=== PATIENT | female | born 1945 | race Caucasian/White ===

== ENCOUNTER 2019-03-17 01:38 | Emergency (ER) | payer BC ==
--- NOTE | 2019-03-17 01:43 | PDOC ---
History of Present Illness - General Stated Complaint: FACIAL DROOP Time Seen by Provider: 03/17/19 01:42 - History of Present Illness Initial Comments: 03/17/19 02:15 The patient is a 73 year old female with a history of HTN, HLD, DM who presents for evaluation of facial droop. The patient reports that she noted mild facial droop earlier yesterday morning with breakfast and noted a swollen sensation to her lips. She states that her co-worker noted her facial droop prompting her presentation to the ED for further evaluation. She denies similar symptoms in the past and otherwise denies fevers, chills, headache, SOB, chest pain, nausea , vomiting, abdominal pain, numbness, tingling, weakness, or changes in urination or bowel movements. tPA Exclusion Checklist 0-3hr - Time Elapsed Date last known well: 03/16/19 Time last known well: 08:00 Elaspsed time: Day(s) and 19 Hour(s) and 29 Minutes - Thrombolytic Therapy Candidate Is the patient eligible for Thrombolytic Therapy?: No - Relative Exclusion Criteria 0-3h Stroke severity too mild: Yes - Ineligibility reason(s) Reasons No tPA given: Outside of window - delayed arrival NIH Stroke Scale - Last Known Well Date/Time & Onset Date Last Known Well: 03/16/19 Time Last Known Well: 08:00 - Initial Evaluation Level of consciousness: Alert Ask patient the month and their age: Answers both correctly Ask patient to open & close eyes; make fist and let go: Obeys both correctly Best gaze (horizontal eye movement): Normal Visual field testing: No visual field loss Facial paresis (Show teeth/raise eyebrows/close eyes tight): Complete paralysis of one or both sides (Upper and lower face) Motor Function: Left Arm: Normal Motor Function: Right Arm: Normal (extends arm 90 (or 45) degrees for 10 seconds without drift Motor Function: Left Leg: Normal (extends leg 30 degrees for 5 seconds without drift) Motor Function: Right Leg: Normal (extends leg 30 degrees for 5 seconds without drift) Limb Ataxia: No ataxia Sensory(Use pinprick test arms,legs,trunk,face/side to side): Normal Best language (Describe picture, name items, read sentences): No Aphasia Dysarthria (read several words): Normal articulation Extinction and Inattention: No abnormality - Total Score NIH Stroke Scale Score: 3 Past History - Past Medical History Home Medications: Ambulatory Orders Peg 400/Hypromellose/Glycerin [Artificial Tears Drops] 1 drop OS [id number] #15 ml 03/17/19 Valacyclovir HCl [Valtrex] 1,000 mg PO TID #21 tablet 03/17/19 predniSONE [Deltasone -] 60 mg PO DAILY #15 tablet 03/17/19 Review of Systems - Review of Systems Comments:: 03/17/19 02:17 Constitutional: No fevers, chills, fatigue, malaise HEENT: Facial Droop. No Rhinorrhea, nasal congestion, visual changes Cardiovascular: No chest pain, syncope, palpitations, lightheadedness Respiratory: No Cough, SOB, Hemoptysis, Gastrointestinal: No Abdominal pain, Nausea, Vomiting, Constipation, Diarrhea, Melena Genitourinary: No Dysuria, Frequency, Urgency, Hesitancy, Hematuria, Flank pain Musculoskeletal: No Myalgia, arthralgia Skin: No rashes, itching, bruising, pallor Neurologic: No Headache, Dizziness, Numbness, Weakness, or Tingling Psychiatric: No Hallucinations. No SI or HI *Physical Exam - Physical Exam Comments: 03/17/19 02:17 General Appearance: Nourished. No Apparent Distress HEENT: EOMI, DORI. No Pharyngeal Erythema, Tonsillar Exudate, Tonsillar Erythema Neck: No Cervical Lymphadenopathy Respiratory/Chest: Lungs Clear, Normal Breath Sounds. No Crackles, Rales, Rhonchi, Wheezing Cardiovascular: Regular Rhythm, Regular Rate. No Murmur, Gallops, Rubs Gastrointestinal/Abdominal: Normal Bowel Sounds, Soft. No Guarding, Rebound, Tenderness Musculoskeletal: No CVA Tenderness Extremity: Normal Capillary Refill Integumentary: Normal Color, Dry, Warm Neurologic: Right sided Cranial Nerve VII Palsy, Fully Oriented, Alert, Normal Mood/Affect, Normal Response, Motor Strength 5/5. Normal Finger to Nose and Heel to Hu[place]h Heart Score/ECG Review #1 ECG reviewed & interpreted by me at: 02:51 General ECG Interpretation: Sinus Rhythm, Normal Rate, Normal Intervals, No acute ischemic changes ED Treatment Course - LABORATORY CBC & Chemistry Diagram: 03/17/19 02:35 03/17/19 02:35 - RADIOLOGY Radiology Studies Ordered: Category Date Time Status HEAD CT (STROKE) [CT] Stat CT Scan 03/17/19 01:42 Ordered Medical Decision Making - Medical Decision Making 03/17/19 02:21 The patient is a 73 year old female with a history of HTN, HLD, DM who presents for evaluation of facial droop. Given the patient's history and physical exam, it is likely the patient's symptoms are due to a morton's palsy as she has complete paralysis of both her upper and lower right sided facial muscles. Head CT was unremarkable as preliminarily read by our paper conservator radiologist. We will obtain a cbc, cmp, troponin, coags, ekg to evaluate further. We will treat with valcyclovir and prednisone and continue to monitor and reassess while here in the ED. 03/17/19 03:34 CBC, cmp, troponin, coags are unremarkable. The patient was reassessed and appear clinically well on exam. We are comfortable discharging the patient home in stable condition. Patient and family made aware of impression and plan, return precautions discussed including but not limited to worsening pain or symptoms, fevers, or signs of infection, chest pain, respiratory distress, inability to tolerate oral intake, dehydration, syncope, or neurologic changes. The patient is to follow up with PMD andas recommended within 1 week, follow up information provided and the patient will call for an appointment. The patient is to take medications including Prednisone and Valcyclovir as instructed for duration of time and continue with supportive care, avoid triggers and precipitants. Patient is safe for outpatient follow-up. *DC/Admit/Observation/Transfer Diagnosis at time of Disposition: Morton's palsy - Discharge Dispostion Disposition: HOME Condition at time of disposition: Stable Decision to Admit order: No - Prescriptions Prescriptions: Peg 400/Hypromellose/Glycerin [Artificial Tears Drops] 1 drop OS [id number] #15 ml predniSONE [Deltasone -] 60 mg PO DAILY #15 tablet Valacyclovir HCl [Valtrex] 1,000 mg PO TID #21 tablet - Referrals - Patient Instructions Printed Discharge Instructions: DI for Morton's Palsy Additional Instructions: 1) Please follow-up with your primary care doctor in the next 2-3 days. Please call tomorrow to schedule a follow up appointment. If you cannot follow up with your doctor within 1 week please return to the Emergency Department for any urgent issues. 2) Your laboratory / imaging results were normal here in the ER. 3) If you have any worsening of symptoms or any other concerns please return to the ER immediately. Return if worsening symptoms including fevers, headache, vomiting, visual or hearing disturbances, abdominal pain, chest pain, shortness of breath, syncope, dehydration, inability to take things by mouth/vomiting, altered mental status, or worsening concerning symptoms. 4) Please continue taking your home medications as directed. Your medications on discharge include Prednisone and Valcyclovir. Side effects may include upset stomach, abdominal pain, vomiting, or diarrhea. Do not drink alcohol with your medications. - Post Discharge Activity
[2019-03-17 01:57] VITALS: BMI 40.6
--- NOTE | 2019-03-17 02:01 | PDOC ---
Attending Attestation - Resident Resident Name: Carlos Mckeon - ED Attending Attestation I have performed the following: I have examined & evaluated the patient, The case was reviewed & discussed with the resident, I agree w/resident's findings & plan - HPI HPI: 03/17/19 01:56 Pt ambulates with left facial droop that began today - Physicial Exam PE: 03/17/19 01:57 Lef sided morton's palsy - Medical Decision Making 03/17/19 01:57 CT head done. 03/17/19 02:03 Patient Name: LARRY MELTON THIS IS A PRELIMINARY REPORT FROM [facility] DATE OF SERVICE: 2019-03-17 01:40:30 IMAGES: 172 EXAM: CT HEAD WITHOUT CONTRAST No prior exams available for comparison. No acute brain parenchymal abnormality. No hemorrhage, mass or acute territorial infarct. Age-related involutional changes and chronic small vessel ischemic changes. Clear visualized paranasal sinuses. Visualized mastoid air cells clear 03/17/19 02:19 Pt with morton palsy. Normal labs and she will be discharged home. 03/17/19 04:09 Pt will take a cab home; she brought herself to the ER.Neurologically intact.
[2019-03-17] MEDS ORDERED: valACYclovir HCL 1000 MG TABLET PO ONE (02:20)
[2019-03-17] MEDS ORDERED: predniSONE 20 MG TABLET (UD) PO ONE (02:20)
[2019-03-17] MEDS ORDERED: predniSONE 20 MG TABLET (UD) ONE (02:41)
[2019-03-17] MEDS ORDERED: valACYclovir HCL 500 MG TABLET (FP) ONE (02:41)
[2019-03-17 02:49] LABS: BASO % 0.5 % (0-2.0); EOS % 2.5 % (0-4.5); HEMATOCRIT 36.8 % (32.4-45.2); HEMOGLOBIN 12.3 GM/dL (10.7-15.3); LYMPH % 16.2 % (8-40); MCH 31.2 pg (25.7-33.7); MCHC 33.5 g/dl (32.0-36.0); MEAN PLT VOLUME 7.3 fl (7.5-11.1); MONO % 5.1 % (3.8-10.2); NEUT % 75.7 % (42.8-82.8); PLATELET COUNT 240 K/MM3 (134-434); RBC 3.95 M/mm3 (3.60-5.2); RDW 13.6 % (11.6-15.6); WHITE BLOOD COUNT 8.5 K/mm3 (4.0-10.0)
[2019-03-17 03:04] LABS: INR 1.02 (0.83-1.09)
[2019-03-17 03:17] LABS: ALBUMIN 3.6 g/dl (3.4-5.0); ALK PHOS 107 U/L (45-117); ANION GAP 5 MMOL/L (8-16); BILIRUBIN,TOTAL 0.3 mg/dL (0.2-1); BLOOD UREA NITROGEN 10 mg/dL (7-18); CALCIUM 8.9 mg/dL (8.5-10.1); CHLORIDE 104 mmol/L (98-107); CHOLESTEROL 197 mg/dL (50-200); CO2 30 mmol/L (21-32); CREATININE 0.6 mg/dL (0.55-1.3); GLUCOSE,RANDOM 128 mg/dL (74-106); HDL CHOLESTEROL 62 mg/dL (40-60); POTASSIUM 3.4 mmol/L (3.5-5.1); SGOT/AST 14 U/L (15-37); SGPT/ALT 20 U/L (13-61); SODIUM 140 mmol/L (136-145); TOT PROT 7.2 g/dl (6.4-8.2); TRIGLYCERIDES 120 mg/dL (0-150)
[2019-03-17 04:18] VITALS: BP 178/78; PULSE 74; TEMP 98.4
--- NOTE | 2019-03-17 12:57 | EKG ---
Test Reason : Blood Pressure : / mmHG Vent. Rate : 070 BPM Atrial Rate : 070 BPM P-R Int : 172 ms QRS Dur : 080 ms QT Int : 408 ms P-R-T Axes : 048 013 055 degrees QTc Int : 440 ms NORMAL SINUS RHYTHM NORMAL ECG Confirmed by MD KIMBER, BRYANNA ([id number]) on 03/17/2019 12:56:59 PM Referred By: Confirmed By:BRYANNA QUIROGA MD
== END 2019-03-17 04:18 | disposition home or self-care (01) ==
LOC: JER 01:38
DX: G51.0 Bell's palsy (principal); I10 Essential (primary) hypertension; E78.5 Hyperlipidemia, unspecified; E11.9 Type 2 diabetes mellitus without complications; Z79.84 Long term (current) use of oral hypoglycemic drugs
CPT/HCPCS: 36415; 70450-TC; 80053; 82465; 82550; 83718; 83721; 84478; 84484; 85025; 85610; 93005; 93010; 99283-25

== ENCOUNTER 2019-08-07 20:34 | Inpatient (IN) | payer BC, OTHER ==
--- NOTE | 2019-08-07 20:51 | PDOC ---
Rapid Medical Evaluation Time Seen by Provider: 08/07/19 20:46 Medical Evaluation: Allergies Allergy/AdvReac Type Severity Reaction Status Date / Time No Known Allergies Allergy Verified 03/17/19 03:39 08/07/19 20:46 The patient presents to the ER with shortness of breath and lightheadedness since Monday. Pt endorses dyspnea on exertion. Exam: lungs CTAB, (-) w/r/r. no pedal edema Orders: labs, EKG, CXR, O2 Pt to proceed to the ER for further evaluation Discharge Disposition - Diagnosis SOB (shortness of breath) - Referrals - Patient Instructions - Post Discharge Activity
[2019-08-07 21:32] LABS: BASO % 0.7 % (0-2.0); EOS % 1.9 % (0-4.5); HEMATOCRIT 39.4 % (32.4-45.2); HEMOGLOBIN 12.7 GM/dL (10.7-15.3); MCH 31.1 pg (25.7-33.7); MCHC 32.2 g/dl (32.0-36.0); MEAN CELL VOLUME 96.5 fl (80-96); MEAN PLT VOLUME 7.3 fl (7.5-11.1); MONO % 5.8 % (3.8-10.2); NEUT % 73.6 % (42.8-82.8); PLATELET COUNT 269 K/MM3 (134-434); RBC 4.08 M/mm3 (3.60-5.2); RDW 14.9 % (11.6-15.6); WHITE BLOOD COUNT 8.3 K/mm3 (4.0-10.0)
[2019-08-07 21:45] LABS: INR 1.11 (0.83-1.09); PROTHROMBIN TIME (PATIENT) 13.1 SEC (9.7-13.0)
[2019-08-07 21:57] LABS: ALBUMIN 3.7 g/dl (3.4-5.0); BILIRUBIN,TOTAL 0.4 mg/dL (0.2-1); BLOOD UREA NITROGEN 9.2 mg/dL (7-18); CALCIUM 8.9 mg/dL (8.5-10.1); CREATININE 0.7 mg/dL (0.55-1.3); TOT PROT 6.8 g/dl (6.4-8.2)
[2019-08-07 21:58] LABS: MAGNESIUM 1.8 mg/dL (1.8-2.4)
--- NOTE | 2019-08-07 22:52 | PDOC ---
Attending Attestation - Resident Resident Name: Amee Deleon - ED Attending Attestation I have performed the following: I have examined & evaluated the patient, The case was reviewed & discussed with the resident, I agree w/resident's findings & plan - HPI HPI: 08/08/19 03:38 see resident hpi - Physicial Exam PE: 08/08/19 03:38 agree with resident exam - Medical Decision Making 08/08/19 03:38 73 yo female with increasing KRUSE lower ext US neg for DVT CXR shows inc interstial markings will admit for further evaluation
--- NOTE | 2019-08-07 23:10 | PDOC ---
History of Present Illness - General Chief Complaint: Shortness of Breath Stated Complaint: SOB (SENT BY PCP) Time Seen by Provider: 08/07/19 20:46 - History of Present Illness Initial Comments: 08/07/19 23:09 73 year old female with a history of HTN, HLD, DM who presents with shortness of breath while walking occurring for 4 days. She denies that the SOB gets worse with lying back, denies chest pain, denies swelling in the legs, denies recent illness, fever, nausea, vomiting, abdominal pain. She has no other complaints at bedside. She does not require oxygen at baseline, but does walk with a cane. SHe states she saw her PCP about her symptoms and was treated with lasix with some improvement. She reports that today her SOB was worse and she called her PCP who told her to come to the ED for workup. ROS GENERAL/CONSTITUTIONAL: No fever or chills. No weakness. HEAD, EYES, EARS, NOSE AND THROAT: No change in vision. No ear pain or discharge. No sore throat. CARDIOVASCULAR: No chest pain, + shortness of breath RESPIRATORY: No cough, wheezing, or hemoptysis. GASTROINTESTINAL: No nausea, vomiting, diarrhea or constipation. GENITOURINARY: No dysuria, frequency, or change in urination. MUSCULOSKELETAL: No joint or muscle swelling or pain. No neck or back pain. SKIN: No rash NEUROLOGIC: No headache, vertigo, loss of consciousness, or change in strength/ sensation. PE GENERAL: Awake, alert, and fully oriented, in no acute distress HEAD: No signs of trauma, normocephalic, atraumatic EYES: EOMI, sclera anicteric, conjunctiva clear ENT: oropharynx clear without exudates. Moist mucosa NECK: Normal ROM, supple LUNGS: No distress, speaks full sentences, clear to auscultation bilaterally HEART: Regular rate and rhythm, normal S1 and S2, no murmurs, rubs or gallops, peripheral pulses normal and equal bilaterally. ABDOMEN: Soft, nontender, normoactive bowel sounds. No guarding, no rebound. No masses EXTREMITIES : Normal inspection, trace edema bilateral calves R > L, No clubbing or cyanosis. NEUROLOGICAL: Cranial nerves II through XII grossly intact. Normal speech, no focal sensorimotor deficits SKIN: Warm, Dry, normal turgor, no rashes or lesions noted MDM DDX including but not limited to: chf exacerb vs pe r/o acs W/U: - cbc, cmp, trop, ekg, cxr, duplex ED Course: labs within normal ekg: normal sinus at 72bpm ddimer 882 duplex negative plan for admit and chest cta Amee Deleon, PGY2 Emergency Medicine 08/08/19 05:41 Past History - Past Medical History Allergies/Adverse Reactions: Allergies Allergy/AdvReac Type Severity Reaction Status Date / Time No Known Allergies Allergy Verified 08/07/19 20:47 Home Medications: Ambulatory Orders Darifenacin Hydrobromide [Darifenacin ER] 15 mg PO 03/17/19 Lisinopril 20 mg PO DAILY 03/17/19 Peg 400/Hypromellose/Glycerin [Artificial Tears Drops] 1 drop OS [id number] PRN #1 bottle 03/17/19 Rosuvastatin [Crestor -] 10 mg PO DAILY 03/17/19 Valacyclovir HCl [Valtrex] 1,000 mg PO TID #21 tablet 03/17/19 metFORMIN HCL [Metformin HCl] 500 mg PO 03/17/19 predniSONE [Deltasone -] 60 mg PO DAILY #21 tablet 03/17/19 COPD: No Diabetes: Yes HTN: Yes Hypercholesterolemia: Yes - Suicide/Smoking/Psychosocial Hx Smoking History: Never smoked *Physical Exam - Vital Signs Last Vital Signs Temp Pulse Resp BP Pulse Ox 97.8 F 76 28 H 137/81 96 08/07/19 20:47 08/07/19 20:47 08/07/19 20:47 08/07/19 20:47 08/07/19 21:40 ED Treatment Course - LABORATORY CBC & Chemistry Diagram: 08/07/19 21:12 08/07/19 21:12 - ADDITIONAL ORDERS Additional order review: Laboratory Results 08/07/19 08/07/19 08/07/19 21:12 21:12 21:12 PT with INR 13.10 H INR 1.11 H Sodium 142 Potassium 4.0 Chloride 102 Carbon Dioxide 36 H Anion Gap 4 L BUN 9.2 Creatinine 0.7 Est GFR (CKD-EPI)AfAm 99.62 Est GFR (CKD-EPI)NonAf 85.95 Random Glucose 97 Calcium 8.9 Magnesium 1.8 Total Bilirubin 0.4 AST 13 L ALT 21 Alkaline Phosphatase 107 Creatine Kinase 76 Troponin I < 0.02 B-Natriuretic Peptide 188.0 H Total Protein 6.8 Albumin 3.7 08/07/19 21:12 RBC 4.08 MCV 96.5 H MCHC 32.2 RDW 14.9 MPV 7.3 L Neutrophils % 73.6 Lymphocytes % 18.0 Monocytes % 5.8 Eosinophils % 1.9 Basophils % 0.7 *DC/Admit/Observation/Transfer Diagnosis at time of Disposition: SOB (shortness of breath) - Discharge Dispostion Decision to Admit order: Yes - Referrals Referrals: Anika Mcgraw MD [Primary Care Provider] - - Patient Instructions - Post Discharge Activity
--- NOTE | 2019-08-08 08:54 | HP ---
Admitting History and Physical - Primary Care Physician PCP: Tierra Jett S - Admission Chief Complaint: SOB History of Present Illness: 73 year old female with a history of HTN, HLD, DM who presents with shortness of breath while walking occurring for 4 days. She denies that the SOB gets worse with lying back, denies chest pain, denies swelling in the legs, denies recent illness, fever, nausea, vomiting, abdominal pain. She has no other complaints at bedside. She does not require oxygen at baseline, but she has home Bipap for sleep apneea; she does walk with a cane. SHe states she saw her PCP about her symptoms and was treated with lasix with some improvement. She reports that today her SOB was worse and she called her PCP dr Pricilla Hung who told her to come to the ED for workup. History Source: Patient, Medical Record Limitations to Obtaining History: Poor Historian - Past Medical History Cardiovascular: Yes: HTN Pulmonary: Yes: COPD - Smoking History Smoking history: Never smoked Have you smoked in the past 12 months: No - Alcohol/Substance Use Hx Alcohol Use: No History of Substance Use: reports: None - Social History Usual Living Arrangement: Yes: Alone History of Recent Travel: No Home Medications - Allergies Allergies/Adverse Reactions: Allergies Allergy/AdvReac Type Severity Reaction Status Date / Time egg Allergy Verified 08/10/19 13:05 milk Allergy Verified 08/10/19 13:06 - Home Medications Home Medications: Ambulatory Orders Darifenacin Hydrobromide [Darifenacin ER] 15 mg PO 03/17/19 Lisinopril 20 mg PO DAILY 03/17/19 Peg 400/Hypromellose/Glycerin [Artificial Tears Drops] 1 drop OS [id number] PRN #1 bottle 03/17/19 Rosuvastatin [Crestor -] 10 mg PO DAILY 03/17/19 Valacyclovir HCl [Valtrex] 1,000 mg PO TID #21 tablet 03/17/19 metFORMIN HCL [Metformin HCl] 500 mg PO 03/17/19 predniSONE [Deltasone -] 60 mg PO DAILY #21 tablet 03/17/19 Family Disease History - Family Disease History Family History: Unremarkable Review of Systems - Review of Systems Constitutional: reports: Lethargy, Weakness (general). denies: Chills, Fever Eyes: denies: Blind Spots, Blurred Vision, Double Vision HENT: denies: Difficult Swallowing, Ear Pain, Epistaxis Neck: denies: Decreased ROM, Tenderness Cardiovascular: reports: Shortness of Breath. denies: Chest Pain, Edema, Palpitations Respiratory: reports: Cough, Exercise Intolerance, Snoring, SOB, SOB on Exertion. denies: Hemoptysis, Orthopnea, PND, Wheezing Gastrointestinal: denies: Abdominal Pain, Constipation, Diarrhea, Melena, Rectal Bleeding, Vomiting Genitourinary: denies: Dysuria, Flank Pain, Frequency Musculoskeletal: denies: Back Pain, Joint Pain Neurological: denies: Change in LOC, Change in Speech, Confusion, Dizziness Endocrine: denies: Excessive Sweating, Flushing, Intolerance to Cold, Unexplained Weight Gain, Unexplained Weight Loss Hematology/Lymphatic: denies: Easily Bruised, Excessive Bleeding, Swollen Glands Psychiatric: denies: Altered Sleep Pattern, Anxiety, Depression, Suicidal Physical Examination Vital Signs: Vital Signs Temperature 97.8 F 08/07/19 20:47 Pulse Rate 81 08/08/19 07:53 Respiratory Rate 26 H 08/08/19 07:53 Blood Pressure 131/63 08/08/19 07:53 O2 Sat by Pulse Oximetry (%) 92 L 08/08/19 07:53 Findings/Remarks: pt seen in ER on O2 NC; sleepy but arousable Constitutional: Yes: Mild Distress (some cough some SOB) Eyes: Yes: Conjunctiva Clear HENT: Yes: Atraumatic Neck: Yes: Supple Cardiovascular: Yes: Regular Rate and Rhythm Respiratory: Yes: Diminished Gastrointestinal: Yes: Soft. No: Tenderness Renal/: No: Hematuria Musculoskeletal: No: Joint Stiffness, Joint Swelling Extremities: No: Cold, Cool, Cyanosis Edema: Yes (trace pretibial bilat.) Integumentary: No: Rash, Venous Stasis Changes Neurological: Yes: WNL, Alert, Oriented ...Motor Strength: WNL Psychiatric: Yes: WNL, Alert, Oriented. No: Agitated, Suicidal Ideation Labs: CBC, BMP 08/07/19 21:12 08/07/19 21:12 Imaging - Results Chest X-ray: Report Reviewed X-ray: Report Reviewed Cat Scan: Report Reviewed Other: Report Reviewed Assessment/Plan 73 year old female with a history of HTN, HLD, DM who presents with shortness of breath while walking occurring for 4 days. Initially slightly better with po lasix but today worse, also some dry cough; on O2 NC sleepy but arousable check ABG; might need bipap admit to monitored unit pulm and cardiology eval chest CTA done d/w IR no PE but small effusion and possible early PNA: iv lasix , iv ATB Nebs iv steroids f/u labs CE prognosis guarded d/w pulm and PCP dr Pricilla hung d/w ER staff d/w pt t time 75 min
[2019-08-08] MEDS: RANITIDINE HCL 150 MG TABLET (FP) PO SCH (09:59)
[2019-08-08] MEDS: SOLIFENACIN SUCCINATE 5 MG TAB PO SCH (09:59)
[2019-08-08] MEDS: methylPREDNISolone NA SUCC 40 MG/1 ML VIAL IVPUSH SCH ×2 (09:59→18:13)
[2019-08-08] MEDS: LISINOPRIL 20 MG TABLET (FP) PO SCH (09:59)
[2019-08-08] MEDS: HEPARIN NA (PORCINE) 5,000 UNITS/ML 1ML VIAL SQ SCH ×2 (09:59→21:54)
[2019-08-08] MEDS ORDERED: AZITHROMYCIN IVPB 500 MG/250 ML BAG IVPB ONE (10:14)
[2019-08-08] MEDS ORDERED: CEFTRIAXONE 2 GM/100 ML BAG IVPB ONE (10:14)
[2019-08-08] MEDS: CEFTRIAXONE 1 GM in DEXTROSE 5%-WATER - 50 ML IVPB SCH (10:33)
[2019-08-08] MEDS ORDERED: PT OWN MED DRAWER 7, Y5N ONE (10:55)
[2019-08-08] MEDS: AZITHROMYCIN IVPB 500 MG/250 ML BAG IVPB SCH (11:16)
[2019-08-08] MEDS: INSULIN SLIDING SCALE (NOVOLOG) 1 VIAL SQ SCH ×3 (11:41→21:55)
[2019-08-08] MEDS: FUROSEMIDE 40 MG/4 ML INJECTABLE VIAL IVPUSH SCH (11:41)
[2019-08-08 11:55] LABS: ARTERIAL BLD GAS O2 SATURATION 92.9 % (95-98); ARTERIAL BLOOD GAS BASE EXCESS 4.6 meq/l (-2-2); ARTERIAL BLOOD GAS PO2 79.8 mmHg (80-100)
[2019-08-08 11:56] LABS: ALLENS TEST POSITIVE
[2019-08-08 11:58] LABS: ARTERIAL BLOOD GAS PCO2 98.9 mmHg (35-45); ARTERIAL BLOOD GAS pH 7.19 (7.35-7.45)
--- NOTE | 2019-08-08 12:41 | CON.CARD ---
Cardiology Consult (text) - Consultation Consultation Note: cc: sob hpi: 73 f hx htn, hld, dm, here with sob for past few days. No cp palps dizzy loc pnd orthopnea le edema. No known hx hrt dz or lung dz. No smoking hx. Currently getting treated with iv lasix and iv steroids in er. pmh: per hpi psh: nc social: no tob fam: no premature cad ros: per hpi; all others nl meds: Home Medications Medication Instructions Recorded Darifenacin Hydrobromide 15 mg PO 03/17/19 [Darifenacin ER] Lisinopril 20 mg PO DAILY 03/17/19 Peg 400/Hypromellose/Glycerin 1 drop OS [id number] PRN #1 bottle 03/17/19 [Artificial Tears Drops] Rosuvastatin [Crestor -] 10 mg PO DAILY 03/17/19 Valacyclovir HCl [Valtrex] 1,000 mg PO TID #21 tablet 03/17/19 metFORMIN HCL [Metformin HCl] 500 mg PO 03/17/19 predniSONE [Deltasone -] 60 mg PO DAILY #21 tablet 03/17/19 pe: Vital Signs Period Temp Pulse Resp BP Sys/Crouch Pulse Ox Last 24 Hr 97.8 F 76-81 26-28 131-137/63-81 89-96 nad no jvd rrr s1s2 no mrg dec bs bl, bibasilar crackles, nl eff aao3 no le e/c/c abd nt nd pos bs no jaundice diaphroesis pos dp pt no carotid bruits Laboratory Last Values WBC 8.3 K/mm3 (4.0-10.0) 08/07/19 21:12 RBC 4.08 M/mm3 (3.60-5.2) 08/07/19 21:12 Hgb 12.7 GM/dL (10.7-15.3) 08/07/19 21:12 Hct 39.4 % (32.4-45.2) 08/07/19 21:12 MCV 96.5 fl (80-96) H 08/07/19 21:12 MCH 31.1 pg (25.7-33.7) 08/07/19 21:12 MCHC 32.2 g/dl (32.0-36.0) 08/07/19 21:12 RDW 14.9 % (11.6-15.6) 08/07/19 21:12 Plt Count 269 K/MM3 (134-434) 08/07/19 21:12 MPV 7.3 fl (7.5-11.1) L 08/07/19 21:12 Absolute Neuts (auto) 6.1 K/mm3 (1.5-8.0) 08/07/19 21:12 Neutrophils % 73.6 % (42.8-82.8) 08/07/19 21:12 Lymphocytes % 18.0 % (8-40) 08/07/19 21:12 Monocytes % 5.8 % (3.8-10.2) 08/07/19 21:12 Eosinophils % 1.9 % (0-4.5) 08/07/19 21:12 Basophils % 0.7 % (0-2.0) 08/07/19 21:12 Nucleated RBC % 0 % (0-0) 08/07/19 21:12 PT with INR 13.10 SEC (9.7-13.0) H 08/07/19 21:12 INR 1.11 (0.83-1.09) H 08/07/19 21:12 D-Dimer 882 ng/ml (0-500) H 08/08/19 03:30 Anticoagulation Therapy No Result Required. 08/08/19 11:45 Puncture Site Right radial 08/08/19 11:45 ABG pH 7.19 (7.35-7.45) L* 08/08/19 11:45 ABG pCO2 at Pt Temp 98.9 mmHg (35-45) H* 08/08/19 11:45 ABG pO2 at Pt Temp 79.8 mmHg (80-100) L 08/08/19 11:45 ABG HCO3 36.1 mmol/L (22-27) H 08/08/19 11:45 ABG O2 Sat (Measured) 92.9 % (95-98) L 08/08/19 11:45 ABG O2 Content 16.3 % vol 08/08/19 11:45 ABG Base Excess 4.6 meq/l (-2-2) H 08/08/19 11:45 Sven Test Positive 08/08/19 11:45 O2 Delivery Device No Result Required. 08/08/19 11:45 Oxygen Flow Rate 3l 08/08/19 11:45 Vent Mode No Result Required. 08/08/19 11:45 Vent Rate No Result Required. 08/08/19 11:45 Mechanical Rate No Result Required. 08/08/19 11:45 Pressure Support Vent No Result Required. 08/08/19 11:45 Sodium 142 mmol/L (136-145) 08/07/19 21:12 Potassium 4.0 mmol/L (3.5-5.1) 08/07/19 21:12 Chloride 102 mmol/L (98-107) 08/07/19 21:12 Carbon Dioxide 36 mmol/L (21-32) H 08/07/19 21:12 Anion Gap 4 MMOL/L (8-16) L 08/07/19 21:12 BUN 9.2 mg/dL (7-18) 08/07/19 21:12 Creatinine 0.7 mg/dL (0.55-1.3) 08/07/19 21:12 Est GFR (CKD-EPI)AfAm 99.62 08/07/19 21:12 Est GFR (CKD-EPI)NonAf 85.95 08/07/19 21:12 POC Glucometer 118 UNITS (80-120) 08/08/19 11:34 Random Glucose 97 mg/dL (74-106) 08/07/19 21:12 Calcium 8.9 mg/dL (8.5-10.1) 08/07/19 21:12 Magnesium 1.8 mg/dL (1.8-2.4) 08/07/19 21:12 Total Bilirubin 0.4 mg/dL (0.2-1) 08/07/19 21:12 AST 13 U/L (15-37) L 08/07/19 21:12 ALT 21 U/L (13-61) 08/07/19 21:12 Alkaline Phosphatase 107 U/L (45-117) 08/07/19 21:12 Creatine Kinase 76 U/L (26-192) 08/07/19 21:12 Troponin I < 0.02 ng/ml (0.00-0.05) 08/07/19 21:12 B-Natriuretic Peptide 188.0 pg/ml (5-125) H 08/07/19 21:12 Total Protein 6.8 g/dl (6.4-8.2) 08/07/19 21:12 Albumin 3.7 g/dl (3.4-5.0) 08/07/19 21:12 cta chest: no pe, mild chf ecg: sr nl intervals no ischemic changes a/p: 73 f hx htn, hld, dm, here with sob for past few days. sob, acute chf: -no signs acs, cont shahla on tele -check echo -continue with iv lasix, daily wts, daily chem7 -pulm eval pending as well htn: -cont home meds hld: -cont statin
--- NOTE | 2019-08-08 12:42 | EKG ---
Test Reason : Blood Pressure : / mmHG Vent. Rate : 072 BPM Atrial Rate : 072 BPM P-R Int : 180 ms QRS Dur : 084 ms QT Int : 386 ms P-R-T Axes : 044 027 065 degrees QTc Int : 422 ms NORMAL SINUS RHYTHM WITH SINUS ARRHYTHMIA NORMAL ECG WHEN COMPARED WITH ECG OF 17-MAR-2019 02:15, NO SIGNIFICANT CHANGE WAS FOUND Confirmed by MALDONADO LUNDBERG MD ([id number]) on 08/08/2019 12:41:55 PM Referred By: Confirmed By:MALDONADO LUNDBERG MD
--- NOTE | 2019-08-08 13:52 | CONSULT ---
Consultation: REQUESTING PROVIDER: Dr. Lin CONSULT REQUEST: We have been asked to medically evaluate this patient for acute on chronic hypercapnic respiratory failure. HISTORY OF PRESENT ILLNESS: 73 y/o F with PMH HTN, NIDDM, HLD, PONCHO on CPAP, who presents to the ED c/o KRUSE since Monday. Per pt, at baseline, she is able to ambulate many blocks without difficulty. States that during this time, she has had trouble ambulating a few steps. No inciting fx; denies recent illnesses, allergies, cough, ADAMES, fever, chills, or changes in urinary or bowel function. Only endorses "odd sensation" in her R frontal region, which is a/w her SOB. Does not feel SOB at rest. Per pt , she has been told previously that she has PONCHO and she states that she uses a CPAP at night. While in the ED, pt ABG revealed pH 7.19/ Pc02 98.9/ p02 79.8/ HCO3 36.1. She was subsequently placed on BiPAP, sat 98%. She is on 14/05, Fi02 35%, RR 16. D/t her SOB and incidental elevated d-dimer, she underwent CTA which was (-) for PE. Only revealing trace R pl eff, bibasilar and RUL atelectasis and cardiomegaly. ICU consulted for acute on chronic hypercapnic respiratory failure d/t initial ABG. Pt ambulates w/ a cane at baseline. On examination, she is mentating well. REVIEW OF SYSTEMS: +SOB +KRUSE PHYSICAL EXAMINATION Vital Signs - 24 hr 08/07/19 08/07/19 08/08/19 20:47 21:40 07:53 Temperature 97.8 F Pulse Rate 76 Pulse Rate [ 81 Radial] Respiratory 28 H 26 H Rate Blood Pressure 137/81 Blood Pressure 131/63 [Right Arm] O2 Sat by Pulse 89 L 96 92 L Oximetry (%) 08/08/19 12:40 Temperature Pulse Rate Pulse Rate [ Radial] Respiratory Rate Blood Pressure Blood Pressure [Right Arm] O2 Sat by Pulse 98 Oximetry (%) GENERAL: Pleasant. on BiPAP. in NAD HEAD: Normal with no signs of trauma. EYES: Pupils equal, round and reactive to light, extraocular movements intact, sclera anicteric, conjunctiva clear. EARS, NOSE, THROAT: Ears normal, nares patent, oropharynx clear without exudates. Moist mucous membranes. NECK: Normal range of motion, supple without lymphadenopathy LUNGS: +decreased breath sounds, mild bibasilar crackles. no accessory m usage HEART: Regular rate and rhythm, normal S1 and S2 without murmur, rub or gallop. ABDOMEN: Obese, soft, nontender, not distended, normoactive bowel sounds, no guarding, no rebound LOWER EXTREMITIES: 2+ pt pulses, warm, well-perfused. Without LE edema. + erythema on RLE; without TTP. NEUROLOGICAL: Cranial nerves II-XII intact. Normal speech. PSYCHIATRIC: Cooperative. Laboratory Tests 08/07/19 08/07/19 08/07/19 21:12 21:12 21:12 WBC 8.3 Hgb 12.7 Hct 39.4 Plt Count 269 Sodium 142 Potassium 4.0 Chloride 102 Carbon Dioxide 36 H Anion Gap 4 L BUN 9.2 Creatinine 0.7 Troponin I < 0.02 B-Natriuretic Peptide 188.0 H Initial ABG 08/08/19 11:45 ABG pH 7.19 L* ABG pCO2 at Pt Temp 98.9 H* ABG pO2 at Pt Temp 79.8 L ABG HCO3 36.1 H ABG O2 Sat (Measured) 92.9 L Repeat ABG 08/08/19 14:05 ABG pH 7.24 L ABG pCO2 at Pt Temp 82.2 H* ABG pO2 at Pt Temp 77.1 L ABG HCO3 34.3 H ABG O2 Sat (Measured) 93.3 L EKG: NSR, 72 bpm, qtc ~420. without acute st-t wave changes CXR: +cardiomegaly, congestion. atelectasis R base CTA: (-) PE. trace R pl effusion. bibasilar and RUL atelectasis. cardiomegaly. congestion duplex: (-) DVT. b/l hsieh's cysts ASSESSMENT/PLAN: 73 y/o F with PMH HTN, NIDDM, HLD, PONCHO on CPAP, who presents to the ED c/o KRUSE since Monday. Pt admitted to ICU for acute on chronic hypercapnic respiratory failure. NEURO -AAO x 3. mentating well PULM #Acute on chronic hypercapnic respiratory failure 2/2 CHF exacerbation, PONCHO, OHS -with possible acute CHF exacerbation; also w baseline PONHCO, and likely OHS. hypercapnic however w good oxygenation -c/w biPAP to aid work of breathing. settings changed to: 14/6/ RR 20/ 35% 02 -initial ABG revealing acute resp acidosis pH 7.19/ pc02 98.9/ p02 79.8 . mentating well -repeat AB.24/82.2/HCO3 34.3 -recheck ABG, CXR in AM -duonebs RQID, nebs PRN -medrol 40mg q8h -end tidal CO2 monitoring -low suspicion for PNA currently -f/u blood, ucx, UA, legionella CARDIO #HTN- controlled -c/w lisinopril #Acute CHF exacerbation -f/u ECHO -c/w lasix 40mg IVP qd, daily wts, strict i/o, na control 2g -BiPAP for work of breathing -Cardio consulted: Dr. Guevara #HLD -c/w statin #F/E/N avoid IVF d/t CHF continue to follow lytes NPO while on BiPAP #PPX DVT: Hep sq #code status Full code; d/w patient. ok with intubation if needed makes decisions on own #Dispo admitted to ICU Dispo: We will continue to follow the patient. Thank you for this consultative opportunity. Visit type - Emergency Visit Emergency Visit: No - New Patient This patient is new to me today: Yes Date on this admission: 08/08/19 - Critical Care Critical Care patient: Yes Total Critical Care Time (in minutes): 45 Critical Care Statement: The care of this patient involved high complexity decision making to prevent further life threatening deterioration of the patient 's condition and/or to evaluate & treat vital organ system(s) failure or risk of failure.
[2019-08-08] MEDS ORDERED: ALBUTEROL SO4 0.083% IH SOL 2.5 MG/3 ML VIAL.NEB. NEB PRN (14:04)
[2019-08-08 14:16] LABS: ARTERIAL BLD GAS O2 SATURATION 93.3 % (95-98); ARTERIAL BLOOD GAS BASE EXCESS 4.3 meq/l (-2-2); ARTERIAL BLOOD GAS PO2 77.1 mmHg (80-100); ARTERIAL BLOOD GAS pH 7.24 (7.35-7.45)
[2019-08-08 14:18] LABS: ALLENS TEST POSITIVE
[2019-08-08 14:19] LABS: ARTERIAL BLOOD GAS PCO2 82.2 mmHg (35-45)
--- NOTE | 2019-08-08 14:28 | PN ---
Teaching Attending Note Name of Resident: Candace Warner ATTENDING PHYSICIAN STATEMENT I saw and evaluated the patient. I reviewed the resident's note and discussed the case with the resident. I agree with the resident's findings and plan as documented. SUBJECTIVE: Patient seen and examined in the ER. In brief, HTN, NIDDM, HLD, and PONCHO on CPAP. KRUSE since Monday. Some dry cough. No fever or chills. No hemoptysis or night sweats. In the ER noted to have severe hypercapnea, although she was awake and responsive. NIPPV settings were adjusted with some mild improvement in ABG. Will be monitored in the ICU. Intake & Output 08/05/19 08/06/19 08/07/19 08/08/19 23:59 23:59 23:59 23:59 Weight 215 lb Last Vital Signs Temp Pulse Resp BP Pulse Ox 98.1 F 61 16 135/55 L 98 08/08/19 14:03 08/08/19 14:03 08/08/19 14:03 08/08/19 14:03 08/08/19 12:40 Active Medications Albuterol Sulfate (Ventolin 0.083% Nebulizer Soln -) 1 amp NEB Q4H PRN PRN Reason: SHORT OF BREATH/WHEEZING Albuterol/Ipratropium (Duoneb -) 1 amp NEB RQID [facility] Chlorhexidine Gluconate (Hibiclens For Decolonization -) 1 applic TP HS [facility] Furosemide (Lasix Injection -) 40 mg IVPUSH DAILY [facility] Last Admin: 08/08/19 11:41 Dose: 40 mg Heparin Sodium (Porcine) (Heparin -) 5,000 unit SQ BID [facility] Last Admin: 08/08/19 09:59 Dose: 5,000 unit Azithromycin (Zithromax 500mg Ivpb (Pre-Docked)) 500 mg in 250 mls @ 250 mls/ hr IVPB DAILY [facility] Last Admin: 08/08/19 11:16 Dose: 250 mls/hr Ceftriaxone Sodium 1 gm/ (Dextrose) 50 mls @ 100 mls/hr IVPB DAILY [facility] Last Admin: 08/08/19 10:33 Dose: 100 mls/hr Insulin Aspart (Novolog Vial Sliding Scale -) 1 vial SQ ACHS [facility]; Protocol Last Admin: 08/08/19 11:41 Dose: Not Given Lisinopril (Prinivil) 20 mg PO DAILY [facility] Last Admin: 08/08/19 09:59 Dose: 20 mg Methylprednisolone Sodium Succinate (Solu-Medrol -) 40 mg IVPUSH Q8H-IV [facility] Last Admin: 08/08/19:59 Dose: 40 mg Mupirocin (Bactroban Ointment (For Decolonization) -) 1 applic NS BID [facility] Stop: 08/13/19 21:59 Ranitidine HCl (Zantac -) 150 mg PO DAILY [facility] Last Admin: 08/08/19 09:59 Dose: 150 mg Rosuvastatin Calcium (Crestor -) 10 mg PO HS [facility] Solifenacin (Vesicare -) 10 mg PO DAILY [facility] Last Admin: 08/08/19 09:59 Dose: 10 mg GENERAL: Awake on NIPPV support HEAD: Normal with no signs of trauma. EYES: Pupils equal, round and reactive to light, extraocular movements intact, sclera anicteric, conjunctiva clear. EARS, NOSE, THROAT: Ears normal, nares patent, oropharynx clear without exudates. Moist mucous membranes. NECK: Normal range of motion, supple without lymphadenopathy LUNGS: NIPPV, bilateral rales and rhonchi, mild wheeze HEART: Regular rate and rhythm, normal S1 and S2 without murmur, rub or gallop. ABDOMEN: Obese, soft, nontender, not distended, normoactive bowel sounds, no guarding, no rebound LOWER EXTREMITIES: 2+ pt pulses, warm, well-perfused. Without LE edema. + erythema on RLE; without TTP. NEUROLOGICAL: Non-focal PSYCHIATRIC: Cooperative. Laboratory Tests 08/07/19 08/07/19 08/07/19 21:12 21:12 21:12 WBC 8.3 Hgb 12.7 Hct 39.4 Plt Count 269 Sodium 142 Potassium 4.0 Chloride 102 Carbon Dioxide 36 H Anion Gap 4 L BUN 9.2 Creatinine 0.7 Troponin I < 0.02 B-Natriuretic Peptide 188.0 H Initial ABG 08/08/19 11:45 ABG pH 7.19 L* ABG pCO2 at Pt Temp 98.9 H* ABG pO2 at Pt Temp 79.8 L ABG HCO3 36.1 H ABG O2 Sat (Measured) 92.9 L EKG: NSR, 72 bpm, qtc ~420. without acute st-t wave changes CXR: +cardiomegaly, congestion. atelectasis R base CTA: (-) PE. trace R pl effusion. bibasilar and RUL atelectasis. cardiomegaly. congestion duplex: (-) DVT. b/l hsieh's cysts ASSESSMENT/PLAN: Acute on suspected chronic respiratory failure DM HLD PONCHO on CPAP R/O PNA: low clinical suspicion R/O CHF NIPPV setting were adjusted End tidal CO2 monitoring Strict I & O Empiric ABX coverage for now Check cultures BD TX VTE prophylaxis Lasix IVP Requires ICU monitoring for tenuous respiratory status Dr Ross Critical care time spent in reviewing chart, evaluating patient and formulating plan - 36 minutes.
[2019-08-08] MEDS ORDERED: FUROSEMIDE 40 MG/4 ML INJECTABLE VIAL ONE (15:16)
[2019-08-08 17:05] LABS: ARTERIAL BLD GAS O2 SATURATION 92.3 % (95-98); ARTERIAL BLOOD GAS BASE EXCESS 5.8 meq/l (-2-2); ARTERIAL BLOOD GAS PO2 68.9 mmHg (80-100); ARTERIAL BLOOD GAS pH 7.29 (7.35-7.45)
[2019-08-08 17:08] LABS: ALLENS TEST POSITIVE
[2019-08-08] MEDS: ALBUTEROL SO4 2.5/IPRATROPIUM 0.5 INH SOL 3 ML VIAL.NEB. NEB SCH ×2 (17:13→20:30)
[2019-08-08 17:18] LABS: ARTERIAL BLOOD GAS PCO2 73.4 mmHg (35-45)
--- NOTE | 2019-08-08 17:42 | ECHO ---
Name: LARRY MELTON Exam:Adult Echocardiogram Study Date: 08/08/2019 03:18 PM Age: 73 yrs Reason For Study: SOB Height: 62 in Weight: 215 lb BSA: 2.0 m2 MMode/2D Measurements & Calculations IVSd: 1.1 cm Ao root diam: 2.5 cm LVIDd: 4.2 cm LVIDs: 3.0 cm LVPWd: 1.1 cm EDV(Teich): 79.2 ml LVOT diam: 2.0 cm ESV(Teich): 35.8 ml Doppler Measurements & Calculations MV E max dilshad: 99.7 cm/sec Ao V2 max: 242.3 cm/sec MV A max dilshad: 104.6 cm/sec Ao max P.5 mmHg MV E/A: 0.95 Ao V2 mean: 158.0 cm/sec MV dec time: 0.25 sec Ao mean P.6 mmHg Ao V2 VTI: 54.5 cm VASILE(I,D): 1.9 cm2 VASILE(V,D): 1.9 cm2 LV V1 max P.8 mmHg SV(LVOT): 106.3 ml LV V1 mean P.2 mmHg LV V1 max: 139.7 cm/sec LV V1 mean: 94.3 cm/sec LV V1 VTI: 32.9 cm TR max dilshad: 257.9 cm/sec Med Peak E' Dilshad: 3.8 cm/sec TR max P.8 mmHg Med E/e': 26.2 Lat Peak E' Dilshad: 5.3 cm/sec Lat E/e': 18.9 Procedure A complete two-dimensional transthoracic echocardiogram was performed (2D, M-mode, Doppler and color flow Doppler). The study was technically difficult with many images being suboptimal in quality. Left Ventricle The left ventricular size, thickness and function are normal. The left ventricular ejection fraction is normal. Ejection Fraction = 55-60%. No regional wall motion abnormalities noted. Right Ventricle The right ventricle is normal in size and function. Atria Normal left and right atrial size and function. Mitral Valve There is no mitral regurgitation noted. Tricuspid Valve There is mild tricuspid regurgitation. Right ventricular systolic pressure is normal. Aortic Valve Mild valvular aortic stenosis. No aortic regurgitation is present. Pulmonic Valve There is no pulmonic valvular regurgitation. Great Vessels The aortic root is normal size. Pericardium/Pleura There is no pericardial effusion. Interpretation Summary The study was technically difficult with many images being suboptimal in quality. The left ventricular size, thickness and function are normal The right ventricle is normal in size and function. There is mild tricuspid regurgitation. Mild valvular aortic stenosis. MD Raul Guevara 08/08/2019 05:42 PM
[2019-08-08] MEDS: MUPIROCIN 2% TOPICAL OINTMENT FOR DECOLONIZATION NS SCH (21:54)
[2019-08-08] MEDS: ROSUVASTATIN CA 10 MG TABLET (FP) PO SCH (21:54)
[2019-08-08] MEDS: CHLORHEXIDINE GLUCONATE 4% CLEANSER FOR DECOLONIZATION TP SCH (21:55)
[2019-08-09] MEDS: methylPREDNISolone NA SUCC 40 MG/1 ML VIAL IVPUSH SCH ×3 (01:59→17:08)
[2019-08-09] MEDS: INSULIN SLIDING SCALE (NOVOLOG) 1 VIAL SQ SCH ×4 (06:29→23:21)
[2019-08-09 06:35] LABS: ARTERIAL BLOOD GAS BASE EXCESS 7.1 meq/l (-2-2); ARTERIAL BLOOD GAS PCO2 67.3 mmHg (35-45); ARTERIAL BLOOD GAS PO2 77.1 mmHg (80-100); ARTERIAL BLOOD GAS pH 7.33 (7.35-7.45)
[2019-08-09 06:39] LABS: ALLENS TEST POSITIVE
[2019-08-09 07:05] LABS: BASO % 0.1 % (0-2.0); HEMATOCRIT 37.5 % (32.4-45.2); HEMOGLOBIN 12.3 GM/dL (10.7-15.3); LYMPH % 4.2 % (8-40); MCH 31.4 pg (25.7-33.7); MCHC 32.7 g/dl (32.0-36.0); MEAN CELL VOLUME 96.1 fl (80-96); MEAN PLT VOLUME 7.2 fl (7.5-11.1); MONO % 1.7 % (3.8-10.2); PLATELET COUNT 261 K/MM3 (134-434); WHITE BLOOD COUNT 6.7 K/mm3 (4.0-10.0)
[2019-08-09 07:07] LABS: ALBUMIN 3.3 g/dl (3.4-5.0); ALK PHOS 95 U/L (45-117); ANION GAP 5 MMOL/L (8-16); BILIRUBIN,TOTAL 0.3 mg/dL (0.2-1); BLOOD UREA NITROGEN 14.3 mg/dL (7-18); CALCIUM 8.5 mg/dL (8.5-10.1); CHLORIDE 100 mmol/L (98-107); CO2 34 mmol/L (21-32); CREATININE 0.5 mg/dL (0.55-1.3); GLUCOSE,RANDOM 113 mg/dL (74-106); MAGNESIUM 1.9 mg/dL (1.8-2.4); N-TERMINAL BNP 150.6 pg/ml (5-125); PHOSPHOROUS 3.6 mg/dL (2.5-4.9); SGOT/AST 8 U/L (15-37); SGPT/ALT 16 U/L (13-61); SODIUM 139 mmol/L (136-145); TOT PROT 6.5 g/dl (6.4-8.2)
--- NOTE | 2019-08-09 08:48 | PN ---
Progress Note, Physician Chief Complaint: 73 f hx htn, hld, dm, here with sob for past few days. No cp palps dizzy loc pnd orthopnea le edema. No known hx hrt dz or lung dz. No smoking hx. Currently getting treated with iv lasix and iv steroids in er. History of Present Illness: echo normal LV fx, mild - Current Medication List Current Medications: Active Medications Albuterol Sulfate (Ventolin 0.083% Nebulizer Soln -) 1 amp NEB Q4H PRN PRN Reason: SHORT OF BREATH/WHEEZING Albuterol/Ipratropium (Duoneb -) 1 amp NEB RQID [facility] Last Admin: 08/08/19 20:30 Dose: 1 amp Chlorhexidine Gluconate (Hibiclens For Decolonization -) 1 applic TP HS [facility] Last Admin: 08/08/19 21:55 Dose: 1 applic Furosemide (Lasix Injection -) 40 mg IVPUSH DAILY [facility] Last Admin: 08/08/19 11:41 Dose: 40 mg Heparin Sodium (Porcine) (Heparin -) 5,000 unit SQ BID [facility] Last Admin: 08/08/19 21:54 Dose: 5,000 unit Azithromycin (Zithromax 500mg Ivpb (Pre-Docked)) 500 mg in 250 mls @ 250 mls/ hr IVPB DAILY [facility] Last Admin: 08/08/19 11:16 Dose: 250 mls/hr Ceftriaxone Sodium 1 gm/ (Dextrose) 50 mls @ 100 mls/hr IVPB DAILY [facility] Last Admin: 08/08/19 10:33 Dose: 100 mls/hr Insulin Aspart (Novolog Vial Sliding Scale -) 1 vial SQ ACHS [facility]; Protocol Last Admin: 08/09/19 06:29 Dose: Not Given Lisinopril (Prinivil) 20 mg PO DAILY [facility] Last Admin: 08/08/19 09:59 Dose: 20 mg Methylprednisolone Sodium Succinate (Solu-Medrol -) 40 mg IVPUSH Q8H-IV [facility] Last Admin: 08/09/19 01:59 Dose: 40 mg Mupirocin (Bactroban Ointment (For Decolonization) -) 1 applic NS BID [facility] Stop: 08/13/19 21:59 Last Admin: 08/08/19 21:54 Dose: 1 applic Ranitidine HCl (Zantac -) 150 mg PO DAILY [facility] Last Admin: 08/08/19 09:59 Dose: 150 mg Rosuvastatin Calcium (Crestor -) 10 mg PO HS [facility] Last Admin: 08/08/19 21:54 Dose: 10 mg Solifenacin (Vesicare -) 10 mg PO DAILY [facility] Last Admin: 08/08/19 09:59 Dose: 10 mg - Objective Vital Signs: Vital Signs Temperature 98.3 F 08/08/19 20:00 Pulse Rate 75 08/09/19 04:00 Respiratory Rate 17 08/09/19 04:00 Blood Pressure 157/69 08/09/19 04:00 O2 Sat by Pulse Oximetry (%) 93 L 08/09/19 05:30 Constitutional: Yes: Calm Cardiovascular: Yes: Regular Rate and Rhythm Respiratory: Yes: Other (decreased at bases, no active wheezing) Gastrointestinal: Yes: Soft, Abdomen, Obese Edema: Yes Edema: LLE: 1+, RLE: 1+ Neurological: Yes: Alert, Oriented Labs: CBC, BMP 08/09/19 05:50 08/09/19 05:50 INR, PTT INR 1.11 (0.83-1.09) H 08/07/19 21:12 Microbiology Laboratory Tests 08/07/19 08/07/19 08/09/19 21:12 21:12 05:50 WBC 6.7 Hgb 12.3 Plt Count 261 ABG pH ABG pCO2 at Pt Temp ABG pO2 at Pt Temp Oxygen Flow Rate Sodium Potassium Creatinine Troponin I < 0.02 B-Natriuretic Peptide 188.0 H 08/09/19 08/09/19 05:50 06:15 WBC Hgb Plt Count ABG pH 7.33 L ABG pCO2 at Pt Temp 67.3 H ABG pO2 at Pt Temp 77.1 L Oxygen Flow Rate 35 Sodium 139 Potassium 4.0 Creatinine 0.5 L Troponin I < 0.02 B-Natriuretic Peptide - ....Imaging EKG: Image Reviewed Assessment/Plan cta chest: no pe, mild chf ecg: sr nl intervals no ischemic changes IMP/PLAN: 73 f hx htn, hld, dm, here with sob for past few days, in ICU w/ acute respiratory failure requiring NIPPV; CTA negative for PE. Possible PNA vs acute on chronic diastolic CHF SOB, acute diastolic CHF: -no signs acs -continue with iv lasix, daily wts, daily chem7 -pulm eval pending as well, abx as per critical care team for possible PNA -NIPPV as per critical care team HTN: -cont home meds HLD: -cont statin DVT prophylaxis
[2019-08-09] MEDS: ALBUTEROL SO4 2.5/IPRATROPIUM 0.5 INH SOL 3 ML VIAL.NEB. NEB SCH ×4 (09:07→20:29)
[2019-08-09] MEDS ORDERED: DEXTROSE 5%-WATER - 50 ML IVPB ONE (09:13)
[2019-08-09] MEDS ORDERED: cefTRIAXone SODIUM 1 GM VIAL ONE (09:13)
[2019-08-09] MEDS: AZITHROMYCIN IVPB 500 MG/250 ML BAG IVPB SCH (09:30)
[2019-08-09] MEDS: RANITIDINE HCL 150 MG TABLET (FP) PO SCH (09:31)
[2019-08-09] MEDS: LISINOPRIL 20 MG TABLET (FP) PO SCH (09:31)
[2019-08-09] MEDS: FUROSEMIDE 40 MG/4 ML INJECTABLE VIAL IVPUSH SCH (09:32)
[2019-08-09] MEDS: CEFTRIAXONE 1 GM in DEXTROSE 5%-WATER - 50 ML IVPB SCH (09:32)
[2019-08-09] MEDS: HEPARIN NA (PORCINE) 5,000 UNITS/ML 1ML VIAL SQ SCH ×2 (09:32→21:30)
[2019-08-09] MEDS: MUPIROCIN 2% TOPICAL OINTMENT FOR DECOLONIZATION NS SCH ×2 (10:20→21:30)
[2019-08-09] MEDS: SOLIFENACIN SUCCINATE 5 MG TAB PO SCH (10:30)
--- NOTE | 2019-08-09 11:16 | PN ---
Teaching Attending Note Name of Resident: Danika Mendoza ATTENDING PHYSICIAN STATEMENT I saw and evaluated the patient. I reviewed the resident's note and discussed the case with the resident. I agree with the resident's findings and plan as documented. SUBJECTIVE: Patient seen and examined in the ICU. Sleepy but easily arousbale on NIPPV. Able to follow all commands and move all extremities. Reports breathing is better today. Intake & Output 08/06/19 08/07/19 08/08/19 08/09/19 23:59 23:59 23:59 23:59 Intake Total 300 Balance 300 Weight 215 lb 244 lb 8 oz Last Vital Signs Temp Pulse Resp BP Pulse Ox 98.3 F 67 21 H 141/66 94 L 08/08/19 20:00 08/09/19 08:00 08/09/19 09:00 08/09/19 08:00 08/09/19 09:07 Active Medications Albuterol Sulfate (Ventolin 0.083% Nebulizer Soln -) 1 amp NEB Q4H PRN PRN Reason: SHORT OF BREATH/WHEEZING Albuterol/Ipratropium (Duoneb -) 1 amp NEB RQID [facility] Last Admin: 08/09/19 09:07 Dose: 1 amp Chlorhexidine Gluconate (Hibiclens For Decolonization -) 1 applic TP HS [facility] Last Admin: 08/08/19 21:55 Dose: 1 applic Furosemide (Lasix Injection -) 40 mg IVPUSH DAILY [facility] Last Admin: 08/09/19 09:32 Dose: 40 mg Heparin Sodium (Porcine) (Heparin -) 5,000 unit SQ BID [facility] Last Admin: 08/09/19 09:32 Dose: 5,000 unit Azithromycin (Zithromax 500mg Ivpb (Pre-Docked)) 500 mg in 250 mls @ 250 mls/ hr IVPB DAILY [facility] Last Admin: 08/09/19 09:30 Dose: 250 mls/hr Ceftriaxone Sodium 1 gm/ (Dextrose) 50 mls @ 100 mls/hr IVPB DAILY [facility] Last Admin: 08/09/19 09:32 Dose: 100 mls/hr Insulin Aspart (Novolog Vial Sliding Scale -) 1 vial SQ ACHS [facility]; Protocol Last Admin: 08/09/19 06:29 Dose: Not Given Lisinopril (Prinivil) 20 mg PO DAILY [facility] Last Admin: 08/09/19 09:31 Dose: 20 mg Methylprednisolone Sodium Succinate (Solu-Medrol -) 40 mg IVPUSH Q8H-IV [facility] Last Admin: 08/09/19 09:32 Dose: 40 mg Mupirocin (Bactroban Ointment (For Decolonization) -) 1 applic NS BID [facility] Stop: 08/13/19 21:59 Last Admin: 08/09/19 10:20 Dose: 1 applic Ranitidine HCl (Zantac -) 150 mg PO DAILY [facility] Last Admin: 08/09/19 09:31 Dose: 150 mg Rosuvastatin Calcium (Crestor -) 10 mg PO HS [facility] Last Admin: 08/08/19 21:54 Dose: 10 mg Solifenacin (Vesicare -) 10 mg PO DAILY [facility] Last Admin: 08/09/19 10:30 Dose: 10 mg GENERAL: Awake on NIPPV support HEAD: Normal with no signs of trauma. EYES: Pupils equal, round and reactive to light, extraocular movements intact, sclera anicteric, conjunctiva clear. EARS, NOSE, THROAT: Ears normal, nares patent, oropharynx clear without exudates. Moist mucous membranes. NECK: Normal range of motion, supple without lymphadenopathy LUNGS: NIPPV, bilateral rales and rhonchi, mild wheeze HEART: Regular rate and rhythm, normal S1 and S2 without murmur, rub or gallop. ABDOMEN: Obese, soft, nontender, not distended, normoactive bowel sounds, no guarding, no rebound LOWER EXTREMITIES: 2+ pt pulses, warm, well-perfused. Without LE edema. + erythema on RLE; without TTP. NEUROLOGICAL: Non-focal PSYCHIATRIC: Cooperative. Laboratory Results - last 24 hr 08/08/19 08/08/19 08/08/19 11:34 11:45 14:05 WBC RBC Hgb Hct MCV MCH MCHC RDW Plt Count MPV Absolute Neuts (auto) Neutrophils % Lymphocytes % Monocytes % Eosinophils % Basophils % Nucleated RBC % Anticoagulation Therapy No Result Required. Puncture Site Right radial Right radial ABG pH 7.19 L* 7.24 L ABG pCO2 at Pt Temp 98.9 H* 82.2 H* ABG pO2 at Pt Temp 79.8 L 77.1 L ABG HCO3 36.1 H 34.3 H ABG O2 Sat (Measured) 92.9 L 93.3 L ABG O2 Content 16.3 17.6 ABG Base Excess 4.6 H 4.3 H Sven Test Positive Positive O2 Delivery Device No Result Required. Bi pap Oxygen Flow Rate 3l 35 Vent Mode No Result Required. S/t Vent Rate No Result Required. 14 Mechanical Rate No Result Required. PEEP 6.0 Pressure Support Vent No Result Required. 18 Sodium Potassium Chloride Carbon Dioxide Anion Gap BUN Creatinine Est GFR (CKD-EPI)AfAm Est GFR (CKD-EPI)NonAf POC Glucometer 118 Random Glucose Calcium Phosphorus Magnesium Total Bilirubin AST ALT Alkaline Phosphatase Creatine Kinase Troponin I B-Natriuretic Peptide Total Protein Albumin MERGED WITH [facility] 08/08/19 08/08/19 08/08/19 16:50 18:07 21:39 WBC RBC Hgb Hct MCV MCH MCHC RDW Plt Count MPV Absolute Neuts (auto) Neutrophils % Lymphocytes % Monocytes % Eosinophils % Basophils % Nucleated RBC % Anticoagulation Therapy No Result Required. Puncture Site Right radial ABG pH 7.29 L ABG pCO2 at Pt Temp 73.4 H* ABG pO2 at Pt Temp 68.9 L ABG HCO3 34.3 H ABG O2 Sat (Measured) 92.3 L ABG O2 Content 16.4 ABG Base Excess 5.8 H Sven Test Positive O2 Delivery Device No Result Required. Oxygen Flow Rate [address] Vent Rate 20 Mechanical Rate Bipap PEEP Pressure Support Vent 18/6 Sodium Potassium Chloride Carbon Dioxide Anion Gap BUN Creatinine Est GFR (CKD-EPI)AfAm Est GFR (CKD-EPI)NonAf POC Glucometer 110 110 Random Glucose Calcium Phosphorus Magnesium Total Bilirubin AST ALT Alkaline Phosphatase Creatine Kinase Troponin I B-Natriuretic Peptide Total Protein Albumin MERGED WITH [facility] 08/09/19 08/09/19 08/09/19 05:50 05:50 06:05 WBC 6.7 RBC 3.90 Hgb 12.3 Hct 37.5 MCV 96.1 H MCH 31.4 MCHC 32.7 RDW 15.0 Plt Count 261 MPV 7.2 L Absolute Neuts (auto) 6.3 Neutrophils % 94.0 H D Lymphocytes % 4.2 L D Monocytes % 1.7 L Eosinophils % 0.0 D Basophils % 0.1 Nucleated RBC % 0 Anticoagulation Therapy Puncture Site ABG pH ABG pCO2 at Pt Temp ABG pO2 at Pt Temp ABG HCO3 ABG O2 Sat (Measured) ABG O2 Content ABG Base Excess Sven Test O2 Delivery Device Oxygen Flow Rate Vent Mode Vent Rate Mechanical Rate PEEP Pressure Support Vent Sodium 139 Potassium 4.0 Chloride 100 Carbon Dioxide 34 H Anion Gap 5 L BUN 14.3 Creatinine 0.5 L Est GFR (CKD-EPI)AfAm 111.28 Est GFR (CKD-EPI)NonAf 96.02 POC Glucometer 113 Random Glucose 113 H Calcium 8.5 Phosphorus 3.6 Magnesium 1.9 Total Bilirubin 0.3 AST 8 L ALT 16 Alkaline Phosphatase 95 Creatine Kinase 18 L Troponin I < 0.02 B-Natriuretic Peptide 150.6 H Total Protein 6.5 Albumin 3.3 L TSH 0.57 08/09/19 06:15 WBC RBC Hgb Hct MCV MCH MCHC RDW Plt Count MPV Absolute Neuts (auto) Neutrophils % Lymphocytes % Monocytes % Eosinophils % Basophils % Nucleated RBC % Anticoagulation Therapy No Result Required. Puncture Site Right radial ABG pH 7.33 L ABG pCO2 at Pt Temp 67.3 H ABG pO2 at Pt Temp 77.1 L ABG HCO3 34.6 H ABG O2 Sat (Measured) 95.0 ABG O2 Content 15.3 ABG Base Excess 7.1 H Sven Test Positive O2 Delivery Device Bipap Oxygen Flow Rate 35 Vent Mode No Result Required. Vent Rate 20 Mechanical Rate No Result Required. PEEP Pressure Support Vent 18/6 Sodium Potassium Chloride Carbon Dioxide Anion Gap BUN Creatinine Est GFR (CKD-EPI)AfAm Est GFR (CKD-EPI)NonAf POC Glucometer Random Glucose Calcium Phosphorus Magnesium Total Bilirubin AST ALT Alkaline Phosphatase Creatine Kinase Troponin I B-Natriuretic Peptide Total Protein Albumin TSH ASSESSMENT/PLAN: Acute on chronic respiratory failure DM HLD PONCHO on CPAP R/O PNA: low clinical suspicion R/O CHF NIPPV setting were adjusted End tidal CO2 monitoring Strict I & O Empiric ABX coverage for now: Low threshold to DC once cultures are (-) Check cultures BD TX VTE prophylaxis Lasix IVP Requires ICU monitoring for tenuous respiratory status Dr Ross Critical care time spent in reviewing chart, evaluating patient and formulating plan - 36 minutes.
--- NOTE | 2019-08-09 11:32 | PN ---
Physical Exam: SUBJECTIVE: Patient seen and examined at bedside. pt has no acute complaints. pt is not complaining of SOB, CP, headache or dizziness. OBJECTIVE: Vital Signs Period Temp Pulse Resp BP Sys/Crouch Pulse Ox Last 24 Hr 98.1 F-98.6 F 60-75 14-24 123-157/55-77 93-98 GENERAL: The patient is awake, alert, and fully oriented, in no acute distress. LUNGS: Breath sounds equal, no accessory muscle use. HEART: Regular rate and rhythm, S1, S2 without murmur, rub or gallop. ABDOMEN: Soft, nontender, nondistended, normoactive bowel sounds, no guarding EXTREMITIES: 2+ pulses, warm, well-perfused, no edema. SKIN: Warm, dry, normal turgor, no rashes or lesions noted Laboratory Last Values WBC 6.7 K/mm3 (4.0-10.0) 08/09/19 05:50 RBC 3.90 M/mm3 (3.60-5.2) 08/09/19 05:50 Hgb 12.3 GM/dL (10.7-15.3) 08/09/19 05:50 Hct 37.5 % (32.4-45.2) 08/09/19 05:50 MCV 96.1 fl (80-96) H 08/09/19 05:50 MCH 31.4 pg (25.7-33.7) 08/09/19 05:50 MCHC 32.7 g/dl (32.0-36.0) 08/09/19 05:50 RDW 15.0 % (11.6-15.6) 08/09/19 05:50 Plt Count 261 K/MM3 (134-434) 08/09/19 05:50 MPV 7.2 fl (7.5-11.1) L 08/09/19 05:50 Absolute Neuts (auto) 6.3 K/mm3 (1.5-8.0) 08/09/19 05:50 Neutrophils % 94.0 % (42.8-82.8) H D 08/09/19 05:50 Lymphocytes % 4.2 % (8-40) L D 08/09/19 05:50 Monocytes % 1.7 % (3.8-10.2) L 08/09/19 05:50 Eosinophils % 0.0 % (0-4.5) D 08/09/19 05:50 Basophils % 0.1 % (0-2.0) 08/09/19 05:50 Nucleated RBC % 0 % (0-0) 08/09/19 05:50 PT with INR 13.10 SEC (9.7-13.0) H 08/07/19 21:12 INR 1.11 (0.83-1.09) H 08/07/19 21:12 D-Dimer 882 ng/ml (0-500) H 08/08/19 03:30 Anticoagulation Therapy No Result Required. 08/09/19 06:15 Puncture Site Right radial 08/09/19 06:15 ABG pH 7.33 (7.35-7.45) L 08/09/19 06:15 ABG pCO2 at Pt Temp 67.3 mmHg (35-45) H 08/09/19 06:15 ABG pO2 at Pt Temp 77.1 mmHg (80-100) L 08/09/19 06:15 ABG HCO3 34.6 mmol/L (22-27) H 08/09/19 06:15 ABG O2 Sat (Measured) 95.0 % (95-98) 08/09/19 06:15 ABG O2 Content 15.3 % vol 08/09/19 06:15 ABG Base Excess 7.1 meq/l (-2-2) H 08/09/19 06:15 Sven Test Positive 08/09/19 06:15 O2 Delivery Device Bipap 08/09/19 06:15 Oxygen Flow Rate 35 08/09/19 06:15 Vent Mode No Result Required. 08/09/19 06:15 Vent Rate 20 08/09/19 06:15 Mechanical Rate No Result Required. 08/09/19 06:15 PEEP 6.0 cmH2O 08/08/19 14:05 Pressure Support Vent 18/6 08/09/19 06:15 Sodium 139 mmol/L (136-145) 08/09/19 05:50 Potassium 4.0 mmol/L (3.5-5.1) 08/09/19 05:50 Chloride 100 mmol/L (98-107) 08/09/19 05:50 Carbon Dioxide 34 mmol/L (21-32) H 08/09/19 05:50 Anion Gap 5 MMOL/L (8-16) L 08/09/19 05:50 BUN 14.3 mg/dL (7-18) 08/09/19 05:50 Creatinine 0.5 mg/dL (0.55-1.3) L 08/09/19 05:50 Est GFR (CKD-EPI)AfAm 111.28 08/09/19 05:50 Est GFR (CKD-EPI)NonAf 96.02 08/09/19 05:50 POC Glucometer 113 UNITS (80-120) 08/09/19 06:05 Random Glucose 113 mg/dL (74-106) H 08/09/19 05:50 Calcium 8.5 mg/dL (8.5-10.1) 08/09/19 05:50 Phosphorus 3.6 mg/dL (2.5-4.9) 08/09/19 05:50 Magnesium 1.9 mg/dL (1.8-2.4) 08/09/19 05:50 Total Bilirubin 0.3 mg/dL (0.2-1) 08/09/19 05:50 AST 8 U/L (15-37) L 08/09/19 05:50 ALT 16 U/L (13-61) 08/09/19 05:50 Alkaline Phosphatase 95 U/L (45-117) 08/09/19 05:50 Creatine Kinase 18 U/L (26-192) L 08/09/19 05:50 Troponin I < 0.02 ng/ml (0.00-0.05) 08/09/19 05:50 B-Natriuretic Peptide 150.6 pg/ml (5-125) H 08/09/19 05:50 Total Protein 6.5 g/dl (6.4-8.2) 08/09/19 05:50 Albumin 3.3 g/dl (3.4-5.0) L 08/09/19 05:50 TSH 0.57 uIU/ml (0.358-3.74) 08/09/19 05:50 Current Medications Albuterol Sulfate (Ventolin 0.083% Nebulizer Soln -) 1 amp NEB Q4H PRN PRN Reason: SHORT OF BREATH/WHEEZING Albuterol/Ipratropium (Duoneb -) 1 amp NEB RQID [facility] Last Admin: 08/09/19 09:07 Dose: 1 amp Chlorhexidine Gluconate (Hibiclens For Decolonization -) 1 applic TP HS [facility] Last Admin: 08/08/19 21:55 Dose: 1 applic Furosemide (Lasix Injection -) 40 mg IVPUSH DAILY [facility] Last Admin: 08/09/19 09:32 Dose: 40 mg Heparin Sodium (Porcine) (Heparin -) 5,000 unit SQ BID [facility] Last Admin: 08/09/19 09:32 Dose: 5,000 unit Azithromycin (Zithromax 500mg Ivpb (Pre-Docked)) 500 mg in 250 mls @ 250 mls/ hr IVPB DAILY [facility] Last Admin: 08/09/19 09:30 Dose: 250 mls/hr Ceftriaxone Sodium 1 gm/ (Dextrose) 50 mls @ 100 mls/hr IVPB DAILY [facility] Last Admin: 08/09/19 09:32 Dose: 100 mls/hr Insulin Aspart (Novolog Vial Sliding Scale -) 1 vial SQ ACHS [facility]; Protocol Last Admin: 08/09/19 06:29 Dose: Not Given Lisinopril (Prinivil) 20 mg PO DAILY [facility] Last Admin: 08/09/19 09:31 Dose: 20 mg Methylprednisolone Sodium Succinate (Solu-Medrol -) 40 mg IVPUSH Q8H-IV [facility] Last Admin: 08/09/19 09:32 Dose: 40 mg Mupirocin (Bactroban Ointment (For Decolonization) -) 1 applic NS BID [facility] Stop: 08/13/19 21:59 Last Admin: 08/09/19 10:20 Dose: 1 applic Nystatin (Nystop Powder -) 1 applic TP BID [facility] Ranitidine HCl (Zantac -) 150 mg PO DAILY [facility] Last Admin: 08/09/19 09:31 Dose: 150 mg Rosuvastatin Calcium (Crestor -) 10 mg PO HS [facility] Last Admin: 08/08/19 21:54 Dose: 10 mg Solifenacin (Vesicare -) 10 mg PO DAILY [facility] Last Admin: 08/09/19 10:30 Dose: 10 mg ASSESSMENT/PLAN: 73 yo F with PMH HTN, NIDDM, HLD, PONCHO on CPAP, who presents to the ED c/o KRUSE since Monday. Pt admitted to ICU for acute on chronic hypercapnic respiratory failure. NEURO -AAO x 3. PULM: Acute on chronic hypercapnic respiratory failure 2/2 CHF exacerbation, PONCHO , OHS -with possible acute CHF exacerbation; also w baseline PONCHO, and likely OHS. hypercapnic however w good oxygenation -trial on 4L NC , saturating well. if desats will go back to BiPAP - ABG improving : 7.33/pCO2 67.3/pO2 77.1 -c/w duonebs RQID, nebs PRN -c/w medrol 40mg q8h -end tidal CO2 monitoring -low suspicion for PNA currently -f/u blood, ucx, UA, legionella - if mental status declines further, may need intubation CARDIO: HTN- controlled, Acute CHF exacerbation, HLD -c/w lisinopril -f/u ECHO -c/w lasix 40mg IVP qd, daily wts, strict i/o, Na control 2g -BiPAP for work of breathing -Cardio recs appreciated (Dr. Guevara) -c/w statin F/E/N -avoid IVF 2/2 CHF -continue to follow lytes -sodium/ low cholesterol diet DVT PPX - Hep sq code status Full code; d/w patient. ok with intubation if needed Dispo admitted to ICU Visit type - Emergency Visit Emergency Visit: No - New Patient This patient is new to me today: Yes Date on this admission: 08/09/19 - Critical Care Critical Care patient: Yes Total Critical Care Time (in minutes): 36 Critical Care Statement: The care of this patient involved high complexity decision making to prevent further life threatening deterioration of the patient 's condition and/or to evaluate & treat vital organ system(s) failure or risk of failure. ATTENDING PHYSICIAN STATEMENT I saw and evaluated the patient. I reviewed the resident's note and discussed the case with the resident. I agree with the resident's findings and plan as documented. SUBJECTIVE: OBJECTIVE: ASSESSMENT AND PLAN:
[2019-08-09 12:29] LABS: ANISOCYTOSIS 1+; MACROCYTOSIS 0; PLATELET ESTIMATE NORMAL; TEAR DROP CELLS 1+
--- NOTE | 2019-08-09 12:48 | PN ---
Progress Note, Physician Chief Complaint: events noted pt admitted to ICU with AResp Failure CO2 retention improved with bipap consults reviewed and d/w pt and PCP dr Hung pt in [facility] awake alert feels better less SOB - Current Medication List Current Medications: Active Medications Albuterol Sulfate (Ventolin 0.083% Nebulizer Soln -) 1 amp NEB Q4H PRN PRN Reason: SHORT OF BREATH/WHEEZING Albuterol/Ipratropium (Duoneb -) 1 amp NEB RQID [facility] Last Admin: 08/09/19 12:22 Dose: 1 amp Chlorhexidine Gluconate (Hibiclens For Decolonization -) 1 applic TP HS [facility] Last Admin: 08/08/19 21:55 Dose: 1 applic Furosemide (Lasix Injection -) 40 mg IVPUSH DAILY [facility] Last Admin: 08/09/19 09:32 Dose: 40 mg Heparin Sodium (Porcine) (Heparin -) 5,000 unit SQ BID [facility] Last Admin: 08/09/19 09:32 Dose: 5,000 unit Azithromycin (Zithromax 500mg Ivpb (Pre-Docked)) 500 mg in 250 mls @ 250 mls/ hr IVPB DAILY [facility] Last Admin: 08/09/19 09:30 Dose: 250 mls/hr Ceftriaxone Sodium 1 gm/ (Dextrose) 50 mls @ 100 mls/hr IVPB DAILY [facility] Last Admin: 08/09/19 09:32 Dose: 100 mls/hr Insulin Aspart (Novolog Vial Sliding Scale -) 1 vial SQ ACHS [facility]; Protocol Last Admin: 08/09/19 11:38 Dose: Not Given Lisinopril (Prinivil) 20 mg PO DAILY [facility] Last Admin: 08/09/19 09:31 Dose: 20 mg Methylprednisolone Sodium Succinate (Solu-Medrol -) 40 mg IVPUSH Q8H-IV [facility] Last Admin: 08/09/19 09:32 Dose: 40 mg Mupirocin (Bactroban Ointment (For Decolonization) -) 1 applic NS BID [facility] Stop: 08/13/19 21:59 Last Admin: 08/09/19 10:20 Dose: 1 applic Nystatin (Nystop Powder -) 1 applic TP BID [facility] Ranitidine HCl (Zantac -) 150 mg PO DAILY [facility] Last Admin: 08/09/19 09:31 Dose: 150 mg Rosuvastatin Calcium (Crestor -) 10 mg PO HS [facility] Last Admin: 08/08/19 21:54 Dose: 10 mg Solifenacin (Vesicare -) 10 mg PO DAILY [facility] Last Admin: 08/09/19 10:30 Dose: 10 mg - Objective Vital Signs: Vital Signs Temperature 98.3 F 08/08/19 20:00 Pulse Rate 67 08/09/19 08:00 Respiratory Rate 21 H 08/09/19 09:00 Blood Pressure 141/66 08/09/19 08:00 O2 Sat by Pulse Oximetry (%) 96 08/09/19 12:21 Constitutional: Yes: No Distress, Calm Eyes: Yes: Conjunctiva Clear HENT: Yes: Atraumatic Neck: Yes: Supple Cardiovascular: Yes: Regular Rate and Rhythm Respiratory: Yes: CTA Bilaterally Gastrointestinal: Yes: Soft. No: Tenderness Genitourinary: No: Hematuria Musculoskeletal: No: Joint Stiffness, Joint Swelling Extremities: No: Cold, Cool, Cyanosis Edema: No Integumentary: No: Rash, Venous Stasis Changes Neurological: Yes: WNL, Alert, Oriented ...Motor Strength: WNL Psychiatric: Yes: WNL, Alert, Oriented. No: Agitated, Suicidal Ideation Labs: CBC, BMP 08/09/19 05:50 08/09/19 05:50 INR, PTT INR 1.11 (0.83-1.09) H 08/07/19 21:12 - ....Imaging Other: Report Reviewed Assessment/Plan 73 year old female with a history of HTN, HLD, DM who presents with shortness of breath COPD exa early PNA respiratory failure support with bipap prn admitted to ICU pulm and cardiology eval iv lasix, iv ATB Nebs iv steroids f/u labs CE prognosis guarded d/w pulm and PCP dr Pricilla hung d/w pt t time 40 min
[2019-08-09 16:25] LABS: PH,URINE 5.5 (5.0-8.0); URINE APPEARANCE CLEAR; URINE BILIRUBIN NEGATIVE (NEGATIVE); URINE COLOR YELLOW; URINE GLUCOSE (UA) NEGATIVE (NEGATIVE); URINE KETONE NEGATIVE (NEGATIVE); URINE LEUK ESTERASE NEGATIVE (NEGATIVE); URINE NITRITE NEGATIVE (NEGATIVE); URINE PROTEIN NEGATIVE (NEGATIVE); URINE UROBILINOGEN 0.2 mg/dL (0.2-1.0)
[2019-08-09] MEDS: NYSTATIN POWDER 100,000 UNITS/GM - 15 GM TOPICAL POWDER TP SCH ×2 (17:09→21:30)
[2019-08-09] MEDS: ROSUVASTATIN CA 10 MG TABLET (FP) PO SCH (21:30)
[2019-08-09] MEDS: CHLORHEXIDINE GLUCONATE 4% CLEANSER FOR DECOLONIZATION TP SCH (21:30)
[2019-08-09] MEDS ORDERED: NYSTATIN POWDER 100,000 UNITS/GM - 15 GM TOPICAL POWDER TP SCH (22:00)
[2019-08-10] MEDS: methylPREDNISolone NA SUCC 40 MG/1 ML VIAL IVPUSH SCH ×3 (02:57→17:13)
--- NOTE | 2019-08-10 07:13 | PN ---
Progress Note, Physician Chief Complaint: sleeping. Woke her up, states she is "better" Denies CP. TELE: NSR, sinus john while asleep, VPCs History of Present Illness: Down 3 lbs - Current Medication List Current Medications: Active Medications Albuterol Sulfate (Ventolin 0.083% Nebulizer Soln -) 1 amp NEB Q4H PRN PRN Reason: SHORT OF BREATH/WHEEZING Albuterol/Ipratropium (Duoneb -) 1 amp NEB RQID [facility] Last Admin: 08/09/19 20:29 Dose: 1 amp Chlorhexidine Gluconate (Hibiclens For Decolonization -) 1 applic TP HS [facility] Last Admin: 08/09/19 21:30 Dose: 1 applic Furosemide (Lasix Injection -) 40 mg IVPUSH DAILY [facility] Last Admin: 08/09/19 09:32 Dose: 40 mg Heparin Sodium (Porcine) (Heparin -) 5,000 unit SQ BID [facility] Last Admin: 08/09/19 21:30 Dose: 5,000 unit Azithromycin (Zithromax 500mg Ivpb (Pre-Docked)) 500 mg in 250 mls @ 250 mls/ hr IVPB DAILY [facility] Last Admin: 08/09/19 09:30 Dose: 250 mls/hr Ceftriaxone Sodium 1 gm/ (Dextrose) 50 mls @ 100 mls/hr IVPB DAILY [facility] Last Admin: 08/09/19 09:32 Dose: 100 mls/hr Insulin Aspart (Novolog Vial Sliding Scale -) 1 vial SQ ACHS [facility]; Protocol Last Admin: 08/09/19 23:21 Dose: 2 unit Lisinopril (Prinivil) 20 mg PO DAILY [facility] Last Admin: 08/09/19 09:31 Dose: 20 mg Methylprednisolone Sodium Succinate (Solu-Medrol -) 40 mg IVPUSH Q8H-IV [facility] Last Admin: 08/10/19 02:57 Dose: 40 mg Mupirocin (Bactroban Ointment (For Decolonization) -) 1 applic NS BID [facility] Stop: 08/13/19 21:59 Last Admin: 08/09/19 21:30 Dose: 1 applic Nystatin (Nystop Powder -) 1 applic TP BID [facility] Last Admin: 08/09/19 21:30 Dose: 1 applic Ranitidine HCl (Zantac -) 150 mg PO DAILY [facility] Last Admin: 08/09/19 09:31 Dose: 150 mg Rosuvastatin Calcium (Crestor -) 10 mg PO HS [facility] Last Admin: 08/09/19 21:30 Dose: 10 mg Solifenacin (Vesicare -) 10 mg PO DAILY [facility] Last Admin: 08/09/19 10:30 Dose: 10 mg - Objective Vital Signs: Vital Signs Temperature 98.1 F 08/09/19 18:00 Pulse Rate 53 L 08/10/19 04:00 Respiratory Rate 15 08/10/19 04:00 Blood Pressure 162/79 08/10/19 04:00 O2 Sat by Pulse Oximetry (%) 94 L 08/09/19 22:00 Constitutional: Yes: Calm Cardiovascular: Yes: Regular Rate and Rhythm Respiratory: Yes: Other (decreased breath sounds b/l) Gastrointestinal: Yes: Soft, Abdomen, Obese Edema: No (venodynes) Neurological: Yes: Alert, Oriented Labs: CBC, BMP 08/09/19 05:50 08/09/19 05:50 INR, PTT INR 1.11 (0.83-1.09) H 08/07/19 21:12 - ....Imaging EKG: Image Reviewed Assessment/Plan Assessment/Plan cta chest: no pe, mild chf ecg: sr nl intervals no ischemic changes IMP/PLAN: 73 f hx htn, hld, dm, here with sob for past few days, in ICU w/ acute respiratory failure requiring NIPPV; CTA negative for PE. Possible PNA vs acute on chronic diastolic CHF SOB, acute diastolic CHF: -no signs acs -continue with iv lasix, daily wts, daily chem7- clinically improving. -pulm/Critical care following as well- abx as per critical care team for possible PNA -NIPPV as per critical care team for PONCHO HTN: -cont home meds HLD: -cont statin DVT prophylaxis
[2019-08-10 07:47] LABS: BASO % 0.2 % (0-2.0); HEMOGLOBIN 12.6 GM/dL (10.7-15.3); LYMPH % 5.7 % (8-40); MCH 31.2 pg (25.7-33.7); MCHC 32.2 g/dl (32.0-36.0); MEAN CELL VOLUME 96.8 fl (80-96); MEAN PLT VOLUME 7.3 fl (7.5-11.1); MONO % 2.8 % (3.8-10.2); NEUT % 91.3 % (42.8-82.8); PLATELET COUNT 264 K/MM3 (134-434); RBC 4.03 M/mm3 (3.60-5.2); RDW 14.8 % (11.6-15.6); WHITE BLOOD COUNT 7.3 K/mm3 (4.0-10.0)
[2019-08-10] MEDS: ALBUTEROL SO4 2.5/IPRATROPIUM 0.5 INH SOL 3 ML VIAL.NEB. NEB SCH ×4 (08:10→20:28)
[2019-08-10 08:30] LABS: ALBUMIN 3.3 g/dl (3.4-5.0); BILIRUBIN,TOTAL 0.4 mg/dL (0.2-1); BLOOD UREA NITROGEN 18.9 mg/dL (7-18); CREATININE 0.5 mg/dL (0.55-1.3); MAGNESIUM 2.2 mg/dL (1.8-2.4); POTASSIUM 4.1 mmol/L (3.5-5.1); TOT PROT 6.6 g/dl (6.4-8.2)
[2019-08-10 09:21] LABS: ANISOCYTOSIS 1+; MACROCYTOSIS 0; PLATELET ESTIMATE NORMAL
[2019-08-10] MEDS ORDERED: PT OWN MED DRAWER 7, Y5N ONE (10:20)
[2019-08-10] MEDS ORDERED: cefTRIAXone SODIUM 1 GM VIAL ONE (10:21)
[2019-08-10] MEDS ORDERED: DEXTROSE 5%-WATER - 50 ML IVPB ONE (10:21)
--- NOTE | 2019-08-10 10:25 | PN ---
Teaching Attending Note Name of Resident: Danika Mendoza ATTENDING PHYSICIAN STATEMENT I saw and evaluated the patient. I reviewed the resident's note and discussed the case with the resident. I agree with the resident's findings and plan as documented. SUBJECTIVE: Patient seen and examined in the ICU. Sleepy but easily arousbale on NIPPV. Able to follow all commands and move all extremities. Reports breathing is a little better today. Intake & Output 08/07/19 08/08/19 08/09/19 08/10/19 23:59 23:59 23:59 23:59 Intake Total 300 1430 Output Total 1000 Balance 300 430 Weight 215 lb 244 lb 8 oz 241 lb 1.6 oz Last Vital Signs Temp Pulse Resp BP Pulse Ox 98.1 F 53 L 15 162/79 94 L 08/09/19 18:00 08/10/19 04:00 08/10/19 04:00 08/10/19 04:00 08/09/19 22:00 Active Medications Albuterol Sulfate (Ventolin 0.083% Nebulizer Soln -) 1 amp NEB Q4H PRN PRN Reason: SHORT OF BREATH/WHEEZING Albuterol/Ipratropium (Duoneb -) 1 amp NEB RQID [facility] Last Admin: 08/09/19 20:29 Dose: 1 amp Chlorhexidine Gluconate (Hibiclens For Decolonization -) 1 applic TP HS [facility] Last Admin: 08/09/19 21:30 Dose: 1 applic Furosemide (Lasix Injection -) 40 mg IVPUSH DAILY [facility] Last Admin: 08/09/19 09:32 Dose: 40 mg Heparin Sodium (Porcine) (Heparin -) 5,000 unit SQ BID [facility] Last Admin: 08/09/19 21:30 Dose: 5,000 unit Ceftriaxone Sodium 1 gm/ (Dextrose) 50 mls @ 100 mls/hr IVPB DAILY [facility] Last Admin: 08/09/19 09:32 Dose: 100 mls/hr Insulin Aspart (Novolog Vial Sliding Scale -) 1 vial SQ ACHS [facility]; Protocol Last Admin: 08/09/19 23:21 Dose: 2 unit Lisinopril (Prinivil) 20 mg PO DAILY [facility] Last Admin: 08/09/19 09:31 Dose: 20 mg Methylprednisolone Sodium Succinate (Solu-Medrol -) 40 mg IVPUSH DAILY [facility] Mupirocin (Bactroban Ointment (For Decolonization) -) 1 applic NS BID [facility] Stop: 08/13/19 21:59 Last Admin: 08/09/19 21:30 Dose: 1 applic Nystatin (Nystop Powder -) 1 applic TP BID [facility] Last Admin: 08/09/19 21:30 Dose: 1 applic Ranitidine HCl (Zantac -) 150 mg PO DAILY [facility] Last Admin: 08/09/19 09:31 Dose: 150 mg Rosuvastatin Calcium (Crestor -) 10 mg PO HS [facility] Last Admin: 08/09/19 21:30 Dose: 10 mg Solifenacin (Vesicare -) 10 mg PO DAILY [facility] Last Admin: 08/09/19 10:30 Dose: 10 mg GENERAL: Awake on NIPPV support HEAD: Normal with no signs of trauma. EYES: Pupils equal, round and reactive to light, extraocular movements intact, sclera anicteric, conjunctiva clear. EARS, NOSE, THROAT: Ears normal, nares patent, oropharynx clear without exudates. Moist mucous membranes. NECK: Normal range of motion, supple without lymphadenopathy LUNGS: NIPPV, bilateral rales and rhonchi, mild wheeze HEART: Regular rate and rhythm, normal S1 and S2 without murmur, rub or gallop. ABDOMEN: Obese, soft, nontender, not distended, normoactive bowel sounds, no guarding, no rebound LOWER EXTREMITIES: 2+ pt pulses, warm, well-perfused. Without LE edema. + erythema on RLE; without TTP. NEUROLOGICAL: Non-focal PSYCHIATRIC: Cooperative. Laboratory Results - last 24 hr 08/09/19 08/09/19 08/09/19 05:50 11:34 15:00 WBC RBC Hgb Hct MCV MCH MCHC RDW Plt Count MPV Absolute Neuts (auto) Neutrophils % Neutrophils % (Manual) 90.6 H Band Neutrophils % 0.0 Lymphocytes % Lymphocytes % (Manual) 5.2 L Monocytes % Monocytes % (Manual) 2 L Eosinophils % Eosinophils % (Manual) 0.0 Basophils % Basophils % (Manual) 0.0 Myelocytes % (Man) 1 Promyelocytes % (Man) 0 Blast Cells % (Manual) 0 Nucleated RBC % Metamyelocytes 1 Hypochromia 0 Platelet Estimate Normal Platelet Comment Present Polychromasia 1+ Poikilocytosis 1+ Basophilic Stippling 1+ Anisocytosis 1+ Microcytosis 0 Macrocytosis 0 Spherocytes 1+ Tear Drop Cells 1+ Stomatocytes Garfield Cells 1+ Sodium Potassium Chloride Carbon Dioxide Anion Gap BUN Creatinine Est GFR (CKD-EPI)AfAm Est GFR (CKD-EPI)NonAf POC Glucometer 124 Random Glucose Calcium Phosphorus Magnesium Total Bilirubin AST ALT Alkaline Phosphatase Total Protein Albumin Urine Color Yellow Urine Appearance Clear Urine pH 5.5 Ur Specific [place] 1.018 Urine Protein Negative Urine Glucose (UA) Negative Urine Ketones Negative Urine Blood Negative Urine Nitrite Negative Urine Bilirubin Negative Urine Urobilinogen 0.2 Ur Leukocyte Esterase Negative 08/09/19 08/09/19 08/10/19 16:35 21:31 07:05 WBC 7.3 RBC 4.03 Hgb 12.6 Hct 39.0 MCV 96.8 H MCH 31.2 MCHC 32.2 RDW 14.8 Plt Count 264 MPV 7.3 L Absolute Neuts (auto) 6.7 Neutrophils % 91.3 H Neutrophils % (Manual) 92.1 H Band Neutrophils % 0.0 Lymphocytes % 5.7 L D Lymphocytes % (Manual) 3.9 L D Monocytes % 2.8 L Monocytes % (Manual) 4 D Eosinophils % 0.0 Eosinophils % (Manual) 0.0 Basophils % 0.2 Basophils % (Manual) 0.0 Myelocytes % (Man) 0 D Promyelocytes % (Man) 0 Blast Cells % (Manual) 0 Nucleated RBC % 0 Metamyelocytes 0 D Hypochromia 0 Platelet Estimate Normal Platelet Comment Polychromasia 0 Poikilocytosis 1+ Basophilic Stippling 1+ Anisocytosis 1+ Microcytosis 1+ Macrocytosis 0 Spherocytes Tear Drop Cells Stomatocytes 1+ Garfield Cells Sodium Potassium Chloride Carbon Dioxide Anion Gap BUN Creatinine Est GFR (CKD-EPI)AfAm Est GFR (CKD-EPI)NonAf POC Glucometer 147 179 Random Glucose Calcium Phosphorus Magnesium Total Bilirubin AST ALT Alkaline Phosphatase Total Protein Albumin Urine Color Urine Appearance Urine pH Ur Specific [place] Urine Protein Urine Glucose (UA) Urine Ketones Urine Blood Urine Nitrite Urine Bilirubin Urine Urobilinogen Ur Leukocyte Esterase 08/10/19 08/10/19 07:05 07:17 WBC RBC Hgb Hct MCV MCH MCHC RDW Plt Count MPV Absolute Neuts (auto) Neutrophils % Neutrophils % (Manual) Band Neutrophils % Lymphocytes % Lymphocytes % (Manual) Monocytes % Monocytes % (Manual) Eosinophils % Eosinophils % (Manual) Basophils % Basophils % (Manual) Myelocytes % (Man) Promyelocytes % (Man) Blast Cells % (Manual) Nucleated RBC % Metamyelocytes Hypochromia Platelet Estimate Platelet Comment Polychromasia Poikilocytosis Basophilic Stippling Anisocytosis Microcytosis Macrocytosis Spherocytes Tear Drop Cells Stomatocytes Suri Cells Sodium 139 Potassium 4.1 Chloride 97 L Carbon Dioxide 38 H Anion Gap 4 L BUN 18.9 H Creatinine 0.5 L Est GFR (CKD-EPI)AfAm 111.28 Est GFR (CKD-EPI)NonAf 96.02 POC Glucometer 124 Random Glucose 136 H Calcium 9.0 Phosphorus 3.0 Magnesium 2.2 Total Bilirubin 0.4 AST 6 L ALT 16 Alkaline Phosphatase 92 Total Protein 6.6 Albumin 3.3 L Urine Color Urine Appearance Urine pH Ur Specific [place] Urine Protein Urine Glucose (UA) Urine Ketones Urine Blood Urine Nitrite Urine Bilirubin Urine Urobilinogen Ur Leukocyte Esterase ASSESSMENT/PLAN: Acute on chronic respiratory failure due to CHF & COPD and possible PNA DM HLD PONCHO on CPAP R/O PNA: low clinical suspicion R/O CHF NC O2 as tolerated NIPPV support QHS & PRN End tidal CO2 monitoring Strict I & O DC Zithromax and can DC Rocephin if urine culture is (-) BD TX VTE prophylaxis Lasix IVP Requires ICU monitoring for tenuous respiratory status and end tidal CO2 monitoring Dr Ross Critical care time spent in reviewing chart, evaluating patient and formulating plan - 36 minutes.
[2019-08-10] MEDS: NYSTATIN POWDER 100,000 UNITS/GM - 15 GM TOPICAL POWDER TP SCH ×2 (10:37→21:25)
[2019-08-10] MEDS: MUPIROCIN 2% TOPICAL OINTMENT FOR DECOLONIZATION NS SCH ×2 (10:37→21:25)
[2019-08-10] MEDS: FUROSEMIDE 40 MG/4 ML INJECTABLE VIAL IVPUSH SCH (10:37)
[2019-08-10] MEDS: RANITIDINE HCL 150 MG TABLET (FP) PO SCH (10:37)
[2019-08-10] MEDS: SOLIFENACIN SUCCINATE 5 MG TAB PO SCH (10:37)
[2019-08-10] MEDS: HEPARIN NA (PORCINE) 5,000 UNITS/ML 1ML VIAL SQ SCH ×2 (10:37→21:24)
[2019-08-10] MEDS: CEFTRIAXONE 1 GM in DEXTROSE 5%-WATER - 50 ML IVPB SCH (10:37)
[2019-08-10] MEDS: LISINOPRIL 20 MG TABLET (FP) PO SCH (10:37)
--- NOTE | 2019-08-10 11:25 | PN ---
Physical Exam: SUBJECTIVE: Patient seen and examined at bedside. pt has no acute complaints. pt states that the bipap helps her SOB. pt denies sob, chest pain, headaches, dizziness OBJECTIVE: Vital Signs Period Temp Pulse Resp BP Sys/Crouch Pulse Ox Last 24 Hr 98.1 F-98.2 F 53-79 15-23 125-162/58-81 94-96 GENERAL: The patient is awake, alert, and oriented, in no acute distress. obese woman LUNGS: Breath sounds decreased at bases, no wheezes, no crackles, no accessory muscle use. HEART: Regular rate and rhythm, S1, S2 without murmur, rub or gallop. ABDOMEN: Soft, nontender, nondistended, normoactive bowel sounds, no guarding EXTREMITIES: 2+ pulses, warm, well-perfused, no edema. SKIN: Warm, dry, normal turgor, no rashes or lesions noted Laboratory Last Values WBC 7.3 K/mm3 (4.0-10.0) 08/10/19 07:05 RBC 4.03 M/mm3 (3.60-5.2) 08/10/19 07:05 Hgb 12.6 GM/dL (10.7-15.3) 08/10/19 07:05 Hct 39.0 % (32.4-45.2) 08/10/19 07:05 MCV 96.8 fl (80-96) H 08/10/19 07:05 MCH 31.2 pg (25.7-33.7) 08/10/19 07:05 MCHC 32.2 g/dl (32.0-36.0) 08/10/19 07:05 RDW 14.8 % (11.6-15.6) 08/10/19 07:05 Plt Count 264 K/MM3 (134-434) 08/10/19 07:05 MPV 7.3 fl (7.5-11.1) L 08/10/19 07:05 Absolute Neuts (auto) 6.7 K/mm3 (1.5-8.0) 08/10/19 07:05 Neutrophils % 91.3 % (42.8-82.8) H 08/10/19 07:05 Neutrophils % (Manual) 92.1 % (42.8-82.8) H 08/10/19 07:05 Band Neutrophils % 0.0 % 08/10/19 07:05 Lymphocytes % 5.7 % (8-40) L D 08/10/19 07:05 Lymphocytes % (Manual) 3.9 % (8-40) L D 08/10/19 07:05 Monocytes % 2.8 % (3.8-10.2) L 08/10/19 07:05 Monocytes % (Manual) 4 % (3.8-10.2) D 08/10/19 07:05 Eosinophils % 0.0 % (0-4.5) 08/10/19 07:05 Eosinophils % (Manual) 0.0 % (0-4.5) 08/10/19 07:05 Basophils % 0.2 % (0-2.0) 08/10/19 07:05 Basophils % (Manual) 0.0 % (0-2.0) 08/10/19 07:05 Myelocytes % (Man) 0 % (0-2) D 08/10/19 07:05 Promyelocytes % (Man) 0 % (0-2) 08/10/19 07:05 Blast Cells % (Manual) 0 % (0-0) 08/10/19 07:05 Nucleated RBC % 0 % (0-0) 08/10/19 07:05 Metamyelocytes 0 % (0-2) D 08/10/19 07:05 Hypochromia 0 08/10/19 07:05 Platelet Estimate Normal 08/10/19 07:05 Platelet Comment Present 08/09/19 05:50 Polychromasia 0 08/10/19 07:05 Poikilocytosis 1+ 08/10/19 07:05 Basophilic Stippling 1+ 08/10/19 07:05 Anisocytosis 1+ 08/10/19 07:05 Microcytosis 1+ 08/10/19 07:05 Macrocytosis 0 08/10/19 07:05 Spherocytes 1+ 08/09/19 05:50 Tear Drop Cells 1+ 08/09/19 05:50 Stomatocytes 1+ 08/10/19 07:05 [place] Cells 1+ 08/09/19 05:50 PT with INR 13.10 SEC (9.7-13.0) H 08/07/19 21:12 INR 1.11 (0.83-1.09) H 08/07/19 21:12 D-Dimer 882 ng/ml (0-500) H 08/08/19 03:30 Anticoagulation Therapy No Result Required. 08/09/19 06:15 Puncture Site Right radial 08/09/19 06:15 ABG pH 7.33 (7.35-7.45) L 08/09/19 06:15 ABG pCO2 at Pt Temp 67.3 mmHg (35-45) H 08/09/19 06:15 ABG pO2 at Pt Temp 77.1 mmHg (80-100) L 08/09/19 06:15 ABG HCO3 34.6 mmol/L (22-27) H 08/09/19 06:15 ABG O2 Sat (Measured) 95.0 % (95-98) 08/09/19 06:15 ABG O2 Content 15.3 % vol 08/09/19 06:15 ABG Base Excess 7.1 meq/l (-2-2) H 08/09/19 06:15 Sven Test Positive 08/09/19 06:15 O2 Delivery Device Bipap 08/09/19 06:15 Oxygen Flow Rate 35 08/09/19 06:15 Vent Mode No Result Required. 08/09/19 06:15 Vent Rate 20 08/09/19 06:15 Mechanical Rate No Result Required. 08/09/19 06:15 PEEP 6.0 cmH2O 08/08/19 14:05 Pressure Support Vent 18/6 08/09/19 06:15 Sodium 139 mmol/L (136-145) 08/10/19 07:05 Potassium 4.1 mmol/L (3.5-5.1) 08/10/19 07:05 Chloride 97 mmol/L (98-107) L 08/10/19 07:05 Carbon Dioxide 38 mmol/L (21-32) H 08/10/19 07:05 Anion Gap 4 MMOL/L (8-16) L 08/10/19 07:05 BUN 18.9 mg/dL (7-18) H 08/10/19 07:05 Creatinine 0.5 mg/dL (0.55-1.3) L 08/10/19 07:05 Est GFR (CKD-EPI)AfAm 111.28 08/10/19 07:05 Est GFR (CKD-EPI)NonAf 96.02 08/10/19 07:05 POC Glucometer 124 UNITS (80-120) 08/10/19 07:17 Random Glucose 136 mg/dL (74-106) H 08/10/19 07:05 Calcium 9.0 mg/dL (8.5-10.1) 08/10/19 07:05 Phosphorus 3.0 mg/dL (2.5-4.9) 08/10/19 07:05 Magnesium 2.2 mg/dL (1.8-2.4) 08/10/19 07:05 Total Bilirubin 0.4 mg/dL (0.2-1) 08/10/19 07:05 AST 6 U/L (15-37) L 08/10/19 07:05 ALT 16 U/L (13-61) 08/10/19 07:05 Alkaline Phosphatase 92 U/L (45-117) 08/10/19 07:05 Creatine Kinase 18 U/L (26-192) L 08/09/19 05:50 Troponin I < 0.02 ng/ml (0.00-0.05) 08/09/19 05:50 B-Natriuretic Peptide 150.6 pg/ml (5-125) H 08/09/19 05:50 Total Protein 6.6 g/dl (6.4-8.2) 08/10/19 07:05 Albumin 3.3 g/dl (3.4-5.0) L 08/10/19 07:05 TSH 0.57 uIU/ml (0.358-3.74) 08/09/19 05:50 Urine Color Yellow 08/09/19 15:00 Urine Appearance Clear 08/09/19 15:00 Urine pH 5.5 (5.0-8.0) 08/09/19 15:00 Ur Specific [place] 1.018 (1.010-1.035) 08/09/19 15:00 Urine Protein Negative (NEGATIVE) 08/09/19 15:00 Urine Glucose (UA) Negative (NEGATIVE) 08/09/19 15:00 Urine Ketones Negative (NEGATIVE) 08/09/19 15:00 Urine Blood Negative (NEGATIVE) 08/09/19 15:00 Urine Nitrite Negative (NEGATIVE) 08/09/19 15:00 Urine Bilirubin Negative (NEGATIVE) 08/09/19 15:00 Urine Urobilinogen 0.2 mg/dL (0.2-1.0) 08/09/19 15:00 Ur Leukocyte Esterase Negative (NEGATIVE) 08/09/19 15:00 Current Medications Albuterol Sulfate (Ventolin 0.083% Nebulizer Soln -) 1 amp NEB Q4H PRN PRN Reason: SHORT OF BREATH/WHEEZING Albuterol/Ipratropium (Duoneb -) 1 amp NEB RQID [facility] Last Admin: 08/10/19 08:10 Dose: 1 amp Chlorhexidine Gluconate (Hibiclens For Decolonization -) 1 applic TP HS [facility] Last Admin: 08/09/19 21:30 Dose: 1 applic Furosemide (Lasix Injection -) 40 mg IVPUSH DAILY [facility] Last Admin: 08/10/19 10:37 Dose: 40 mg Heparin Sodium (Porcine) (Heparin -) 5,000 unit SQ BID [facility] Last Admin: 08/10/19 10:37 Dose: 5,000 unit Ceftriaxone Sodium 1 gm/ (Dextrose) 50 mls @ 100 mls/hr IVPB DAILY [facility] Last Admin: 08/10/19 10:37 Dose: 100 mls/hr Insulin Aspart (Novolog Vial Sliding Scale -) 1 vial SQ ACHS [facility]; Protocol Last Admin: 08/09/19 23:21 Dose: 2 unit Lisinopril (Prinivil) 20 mg PO DAILY [facility] Last Admin: 08/10/19 10:37 Dose: 20 mg Methylprednisolone Sodium Succinate (Solu-Medrol -) 40 mg IVPUSH DAILY [facility] Last Admin: 08/10/19 10:37 Dose: 40 mg Mupirocin (Bactroban Ointment (For Decolonization) -) 1 applic NS BID [facility] Stop: 08/13/19 21:59 Last Admin: 08/10/19 10:37 Dose: 1 applic Nystatin (Nystop Powder -) 1 applic TP BID [facility] Last Admin: 08/10/19 10:37 Dose: 1 applic Ranitidine HCl (Zantac -) 150 mg PO DAILY [facility] Last Admin: 08/10/19 10:37 Dose: 150 mg Rosuvastatin Calcium (Crestor -) 10 mg PO HS [facility] Last Admin: 08/09/19 21:30 Dose: 10 mg Solifenacin (Vesicare -) 10 mg PO DAILY [facility] Last Admin: 08/10/19 10:37 Dose: 10 mg ASSESSMENT/PLAN: 73 yo F with PMH HTN, NIDDM, HLD, PONCHO on CPAP, who presents to the ED c/o KRUSE since Monday. Pt admitted to ICU for acute on chronic hypercapnic respiratory failure. NEURO -AAO x 3. PULM: Acute on chronic hypercapnic respiratory failure 2/2 CHF exacerbation, PONCHO , OHS -with possible acute CHF exacerbation; also w baseline PONCHO, and likely OHS. hypercapnic however w good oxygenation -trial on 4L NC , saturating well. if desats will go back to BiPAP -c/w duonebs RQID, nebs PRN -c/w medrol 40mg daily -end tidal CO2 monitoring - if mental status declines further, may need intubation CARDIO: HTN- controlled, Acute CHF exacerbation, HLD -c/w lisinopril - ECHO : normal LV fxn, mild , mild TR -c/w lasix 40mg IVP qd, daily wts, strict i/o, Na control 2g -BiPAP for work of breathing -Cardio recs appreciated (Dr. Guevara) -c/w statin ID -s/p Zithromycin -c/w ceftriaxone until Ucx negative F/E/N -avoid IVF 2/2 CHF -continue to follow lytes -sodium/ low cholesterol diet DVT PPX - Hep sq code status Full code; d/w patient. ok with intubation if needed Dispo -c/w ICU monitoring Visit type - Emergency Visit Emergency Visit: No - New Patient This patient is new to me today: No - Critical Care Critical Care patient: Yes Total Critical Care Time (in minutes): 36 Critical Care Statement: The care of this patient involved high complexity decision making to prevent further life threatening deterioration of the patient 's condition and/or to evaluate & treat vital organ system(s) failure or risk of failure. ATTENDING PHYSICIAN STATEMENT I saw and evaluated the patient. I reviewed the resident's note and discussed the case with the resident. I agree with the resident's findings and plan as documented. SUBJECTIVE: OBJECTIVE: ASSESSMENT AND PLAN:
[2019-08-10] MEDS: INSULIN SLIDING SCALE (NOVOLOG) 1 VIAL SQ SCH ×3 (12:45→21:28)
--- NOTE | 2019-08-10 15:13 | PN ---
Progress Note, Physician Chief Complaint: feeling better less SOB still in ICU seen by ICU attending - Current Medication List Current Medications: Active Medications Albuterol Sulfate (Ventolin 0.083% Nebulizer Soln -) 1 amp NEB Q4H PRN PRN Reason: SHORT OF BREATH/WHEEZING Albuterol/Ipratropium (Duoneb -) 1 amp NEB RQID [facility] Last Admin: 08/10/19 08:10 Dose: 1 amp Chlorhexidine Gluconate (Hibiclens For Decolonization -) 1 applic TP HS [facility] Last Admin: 08/09/19 21:30 Dose: 1 applic Furosemide (Lasix Injection -) 40 mg IVPUSH DAILY [facility] Last Admin: 08/10/19 10:37 Dose: 40 mg Heparin Sodium (Porcine) (Heparin -) 5,000 unit SQ BID [facility] Last Admin: 08/10/19 10:37 Dose: 5,000 unit Ceftriaxone Sodium 1 gm/ (Dextrose) 50 mls @ 100 mls/hr IVPB DAILY [facility] Last Admin: 08/10/19 10:37 Dose: 100 mls/hr Insulin Aspart (Novolog Vial Sliding Scale -) 1 vial SQ ACHS [facility]; Protocol Last Admin: 08/10/19 12:45 Dose: Not Given Lisinopril (Prinivil) 20 mg PO DAILY [facility] Last Admin: 08/10/19 10:37 Dose: 20 mg Methylprednisolone Sodium Succinate (Solu-Medrol -) 40 mg IVPUSH DAILY [facility] Last Admin: 08/10/19 10:37 Dose: 40 mg Mupirocin (Bactroban Ointment (For Decolonization) -) 1 applic NS BID [facility] Stop: 08/13/19 21:59 Last Admin: 08/10/19 10:37 Dose: 1 applic Nystatin (Nystop Powder -) 1 applic TP BID [facility] Last Admin: 08/10/19 10:37 Dose: 1 applic Ranitidine HCl (Zantac -) 150 mg PO DAILY [facility] Last Admin: 08/10/19 10:37 Dose: 150 mg Rosuvastatin Calcium (Crestor -) 10 mg PO HS [facility] Last Admin: 08/09/19 21:30 Dose: 10 mg Solifenacin (Vesicare -) 10 mg PO DAILY [facility] Last Admin: 08/10/19 10:37 Dose: 10 mg - Objective Vital Signs: Vital Signs Temperature 98.1 F 08/09/19 18:00 Pulse Rate 53 L 08/10/19 04:00 Respiratory Rate 15 08/10/19 04:00 Blood Pressure 162/79 08/10/19 04:00 O2 Sat by Pulse Oximetry (%) 95 08/10/19 08:10 Constitutional: Yes: No Distress, Calm Eyes: Yes: Conjunctiva Clear HENT: Yes: Atraumatic Neck: Yes: Supple Cardiovascular: Yes: Regular Rate and Rhythm Respiratory: Yes: CTA Bilaterally Gastrointestinal: Yes: Soft. No: Tenderness Musculoskeletal: No: Joint Stiffness, Joint Swelling Extremities: No: Cold, Cool, Cyanosis Edema: No Integumentary: No: Rash, Venous Stasis Changes Neurological: Yes: WNL, Alert, Oriented ...Motor Strength: WNL Psychiatric: Yes: WNL, Alert, Oriented. No: Agitated, Suicidal Ideation Labs: CBC, BMP 08/10/19 07:05 08/10/19 07:05 INR, PTT INR 1.11 (0.83-1.09) H 08/07/19 21:12 - ....Imaging Other: Report Reviewed Assessment/Plan 73 year old female with a history of HTN, HLD, DM who presents with shortness of breath COPD exac, early PNA and respiratory failure support with bipap prn admitted to ICU pulm and cardiology eval iv lasix, iv ATB Nebs iv steroids f/u labs CE prognosis guarded d/w pulm and PCP dr Pricilla hung d/w pt will need PT / OOB when better t time 40 min
[2019-08-10] MEDS: ROSUVASTATIN CA 10 MG TABLET (FP) PO SCH (21:24)
[2019-08-10] MEDS: CHLORHEXIDINE GLUCONATE 4% CLEANSER FOR DECOLONIZATION TP SCH (21:25)
[2019-08-11] MEDS: INSULIN SLIDING SCALE (NOVOLOG) 1 VIAL SQ SCH ×5 (06:59→21:22)
[2019-08-11 07:39] LABS: HEMATOCRIT 39.9 % (32.4-45.2); HEMOGLOBIN 13.2 GM/dL (10.7-15.3); MCH 31.4 pg (25.7-33.7); MEAN CELL VOLUME 95.3 fl (80-96); MEAN PLT VOLUME 7.5 fl (7.5-11.1); PLATELET COUNT 249 K/MM3 (134-434); RBC 4.19 M/mm3 (3.60-5.2); RDW 14.9 % (11.6-15.6); WHITE BLOOD COUNT 8.3 K/mm3 (4.0-10.0)
[2019-08-11] MEDS: ALBUTEROL SO4 2.5/IPRATROPIUM 0.5 INH SOL 3 ML VIAL.NEB. NEB SCH ×4 (08:05→20:06)
[2019-08-11 08:11] LABS: BLOOD UREA NITROGEN 17.8 mg/dL (7-18); CALCIUM 8.8 mg/dL (8.5-10.1); CREATININE 0.6 mg/dL (0.55-1.3); MAGNESIUM 2.1 mg/dL (1.8-2.4); PHOSPHOROUS 2.9 mg/dL (2.5-4.9); POTASSIUM 3.6 mmol/L (3.5-5.1)
--- NOTE | 2019-08-11 08:36 | PN ---
Progress Note, Physician Chief Complaint: BP is moderately elevated. Weight down from 08/09 Alert. Denies CP or SOB. - Current Medication List Current Medications: Active Medications Albuterol Sulfate (Ventolin 0.083% Nebulizer Soln -) 1 amp NEB Q4H PRN PRN Reason: SHORT OF BREATH/WHEEZING Albuterol/Ipratropium (Duoneb -) 1 amp NEB RQID [facility] Last Admin: 08/10/19 20:28 Dose: 1 amp Chlorhexidine Gluconate (Hibiclens For Decolonization -) 1 applic TP HS [facility] Last Admin: 08/10/19 21:25 Dose: 1 applic Furosemide (Lasix Injection -) 40 mg IVPUSH DAILY [facility] Last Admin: 08/10/19 10:37 Dose: 40 mg Heparin Sodium (Porcine) (Heparin -) 5,000 unit SQ BID [facility] Last Admin: 08/10/19 21:24 Dose: 5,000 unit Ceftriaxone Sodium 1 gm/ (Dextrose) 50 mls @ 100 mls/hr IVPB DAILY [facility] Last Admin: 08/10/19 10:37 Dose: 100 mls/hr Insulin Aspart (Novolog Vial Sliding Scale -) 1 vial SQ ACHS [facility]; Protocol Last Admin: 08/11/19 06:59 Dose: Not Given Lisinopril (Prinivil) 20 mg PO DAILY [facility] Last Admin: 08/10/19 10:37 Dose: 20 mg Methylprednisolone Sodium Succinate (Solu-Medrol -) 40 mg IVPUSH DAILY [facility] Last Admin: 08/10/19 10:37 Dose: 40 mg Mupirocin (Bactroban Ointment (For Decolonization) -) 1 applic NS BID [facility] Stop: 08/13/19 21:59 Last Admin: 08/10/19 21:25 Dose: 1 applic Nystatin (Nystop Powder -) 1 applic TP BID [facility] Last Admin: 08/10/19 21:25 Dose: 1 applic Ranitidine HCl (Zantac -) 150 mg PO DAILY [facility] Last Admin: 08/10/19 10:37 Dose: 150 mg Rosuvastatin Calcium (Crestor -) 10 mg PO HS [facility] Last Admin: 08/10/19 21:24 Dose: 10 mg Solifenacin (Vesicare -) 10 mg PO DAILY [facility] Last Admin: 08/10/19 10:37 Dose: 10 mg - Objective Vital Signs: Vital Signs Temperature 98.1 F 08/09/19 18:00 Pulse Rate 67 08/10/19 22:00 Respiratory Rate 21 H 08/10/19 22:00 Blood Pressure 190/76 H 08/10/19 22:00 O2 Sat by Pulse Oximetry (%) 95 08/11/19 06:25 Constitutional: Yes: No Distress Cardiovascular: Yes: Regular Rate and Rhythm, Other (cannot assess JVD due to body habitus) Respiratory: Yes: Other (no rales, or wheezing. scattered rhonchi.) Gastrointestinal: Yes: Soft, Abdomen, Obese Edema: No Neurological: Yes: Alert Labs: CBC, BMP 08/11/19 06:14 08/11/19 06:14 INR, PTT INR 1.11 (0.83-1.09) H 08/07/19 21:12 - ....Imaging EKG: Image Reviewed (TELE: NSR) Assessment/Plan Assessment/Plan cta chest: no pe, mild chf ecg: sr nl intervals no ischemic changes IMP/PLAN: 73 f hx htn, hld, dm, here with sob for past few days, in ICU w/ acute respiratory failure requiring NIPPV; CTA negative for PE. Possible PNA vs acute on chronic diastolic CHF SOB, acute diastolic CHF: -no signs acs -continue with iv lasix, daily wts, daily chem7- clinically improving. CXR read as "worsened" congestive changes but underpenetrated film, poor inspiration. -pulm/Critical care following as well- abx as per critical care team for possible PNA -NIPPV as per critical care team for PONCHO HTN:moderately elevated. -add Amlodipine. HLD: -cont statin DVT prophylaxis
--- NOTE | 2019-08-11 09:46 | PN ---
Physical Exam: SUBJECTIVE: Patient seen and examined at bedside. on BipaP overnight. Will transition to NC today. OBJECTIVE: Vital Signs Period Temp Pulse Resp BP Sys/Crouch Pulse Ox Last 24 Hr 66-70 16-22 173-190/73-88 95-98 GENERAL: NAD HEAD: AT/NC EYES: EOMI, Sclera clear ENT: MMM NECK: Trachea midline, full range of motion, supple. LUNGS:Scattered Rhonchi HEART: RRR +S1S2 ABDOMEN: Soft, NDNT EXTREMITIES: No CCE PSYCH: Normal mood, normal affect. SKIN: Warm, dry, normal turgor, no rashes or lesions noted Laboratory Results - last 24 hr 08/10/19 08/10/19 08/10/19 12:33 17:17 21:25 WBC RBC Hgb Hct MCV MCH MCHC RDW Plt Count MPV Sodium Potassium Chloride Carbon Dioxide Anion Gap BUN Creatinine Est GFR (CKD-EPI)AfAm Est GFR (CKD-EPI)NonAf POC Glucometer 130 110 113 Random Glucose Calcium Phosphorus Magnesium 08/11/19 08/11/19 08/11/19 06:14 06:14 06:55 WBC 8.3 RBC 4.19 Hgb 13.2 Hct 39.9 MCV 95.3 MCH 31.4 MCHC 33.0 RDW 14.9 Plt Count 249 MPV 7.5 Sodium 140 Potassium 3.6 Chloride 96 L Carbon Dioxide 38 H Anion Gap 6 L BUN 17.8 Creatinine 0.6 Est GFR (CKD-EPI)AfAm 104.80 Est GFR (CKD-EPI)NonAf 90.42 POC Glucometer 80 Random Glucose 80 Calcium 8.8 Phosphorus 2.9 Magnesium 2.1 Active Medications Generic Name Dose Route Start Last Admin Trade Name Freq PRN Reason Stop Dose Admin Albuterol Sulfate 1 amp 08/08/19 14:04 Ventolin 0.083% Nebulizer Soln - NEB Q4H PRN SHORT OF BREATH/WHEEZING Albuterol/Ipratropium 1 amp 08/08/19 16:00 08/10/19 20:28 Duoneb - NEB 1 amp RQID [facility] Administration Amlodipine Besylate 5 mg 08/11/19 10:00 Norvasc - PO DAILY [facility] Chlorhexidine Gluconate 1 applic 08/08/19 22:00 08/10/19 21:25 Hibiclens For Decolonization - TP 1 applic HS [facility] Administration Furosemide 40 mg 08/08/19 10:15 08/10/19 10:37 Lasix Injection - IVPUSH 40 mg DAILY [facility] Administration Heparin Sodium (Porcine) 5,000 unit 08/08/19 10:00 08/10/19 21:24 Heparin - SQ 5,000 unit BID [facility] Administration Ceftriaxone Sodium 1 gm/ 50 mls @ 100 mls/hr 08/08/19 10:15 08/10/19 10:37 Dextrose IVPB 100 mls/hr DAILY [facility] Administration Insulin Aspart 1 vial 08/08/19 11:00 08/11/19 09:32 Novolog Vial Sliding Scale - SQ Not Given ACHS [facility] Protocol Lisinopril 20 mg 08/08/19 10:00 08/10/19 10:37 Prinivil PO 20 mg DAILY [facility] Administration Methylprednisolone Sodium Succinate 40 mg 08/10/19 10:00 08/10/19 10:37 Solu-Medrol - IVPUSH 40 mg DAILY [facility] Administration Mupirocin 1 applic 08/08/19 22:00 08/10/19 21:25 Bactroban Ointment (For Decolonization) - NS 08/13/19 21:59 1 applic BID [facility] Administration Nystatin 1 applic 08/09/19 15:47 08/10/19 21:25 Nystop Powder - TP 1 applic BID [facility] Administration Ranitidine HCl 150 mg 08/08/19 10:00 08/10/19 10:37 Zantac - PO 150 mg DAILY [facility] Administration Rosuvastatin Calcium 10 mg 08/08/19 22:00 08/10/19 21:24 Crestor - PO 10 mg HS [facility] Administration Solifenacin 10 mg 08/08/19 10:00 08/10/19 10:37 Vesicare - PO 10 mg DAILY [facility] Administration ASSESSMENT/PLAN: 73 yo F with PMH HTN, NIDDM, HLD, PONCHO on CPAP, who presents to the ED c/o KRUSE since Monday. Pt admitted to ICU for acute on chronic hypercapnic respiratory failure. #PULM: Acute on chronic hypercapnic respiratory failure 2/2 CHF exacerbation, PONCHO, OHS -with possible acute CHF exacerbation; also w baseline PONCHO, and likely OHS. hypercapnic however w good oxygenation - BiPAP currently. Will transition to NC 4l today. -c/w duonebs RQID, nebs PRN -c/w medrol 40mg daily -end tidal CO2 monitoring #CARDIO: HTN- controlled, Acute CHF exacerbation, HLD -c/w lisinopril, amlodipine - ECHO : normal LV fxn, mild , mild TR -c/w lasix 40mg IVP qd -BiPAP for work of breathing -Cardio on board -c/w statin #ID -s/p Zithromycin - Ceftriaxone discontinued as UC NEG #F/E/N -avoid IVF 2/2 CHF -continue to follow lytes -sodium/ low cholesterol diet #DVT PPX - Hep sq #code status Full code #Dispo -c/w ICU monitoring Visit type - Emergency Visit Emergency Visit: Yes ED Registration Date: 08/08/19 Care time: The patient presented to the Emergency Department on the above date and was hospitalized for further evaluation of their emergent condition. - New Patient This patient is new to me today: No - Critical Care Critical Care patient: Yes Total Critical Care Time (in minutes): 35 Critical Care Statement: The care of this patient involved high complexity decision making to prevent further life threatening deterioration of the patient 's condition and/or to evaluate & treat vital organ system(s) failure or risk of failure. - Discharge Referral Referred to [facility] Med [facility] No ATTENDING PHYSICIAN STATEMENT I saw and evaluated the patient. I reviewed the resident's note and discussed the case with the resident. I agree with the resident's findings and plan as documented. SUBJECTIVE: OBJECTIVE: ASSESSMENT AND PLAN:
--- NOTE | 2019-08-11 10:07 | PN ---
Teaching Attending Note Name of Resident: Eliel Huang ATTENDING PHYSICIAN STATEMENT I saw and evaluated the patient. I reviewed the resident's note and discussed the case with the resident. I agree with the resident's findings and plan as documented. SUBJECTIVE: Patient seen and examined in the ICU. Awake and alert on NIPPV support. Able to follow all commands and move all extremities. Reports breathing is a little better today. Tolerated NC O2 @ 4 Liters yesterday. Intake & Output 08/08/19 08/09/19 08/10/19 08/11/19 23:59 23:59 23:59 23:59 Intake Total 300 1430 480 Output Total 1000 Balance 300 430 480 Weight 244 lb 8 oz 242 lb 8.136 oz Last Vital Signs Temp Pulse Resp BP Pulse Ox 98.1 F 67 21 H 190/76 H 95 08/09/19 18:00 08/10/19 22:00 08/10/19 22:00 08/10/19 22:00 08/11/19 09:00 Active Medications Albuterol Sulfate (Ventolin 0.083% Nebulizer Soln -) 1 amp NEB Q4H PRN PRN Reason: SHORT OF BREATH/WHEEZING Albuterol/Ipratropium (Duoneb -) 1 amp NEB RQID [facility] Last Admin: 08/10/19 20:28 Dose: 1 amp Amlodipine Besylate (Norvasc -) 5 mg PO DAILY [facility] Chlorhexidine Gluconate (Hibiclens For Decolonization -) 1 applic TP HS [facility] Last Admin: 08/10/19 21:25 Dose: 1 applic Furosemide (Lasix Injection -) 40 mg IVPUSH DAILY [facility] Last Admin: 08/10/19 10:37 Dose: 40 mg Heparin Sodium (Porcine) (Heparin -) 5,000 unit SQ BID [facility] Last Admin: 08/10/19 21:24 Dose: 5,000 unit Ceftriaxone Sodium 1 gm/ (Dextrose) 50 mls @ 100 mls/hr IVPB DAILY [facility] Last Admin: 08/10/19 10:37 Dose: 100 mls/hr Insulin Aspart (Novolog Vial Sliding Scale -) 1 vial SQ ACHS [facility]; Protocol Last Admin: 08/11/19 09:32 Dose: Not Given Lisinopril (Prinivil) 20 mg PO DAILY [facility] Last Admin: 08/10/19 10:37 Dose: 20 mg Methylprednisolone Sodium Succinate (Solu-Medrol -) 40 mg IVPUSH DAILY [facility] Last Admin: 08/10/19 10:37 Dose: 40 mg Mupirocin (Bactroban Ointment (For Decolonization) -) 1 applic NS BID [facility] Stop: 08/13/19 21:59 Last Admin: 08/10/19 21:25 Dose: 1 applic Nystatin (Nystop Powder -) 1 applic TP BID [facility] Last Admin: 08/10/19 21:25 Dose: 1 applic Ranitidine HCl (Zantac -) 150 mg PO DAILY [facility] Last Admin: 08/10/19 10:37 Dose: 150 mg Rosuvastatin Calcium (Crestor -) 10 mg PO HS [facility] Last Admin: 08/10/19 21:24 Dose: 10 mg Solifenacin (Vesicare -) 10 mg PO DAILY [facility] Last Admin: 08/10/19 10:37 Dose: 10 mg GENERAL: Awake on NIPPV support HEAD: Normal with no signs of trauma. EYES: Pupils equal, round and reactive to light, extraocular movements intact, sclera anicteric, conjunctiva clear. EARS, NOSE, THROAT: Ears normal, nares patent, oropharynx clear without exudates. Moist mucous membranes. NECK: Normal range of motion, supple without lymphadenopathy LUNGS: NIPPV, bilateral rales and rhonchi, mild wheeze HEART: Regular rate and rhythm, normal S1 and S2 without murmur, rub or gallop. ABDOMEN: Obese, soft, nontender, not distended, normoactive bowel sounds, no guarding, no rebound LOWER EXTREMITIES: 2+ pt pulses, warm, well-perfused. Without LE edema. + erythema on RLE; without TTP. NEUROLOGICAL: Non-focal PSYCHIATRIC: Cooperative. Laboratory Results - last 24 hr 08/10/19 08/10/19 08/10/19 12:33 17:17 21:25 WBC RBC Hgb Hct MCV MCH MCHC RDW Plt Count MPV Sodium Potassium Chloride Carbon Dioxide Anion Gap BUN Creatinine Est GFR (CKD-EPI)AfAm Est GFR (CKD-EPI)NonAf POC Glucometer 130 110 113 Random Glucose Calcium Phosphorus Magnesium 08/11/19 08/11/19 08/11/19 06:14 06:14 06:55 WBC 8.3 RBC 4.19 Hgb 13.2 Hct 39.9 MCV 95.3 MCH 31.4 MCHC 33.0 RDW 14.9 Plt Count 249 MPV 7.5 Sodium 140 Potassium 3.6 Chloride 96 L Carbon Dioxide 38 H Anion Gap 6 L BUN 17.8 Creatinine 0.6 Est GFR (CKD-EPI)AfAm 104.80 Est GFR (CKD-EPI)NonAf 90.42 POC Glucometer 80 Random Glucose 80 Calcium 8.8 Phosphorus 2.9 Magnesium 2.1 ASSESSMENT/PLAN: Acute on chronic respiratory failure due to CHF & COPD and possible PNA DM HLD PONCHO on CPAP R/O PNA: low clinical suspicion R/O CHF NC O2 as tolerated NIPPV support QHS & PRN End tidal CO2 monitoring Strict I & O DC Zithromax and can DC Rocephin if urine culture is (-) BD TX VTE prophylaxis Lasix IVP Cardiac Telemetry monitoring Dr Ross
[2019-08-11] MEDS ORDERED: PT OWN MED DRAWER 7, Y5N ONE (10:25)
[2019-08-11] MEDS ORDERED: cefTRIAXone SODIUM 1 GM VIAL ONE (10:25)
[2019-08-11] MEDS ORDERED: DEXTROSE 5%-WATER - 50 ML IVPB ONE (10:26)
[2019-08-11] MEDS: SOLIFENACIN SUCCINATE 5 MG TAB PO SCH (10:30)
[2019-08-11] MEDS: amLODIPine BESYLATE 5 MG TABLET (FP) PO SCH (10:32)
[2019-08-11] MEDS: NYSTATIN POWDER 100,000 UNITS/GM - 15 GM TOPICAL POWDER TP SCH ×2 (10:33→21:23)
[2019-08-11] MEDS: MUPIROCIN 2% TOPICAL OINTMENT FOR DECOLONIZATION NS SCH ×2 (10:33→21:24)
[2019-08-11] MEDS: LISINOPRIL 20 MG TABLET (FP) PO SCH (10:33)
[2019-08-11] MEDS: RANITIDINE HCL 150 MG TABLET (FP) PO SCH (10:33)
[2019-08-11] MEDS: FUROSEMIDE 40 MG/4 ML INJECTABLE VIAL IVPUSH SCH (10:33)
[2019-08-11] MEDS: HEPARIN NA (PORCINE) 5,000 UNITS/ML 1ML VIAL SQ SCH ×2 (10:33→21:19)
[2019-08-11] MEDS: CEFTRIAXONE 1 GM in DEXTROSE 5%-WATER - 50 ML IVPB SCH (10:34)
[2019-08-11] MEDS: methylPREDNISolone NA SUCC 40 MG/1 ML VIAL IVPUSH SCH (10:34)
--- NOTE | 2019-08-11 10:52 | PN ---
Progress Note, Physician Chief Complaint: feels better less SOB still in ICU bipap prn; O2 better but occ 89% - Current Medication List Current Medications: Active Medications Albuterol Sulfate (Ventolin 0.083% Nebulizer Soln -) 1 amp NEB Q4H PRN PRN Reason: SHORT OF BREATH/WHEEZING Albuterol/Ipratropium (Duoneb -) 1 amp NEB RQID [facility] Last Admin: 08/10/19 20:28 Dose: 1 amp Amlodipine Besylate (Norvasc -) 5 mg PO DAILY [facility] Last Admin: 08/11/19 10:32 Dose: 5 mg Chlorhexidine Gluconate (Hibiclens For Decolonization -) 1 applic TP HS [facility] Last Admin: 08/10/19 21:25 Dose: 1 applic Furosemide (Lasix Injection -) 40 mg IVPUSH DAILY [facility] Last Admin: 08/11/19 10:33 Dose: 40 mg Heparin Sodium (Porcine) (Heparin -) 5,000 unit SQ BID [facility] Last Admin: 08/11/19 10:33 Dose: 5,000 unit Ceftriaxone Sodium 1 gm/ (Dextrose) 50 mls @ 100 mls/hr IVPB DAILY [facility] Last Admin: 08/11/19 10:34 Dose: 100 mls/hr Insulin Aspart (Novolog Vial Sliding Scale -) 1 vial SQ ACHS [facility]; Protocol Last Admin: 08/11/19 09:32 Dose: Not Given Lisinopril (Prinivil) 20 mg PO DAILY [facility] Last Admin: 08/11/19 10:33 Dose: 20 mg Methylprednisolone Sodium Succinate (Solu-Medrol -) 40 mg IVPUSH DAILY [facility] Last Admin: 08/11/19 10:34 Dose: 40 mg Mupirocin (Bactroban Ointment (For Decolonization) -) 1 applic NS BID [facility] Stop: 08/13/19 21:59 Last Admin: 08/11/19 10:33 Dose: 1 applic Nystatin (Nystop Powder -) 1 applic TP BID [facility] Last Admin: 08/11/19 10:33 Dose: 1 applic Ranitidine HCl (Zantac -) 150 mg PO DAILY [facility] Last Admin: 08/11/19 10:33 Dose: 150 mg Rosuvastatin Calcium (Crestor -) 10 mg PO HS [facility] Last Admin: 08/10/19 21:24 Dose: 10 mg Solifenacin (Vesicare -) 10 mg PO DAILY [facility] Last Admin: 08/10/19 10:37 Dose: 10 mg - Objective Vital Signs: Vital Signs Temperature 98.1 F 08/09/19 18:00 Pulse Rate 67 08/10/19 22:00 Respiratory Rate 21 H 08/10/19 22:00 Blood Pressure 190/76 H 08/10/19 22:00 O2 Sat by Pulse Oximetry (%) 95 08/11/19 09:00 Constitutional: Yes: No Distress, Calm Eyes: Yes: Conjunctiva Clear HENT: Yes: Atraumatic Neck: Yes: Supple Cardiovascular: Yes: Regular Rate and Rhythm Respiratory: Yes: CTA Bilaterally Gastrointestinal: Yes: Soft. No: Tenderness Genitourinary: No: Hematuria Musculoskeletal: No: Joint Stiffness, Joint Swelling Extremities: No: Cold, Cool, Cyanosis Edema: No Integumentary: No: Rash, Venous Stasis Changes Neurological: Yes: WNL, Alert, Oriented ...Motor Strength: WNL Psychiatric: Yes: WNL, Alert, Oriented. No: Agitated, Suicidal Ideation Labs: CBC, BMP 08/11/19 06:14 08/11/19 06:14 INR, PTT INR 1.11 (0.83-1.09) H 08/07/19 21:12 - ....Imaging Other: Report Reviewed Assessment/Plan 73 year old female with a history of HTN, HLD, DM who presents with shortness of breath COPD exac, early PNA and respiratory failure support with bipap prn admitted to ICU pulm and cardiology eval iv lasix, iv ATB Nebs iv steroids f/u labs CE prognosis guarded d/w pulm and PCP dr Pricilla hung d/w pt will need PT / OOB when better t time 35 min
[2019-08-11] MEDS ORDERED: hydrALAZINE HCL 20 MG/ML VIAL IVPUSH PRN (15:09)
[2019-08-11] MEDS: ROSUVASTATIN CA 10 MG TABLET (FP) PO SCH (21:20)
[2019-08-11] MEDS: CHLORHEXIDINE GLUCONATE 4% CLEANSER FOR DECOLONIZATION TP SCH (21:20)
[2019-08-12 05:45] LABS: BASO % 0.4 % (0-2.0); EOS % 0.5 % (0-4.5); HEMATOCRIT 41.3 % (32.4-45.2); HEMOGLOBIN 13.7 GM/dL (10.7-15.3); LYMPH % 20.5 % (8-40); MCH 31.4 pg (25.7-33.7); MEAN PLT VOLUME 6.9 fl (7.5-11.1); MONO % 7.1 % (3.8-10.2); NEUT % 71.5 % (42.8-82.8); PLATELET COUNT 262 K/MM3 (134-434); RBC 4.35 M/mm3 (3.60-5.2); RDW 14.7 % (11.6-15.6); WHITE BLOOD COUNT 9.1 K/mm3 (4.0-10.0)
[2019-08-12 06:24] LABS: BLOOD UREA NITROGEN 20.5 mg/dL (7-18); CALCIUM 8.9 mg/dL (8.5-10.1); CREATININE 0.6 mg/dL (0.55-1.3); MAGNESIUM 2.1 mg/dL (1.8-2.4); PHOSPHOROUS 2.9 mg/dL (2.5-4.9); POTASSIUM 3.6 mmol/L (3.5-5.1)
[2019-08-12] MEDS: INSULIN SLIDING SCALE (NOVOLOG) 1 VIAL SQ SCH ×4 (06:42→22:53)
[2019-08-12] MEDS: ALBUTEROL SO4 2.5/IPRATROPIUM 0.5 INH SOL 3 ML VIAL.NEB. NEB SCH ×5 (07:25→19:40)
[2019-08-12] MEDS ORDERED: PT OWN MED DRAWER 7, Y5N ONE ×2 (10:27→22:13)
[2019-08-12] MEDS: FUROSEMIDE 40 MG/4 ML INJECTABLE VIAL IVPUSH SCH (10:30)
[2019-08-12] MEDS: amLODIPine BESYLATE 5 MG TABLET (FP) PO SCH (10:30)
[2019-08-12] MEDS: NYSTATIN POWDER 100,000 UNITS/GM - 15 GM TOPICAL POWDER TP SCH ×2 (10:30→22:45)
[2019-08-12] MEDS: MUPIROCIN 2% TOPICAL OINTMENT FOR DECOLONIZATION NS SCH (10:30)
[2019-08-12] MEDS: HEPARIN NA (PORCINE) 5,000 UNITS/ML 1ML VIAL SQ SCH ×2 (10:30→22:43)
[2019-08-12] MEDS: RANITIDINE HCL 150 MG TABLET (FP) PO SCH (10:30)
[2019-08-12] MEDS: methylPREDNISolone NA SUCC 40 MG/1 ML VIAL IVPUSH SCH (10:30)
[2019-08-12] MEDS: LISINOPRIL 20 MG TABLET (FP) PO SCH (10:30)
--- NOTE | 2019-08-12 10:52 | PN ---
Progress Note, Physician Chief Complaint: in ICU; feels better did not get OOB yet but less SOB at rest - Current Medication List Current Medications: Active Medications Albuterol Sulfate (Ventolin 0.083% Nebulizer Soln -) 1 amp NEB Q4H PRN PRN Reason: SHORT OF BREATH/WHEEZING Albuterol/Ipratropium (Duoneb -) 1 amp NEB RQID [facility] Last Admin: 08/12/19 07:25 Dose: 1 amp Amlodipine Besylate (Norvasc -) 5 mg PO DAILY [facility] Last Admin: 08/11/19 10:32 Dose: 5 mg Chlorhexidine Gluconate (Hibiclens For Decolonization -) 1 applic TP HS [facility] Last Admin: 08/11/19 21:20 Dose: 1 applic Furosemide (Lasix Injection -) 40 mg IVPUSH DAILY [facility] Last Admin: 08/11/19 10:33 Dose: 40 mg Heparin Sodium (Porcine) (Heparin -) 5,000 unit SQ BID [facility] Last Admin: 08/11/19 21:19 Dose: 5,000 unit Hydralazine HCl (Apresoline Injection -) 10 mg IVPUSH Q8H PRN PRN Reason: HYPERTENSION Insulin Aspart (Novolog Vial Sliding Scale -) 1 vial SQ [facility]; Protocol Last Admin: 08/12/19 06:42 Dose: Not Given Lisinopril (Prinivil) 20 mg PO DAILY [facility] Last Admin: 08/11/19 10:33 Dose: 20 mg Methylprednisolone Sodium Succinate (Solu-Medrol -) 40 mg IVPUSH DAILY [facility] Last Admin: 08/11/19 10:34 Dose: 40 mg Mupirocin (Bactroban Ointment (For Decolonization) -) 1 applic NS BID [facility] Stop: 08/13/19 21:59 Last Admin: 08/11/19 21:24 Dose: 1 applic Nystatin (Nystop Powder -) 1 applic TP BID [facility] Last Admin: 08/11/19 21:23 Dose: 1 applic Ranitidine HCl (Zantac -) 150 mg PO DAILY [facility] Last Admin: 08/11/19 10:33 Dose: 150 mg Rosuvastatin Calcium (Crestor -) 10 mg PO HS [facility] Last Admin: 08/11/19 21:20 Dose: 10 mg Solifenacin (Vesicare -) 10 mg PO DAILY [facility] Last Admin: 08/11/19 10:30 Dose: 10 mg - Objective Vital Signs: Vital Signs Temperature 97.8 F 08/12/19 10:00 Pulse Rate 77 08/12/19 10:00 Respiratory Rate 22 H 08/12/19 10:00 Blood Pressure 140/60 08/12/19 10:00 O2 Sat by Pulse Oximetry (%) 98 08/12/19 07:52 Constitutional: Yes: No Distress, Calm Eyes: Yes: Conjunctiva Clear HENT: Yes: Atraumatic Neck: Yes: Supple Cardiovascular: Yes: Regular Rate and Rhythm Respiratory: Yes: CTA Bilaterally Gastrointestinal: Yes: Soft. No: Tenderness Genitourinary: No: Hematuria Musculoskeletal: No: Joint Stiffness, Joint Swelling Extremities: No: Cold, Cool Edema: No Integumentary: No: Rash, Venous Stasis Changes Neurological: Yes: WNL, Alert, Oriented ...Motor Strength: WNL Psychiatric: Yes: WNL, Alert, Oriented. No: Agitated, Suicidal Ideation Labs: CBC, BMP 08/12/19 05:00 08/12/19 05:00 INR, PTT INR 1.11 (0.83-1.09) H 08/07/19 21:12 - ....Imaging Other: Report Reviewed Assessment/Plan 73 year old female with a history of HTN, HLD, DM who presents with shortness of breath COPD exac, early PNA and respiratory failure support with bipap prn admitted to ICU, possibly trabsfer to reg floor if better - per ICU team pulm and cardiology eval lasix, iv ATB Nebs iv steroids f/u labs CE prognosis guarded d/w pt will need PT / OOB when better
--- NOTE | 2019-08-12 12:14 | PN ---
Teaching Attending Note Name of Resident: Danika Mendoza ATTENDING PHYSICIAN STATEMENT I saw and evaluated the patient. I reviewed the resident's note and discussed the case with the resident. I agree with the resident's findings and plan as documented. SUBJECTIVE: Pt seen and examined in the ICU. States breathing is improving. Used BiPAP overnight. OBJECTIVE: Vital Signs Period Temp Pulse Resp BP Sys/Crouch Pulse Ox Last 24 Hr 97.8 F-98.6 F 64-77 18-72 140-158/59-79 95-98 Intake & Output 08/09/19 08/10/19 08/11/19 08/12/19 23:59 23:59 23:59 23:59 Intake Total 1430 480 320 60 Output Total 1000 Balance 430 480 320 60 Weight 110.903 kg 110 kg 104.7 kg Gen: NAD at rest Heart: RRR Lung: decreased breath sounds at the bases Abd: soft, nontender Ext: no edema CBC, BMP 08/12/19 05:00 08/12/19 05:00 Active Medications Albuterol Sulfate (Ventolin 0.083% Nebulizer Soln -) 1 amp NEB Q4H PRN PRN Reason: SHORT OF BREATH/WHEEZING Albuterol/Ipratropium (Duoneb -) 1 amp NEB RQID [facility] Last Admin: 08/12/19 11:20 Dose: 1 amp Amlodipine Besylate (Norvasc -) 5 mg PO DAILY [facility] Last Admin: 08/11/19 10:32 Dose: 5 mg Chlorhexidine Gluconate (Hibiclens For Decolonization -) 1 applic TP HS [facility] Last Admin: 08/11/19 21:20 Dose: 1 applic Furosemide (Lasix Injection -) 40 mg IVPUSH DAILY [facility] Last Admin: 08/11/19 10:33 Dose: 40 mg Heparin Sodium (Porcine) (Heparin -) 5,000 unit SQ BID [facility] Last Admin: 08/11/19 21:19 Dose: 5,000 unit Hydralazine HCl (Apresoline Injection -) 10 mg IVPUSH Q8H PRN PRN Reason: HYPERTENSION Insulin Aspart (Novolog Vial Sliding Scale -) 1 vial SQ ACHS [facility]; Protocol Last Admin: 08/12/19 06:42 Dose: Not Given Lisinopril (Prinivil) 20 mg PO DAILY [facility] Last Admin: 08/11/19 10:33 Dose: 20 mg Methylprednisolone Sodium Succinate (Solu-Medrol -) 40 mg IVPUSH DAILY [facility] Last Admin: 08/11/19 10:34 Dose: 40 mg Mupirocin (Bactroban Ointment (For Decolonization) -) 1 applic NS BID [facility] Stop: 08/13/19 21:59 Last Admin: 08/11/19 21:24 Dose: 1 applic Nystatin (Nystop Powder -) 1 applic TP BID [facility] Last Admin: 08/11/19 21:23 Dose: 1 applic Ranitidine HCl (Zantac -) 150 mg PO DAILY [facility] Last Admin: 08/11/19 10:33 Dose: 150 mg Rosuvastatin Calcium (Crestor -) 10 mg PO HS [facility] Last Admin: 08/11/19 21:20 Dose: 10 mg Solifenacin (Vesicare -) 10 mg PO DAILY [facility] Last Admin: 08/11/19 10:30 Dose: 10 mg ASSESSMENT AND PLAN: Acute on Chronic Hypercapneic Respiratory Failure Acute COPD Exacerbation LV Diastolic Dysfunction HTN Hyperlipidemia DM Obstructive Sleep Apnea - continue lasix - monitor urine output, creatinine - medrol taper - inhaled bronchodilators - O2 to keep SpO2 >90% - BiPAP at night and PRN during day - PO as tolerated - DVT prophylaxis - can monitor on floor
[2019-08-12] MEDS: SOLIFENACIN SUCCINATE 5 MG TAB PO SCH (12:36)
[2019-08-12] MEDS: NIFEdipine E.R. 30 MG TABLET (FP) PO SCH (14:12)
--- NOTE | 2019-08-12 16:21 | PN ---
Physical Exam: SUBJECTIVE: Patient seen and examined at bedside. pt has no acute complaints. pt states her sob is improving. OBJECTIVE: Vital Signs Period Temp Pulse Resp BP Sys/Crouch Pulse Ox Last 24 Hr 97.8 F-98.2 F 64-77 18-72 138-158/59-79 95-98 GENERAL: The patient is awake, alert, and fully oriented, in no acute distress. LUNGS: Breath sounds decreased at b/l bases no wheezes, no crackles, no accessory muscle use. HEART: Regular rate and rhythm, S1, S2 without murmur, rub or gallop. ABDOMEN: Soft, nontender, nondistended, normoactive bowel sounds, no guarding SKIN: Warm, dry, normal turgor, no rashes or lesions noted Laboratory Results - last 24 hr 08/11/19 08/11/19 08/12/19 17:44 21:13 05:00 WBC 9.1 RBC 4.35 Hgb 13.7 Hct 41.3 MCV 95.0 MCH 31.4 MCHC 33.0 RDW 14.7 Plt Count 262 MPV 6.9 L Absolute Neuts (auto) 6.5 Neutrophils % 71.5 D Lymphocytes % 20.5 D Monocytes % 7.1 D Eosinophils % 0.5 D Basophils % 0.4 Nucleated RBC % 0 Sodium Potassium Chloride Carbon Dioxide Anion Gap BUN Creatinine Est GFR (CKD-EPI)AfAm Est GFR (CKD-EPI)NonAf POC Glucometer 178 139 Random Glucose Calcium Phosphorus Magnesium 08/12/19 08/12/19 08/12/19 05:00 06:09 12:20 WBC RBC Hgb Hct MCV MCH MCHC RDW Plt Count MPV Absolute Neuts (auto) Neutrophils % Lymphocytes % Monocytes % Eosinophils % Basophils % Nucleated RBC % Sodium 140 Potassium 3.6 Chloride 97 L Carbon Dioxide 40 H Anion Gap 3 L BUN 20.5 H Creatinine 0.6 Est GFR (CKD-EPI)AfAm 104.80 Est GFR (CKD-EPI)NonAf 90.42 POC Glucometer 97 144 Random Glucose 96 Calcium 8.9 Phosphorus 2.9 Magnesium 2.1 Current Medications Albuterol Sulfate (Ventolin 0.083% Nebulizer Soln -) 1 amp NEB Q4H PRN PRN Reason: SHORT OF BREATH/WHEEZING Albuterol/Ipratropium (Duoneb -) 1 amp NEB RQID [facility] Last Admin: 09/16/19 11:20 Dose: 1 amp Chlorhexidine Gluconate (Hibiclens For Decolonization -) 1 applic TP HS [facility] Last Admin: 08/11/19 21:20 Dose: 1 applic Furosemide (Lasix Injection -) 40 mg IVPUSH DAILY [facility] Last Admin: 08/12/19 10:30 Dose: 40 mg Heparin Sodium (Porcine) (Heparin -) 5,000 unit SQ BID [facility] Last Admin: 08/12/19 10:30 Dose: 5,000 unit Hydralazine HCl (Apresoline Injection -) 10 mg IVPUSH Q8H PRN PRN Reason: HYPERTENSION Insulin Aspart (Novolog Vial Sliding Scale -) 1 vial SQ ACHS [facility]; Protocol Last Admin: 08/12/19 12:37 Dose: Not Given Lisinopril (Prinivil) 20 mg PO DAILY [facility] Last Admin: 08/12/19 10:30 Dose: 20 mg Methylprednisolone Sodium Succinate (Solu-Medrol -) 40 mg IVPUSH DAILY [facility] Last Admin: 08/12/19 10:30 Dose: 40 mg Mupirocin (Bactroban Ointment (For Decolonization) -) 1 applic NS BID [facility] Stop: 08/13/19 21:59 Last Admin: 08/12/19 10:30 Dose: 1 applic Nifedipine (Procardia Xl -) 30 mg PO DAILY [facility] Last Admin: 08/12/19 14:12 Dose: 30 mg Nystatin (Nystop Powder -) 1 applic TP BID [facility] Last Admin: 08/12/19 10:30 Dose: 1 applic Ranitidine HCl (Zantac -) 150 mg PO DAILY [facility] Last Admin: 08/12/19 10:30 Dose: 150 mg Rosuvastatin Calcium (Crestor -) 10 mg PO HS [facility] Last Admin: 08/11/19 21:20 Dose: 10 mg Solifenacin (Vesicare -) 10 mg PO DAILY [facility] Last Admin: 08/12/19 12:36 Dose: 10 mg ASSESSMENT/PLAN: 73 yo F with PMH HTN, NIDDM, HLD, PONCHO on CPAP, who presents to the ED c/o KRUSE since Monday. Pt admitted to ICU for acute on chronic hypercapnic respiratory failure. NEURO -AAO x 3. PULM: Acute on chronic hypercapnic respiratory failure 2/2 CHF exacerbation, PONCHO , OHS -with possible acute CHF exacerbation; also w baseline PONCHO, and likely OHS. hypercapnic however w good oxygenation -saturating well on 4L NC , saturating well. bipap at night and prn -c/w duonebs RQID, nebs PRN -c/w medrol 40mg daily -end tidal CO2 monitoring - if mental status declines further, may need intubation -titrate down O2 as tolerated , PT CARDIO: HTN- controlled, Acute CHF exacerbation, HLD -c/w lisinopril - ECHO : normal LV fxn, mild , mild TR -c/w lasix 40mg IVP qd, daily wts, strict i/o, Na control 2g -BiPAP for work of breathing -Cardio recs appreciated (Dr. Guevara) -c/w statin -will dc amlodipine and switch to procardia to better manage bp ID -s/p Zithromycin, ceftriaxone -cultures negative F/E/N -avoid IVF 2/2 CHF -continue to follow lytes -sodium/ low cholesterol diet DVT PPX - Hep sq code status Full code; d/w patient. ok with intubation if needed Dispo -c/w ICU monitoring Visit type - Emergency Visit Emergency Visit: No - New Patient This patient is new to me today: No - Critical Care Critical Care patient: Yes Total Critical Care Time (in minutes): 36 Critical Care Statement: The care of this patient involved high complexity decision making to prevent further life threatening deterioration of the patient 's condition and/or to evaluate & treat vital organ system(s) failure or risk of failure. - Discharge Referral Referred to [facility] No ATTENDING PHYSICIAN STATEMENT I saw and evaluated the patient. I reviewed the resident's note and discussed the case with the resident. I agree with the resident's findings and plan as documented. SUBJECTIVE: OBJECTIVE: ASSESSMENT AND PLAN:
--- NOTE | 2019-08-12 16:40 | PN ---
Progress Note (short form) - Note Progress Note: s: no chest pain, palps, dizziness, lightheadedness Current Medications Albuterol Sulfate (Ventolin 0.083% Nebulizer Soln -) 1 amp NEB Q4H PRN PRN Reason: SHORT OF BREATH/WHEEZING Albuterol/Ipratropium (Duoneb -) 1 amp NEB RQID [facility] Last Admin: 08/12/19 11:20 Dose: 1 amp Chlorhexidine Gluconate (Hibiclens For Decolonization -) 1 applic TP HS [facility] Last Admin: 08/11/19 21:20 Dose: 1 applic Furosemide (Lasix Injection -) 40 mg IVPUSH DAILY [facility] Last Admin: 08/12/19 10:30 Dose: 40 mg Heparin Sodium (Porcine) (Heparin -) 5,000 unit SQ BID [facility] Last Admin: 08/12/19 10:30 Dose: 5,000 unit Hydralazine HCl (Apresoline Injection -) 10 mg IVPUSH Q8H PRN PRN Reason: HYPERTENSION Insulin Aspart (Novolog Vial Sliding Scale -) 1 vial SQ [facility]; Protocol Last Admin: 08/12/19 12:37 Dose: Not Given Lisinopril (Prinivil) 20 mg PO DAILY [facility] Last Admin: 08/12/19 10:30 Dose: 20 mg Methylprednisolone Sodium Succinate (Solu-Medrol -) 40 mg IVPUSH DAILY [facility] Last Admin: 08/12/19 10:30 Dose: 40 mg Mupirocin (Bactroban Ointment (For Decolonization) -) 1 applic NS BID [facility] Stop: 08/13/19 21:59 Last Admin: 08/12/19 10:30 Dose: 1 applic Nifedipine (Procardia Xl -) 30 mg PO DAILY [facility] Last Admin: 08/12/19 14:12 Dose: 30 mg Nystatin (Nystop Powder -) 1 applic TP BID [facility] Last Admin: 08/12/19 10:30 Dose: 1 applic Ranitidine HCl (Zantac -) 150 mg PO DAILY [facility] Last Admin: 08/12/19 10:30 Dose: 150 mg Rosuvastatin Calcium (Crestor -) 10 mg PO HS [facility] Last Admin: 08/11/19 21:20 Dose: 10 mg Solifenacin (Vesicare -) 10 mg PO DAILY [facility] Last Admin: 08/12/19 12:36 Dose: 10 mg Vital Signs Period Temp Pulse Resp BP Sys/Crouch Pulse Ox Last 24 Hr 97.8 F-98.2 F 64-77 18-72 138-158/59-79 95-98 Constitutional: Yes: No Distress Cardiovascular: Yes: Regular Rate and Rhythm, Other (cannot assess JVD due to body habitus) Respiratory: Yes: Other (no rales, or wheezing. scattered rhonchi.) Gastrointestinal: Yes: Soft, Abdomen, Obese Edema: No Neurological: Yes: Alert not agitated no jaundice, diaphoresis Assessment/Plan cta chest: no pe, mild chf ecg: sr nl intervals no ischemic changes IMP/PLAN: 73 f hx htn, hld, dm, here with sob for past few days, in ICU w/ acute respiratory failure requiring NIPPV; CTA negative for PE. Possible PNA vs acute on chronic diastolic CHF SOB, acute diastolic CHF: -no signs acs -continue with iv lasix, daily wts, daily chem7- clinically improving. CXR read as "worsened" congestive changes but underpenetrated film, poor inspiration. -pulm/Critical care following as well- abx as per critical care team for possible PNA -NIPPV as per critical care team for PONCHO HTN: - improved with amlodipine, monitor BP HLD: -cont statin
[2019-08-12] MEDS ORDERED: INSULIN (NOVOLOG) ASPART 100 UNITS/ML 10ML VIAL ONE ×2 (17:30→22:12)
[2019-08-12] MEDS ORDERED: hydrALAZINE HCL 20 MG/ML VIAL IVPUSH PRN (19:16)
[2019-08-12] MEDS ORDERED: ALBUTEROL SO4 0.083% IH SOL 2.5 MG/3 ML VIAL.NEB. NEB PRN (19:16)
[2019-08-12] MEDS ORDERED: CHLORHEXIDINE GLUCONATE 4% CLEANSER FOR DECOLONIZATION TP SCH ×2 (22:00)
[2019-08-12] MEDS ORDERED: MUPIROCIN 2% TOPICAL OINTMENT FOR DECOLONIZATION NS SCH (22:00)
[2019-08-12] MEDS: ROSUVASTATIN CA 10 MG TABLET (FP) PO SCH (22:42)
[2019-08-13] MEDS: INSULIN SLIDING SCALE (NOVOLOG) 1 VIAL SQ SCH ×4 (06:04→22:34)
[2019-08-13 07:32] LABS: HEMATOCRIT 43.5 % (32.4-45.2); HEMOGLOBIN 14.2 GM/dL (10.7-15.3); MCH 31.1 pg (25.7-33.7); MCHC 32.7 g/dl (32.0-36.0); MEAN PLT VOLUME 7.3 fl (7.5-11.1); PLATELET COUNT 270 K/MM3 (134-434); RBC 4.58 M/mm3 (3.60-5.2); RDW 14.9 % (11.6-15.6); WHITE BLOOD COUNT 10.3 K/mm3 (4.0-10.0)
[2019-08-13] MEDS: ALBUTEROL SO4 2.5/IPRATROPIUM 0.5 INH SOL 3 ML VIAL.NEB. NEB SCH ×4 (08:00→20:25)
[2019-08-13 08:28] LABS: CALCIUM 9.3 mg/dL (8.5-10.1); CREATININE 0.6 mg/dL (0.55-1.3); MAGNESIUM 2.2 mg/dL (1.8-2.4); PHOSPHOROUS 3.6 mg/dL (2.5-4.9)
--- NOTE | 2019-08-13 08:53 | PN ---
Progress Note, Physician Chief Complaint: on reg floor feels better will start get OOB with PT - Current Medication List Current Medications: Active Medications Albuterol Sulfate (Ventolin 0.083% Nebulizer Soln -) 1 amp NEB Q4H PRN PRN Reason: SHORT OF BREATH/WHEEZING Albuterol/Ipratropium (Duoneb -) 1 amp NEB RQID [facility] Last Admin: 08/13/19 08:00 Dose: 1 amp Chlorhexidine Gluconate (Hibiclens For Decolonization -) 1 applic TP HS [facility] Furosemide (Lasix Injection -) 40 mg IVPUSH DAILY [facility] Heparin Sodium (Porcine) (Heparin -) 5,000 unit SQ BID [facility] Last Admin: 08/12/19 22:43 Dose: 5,000 unit Hydralazine HCl (Apresoline Injection -) 10 mg IVPUSH Q8H PRN PRN Reason: HYPERTENSION Insulin Aspart (Novolog Vial Sliding Scale -) 1 vial SQ ACHS [facility]; Protocol Last Admin: 08/13/19 06:04 Dose: Not Given Lisinopril (Prinivil) 20 mg PO DAILY [facility] Methylprednisolone Sodium Succinate (Solu-Medrol -) 40 mg IVPUSH DAILY [facility] Mupirocin (Bactroban Ointment (For Decolonization) -) 1 applic NS BID [facility] Stop: 08/13/19 21:59 Nifedipine (Procardia Xl -) 30 mg PO DAILY [facility] Last Admin: 08/12/19 14:12 Dose: 30 mg Nystatin (Nystop Powder -) 1 applic TP BID [facility] Last Admin: 08/12/19 22:45 Dose: 1 applic Ranitidine HCl (Zantac -) 150 mg PO DAILY [facility] Rosuvastatin Calcium (Crestor -) 10 mg PO [facility] Last Admin: 08/12/19 22:42 Dose: 10 mg Solifenacin (Vesicare -) 10 mg PO DAILY [facility] - Objective Vital Signs: Vital Signs Temperature 98.3 F 08/13/19 06:00 Pulse Rate 64 08/13/19 06:00 Respiratory Rate 20 08/13/19 06:00 Blood Pressure 131/71 08/13/19 06:00 O2 Sat by Pulse Oximetry (%) 98 08/13/19 08:00 Constitutional: Yes: No Distress, Calm Eyes: Yes: Conjunctiva Clear HENT: Yes: Atraumatic Neck: Yes: Supple Cardiovascular: Yes: Regular Rate and Rhythm Respiratory: Yes: CTA Bilaterally Gastrointestinal: Yes: Soft. No: Tenderness Genitourinary: No: Hematuria Musculoskeletal: No: Joint Swelling, Muscle Pain Extremities: No: Cold, Cool Edema: No Integumentary: No: Rash, Venous Stasis Changes Neurological: Yes: WNL, Alert, Oriented ...Motor Strength: WNL Psychiatric: Yes: WNL, Alert, Oriented. No: Agitated, Suicidal Ideation Labs: CBC, BMP 08/13/19 07:00 08/13/19 07:00 INR, PTT INR 1.11 (0.83-1.09) H 08/07/19 21:12 - ....Imaging Other: Report Reviewed Assessment/Plan 73 year old female with a history of HTN, HLD, DM who presents with shortness of breath COPD exac, early PNA and respiratory failure support with bipap prn reg floor pulm and cardiology f/u lasix, iv ATB Nebs prn; taper steroids f/u labs CE prognosis guarded d/w pt will need PT / OOB when better
[2019-08-13] MEDS ORDERED: PT OWN MED DRAWER 7, Y5N ONE (09:53)
[2019-08-13] MEDS ORDERED: FUROSEMIDE 40 MG/4 ML INJECTABLE VIAL IVPUSH SCH (10:00)
[2019-08-13] MEDS: HEPARIN NA (PORCINE) 5,000 UNITS/ML 1ML VIAL SQ SCH ×2 (10:05→22:29)
[2019-08-13] MEDS: SOLIFENACIN SUCCINATE 5 MG TAB PO SCH (10:06)
[2019-08-13] MEDS: NIFEdipine E.R. 30 MG TABLET (FP) PO SCH (10:06)
[2019-08-13] MEDS: POTASSIUM CHLORIDE TABS 10 MEQ TABLET.ER (FP) PO SCH (10:07)
[2019-08-13] MEDS: RANITIDINE HCL 150 MG TABLET (FP) PO SCH (10:08)
[2019-08-13] MEDS: methylPREDNISolone NA SUCC 40 MG/1 ML VIAL IVPUSH SCH (10:12)
[2019-08-13] MEDS: LISINOPRIL 20 MG TABLET (FP) PO SCH (11:42)
[2019-08-13] MEDS: FUROSEMIDE 40 MG TABLET (FP) PO SCH (11:43)
[2019-08-13] MEDS: NYSTATIN POWDER 100,000 UNITS/GM - 15 GM TOPICAL POWDER TP SCH ×2 (11:45→22:30)
--- NOTE | 2019-08-13 12:22 | PN ---
Progress Note, Physician History of Present Illness: pulmonary alert,feeling better,sob improving,on nasal cannula - Current Medication List Current Medications: Active Medications Albuterol Sulfate (Ventolin 0.083% Nebulizer Soln -) 1 amp NEB Q4H PRN PRN Reason: SHORT OF BREATH/WHEEZING Albuterol/Ipratropium (Duoneb -) 1 amp NEB RQID [facility] Last Admin: 08/13/19 08:00 Dose: 1 amp Chlorhexidine Gluconate (Hibiclens For Decolonization -) 1 applic TP HS [facility] Furosemide (Lasix -) 40 mg PO DAILY [facility] Last Admin: 08/13/19 11:43 Dose: 40 mg Heparin Sodium (Porcine) (Heparin -) 5,000 unit SQ BID [facility] Last Admin: 08/13/19 10:05 Dose: 5,000 unit Hydralazine HCl (Apresoline Injection -) 10 mg IVPUSH Q8H PRN PRN Reason: HYPERTENSION Insulin Aspart (Novolog Vial Sliding Scale -) 1 vial SQ ACHS [facility]; Protocol Last Admin: 08/13/19 06:04 Dose: Not Given Lisinopril (Prinivil) 20 mg PO DAILY [facility] Last Admin: 08/13/19 11:42 Dose: 20 mg Methylprednisolone Sodium Succinate (Solu-Medrol -) 40 mg IVPUSH DAILY [facility] Last Admin: 08/13/19 10:12 Dose: 40 mg Mupirocin (Bactroban Ointment (For Decolonization) -) 1 applic NS BID [facility] Stop: 08/13/19 21:59 Nifedipine (Procardia Xl -) 30 mg PO DAILY [facility] Last Admin: 08/13/19 10:06 Dose: 30 mg Nystatin (Nystop Powder -) 1 applic TP BID [facility] Last Admin: 08/13/19 11:45 Dose: 1 applic Potassium Chloride (K-Dur -) 20 meq PO DAILY [facility] Last Admin: 08/13/19 10:07 Dose: 20 meq Ranitidine HCl (Zantac -) 150 mg PO DAILY [facility] Last Admin: 08/13/19 10:08 Dose: 150 mg Rosuvastatin Calcium (Crestor -) 10 mg PO HS [facility] Last Admin: 08/12/19 22:42 Dose: 10 mg Solifenacin (Vesicare -) 10 mg PO DAILY [facility] Last Admin: 08/13/19 10:06 Dose: 10 mg - Objective Vital Signs: Vital Signs Temperature 98.3 F 08/13/19 06:00 Pulse Rate 64 08/13/19 06:00 Respiratory Rate 20 08/13/19 06:00 Blood Pressure 131/71 08/13/19 06:00 O2 Sat by Pulse Oximetry (%) 98 08/13/19 08:00 Constitutional: Yes: Calm, Obese Eyes: Yes: WNL HENT: Yes: WNL Neck: Yes: WNL Cardiovascular: Yes: Regular Rate and Rhythm, S1, S2 Respiratory: Yes: Rhonchi (scattereed charis wheezes and rhonchi) Gastrointestinal: Yes: Normal Bowel Sounds, Soft Extremities: Yes: WNL Edema: No Labs: CBC, BMP 08/13/19 07:00 08/13/19 07:00 INR, PTT INR 1.11 (0.83-1.09) H 08/07/19 21:12 Problem List - Problems (1) Acute on chronic respiratory failure with hypoxia and hypercapnia Code(s): J96.21 - ACUTE AND CHRONIC RESPIRATORY FAILURE WITH HYPOXIA; J96.22 - ACUTE AND CHRONIC RESPIRATORY FAILURE WITH HYPERCAPNIA (2) SOB (shortness of breath) Code(s): R06.02 - SHORTNESS OF BREATH (3) COPD with exacerbation Code(s): J44.1 - CHRONIC OBSTRUCTIVE PULMONARY DISEASE W (ACUTE) EXACERBATION (4) CHF (congestive heart failure) Code(s): I50.9 - HEART FAILURE, UNSPECIFIED (5) Morbid obesity Code(s): E66.01 - MORBID (SEVERE) OBESITY DUE TO EXCESS CALORIES (6) Sleep apnea Code(s): G47.30 - SLEEP APNEA, UNSPECIFIED Assessment/Plan ASSESSMENT AND PLAN: Acute on Chronic Hypercapneic Respiratory Failure improving Acute COPD Exacerbation improving LV Diastolic Dysfunction HTN Hyperlipidemia DM Obstructive Sleep Apnea - monitor urine output, creatinine - medrol - inhaled bronchodilators - O2 to keep SpO2 >90% - BiPAP at night and PRN during day - DVT prophylaxis DR MENDOZA
[2019-08-13 15:27] VITALS: BMI 41.3
[2019-08-13] MEDS: ROSUVASTATIN CA 10 MG TABLET (FP) PO SCH (22:29)
[2019-08-14] MEDS: INSULIN SLIDING SCALE (NOVOLOG) 1 VIAL SQ SCH ×4 (07:06→23:00)
[2019-08-14 07:31] LABS: BLOOD UREA NITROGEN 29.5 mg/dL (7-18); CREATININE 0.7 mg/dL (0.55-1.3); POTASSIUM 3.1 mmol/L (3.5-5.1)
--- NOTE | 2019-08-14 07:40 | PN ---
Progress Note, Physician Chief Complaint: in bed awake alert NAD no SOB to start PT and ambulation; no BM for few days will order miralax - Current Medication List Current Medications: Active Medications Albuterol Sulfate (Ventolin 0.083% Nebulizer Soln -) 1 amp NEB Q4H PRN PRN Reason: SHORT OF BREATH/WHEEZING Albuterol/Ipratropium (Duoneb -) 1 amp NEB RQID [facility] Last Admin: 08/13/19 20:25 Dose: 1 amp Chlorhexidine Gluconate (Hibiclens For Decolonization -) 1 applic TP HS [facility] Furosemide (Lasix -) 40 mg PO DAILY [facility] Last Admin: 08/13/19 11:43 Dose: 40 mg Heparin Sodium (Porcine) (Heparin -) 5,000 unit SQ BID [facility] Last Admin: 08/13/19 22:29 Dose: 5,000 unit Hydralazine HCl (Apresoline Injection -) 10 mg IVPUSH Q8H PRN PRN Reason: HYPERTENSION Insulin Aspart (Novolog Vial Sliding Scale -) [address] [facility]; Protocol Last Admin: 08/14/19 07:06 Dose: Not Given Lisinopril (Prinivil) 20 mg PO DAILY [facility] Last Admin: 08/13/19 11:42 Dose: 20 mg Methylprednisolone Sodium Succinate (Solu-Medrol -) 40 mg IVPUSH DAILY [facility] Last Admin: 08/13/19 10:12 Dose: 40 mg Mupirocin (Bactroban Ointment (For Decolonization) -) 1 applic NS BID [facility] Stop: 08/13/19 21:59 Nifedipine (Procardia Xl -) 30 mg PO DAILY [facility] Last Admin: 08/13/19 10:06 Dose: 30 mg Nystatin (Nystop Powder -) 1 applic TP BID [facility] Last Admin: 08/13/19 22:30 Dose: 1 applic Potassium Chloride (K-Dur -) 20 meq PO DAILY [facility] Last Admin: 08/13/19 10:07 Dose: 20 meq Ranitidine HCl (Zantac -) 150 mg PO DAILY [facility] Last Admin: 08/13/19 10:08 Dose: 150 mg Rosuvastatin Calcium (Crestor -) 10 mg PO HS [facility] Last Admin: 08/13/19 22:29 Dose: 10 mg Solifenacin (Vesicare -) 10 mg PO DAILY [facility] Last Admin: 08/13/19 10:06 Dose: 10 mg - Objective Vital Signs: Vital Signs Temperature 97.0 F L 08/14/19 06:00 Pulse Rate 68 08/14/19 06:00 Respiratory Rate 18 08/14/19 06:00 Blood Pressure 134/76 08/14/19 06:00 O2 Sat by Pulse Oximetry (%) 98 08/14/19 00:30 Constitutional: Yes: No Distress, Calm Eyes: Yes: Conjunctiva Clear HENT: Yes: Atraumatic Neck: Yes: Supple Cardiovascular: Yes: Regular Rate and Rhythm Respiratory: Yes: CTA Bilaterally Gastrointestinal: Yes: Soft. No: Tenderness Genitourinary: No: Hematuria Musculoskeletal: No: Joint Stiffness, Joint Swelling Extremities: No: Cold, Cool Edema: No Integumentary: No: Rash, Venous Stasis Changes Neurological: Yes: WNL, Alert, Oriented ...Motor Strength: WNL Psychiatric: Yes: WNL, Alert, Oriented. No: Agitated Labs: CBC, BMP 08/13/19 07:00 08/14/19 06:25 INR, PTT INR 1.11 (0.83-1.09) H 08/07/19 21:12 - ....Imaging Other: Report Reviewed Assessment/Plan 73 year old female with a history of HTN, HLD, DM who presents with shortness of breath COPD exac, PNA and respiratory failure CO2 retention support with bipap prn pulm and cardiology f/u lasix, iv ATB Nebs prn; taper steroids PT rehab for ambulation O2 sat / RA miralax prn for constipation falls PFX d/w pt d/w pt and staff
[2019-08-14] MEDS: ALBUTEROL SO4 2.5/IPRATROPIUM 0.5 INH SOL 3 ML VIAL.NEB. NEB SCH ×4 (08:10→20:15)
[2019-08-14] MEDS: RANITIDINE HCL 150 MG TABLET (FP) PO SCH (11:36)
[2019-08-14] MEDS: POTASSIUM CHLORIDE TABS 10 MEQ TABLET.ER (FP) PO SCH (11:36)
[2019-08-14] MEDS: SOLIFENACIN SUCCINATE 5 MG TAB PO SCH (11:36)
[2019-08-14] MEDS: HEPARIN NA (PORCINE) 5,000 UNITS/ML 1ML VIAL SQ SCH ×2 (11:37→23:00)
[2019-08-14] MEDS: methylPREDNISolone NA SUCC 40 MG/1 ML VIAL IVPUSH SCH (11:37)
[2019-08-14] MEDS: LISINOPRIL 20 MG TABLET (FP) PO SCH (11:37)
[2019-08-14] MEDS: FUROSEMIDE 40 MG TABLET (FP) PO SCH (11:37)
[2019-08-14] MEDS: NIFEdipine E.R. 30 MG TABLET (FP) PO SCH (11:37)
--- NOTE | 2019-08-14 12:19 | PN ---
Progress Note, Physician History of Present Illness: pulmonary alert,feeling better,less dyspneic on nasal o2, - Current Medication List Current Medications: Active Medications Albuterol Sulfate (Ventolin 0.083% Nebulizer Soln -) 1 amp NEB Q4H PRN PRN Reason: SHORT OF BREATH/WHEEZING Albuterol/Ipratropium (Duoneb -) 1 amp NEB RQID [facility] Last Admin: 08/14/19 11:40 Dose: 1 amp Chlorhexidine Gluconate (Hibiclens For Decolonization -) 1 applic TP HS [facility] Furosemide (Lasix -) 40 mg PO DAILY [facility] Last Admin: 08/14/19 11:37 Dose: 40 mg Heparin Sodium (Porcine) (Heparin -) 5,000 unit SQ BID [facility] Last Admin: 08/14/19 11:37 Dose: 5,000 unit Hydralazine HCl (Apresoline Injection -) 10 mg IVPUSH Q8H PRN PRN Reason: HYPERTENSION Insulin Aspart (Novolog Vial Sliding Scale -) 1 vial SQ ACHS [facility]; Protocol Last Admin: 08/14/19 12:07 Dose: Not Given Lisinopril (Prinivil) 20 mg PO DAILY [facility] Last Admin: 08/14/19 11:37 Dose: 20 mg Methylprednisolone Sodium Succinate (Solu-Medrol -) 40 mg IVPUSH DAILY [facility] Last Admin: 08/14/19 11:37 Dose: 40 mg Mupirocin (Bactroban Ointment (For Decolonization) -) 1 applic NS BID [facility] Stop: 08/13/19 21:59 Nifedipine (Procardia Xl -) 30 mg PO DAILY [facility] Last Admin: 08/14/19 11:37 Dose: 30 mg Nystatin (Nystop Powder -) 1 applic TP BID [facility] Last Admin: 08/13/19 22:30 Dose: 1 applic Polyethylene Glycol (Miralax (For Daily Use) -) 17 gm PO DAILY [facility] Potassium Chloride (K-Dur -) 20 meq PO DAILY [facility] Last Admin: 08/14/19 11:36 Dose: 20 meq Ranitidine HCl (Zantac -) 150 mg PO DAILY [facility] Last Admin: 08/14/19 11:36 Dose: 150 mg Rosuvastatin Calcium (Crestor -) 10 mg PO [facility] Last Admin: 08/13/19 22:29 Dose: 10 mg Solifenacin (Vesicare -) 10 mg PO DAILY [facility] Last Admin: 08/14/19 11:36 Dose: 10 mg - Objective Vital Signs: Vital Signs Temperature 97.0 F L 08/14/19 06:00 Pulse Rate 91 H 08/14/19 10:35 Respiratory Rate 18 08/14/19 06:00 Blood Pressure 134/76 08/14/19 06:00 O2 Sat by Pulse Oximetry (%) 87 L 08/14/19 10:35 Constitutional: Yes: Calm, Obese Eyes: Yes: WNL HENT: Yes: WNL Neck: Yes: WNL Cardiovascular: Yes: Regular Rate and Rhythm, S1, S2 Respiratory: Yes: Diminished Gastrointestinal: Yes: Normal Bowel Sounds, Soft, Abdomen, Obese Extremities: Yes: WNL Edema: No Labs: CBC, BMP 08/13/19 07:00 08/14/19 06:25 INR, PTT INR 1.11 (0.83-1.09) H 08/07/19 21:12 Problem List - Problems (1) Acute on chronic respiratory failure with hypoxia and hypercapnia Code(s): J96.21 - ACUTE AND CHRONIC RESPIRATORY FAILURE WITH HYPOXIA; J96.22 - ACUTE AND CHRONIC RESPIRATORY FAILURE WITH HYPERCAPNIA (2) SOB (shortness of breath) Code(s): R06.02 - SHORTNESS OF BREATH (3) COPD with exacerbation Code(s): J44.1 - CHRONIC OBSTRUCTIVE PULMONARY DISEASE W (ACUTE) EXACERBATION (4) CHF (congestive heart failure) Code(s): I50.9 - HEART FAILURE, UNSPECIFIED (5) Morbid obesity Code(s): E66.01 - MORBID (SEVERE) OBESITY DUE TO EXCESS CALORIES (6) Sleep apnea Code(s): G47.30 - SLEEP APNEA, UNSPECIFIED Assessment/Plan ASSESSMENT AND PLAN: Acute on Chronic Hypercapneic Respiratory Failure improving Acute COPD Exacerbation improving LV Diastolic Dysfunction HTN Hyperlipidemia DM Obstructive Sleep Apnea - monitor urine output, creatinine - medrol - inhaled bronchodilators - O2 to keep SpO2 >90% - BiPAP at night and PRN during day - DVT prophylaxis - ambularory o2 sat prior to discharge - outpatient pfts DR MENDOZA
[2019-08-14 13:34] LABS: ARTERIAL BLD GAS O2 SATURATION 93.7 % (95-98); ARTERIAL BLOOD GAS BASE EXCESS 10.7 meq/l (-2-2); ARTERIAL BLOOD GAS PCO2 56.7 mmHg (35-45); ARTERIAL BLOOD GAS PO2 69.4 mmHg (80-100); ARTERIAL BLOOD GAS pH 7.43 (7.35-7.45)
[2019-08-14 13:40] LABS: ALLENS TEST POSITIVE
--- NOTE | 2019-08-14 15:58 | PN ---
Progress Note (short form) - Note Progress Note: s: no chest pain, palps, dizziness, lightheadedness, sob Current Medications Generic Name Dose Route Start Last Admin Trade Name Freq PRN Reason Stop Dose Admin Albuterol Sulfate 1 amp 08/12/19 19:16 Ventolin 0.083% Nebulizer Soln - [facility] Q4H PRN SHORT OF BREATH/WHEEZING Albuterol/Ipratropium 1 amp 08/12/19 20:00 08/14/19 11:40 Duoneb - NEB 1 amp RQID [facility] Administration Chlorhexidine Gluconate 1 applic 08/12/19 22:00 Hibiclens For Decolonization - TP HS [facility] Furosemide 40 mg 08/13/19 10:00 08/14/19 11:37 Lasix - PO 40 mg DAILY [facility] Administration Heparin Sodium (Porcine) 5,000 unit 08/12/19 22:00 08/14/19 11:37 Heparin - SQ 5,000 unit BID [facility] Administration Hydralazine HCl 10 mg 08/12/19 19:16 Apresoline Injection - IVPUSH Q8H PRN HYPERTENSION Insulin Aspart 1 vial 08/12/19 22:00 08/14/19 12:07 Novolog Vial Sliding Scale - SQ Not Given ACHS [facility] Protocol Lisinopril 20 mg 08/13/19 10:00 08/14/19 11:37 Prinivil PO 20 mg DAILY [facility] Administration Methylprednisolone Sodium Succinate 40 mg 08/13/19 10:00 08/14/19 11:37 Solu-Medrol - IVPUSH 40 mg DAILY [facility] Administration Mupirocin 1 applic 08/12/19 22:00 Bactroban Ointment (For Decolonization) - NS 08/13/19 21:59 BID [facility] Nifedipine 30 mg 08/12/19 13:45 08/14/19 11:37 Procardia Xl - PO 30 mg DAILY [facility] Administration Nystatin 1 applic 08/12/19 22:00 08/13/19 22:30 Nystop Powder - TP 1 applic BID [facility] Administration Polyethylene Glycol 17 gm 08/14/19 10:00 Miralax (For Daily Use) - PO DAILY [facility] Potassium Chloride 20 meq 08/13/19 10:00 08/14/19 11:36 K-Dur - PO 20 meq DAILY [facility] Administration Ranitidine HCl 150 mg 08/13/19 10:00 08/14/19 11:36 Zantac - PO 150 mg DAILY [facility] Administration Rosuvastatin Calcium 10 mg 08/12/19 22:00 08/13/19 22:29 Crestor - PO 10 mg HS [facility] Administration Solifenacin 10 mg 08/13/19 10:00 08/14/19 11:36 Vesicare - PO 10 mg DAILY [facility] Administration Vital Signs Period Temp Pulse Resp BP Sys/Crouch Pulse Ox Last 24 Hr 97.0 F-98.5 F 68-91 18-21 102-144/48-76 87-98 Constitutional: Yes: No Distress Cardiovascular: Yes: Regular Rate and Rhythm, Other (cannot assess JVD due to body habitus) Respiratory: Yes: Other (no rales, or wheezing. scattered rhonchi.) Gastrointestinal: Yes: Soft, Abdomen, Obese Edema: No Neurological: Yes: Alert not agitated no jaundice, diaphoresis CBC, BMP 08/13/19 07:00 08/14/19 06:25 Assessment/Plan cta chest: no pe, mild chf ecg: sr nl intervals no ischemic changes IMP/PLAN: 73 f hx htn, hld, dm, here with sob for past few days, in ICU w/ acute respiratory failure requiring NIPPV; CTA negative for PE. Possible PNA vs acute on chronic diastolic CHF SOB, acute diastolic CHF: -no signs acs -after iv lasix vol status improved, cont with po lasix, outpt f/u HTN: - improved with amlodipine, monitor BP HLD: -cont statin
[2019-08-14] MEDS: POLYETHYLENE GLYCOL 3350 119 GM BTL PO SCH (16:47)
[2019-08-14] MEDS: NYSTATIN POWDER 100,000 UNITS/GM - 15 GM TOPICAL POWDER TP SCH ×2 (16:48→23:02)
[2019-08-14] MEDS: ROSUVASTATIN CA 10 MG TABLET (FP) PO SCH (23:00)
[2019-08-15] MEDS: INSULIN SLIDING SCALE (NOVOLOG) 1 VIAL SQ SCH ×4 (06:30→21:22)
[2019-08-15] MEDS: ALBUTEROL SO4 2.5/IPRATROPIUM 0.5 INH SOL 3 ML VIAL.NEB. NEB SCH ×4 (07:50→20:09)
--- NOTE | 2019-08-15 08:20 | PN ---
Progress Note, Physician Chief Complaint: in bed awake alert NAD afebrile feels better at rest but SOB with minimal exercise; O2 sat/RA 80s drops more with minimal exercise will need pulm PT and O2 3-6 L/.min NC for now - Current Medication List Current Medications: Active Medications Albuterol Sulfate (Ventolin 0.083% Nebulizer Soln -) 1 amp NEB Q4H PRN PRN Reason: SHORT OF BREATH/WHEEZING Albuterol/Ipratropium (Duoneb -) 1 amp NEB RQID [facility] Last Admin: 08/14/19 20:15 Dose: 1 amp Furosemide (Lasix -) 40 mg PO DAILY [facility] Last Admin: 08/14/19 11:37 Dose: 40 mg Heparin Sodium (Porcine) (Heparin -) 5,000 unit SQ BID [facility] Last Admin: 08/14/19 23:00 Dose: 5,000 unit Insulin Aspart (Novolog Vial Sliding Scale -) 1 vial SQ ACHS [facility]; Protocol Last Admin: 08/15/19 06:30 Dose: Not Given Lisinopril (Prinivil) 20 mg PO DAILY [facility] Last Admin: 08/14/19 11:37 Dose: 20 mg Nifedipine (Procardia Xl -) 30 mg PO DAILY [facility] Last Admin: 08/14/19 11:37 Dose: 30 mg Nystatin (Nystop Powder -) 1 applic TP BID [facility] Last Admin: 08/14/19 23:02 Dose: 1 applic Polyethylene Glycol (Miralax (For Daily Use) -) 17 gm PO DAILY [facility] Last Admin: 08/14/19 16:47 Dose: 17 gm Potassium Chloride (K-Dur -) 20 meq PO DAILY [facility] Last Admin: 08/14/19 11:36 Dose: 20 meq Prednisone (Deltasone -) 40 mg PO DAILY [facility] Ranitidine HCl (Zantac -) 150 mg PO DAILY [facility] Last Admin: 08/14/19 11:36 Dose: 150 mg Rosuvastatin Calcium (Crestor -) 10 mg PO HS [facility] Last Admin: 08/14/19 23:00 Dose: 10 mg Solifenacin (Vesicare -) 10 mg PO DAILY [facility] Last Admin: 08/14/19 11:36 Dose: 10 mg - Objective Vital Signs: Vital Signs Temperature 97.7 F 08/15/19 06:00 Pulse Rate 66 08/15/19 06:00 Respiratory Rate 20 08/15/19 06:00 Blood Pressure 129/72 08/15/19 06:00 O2 Sat by Pulse Oximetry (%) 96 08/14/19 23:46 Constitutional: Yes: No Distress, Calm Eyes: Yes: Conjunctiva Clear HENT: Yes: Atraumatic Neck: Yes: Supple Cardiovascular: Yes: Regular Rate and Rhythm Respiratory: Yes: CTA Bilaterally Gastrointestinal: Yes: Soft. No: Tenderness Genitourinary: No: Hematuria Musculoskeletal: No: Joint Stiffness, Joint Swelling Extremities: No: Cold, Cool, Cyanosis Edema: No Integumentary: No: Rash Neurological: Yes: WNL, Alert, Oriented ...Motor Strength: WNL Psychiatric: Yes: WNL, Alert, Oriented. No: Agitated, Suicidal Ideation Labs: CBC, BMP 08/13/19 07:00 08/14/19 06:25 INR, PTT INR 1.11 (0.83-1.09) H 08/07/19 21:12 - ....Imaging Other: Report Reviewed Assessment/Plan 73 year old female with a history of HTN, HLD, DM who presents with shortness of breath COPD exac, PNA and respiratory failure CO2 retention support with bipap prn pulm and cardiology f/u lasix, iv ATB Nebs prn; taper steroids PT rehab for ambulation O2 sat / RA miralax prn for constipation falls PFX d/w pt d/w pt and staff
--- NOTE | 2019-08-15 10:47 | PN ---
Progress Note (short form) - Note Progress Note: Feels overall better. Less SOB. No CP. Qualified for home O2, 86% saturation RA at rest. Intake & Output 08/12/19 08/13/19 08/14/19 08/15/19 23:59 23:59 23:59 23:59 Intake Total 260 400 930 Balance 260 400 930 Weight 234 lb 3.2 oz 226 lb 9.6 oz 219 lb 1.6 oz 208 lb 4.8 oz Last Vital Signs Temp Pulse Resp BP Pulse Ox 97.7 F 66 20 129/72 96 08/15/19 06:00 08/15/19 06:00 08/15/19 06:00 08/15/19 06:00 08/14/19 23:46 Active Medications Albuterol Sulfate (Ventolin 0.083% Nebulizer Soln -) 1 amp NEB Q4H PRN PRN Reason: SHORT OF BREATH/WHEEZING Albuterol/Ipratropium (Duoneb -) 1 amp NEB RQID [facility] Last Admin: 08/14/19 20:15 Dose: 1 amp Furosemide (Lasix -) 40 mg PO DAILY [facility] Last Admin: 08/14/19 11:37 Dose: 40 mg Heparin Sodium (Porcine) (Heparin -) 5,000 unit SQ BID [facility] Last Admin: 08/14/19 23:00 Dose: 5,000 unit Insulin Aspart (Novolog Vial Sliding Scale -) 1 vial SQ ACHS [facility]; Protocol Last Admin: 08/15/19 06:30 Dose: Not Given Lisinopril (Prinivil) 20 mg PO DAILY [facility] Last Admin: 08/14/19 11:37 Dose: 20 mg Nifedipine (Procardia Xl -) 30 mg PO DAILY [facility] Last Admin: 08/14/19 11:37 Dose: 30 mg Nystatin (Nystop Powder -) 1 applic TP BID [facility] Last Admin: 08/14/19 23:02 Dose: 1 applic Polyethylene Glycol (Miralax (For Daily Use) -) 17 gm PO DAILY [facility] Last Admin: 08/14/19 16:47 Dose: 17 gm Potassium Chloride (K-Dur -) 20 meq PO DAILY [facility] Last Admin: 08/14/19 11:36 Dose: 20 meq Prednisone (Deltasone -) 40 mg PO DAILY [facility] Ranitidine HCl (Zantac -) 150 mg PO DAILY [facility] Last Admin: 08/14/19 11:36 Dose: 150 mg Rosuvastatin Calcium (Crestor -) 10 mg PO HS [facility] Last Admin: 08/14/19 23:00 Dose: 10 mg Solifenacin (Vesicare -) 10 mg PO DAILY [facility] Last Admin: 08/14/19 11:36 Dose: 10 mg Constitutional: Yes: NAD on NC O2, Obese Eyes: Yes: WNL HENT: Yes: WNL Neck: Yes: WNL Cardiovascular: Yes: Regular Rate and Rhythm, S1, S2 Respiratory: Yes: Diminished Gastrointestinal: Yes: Normal Bowel Sounds, Soft, Abdomen, Obese Extremities: Yes: WNL Edema: No Labs: Laboratory Results - last 24 hr 08/14/19 08/14/19 08/14/19 12:01 13:30 16:58 Puncture Site Right radial ABG pH 7.43 ABG pCO2 at Pt Temp 56.7 H ABG pO2 at Pt Temp 69.4 L ABG HCO3 37.1 H ABG O2 Sat (Measured) 93.7 L ABG O2 Content 18.5 ABG Base Excess 10.7 H Sven Test Positive Oxygen Flow Rate Nasal 3l POC Glucometer 103 189 08/14/19 08/15/19 21:20 05:59 Puncture Site ABG pH ABG pCO2 at Pt Temp ABG pO2 at Pt Temp ABG HCO3 ABG O2 Sat (Measured) ABG O2 Content ABG Base Excess Sven Test Oxygen Flow Rate POC Glucometer 158 92 Problem List - Problems (1) Acute on chronic respiratory failure with hypoxia and hypercapnia Code(s): J96.21 - ACUTE AND CHRONIC RESPIRATORY FAILURE WITH HYPOXIA; J96.22 - ACUTE AND CHRONIC RESPIRATORY FAILURE WITH HYPERCAPNIA (2) SOB (shortness of breath) Code(s): R06.02 - SHORTNESS OF BREATH (3) COPD with exacerbation Code(s): J44.1 - CHRONIC OBSTRUCTIVE PULMONARY DISEASE W (ACUTE) EXACERBATION (4) CHF (congestive heart failure) Code(s): I50.9 - HEART FAILURE, UNSPECIFIED (5) Morbid obesity Code(s): E66.01 - MORBID (SEVERE) OBESITY DUE TO EXCESS CALORIES (6) Sleep apnea Code(s): G47.30 - SLEEP APNEA, UNSPECIFIED Assessment/Plan ASSESSMENT AND PLAN: Acute on Chronic Hypercapneic Respiratory Failure improving Acute COPD Exacerbation improving LV Diastolic Dysfunction HTN Hyperlipidemia DM Obstructive Sleep Apnea - Will need supplemental home O2 at 3 L at rest and titrated to maintain saturation greater than 88% with activity. - Prednisone - On DC should be on LAMA/LABA - DVT prophylaxis - Would benefit from Pulmonary Rehab - Outpatient PFTs Dr Ross
[2019-08-15] MEDS: POTASSIUM CHLORIDE TABS 10 MEQ TABLET.ER (FP) PO SCH (11:55)
[2019-08-15] MEDS: FUROSEMIDE 40 MG TABLET (FP) PO SCH (11:55)
[2019-08-15] MEDS: NIFEdipine E.R. 30 MG TABLET (FP) PO SCH (11:55)
[2019-08-15] MEDS: predniSONE 20 MG TABLET (UD) PO SCH (11:56)
[2019-08-15] MEDS: LISINOPRIL 20 MG TABLET (FP) PO SCH (11:56)
[2019-08-15] MEDS: RANITIDINE HCL 150 MG TABLET (FP) PO SCH (11:56)
[2019-08-15] MEDS: SOLIFENACIN SUCCINATE 5 MG TAB PO SCH (11:56)
[2019-08-15] MEDS: HEPARIN NA (PORCINE) 5,000 UNITS/ML 1ML VIAL SQ SCH ×2 (12:00→21:26)
[2019-08-15] MEDS: NYSTATIN POWDER 100,000 UNITS/GM - 15 GM TOPICAL POWDER TP SCH ×2 (14:00→21:23)
--- NOTE | 2019-08-15 15:53 | PN ---
Progress Note (short form) - Note Progress Note: s: no chest pain, palps, dizziness, lightheadedness, sob Current Medications Albuterol Sulfate (Ventolin 0.083% Nebulizer Soln -) 1 amp NEB Q4H PRN PRN Reason: SHORT OF BREATH/WHEEZING Albuterol/Ipratropium (Duoneb -) 1 amp NEB RQID [facility] Last Admin: 08/15/19 15:30 Dose: 1 amp Furosemide (Lasix -) 40 mg PO DAILY [facility] Last Admin: 08/15/19 11:55 Dose: 40 mg Heparin Sodium (Porcine) (Heparin -) 5,000 unit SQ BID [facility] Last Admin: 08/15/19 12:00 Dose: 5,000 unit Insulin Aspart (Novolog Vial Sliding Scale -) 1 vial SQ ACHS [facility]; Protocol Last Admin: 08/15/19 12:28 Dose: Not Given Lisinopril (Prinivil) 20 mg PO DAILY [facility] Last Admin: 08/15/19 11:56 Dose: 20 mg Nifedipine (Procardia Xl -) 30 mg PO DAILY [facility] Last Admin: 08/15/19 11:55 Dose: 30 mg Nystatin (Nystop Powder -) 1 applic TP BID [facility] Last Admin: 08/14/19 23:02 Dose: 1 applic Polyethylene Glycol (Miralax (For Daily Use) -) 17 gm PO DAILY [facility] Last Admin: 08/14/19 16:47 Dose: 17 gm Potassium Chloride (K-Dur -) 20 meq PO DAILY [facility] Last Admin: 08/15/19 11:55 Dose: 20 meq Prednisone (Deltasone -) 40 mg PO DAILY [facility] Last Admin: 08/15/19 11:56 Dose: 40 mg Ranitidine HCl (Zantac -) 150 mg PO DAILY [facility] Last Admin: 08/15/19 11:56 Dose: 150 mg Rosuvastatin Calcium (Crestor -) 10 mg PO HS [facility] Last Admin: 08/14/19 23:00 Dose: 10 mg Solifenacin (Vesicare -) 10 mg PO DAILY [facility] Last Admin: 08/15/19 11:56 Dose: 10 mg Vital Signs Period Temp Pulse Resp BP Sys/Crouch Pulse Ox Last 24 Hr 97.0 F-98.5 F 68-91 18-21 102-144/48-76 87-98 Constitutional: Yes: No Distress Cardiovascular: Yes: Regular Rate and Rhythm, Other (cannot assess JVD due to body habitus) Respiratory: Yes: Other (no rales, or wheezing. scattered rhonchi.) Gastrointestinal: Yes: Soft, Abdomen, Obese Edema: No Neurological: Yes: Alert not agitated no jaundice, diaphoresis Assessment/Plan cta chest: no pe, mild chf ecg: sr nl intervals no ischemic changes IMP/PLAN: 73 f hx htn, hld, dm, here with sob for past few days, in ICU w/ acute respiratory failure requiring NIPPV; CTA negative for PE. Possible PNA vs acute on chronic diastolic CHF SOB, acute diastolic CHF: -no signs acs -after iv lasix vol status improved, wt down - cont with po lasix, outpt f/u HTN: - improved with amlodipine, monitor BP HLD: -cont statin
[2019-08-15] MEDS: POLYETHYLENE GLYCOL 3350 119 GM BTL PO SCH (17:14)
[2019-08-15] MEDS ORDERED: INSULIN (NOVOLOG) ASPART 100 UNITS/ML 10ML VIAL ONE (21:19)
[2019-08-15] MEDS: ROSUVASTATIN CA 10 MG TABLET (FP) PO SCH (21:26)
[2019-08-16] MEDS: ALBUTEROL SO4 2.5/IPRATROPIUM 0.5 INH SOL 3 ML VIAL.NEB. NEB SCH ×4 (07:51→19:40)
[2019-08-16 08:00] LABS: BASO % 0.3 % (0-2.0); EOS % 0.5 % (0-4.5); HEMATOCRIT 41.4 % (32.4-45.2); HEMOGLOBIN 13.8 GM/dL (10.7-15.3); LYMPH % 15.6 % (8-40); MCH 31.5 pg (25.7-33.7); MCHC 33.3 g/dl (32.0-36.0); MEAN CELL VOLUME 94.7 fl (80-96); MEAN PLT VOLUME 8.1 fl (7.5-11.1); MONO % 6.4 % (3.8-10.2); NEUT % 77.2 % (42.8-82.8); PLATELET COUNT 253 K/MM3 (134-434); RBC 4.38 M/mm3 (3.60-5.2); RDW 14.6 % (11.6-15.6); WHITE BLOOD COUNT 9.5 K/mm3 (4.0-10.0)
[2019-08-16 08:07] LABS: ALBUMIN 3.5 g/dl (3.4-5.0); BILIRUBIN,TOTAL 0.5 mg/dL (0.2-1); BLOOD UREA NITROGEN 30.4 mg/dL (7-18); CALCIUM 9.3 mg/dL (8.5-10.1); CREATININE 0.8 mg/dL (0.55-1.3); POTASSIUM 3.6 mmol/L (3.5-5.1); TOT PROT 6.6 g/dl (6.4-8.2)
--- NOTE | 2019-08-16 10:40 | PN ---
Progress Note, Physician Chief Complaint: in bed no new c/o on po steroids feels OK but needs O2 / NC continuous - d/w CM to llok into SNF and pulm rehab pt agreed - Current Medication List Current Medications: Active Medications Albuterol Sulfate (Ventolin 0.083% Nebulizer Soln -) 1 amp NEB Q4H PRN PRN Reason: SHORT OF BREATH/WHEEZING Albuterol/Ipratropium (Duoneb -) 1 amp NEB RQID [facility] Last Admin: 08/16/19 07:51 Dose: 1 amp Furosemide (Lasix -) 40 mg PO DAILY [facility] Last Admin: 08/15/19 11:55 Dose: 40 mg Heparin Sodium (Porcine) (Heparin -) 5,000 unit SQ BID [facility] Last Admin: 08/15/19 21:26 Dose: 5,000 unit Insulin Aspart (Novolog Vial Sliding Scale -) 1 vial SQ BID [facility]; Protocol Last Admin: 08/15/19 21:22 Dose: Not Given Lisinopril (Prinivil) 20 mg PO DAILY [facility] Last Admin: 08/15/19 11:56 Dose: 20 mg Nifedipine (Procardia Xl -) 30 mg PO DAILY [facility] Last Admin: 08/15/19 11:55 Dose: 30 mg Nystatin (Nystop Powder -) 1 applic TP BID [facility] Last Admin: 08/15/19 21:23 Dose: 1 applic Polyethylene Glycol (Miralax (For Daily Use) -) 17 gm PO DAILY [facility] Last Admin: 08/15/19 17:14 Dose: 17 gm Potassium Chloride (K-Dur -) 20 meq PO DAILY [facility] Last Admin: 08/15/19 11:55 Dose: 20 meq Prednisone (Deltasone -) 40 mg PO DAILY [facility] Last Admin: 08/15/19 11:56 Dose: 40 mg Ranitidine HCl (Zantac -) 150 mg PO DAILY [facility] Last Admin: 08/15/19 11:56 Dose: 150 mg Rosuvastatin Calcium (Crestor -) 10 mg PO HS [facility] Last Admin: 08/15/19 21:26 Dose: 10 mg Solifenacin (Vesicare -) 10 mg PO DAILY [facility] Last Admin: 08/15/19 11:56 Dose: 10 mg - Objective Vital Signs: Vital Signs Temperature 98.8 F 08/16/19 06:00 Pulse Rate 60 08/16/19 06:00 Respiratory Rate 20 20/19 06:00 Blood Pressure 136/54 L 08/16/19 06:00 O2 Sat by Pulse Oximetry (%) 95 08/16/19 07:50 Constitutional: Yes: No Distress, Calm Eyes: Yes: Conjunctiva Clear HENT: Yes: Atraumatic Neck: Yes: Supple Cardiovascular: Yes: Regular Rate and Rhythm Respiratory: Yes: CTA Bilaterally Gastrointestinal: Yes: Soft. No: Tenderness Genitourinary: No: Hematuria Musculoskeletal: No: Joint Stiffness, Joint Swelling Extremities: No: Cold, Cool Edema: No Integumentary: No: Rash, Venous Stasis Changes Neurological: Yes: WNL, Alert, Oriented ...Motor Strength: WNL Psychiatric: Yes: WNL, Alert, Oriented. No: Agitated, Suicidal Ideation Labs: CBC, BMP 08/16/19 06:50 08/16/19 06:50 INR, PTT INR 1.11 (0.83-1.09) H 08/07/19 21:12 - ....Imaging Other: Report Reviewed Assessment/Plan 73 year old female with a history of HTN, HLD, DM who presents with shortness of breath acute on chronic COPD exac, PNA and respiratory failure CO2 retention support with bipap prn pulm and cardiology f/u lasix, s/p ATB Nebs prn; taper steroids PT rehab for ambulation, Pulm PT O2 sat / RA miralax prn for constipation falls PFX d/w pt d/w pt and staff
[2019-08-16] MEDS ORDERED: PT OWN MED DRAWER 7, Y5N ONE (11:48)
[2019-08-16] MEDS: RANITIDINE HCL 150 MG TABLET (FP) PO SCH (11:55)
[2019-08-16] MEDS: FUROSEMIDE 40 MG TABLET (FP) PO SCH (11:55)
[2019-08-16] MEDS: NIFEdipine E.R. 30 MG TABLET (FP) PO SCH (11:55)
[2019-08-16] MEDS: SOLIFENACIN SUCCINATE 5 MG TAB PO SCH (11:56)
[2019-08-16] MEDS: POLYETHYLENE GLYCOL 3350 119 GM BTL PO SCH (11:56)
[2019-08-16] MEDS: POTASSIUM CHLORIDE TABS 10 MEQ TABLET.ER (FP) PO SCH (11:56)
[2019-08-16] MEDS: LISINOPRIL 20 MG TABLET (FP) PO SCH (11:56)
[2019-08-16] MEDS: INSULIN SLIDING SCALE (NOVOLOG) 1 VIAL SQ SCH ×2 (11:57→21:31)
[2019-08-16] MEDS: HEPARIN NA (PORCINE) 5,000 UNITS/ML 1ML VIAL SQ SCH ×2 (11:58→21:20)
[2019-08-16] MEDS: predniSONE 20 MG TABLET (UD) PO SCH (11:58)
[2019-08-16] MEDS: NYSTATIN POWDER 100,000 UNITS/GM - 15 GM TOPICAL POWDER TP SCH ×2 (12:01→21:21)
--- NOTE | 2019-08-16 14:21 | PN ---
Progress Note (short form) - Note Progress Note: s: no chest pain, palps, dizziness, lightheadedness, sob Current Medications Generic Name Dose Route Start Last Admin Trade Name Fredayne PRN Reason Stop Dose Admin Albuterol Sulfate 1 amp 08/12/19 19:16 Ventolin 0.083% Nebulizer Soln - NEB Q4H PRN SHORT OF BREATH/WHEEZING Albuterol/Ipratropium 1 amp 08/12/19 20:00 08/16/19 11:54 Duoneb - NEB 1 amp RQID [facility] Administration Furosemide 40 mg 08/13/19 10:00 08/16/19 11:55 Lasix - PO 40 mg DAILY [facility] Administration Heparin Sodium (Porcine) 5,000 unit 08/12/19 22:00 08/16/19 11:58 Heparin - SQ 5,000 unit BID [facility] Administration Insulin Aspart 1 vial 08/15/19 22:00 08/16/19 11:57 Novolog Vial Sliding Scale - SQ Not Given BID [facility] Protocol Lisinopril 20 mg 08/13/19 10:00 08/16/19 11:56 Prinivil PO 20 mg DAILY [facility] Administration Nifedipine 30 mg 08/12/19 13:45 08/16/19 11:55 Procardia Xl - PO 30 mg DAILY [facility] Administration Nystatin 1 applic 08/12/19 22:00 08/16/19 12:01 Nystop Powder - TP 1 applic BID [facility] Administration Polyethylene Glycol 17 gm 08/14/19 10:00 08/16/19 11:56 Miralax (For Daily Use) - PO 17 gm DAILY [facility] Administration Potassium Chloride 20 meq 08/13/19 10:00 08/16/19 11:56 K-Dur - PO 20 meq DAILY [facility] Administration Prednisone 40 mg 08/15/19 10:00 08/16/19 11:58 Deltasone - PO 40 mg DAILY [facility] Administration Ranitidine HCl 150 mg 08/13/19 10:00 08/16/19 11:55 Zantac - PO 150 mg DAILY [facility] Administration Rosuvastatin Calcium 10 mg 08/12/19 22:00 08/15/19 21:26 Crestor - PO 10 mg HS [facility] Administration Solifenacin 10 mg 08/13/19 10:00 08/16/19 11:56 Vesicare - PO 10 mg DAILY [facility] Administration Vital Signs Period Temp Pulse Resp BP Sys/Crouch Pulse Ox Last 24 Hr 98.3 F-98.8 F 60-100 18-20 108-145/52-76 94-96 Constitutional: Yes: No Distress Cardiovascular: Yes: Regular Rate and Rhythm Respiratory: cta bl nl eff Gastrointestinal: Yes: Soft, Abdomen, Obese Edema: No Neurological: Yes: Alert not agitated no jaundice, diaphoresis CBC, BMP 08/16/19 06:50 08/16/19 06:50 Assessment/Plan cta chest: no pe, mild chf ecg: sr nl intervals no ischemic changes IMP/PLAN: 73 f hx htn, hld, dm, here with sob for past few days, in ICU w/ acute respiratory failure requiring NIPPV; CTA negative for PE. Possible PNA vs acute on chronic diastolic CHF SOB, acute diastolic CHF: -no signs acs -after iv lasix vol status improved, cont with po lasix, outpt f/u HTN: - improved with amlodipine, monitor BP HLD: -cont statin cardiac vidales stable for rehab
--- NOTE | 2019-08-16 14:40 | PN ---
Progress Note, Physician History of Present Illness: pulmonary alert,comfortable,dyspnea improving - Current Medication List Current Medications: Active Medications Albuterol Sulfate (Ventolin 0.083% Nebulizer Soln -) 1 amp NEB Q4H PRN PRN Reason: SHORT OF BREATH/WHEEZING Albuterol/Ipratropium (Duoneb -) 1 amp NEB RQID [facility] Last Admin: 08/16/19 11:54 Dose: 1 amp Furosemide (Lasix -) 40 mg PO DAILY [facility] Last Admin: 08/16/19 11:55 Dose: 40 mg Heparin Sodium (Porcine) (Heparin -) 5,000 unit SQ BID [facility] Last Admin: 08/16/19 11:58 Dose: 5,000 unit Insulin Aspart (Novolog Vial Sliding Scale -) 1 vial SQ BID [facility]; Protocol Last Admin: 08/16/19 11:57 Dose: Not Given Lisinopril (Prinivil) 20 mg PO DAILY [facility] Last Admin: 08/16/19 11:56 Dose: 20 mg Nifedipine (Procardia Xl -) 30 mg PO DAILY [facility] Last Admin: 08/16/19 11:55 Dose: 30 mg Nystatin (Nystop Powder -) 1 applic TP BID [facility] Last Admin: 08/16/19 12:01 Dose: 1 applic Polyethylene Glycol (Miralax (For Daily Use) -) 17 gm PO DAILY [facility] Last Admin: 08/16/19 11:56 Dose: 17 gm Potassium Chloride (K-Dur -) 20 meq PO DAILY [facility] Last Admin: 08/16/19 11:56 Dose: 20 meq Prednisone (Deltasone -) 40 mg PO DAILY [facility] Last Admin: 08/16/19 11:58 Dose: 40 mg Ranitidine HCl (Zantac -) 150 mg PO DAILY [facility] Last Admin: 08/16/19 11:55 Dose: 150 mg Rosuvastatin Calcium (Crestor -) 10 mg PO HS [facility] Last Admin: 08/15/19 21:26 Dose: 10 mg Solifenacin (Vesicare -) 10 mg PO DAILY [facility] Last Admin: 08/16/19 11:56 Dose: 10 mg - Objective Vital Signs: Vital Signs Temperature 98.7 F 08/16/19 14:00 Pulse Rate 69 08/16/19 14:00 Respiratory Rate 18 08/16/19 14:00 Blood Pressure 127/64 08/16/19 14:00 O2 Sat by Pulse Oximetry (%) 94 L 08/16/19 10:35 Constitutional: Yes: Calm, Obese Eyes: Yes: WNL HENT: Yes: WNL Neck: Yes: WNL Cardiovascular: Yes: Regular Rate and Rhythm, S1, S2 Respiratory: Yes: Diminished Gastrointestinal: Yes: Normal Bowel Sounds, Soft Extremities: Yes: WNL Edema: Yes Labs: CBC, BMP 08/16/19 06:50 08/16/19 06:50 INR, PTT INR 1.11 (0.83-1.09) H 08/07/19 21:12 Problem List - Problems (1) Acute on chronic respiratory failure with hypoxia and hypercapnia Code(s): J96.21 - ACUTE AND CHRONIC RESPIRATORY FAILURE WITH HYPOXIA; J96.22 - ACUTE AND CHRONIC RESPIRATORY FAILURE WITH HYPERCAPNIA (2) SOB (shortness of breath) Code(s): R06.02 - SHORTNESS OF BREATH (3) COPD with exacerbation Code(s): J44.1 - CHRONIC OBSTRUCTIVE PULMONARY DISEASE W (ACUTE) EXACERBATION (4) CHF (congestive heart failure) Code(s): I50.9 - HEART FAILURE, UNSPECIFIED (5) Morbid obesity Code(s): E66.01 - MORBID (SEVERE) OBESITY DUE TO EXCESS CALORIES (6) Sleep apnea Code(s): G47.30 - SLEEP APNEA, UNSPECIFIED Assessment/Plan ASSESSMENT AND PLAN: Acute on Chronic Hypercapneic Respiratory Failure improving Acute COPD Exacerbation improving LV Diastolic Dysfunction HTN Hyperlipidemia DM Obstructive Sleep Apnea - monitor urine output, creatinine - prednisone - inhaled bronchodilators - O2 to keep SpO2 >90% - BiPAP at night and PRN during day - DVT prophylaxis - ambularory o2 sat prior to discharge - outpatient pfts DR MENDOZA
[2019-08-16] MEDS: ROSUVASTATIN CA 10 MG TABLET (FP) PO SCH (21:20)
[2019-08-17] MEDS: ALBUTEROL SO4 2.5/IPRATROPIUM 0.5 INH SOL 3 ML VIAL.NEB. NEB SCH ×3 (08:00→15:42)
[2019-08-17] MEDS ORDERED: PT OWN MED DRAWER 7, Y5N ONE (09:33)
[2019-08-17] MEDS: NIFEdipine E.R. 30 MG TABLET (FP) PO SCH (10:54)
[2019-08-17] MEDS: predniSONE 20 MG TABLET (UD) PO SCH (10:54)
[2019-08-17] MEDS: SOLIFENACIN SUCCINATE 5 MG TAB PO SCH (10:54)
[2019-08-17] MEDS: POTASSIUM CHLORIDE TABS 10 MEQ TABLET.ER (FP) PO SCH (10:54)
[2019-08-17] MEDS: RANITIDINE HCL 150 MG TABLET (FP) PO SCH (10:55)
[2019-08-17] MEDS: HEPARIN NA (PORCINE) 5,000 UNITS/ML 1ML VIAL SQ SCH ×2 (10:55→21:23)
[2019-08-17] MEDS: FUROSEMIDE 40 MG TABLET (FP) PO SCH (10:55)
[2019-08-17] MEDS: LISINOPRIL 20 MG TABLET (FP) PO SCH (10:55)
[2019-08-17] MEDS: INSULIN SLIDING SCALE (NOVOLOG) 1 VIAL SQ SCH ×2 (11:22→21:24)
--- NOTE | 2019-08-17 11:42 | PN ---
Progress Note, Physician History of Present Illness: PULMONARY ALERT,COMFORTABLE,,BREATHING BETTER - Current Medication List Current Medications: Active Medications Albuterol Sulfate (Ventolin 0.083% Nebulizer Soln -) 1 amp NEB Q4H PRN PRN Reason: SHORT OF BREATH/WHEEZING Albuterol/Ipratropium (Duoneb -) 1 amp NEB RQID [facility] Last Admin: 08/17/19 08:00 Dose: 1 amp Furosemide (Lasix -) 40 mg PO DAILY [facility] Last Admin: 08/17/19 10:55 Dose: 40 mg Heparin Sodium (Porcine) (Heparin -) 5,000 unit SQ BID [facility] Last Admin: 08/17/19 10:55 Dose: 5,000 unit Insulin Aspart (Novolog Vial Sliding Scale -) 1 vial SQ BID [facility]; Protocol Last Admin: 08/17/19 11:22 Dose: Not Given Lisinopril (Prinivil) 20 mg PO DAILY [facility] Last Admin: 08/17/19 10:55 Dose: 20 mg Nifedipine (Procardia Xl -) 30 mg PO DAILY [facility] Last Admin: 08/17/19 10:54 Dose: 30 mg Nystatin (Nystop Powder -) 1 applic TP BID [facility] Last Admin: 08/16/19 21:21 Dose: 1 applic Polyethylene Glycol (Miralax (For Daily Use) -) 17 gm PO DAILY [facility] Last Admin: 08/16/19 11:56 Dose: 17 gm Potassium Chloride (K-Dur -) 20 meq PO DAILY [facility] Last Admin: 08/17/19 10:54 Dose: 20 meq Prednisone (Deltasone -) 40 mg PO DAILY [facility] Last Admin: 08/17/19 10:54 Dose: 40 mg Ranitidine HCl (Zantac -) 150 mg PO DAILY [facility] Last Admin: 08/17/19 10:55 Dose: 150 mg Rosuvastatin Calcium (Crestor -) 10 mg PO HS [facility] Last Admin: 08/16/19 21:20 Dose: 10 mg Solifenacin (Vesicare -) 10 mg PO DAILY [facility] Last Admin: 08/17/19 10:54 Dose: 10 mg - Objective Vital Signs: Vital Signs Temperature 97.8 F 08/17/19 06:00 Pulse Rate 58 L 08/17/19 06:00 Respiratory Rate 18 08/17/19 06:00 Blood Pressure 125/66 08/17/19 06:00 O2 Sat by Pulse Oximetry (%) 97 08/17/19 04:15 Constitutional: Yes: Calm, Obese Eyes: Yes: WNL HENT: Yes: WNL Neck: Yes: WNL Cardiovascular: Yes: Regular Rate and Rhythm, S1, S2 Respiratory: Yes: Diminished Gastrointestinal: Yes: Normal Bowel Sounds, Soft, Abdomen, Obese Extremities: Yes: WNL Edema: Yes Labs: CBC, BMP 08/16/19 06:50 08/16/19 06:50 INR, PTT INR 1.11 (0.83-1.09) H 08/07/19 21:12 Problem List - Problems (1) Acute on chronic respiratory failure with hypoxia and hypercapnia Code(s): J96.21 - ACUTE AND CHRONIC RESPIRATORY FAILURE WITH HYPOXIA; J96.22 - ACUTE AND CHRONIC RESPIRATORY FAILURE WITH HYPERCAPNIA (2) SOB (shortness of breath) Code(s): R06.02 - SHORTNESS OF BREATH (3) COPD with exacerbation Code(s): J44.1 - CHRONIC OBSTRUCTIVE PULMONARY DISEASE W (ACUTE) EXACERBATION (4) CHF (congestive heart failure) Code(s): I50.9 - HEART FAILURE, UNSPECIFIED (5) Morbid obesity Code(s): E66.01 - MORBID (SEVERE) OBESITY DUE TO EXCESS CALORIES (6) Sleep apnea Code(s): G47.30 - SLEEP APNEA, UNSPECIFIED Assessment/Plan ASSESSMENT AND PLAN: Acute on Chronic Hypercapneic Respiratory Failure improving Acute COPD Exacerbation improving LV Diastolic Dysfunction HTN Hyperlipidemia DM Obstructive Sleep Apnea - monitor urine output, creatinine - prednisone - inhaled bronchodilators - O2 to keep SpO2 >90% - BiPAP at night and PRN during day - DVT prophylaxis - ambularory o2 sat prior to discharge - outpatient pfts - fatemeh MENDOZA
[2019-08-17] MEDS: NYSTATIN POWDER 100,000 UNITS/GM - 15 GM TOPICAL POWDER TP SCH ×2 (11:51→21:24)
--- NOTE | 2019-08-17 13:00 | PN ---
Progress Note, Physician History of Present Illness: Pt w/o SOB, CP, palpitations, Abd pain - Current Medication List Current Medications: Active Medications Albuterol Sulfate (Ventolin 0.083% Nebulizer Soln -) 1 amp NEB Q4H PRN PRN Reason: SHORT OF BREATH/WHEEZING Albuterol/Ipratropium (Duoneb -) 1 amp NEB RQID [facility] Last Admin: 08/17/19 12:00 Dose: 1 amp Furosemide (Lasix -) 40 mg PO DAILY [facility] Last Admin: 08/17/19 10:55 Dose: 40 mg Heparin Sodium (Porcine) (Heparin -) 5,000 unit SQ BID [facility] Last Admin: 08/17/19 10:55 Dose: 5,000 unit Insulin Aspart (Novolog Vial Sliding Scale -) 1 vial SQ BID [facility]; Protocol Last Admin: 08/17/19 11:22 Dose: Not Given Lisinopril (Prinivil) 20 mg PO DAILY [facility] Last Admin: 08/17/19 10:55 Dose: 20 mg Nifedipine (Procardia Xl -) 30 mg PO DAILY [facility] Last Admin: 08/17/19 10:54 Dose: 30 mg Nystatin (Nystop Powder -) 1 applic TP BID [facility] Last Admin: 08/16/19 21:21 Dose: 1 applic Polyethylene Glycol (Miralax (For Daily Use) -) 17 gm PO DAILY [facility] Last Admin: 08/16/19 11:56 Dose: 17 gm Potassium Chloride (K-Dur -) 20 meq PO DAILY [facility] Last Admin: 08/17/19 10:54 Dose: 20 meq Prednisone (Deltasone -) 40 mg PO DAILY [facility] Last Admin: 08/17/19 10:54 Dose: 40 mg Ranitidine HCl (Zantac -) 150 mg PO DAILY [facility] Last Admin: 08/17/19 10:55 Dose: 150 mg Rosuvastatin Calcium (Crestor -) 10 mg PO HS [facility] Last Admin: 08/16/19 21:20 Dose: 10 mg Solifenacin (Vesicare -) 10 mg PO DAILY [facility] Last Admin: 08/17/19 10:54 Dose: 10 mg - Objective Vital Signs: Vital Signs Temperature 97.8 F 08/17/19 06:00 Pulse Rate 58 L 08/17/19 06:00 Respiratory Rate 18 08/17/19 06:00 Blood Pressure 125/66 08/17/19 06:00 O2 Sat by Pulse Oximetry (%) 97 08/17/19 04:15 Constitutional: Yes: No Distress, Calm Cardiovascular: Yes: Regular Rate and Rhythm, S1, S2 Respiratory: Yes: Regular, CTA Bilaterally. No: Rales (decreased BS) Gastrointestinal: Yes: Normal Bowel Sounds, Soft. No: Tenderness Neurological: Yes: Alert, Oriented Labs: CBC, BMP 08/16/19 06:50 08/16/19 06:50 INR, PTT INR 1.11 (0.83-1.09) H 08/07/19 21:12 Problem List - Problems (1) Acute on chronic respiratory failure with hypoxia and hypercapnia Code(s): J96.21 - ACUTE AND CHRONIC RESPIRATORY FAILURE WITH HYPOXIA; J96.22 - ACUTE AND CHRONIC RESPIRATORY FAILURE WITH HYPERCAPNIA (2) CHF (congestive heart failure) Code(s): I50.9 - HEART FAILURE, UNSPECIFIED (3) COPD with exacerbation Code(s): J44.1 - CHRONIC OBSTRUCTIVE PULMONARY DISEASE W (ACUTE) EXACERBATION (4) Morbid obesity Code(s): E66.01 - MORBID (SEVERE) OBESITY DUE TO EXCESS CALORIES (5) Sleep apnea Code(s): G47.30 - SLEEP APNEA, UNSPECIFIED (6) Diabetes mellitus Code(s): E11.9 - TYPE 2 DIABETES MELLITUS WITHOUT COMPLICATIONS (7) HTN (hypertension) Code(s): I10 - ESSENTIAL (PRIMARY) HYPERTENSION (8) Hyperlipidemia Code(s): E78.5 - HYPERLIPIDEMIA, UNSPECIFIED (9) Hyponatremia Code(s): E87.1 - HYPO-OSMOLALITY AND HYPONATREMIA Assessment/Plan Prednisone -per pulmonary BIAPA at night and PRN Lasix O2 supplementation Pulmonary, Cardio consults are appreciated AM Labs
[2019-08-17] MEDS: POLYETHYLENE GLYCOL 3350 119 GM BTL PO SCH (16:51)
[2019-08-17] MEDS: ROSUVASTATIN CA 10 MG TABLET (FP) PO SCH (21:23)
[2019-08-18 08:04] LABS: HEMATOCRIT 40.7 % (32.4-45.2); HEMOGLOBIN 13.4 GM/dL (10.7-15.3); MCH 31.3 pg (25.7-33.7); MEAN CELL VOLUME 94.9 fl (80-96); MEAN PLT VOLUME 8.1 fl (7.5-11.1); PLATELET COUNT 236 K/MM3 (134-434); RBC 4.29 M/mm3 (3.60-5.2); RDW 14.6 % (11.6-15.6); WHITE BLOOD COUNT 9.7 K/mm3 (4.0-10.0)
[2019-08-18 08:28] LABS: BLOOD UREA NITROGEN 29.6 mg/dL (7-18); CALCIUM 9.2 mg/dL (8.5-10.1); CREATININE 0.8 mg/dL (0.55-1.3); POTASSIUM 3.9 mmol/L (3.5-5.1)
[2019-08-18] MEDS ORDERED: PT OWN MED DRAWER 7, Y5N ONE (10:21)
[2019-08-18] MEDS: POTASSIUM CHLORIDE TABS 10 MEQ TABLET.ER (FP) PO SCH (10:23)
[2019-08-18] MEDS: LISINOPRIL 20 MG TABLET (FP) PO SCH (10:23)
[2019-08-18] MEDS: NIFEdipine E.R. 30 MG TABLET (FP) PO SCH (10:23)
[2019-08-18] MEDS: predniSONE 20 MG TABLET (UD) PO SCH (10:23)
[2019-08-18] MEDS: SOLIFENACIN SUCCINATE 5 MG TAB PO SCH (10:23)
[2019-08-18] MEDS: HEPARIN NA (PORCINE) 5,000 UNITS/ML 1ML VIAL SQ SCH ×2 (10:23→22:03)
[2019-08-18] MEDS: FUROSEMIDE 40 MG TABLET (FP) PO SCH (10:24)
[2019-08-18] MEDS: RANITIDINE HCL 150 MG TABLET (FP) PO SCH (10:24)
[2019-08-18] MEDS: POLYETHYLENE GLYCOL 3350 119 GM BTL PO SCH (10:32)
[2019-08-18] MEDS: INSULIN SLIDING SCALE (NOVOLOG) 1 VIAL SQ SCH ×2 (10:46→22:03)
--- NOTE | 2019-08-18 10:51 | PN ---
Progress Note, Physician History of Present Illness: PULMONARY ALERT,NO DISTRESS,COMFORTABLE AT REST - Current Medication List Current Medications: Active Medications Furosemide (Lasix -) 40 mg PO DAILY [facility] Last Admin: 08/18/19 10:24 Dose: 40 mg Heparin Sodium (Porcine) (Heparin -) 5,000 unit SQ BID [facility] Last Admin: 08/18/19 10:23 Dose: 5,000 unit Insulin Aspart (Novolog Vial Sliding Scale -) 1 vial SQ BID [facility]; Protocol Last Admin: 08/18/19 10:46 Dose: Not Given Lisinopril (Prinivil) 20 mg PO DAILY [facility] Last Admin: 08/18/19 10:23 Dose: 20 mg Nifedipine (Procardia Xl -) 30 mg PO DAILY [facility] Last Admin: 08/18/19 10:23 Dose: 30 mg Nystatin (Nystop Powder -) 1 applic TP BID [facility] Last Admin: 08/17/19 21:24 Dose: 1 applic Polyethylene Glycol (Miralax (For Daily Use) -) 17 gm PO DAILY [facility] Last Admin: 08/18/19 10:32 Dose: 17 gm Potassium Chloride (K-Dur -) 20 meq PO DAILY [facility] Last Admin: 08/18/19 10:23 Dose: 20 meq Prednisone (Deltasone -) 40 mg PO DAILY [facility] Last Admin: 08/18/19 10:23 Dose: 40 mg Ranitidine HCl (Zantac -) 150 mg PO DAILY [facility] Last Admin: 08/18/19 10:24 Dose: 150 mg Rosuvastatin Calcium (Crestor -) 10 mg PO HS [facility] Last Admin: 08/17/19 21:23 Dose: 10 mg Solifenacin (Vesicare -) 10 mg PO DAILY [facility] Last Admin: 08/18/19 10:23 Dose: 10 mg - Objective Vital Signs: Vital Signs Temperature 97.8 F 08/18/19 06:00 Pulse Rate 65 08/18/19 06:00 Respiratory Rate 18 08/18/19 06:00 Blood Pressure 121/75 08/18/19 06:00 O2 Sat by Pulse Oximetry (%) 97 08/18/19 00:59 Constitutional: Yes: Calm, Obese Eyes: Yes: WNL HENT: Yes: WNL Neck: Yes: WNL Cardiovascular: Yes: Regular Rate and Rhythm, S1, S2 Respiratory: Yes: Diminished, Rales (FEW BIBASILAR RALES) Gastrointestinal: Yes: Normal Bowel Sounds, Soft Extremities: Yes: WNL Edema: No Labs: CBC, BMP 08/18/19 07:45 08/18/19 07:45 INR, PTT INR 1.11 (0.83-1.09) H 08/07/19 21:12 Problem List - Problems (1) Acute on chronic respiratory failure with hypoxia and hypercapnia Code(s): J96.21 - ACUTE AND CHRONIC RESPIRATORY FAILURE WITH HYPOXIA; J96.22 - ACUTE AND CHRONIC RESPIRATORY FAILURE WITH HYPERCAPNIA (2) SOB (shortness of breath) Code(s): R06.02 - SHORTNESS OF BREATH (3) COPD with exacerbation Code(s): J44.1 - CHRONIC OBSTRUCTIVE PULMONARY DISEASE W (ACUTE) EXACERBATION (4) CHF (congestive heart failure) Code(s): I50.9 - HEART FAILURE, UNSPECIFIED (5) Morbid obesity Code(s): E66.01 - MORBID (SEVERE) OBESITY DUE TO EXCESS CALORIES (6) Sleep apnea Code(s): G47.30 - SLEEP APNEA, UNSPECIFIED Assessment/Plan ASSESSMENT AND PLAN: Acute on Chronic Hypercapneic Respiratory Failure improving Acute COPD Exacerbation improving LV Diastolic Dysfunction HTN Hyperlipidemia DM Obstructive Sleep Apnea - monitor urine output, creatinine - prednisone - inhaled bronchodilators - O2 to keep SpO2 >90% - BiPAP at night and PRN during day - DVT prophylaxis - ambularory o2 sat prior to discharge - outpatient pfts - fatemeh MENDOZA
[2019-08-18] MEDS: NYSTATIN POWDER 100,000 UNITS/GM - 15 GM TOPICAL POWDER TP SCH ×2 (11:35→22:03)
--- NOTE | 2019-08-18 14:43 | PN ---
Progress Note, Physician History of Present Illness: Pt w/o SOB, CP, palpitations, abd pain. Pt is not getting out of bed, is too weak.. - Current Medication List Current Medications: Active Medications Furosemide (Lasix -) 40 mg PO DAILY [facility] Last Admin: 08/18/19 10:24 Dose: 40 mg Heparin Sodium (Porcine) (Heparin -) 5,000 unit SQ BID [facility] Last Admin: 08/18/19 10:23 Dose: 5,000 unit Insulin Aspart (Novolog Vial Sliding Scale -) 1 vial SQ BID [facility]; Protocol Last Admin: 08/18/19 10:46 Dose: Not Given Lisinopril (Prinivil) 20 mg PO DAILY [facility] Last Admin: 08/18/19 10:23 Dose: 20 mg Nifedipine (Procardia Xl -) 30 mg PO DAILY [facility] Last Admin: 08/18/19 10:23 Dose: 30 mg Nystatin (Nystop Powder -) 1 applic TP BID [facility] Last Admin: 08/17/19 21:24 Dose: 1 applic Polyethylene Glycol (Miralax (For Daily Use) -) 17 gm PO DAILY [facility] Last Admin: 08/18/19 10:32 Dose: 17 gm Potassium Chloride (K-Dur -) 20 meq PO DAILY [facility] Last Admin: 08/18/19 10:23 Dose: 20 meq Prednisone (Deltasone -) 40 mg PO DAILY [facility] Last Admin: 08/18/19 10:23 Dose: 40 mg Ranitidine HCl (Zantac -) 150 mg PO DAILY [facility] Last Admin: 08/18/19 10:24 Dose: 150 mg Rosuvastatin Calcium (Crestor -) 10 mg PO HS [facility] Last Admin: 08/17/19 21:23 Dose: 10 mg Solifenacin (Vesicare -) 10 mg PO DAILY [facility] Last Admin: 08/18/19 10:23 Dose: 10 mg - Objective Vital Signs: Vital Signs Temperature 98.7 F 08/18/19 14:00 Pulse Rate 68 08/18/19 14:00 Respiratory Rate 18 08/18/19 14:00 Blood Pressure 128/76 08/18/19 14:00 O2 Sat by Pulse Oximetry (%) 95 08/18/19 10:00 Constitutional: Yes: No Distress, Calm Cardiovascular: Yes: Regular Rate and Rhythm, S1, S2 Respiratory: Yes: Regular, Other (coarse BS bilat) Gastrointestinal: Yes: Normal Bowel Sounds, Soft, Abdomen, Obese, Tenderness Edema: LLE: Trace, RLE: Trace Neurological: Yes: Alert, Oriented Labs: CBC, BMP 08/18/19 07:45 08/18/19 07:45 INR, PTT INR 1.11 (0.83-1.09) H 08/07/19 21:12 Problem List - Problems (1) Acute on chronic respiratory failure with hypoxia and hypercapnia Code(s): J96.21 - ACUTE AND CHRONIC RESPIRATORY FAILURE WITH HYPOXIA; J96.22 - ACUTE AND CHRONIC RESPIRATORY FAILURE WITH HYPERCAPNIA (2) CHF (congestive heart failure) Code(s): I50.9 - HEART FAILURE, UNSPECIFIED (3) COPD with exacerbation Code(s): J44.1 - CHRONIC OBSTRUCTIVE PULMONARY DISEASE W (ACUTE) EXACERBATION (4) Morbid obesity Code(s): E66.01 - MORBID (SEVERE) OBESITY DUE TO EXCESS CALORIES (5) Sleep apnea Code(s): G47.30 - SLEEP APNEA, UNSPECIFIED (6) Diabetes mellitus Code(s): E11.9 - TYPE 2 DIABETES MELLITUS WITHOUT COMPLICATIONS (7) HTN (hypertension) Code(s): I10 - ESSENTIAL (PRIMARY) HYPERTENSION (8) Hyperlipidemia Code(s): E78.5 - HYPERLIPIDEMIA, UNSPECIFIED (9) Hyponatremia Code(s): E87.1 - HYPO-OSMOLALITY AND HYPONATREMIA Assessment/Plan Prednisone -per pulmonary BIPAP at night and PRN durin the day Lasix O2 supplementation Pulmonary, Cardio consults are appreciated AM Labs; Na+ is stable, borderline low.
[2019-08-18] MEDS: ROSUVASTATIN CA 10 MG TABLET (FP) PO SCH (22:03)
[2019-08-19] MEDS: POLYETHYLENE GLYCOL 3350 119 GM BTL PO SCH (10:20)
[2019-08-19] MEDS: INSULIN SLIDING SCALE (NOVOLOG) 1 VIAL SQ SCH ×2 (10:23→21:49)
[2019-08-19] MEDS: POTASSIUM CHLORIDE TABS 10 MEQ TABLET.ER (FP) PO SCH (10:25)
[2019-08-19] MEDS: SOLIFENACIN SUCCINATE 5 MG TAB PO SCH (10:25)
[2019-08-19] MEDS: RANITIDINE HCL 150 MG TABLET (FP) PO SCH (10:25)
[2019-08-19] MEDS: NIFEdipine E.R. 30 MG TABLET (FP) PO SCH (10:25)
[2019-08-19] MEDS: FUROSEMIDE 40 MG TABLET (FP) PO SCH (10:25)
[2019-08-19] MEDS: predniSONE 20 MG TABLET (UD) PO SCH (10:26)
[2019-08-19] MEDS: LISINOPRIL 20 MG TABLET (FP) PO SCH (10:26)
[2019-08-19] MEDS: HEPARIN NA (PORCINE) 5,000 UNITS/ML 1ML VIAL SQ SCH ×2 (10:26→21:48)
[2019-08-19] MEDS: NYSTATIN POWDER 100,000 UNITS/GM - 15 GM TOPICAL POWDER TP SCH ×2 (10:28→21:48)
--- NOTE | 2019-08-19 10:48 | PN ---
Progress Note, Physician Chief Complaint: sob History of Present Illness: denies sob, leg swelling no cp, palp - Current Medication List Current Medications: Active Medications Furosemide (Lasix -) 40 mg PO DAILY [facility] Last Admin: 08/19/19 10:25 Dose: 40 mg Heparin Sodium (Porcine) (Heparin -) 5,000 unit SQ BID [facility] Last Admin: 08/19/19 10:26 Dose: 5,000 unit Insulin Aspart (Novolog Vial Sliding Scale -) 1 vial SQ BID [facility]; Protocol Last Admin: 08/19/19 10:23 Dose: Not Given Lisinopril (Prinivil) 20 mg PO DAILY [facility] Last Admin: 08/19/19 10:26 Dose: 20 mg Nifedipine (Procardia Xl -) 30 mg PO DAILY [facility] Last Admin: 08/19/19 10:25 Dose: 30 mg Nystatin (Nystop Powder -) 1 applic TP BID [facility] Last Admin: 08/19/19 10:28 Dose: 1 applic Polyethylene Glycol (Miralax (For Daily Use) -) 17 gm PO DAILY [facility] Last Admin: 08/19/19 10:20 Dose: 17 gm Potassium Chloride (K-Dur -) 20 meq PO DAILY [facility] Last Admin: 08/19/19 10:25 Dose: 20 meq Prednisone (Deltasone -) 40 mg PO DAILY [facility] Last Admin: 08/19/19 10:26 Dose: 40 mg Ranitidine HCl (Zantac -) 150 mg PO DAILY [facility] Last Admin: 08/19/19 10:25 Dose: 150 mg Rosuvastatin Calcium (Crestor -) 10 mg PO HS [facility] Last Admin: 08/18/19 22:03 Dose: 10 mg Solifenacin (Vesicare -) 10 mg PO DAILY [facility] Last Admin: 08/19/19 10:25 Dose: 10 mg - Objective Vital Signs: Vital Signs Temperature 98 F 08/19/19 05:52 Pulse Rate 63 08/19/19 05:52 Respiratory Rate 18 08/19/19 08:09 Blood Pressure 141/82 08/19/19 05:52 O2 Sat by Pulse Oximetry (%) 95 08/19/19 08:09 Constitutional: Yes: No Distress, Calm, Obese Cardiovascular: Yes: Regular Rate and Rhythm. No: JVD (tds exam), Gallop, Murmur Respiratory: Yes: Regular, CTA Bilaterally. No: Accessory Muscle Use, Rales, Wheezes Extremities: No: Cold Edema: No Neurological: Yes: Alert, Oriented Psychiatric: No: Agitated Labs: CBC, BMP 08/18/19 07:45 08/18/19 07:45 INR, PTT INR 1.11 (0.83-1.09) H 08/07/19 21:12 Assessment/Plan cta chest: no pe, mild chf ecg: sr nl intervals no ischemic changes echo 08/15: nl LV. nl RV. mild . no pulm HTN IMP/PLAN: 73 f hx htn, hld, dm, here with sob for past few days, in ICU w/ acute respiratory failure requiring NIPPV; CTA negative for PE. Possible PNA vs acute on chronic diastolic CHF SOB, acute diastolic CHF: -no signs acs -after iv lasix vol status improved, cont with po lasix--appears euvolemic -rec outpt sleep apnea eval -outpt cardio f/u--stable for d/c HTN: - improved with amlodipine, monitor BP HLD: -cont statin
--- NOTE | 2019-08-19 12:56 | PN ---
Progress Note (short form) - Note Progress Note: PULMONARY Breathing better today. Less cough. No wheezing. Vital Signs Period Temp Pulse Resp BP Sys/Crouch Pulse Ox Last 24 Hr 98 F-98.7 F 63-81 18-20 113-141/56-82 95-98 Gen: NAD at rest Heart: RRR Lung: decreased breath sounds at the bases Abd: soft, nontender Ext: no edema CBC, BMP 08/18/19 07:45 08/18/19 07:45 Active Medications Furosemide (Lasix -) 40 mg PO DAILY [facility] Last Admin: 08/19/19 10:25 Dose: 40 mg Heparin Sodium (Porcine) (Heparin -) 5,000 unit SQ BID [facility] Last Admin: 08/19/19 10:26 Dose: 5,000 unit Insulin Aspart (Novolog Vial Sliding Scale -) 1 vial SQ BID [facility]; Protocol Last Admin: 08/19/19 10:23 Dose: Not Given Lisinopril (Prinivil) 20 mg PO DAILY [facility] Last Admin: 08/19/19 10:26 Dose: 20 mg Nifedipine (Procardia Xl -) 30 mg PO DAILY [facility] Last Admin: 08/19/19 10:25 Dose: 30 mg Nystatin (Nystop Powder -) 1 applic TP BID [facility] Last Admin: 08/19/19 10:28 Dose: 1 applic Polyethylene Glycol (Miralax (For Daily Use) -) 17 gm PO DAILY [facility] Last Admin: 08/19/19 10:20 Dose: 17 gm Potassium Chloride (K-Dur -) 20 meq PO DAILY [facility] Last Admin: 08/19/19 10:25 Dose: 20 meq Prednisone (Deltasone -) 40 mg PO DAILY [facility] Last Admin: 08/19/19 10:26 Dose: 40 mg Ranitidine HCl (Zantac -) 150 mg PO DAILY [facility] Last Admin: 08/19/19 10:25 Dose: 150 mg Rosuvastatin Calcium (Crestor -) 10 mg PO HS [facility] Last Admin: 08/18/19 22:03 Dose: 10 mg Solifenacin (Vesicare -) 10 mg PO DAILY [facility] Last Admin: 08/19/19 10:25 Dose: 10 mg A/P Acute on Chronic Hypercapneic Respiratory Failure improving Acute COPD Exacerbation improving LV Diastolic Dysfunction HTN Hyperlipidemia DM Obstructive Sleep Apnea - continue lasix - monitor urine output, creatinine - prednisone taper - inhaled bronchodilators - O2 to keep SpO2 >90% - BiPAP at night and PRN during day - outpt PFTs - DVT prophylaxis - d/c planning in progress
--- NOTE | 2019-08-19 13:43 | PN ---
Progress Note, Physician Chief Complaint: in bed SOB with exercise but no SOB at rest d/w pt and CM about DC planning she is still hypoxemic with mi nimal exercise consider PT pulmonary rehab - Current Medication List Current Medications: Active Medications Furosemide (Lasix -) 40 mg PO DAILY [facility] Last Admin: 08/19/19 10:25 Dose: 40 mg Heparin Sodium (Porcine) (Heparin -) 5,000 unit SQ BID [facility] Last Admin: 08/19/19 10:26 Dose: 5,000 unit Insulin Aspart (Novolog Vial Sliding Scale -) 1 vial SQ BID [facility]; Protocol Last Admin: 08/19/19 10:23 Dose: Not Given Lisinopril (Prinivil) 20 mg PO DAILY [facility] Last Admin: 08/19/19 10:26 Dose: 20 mg Nifedipine (Procardia Xl -) 30 mg PO DAILY [facility] Last Admin: 08/19/19 10:25 Dose: 30 mg Nystatin (Nystop Powder -) 1 applic TP BID [facility] Last Admin: 08/19/19 10:28 Dose: 1 applic Polyethylene Glycol (Miralax (For Daily Use) -) 17 gm PO DAILY [facility] Last Admin: 08/19/19 10:20 Dose: 17 gm Potassium Chloride (K-Dur -) 20 meq PO DAILY [facility] Last Admin: 08/19/19 10:25 Dose: 20 meq Prednisone (Deltasone -) 40 mg PO DAILY [facility] Last Admin: 08/19/19 10:26 Dose: 40 mg Ranitidine HCl (Zantac -) 150 mg PO DAILY [facility] Last Admin: 08/19/19 10:25 Dose: 150 mg Rosuvastatin Calcium (Crestor -) 10 mg PO HS [facility] Last Admin: 08/18/19 22:03 Dose: 10 mg Solifenacin (Vesicare -) 10 mg PO DAILY [facility] Last Admin: 08/19/19 10:25 Dose: 10 mg - Objective Vital Signs: Vital Signs Temperature 98.7 F 08/19/19 09:00 Pulse Rate 70 08/19/19 09:00 Respiratory Rate 20 08/19/19 09:00 Blood Pressure 113/56 L 08/19/19 09:00 O2 Sat by Pulse Oximetry (%) 95 08/19/19 08:09 Constitutional: Yes: No Distress, Calm Eyes: Yes: Conjunctiva Clear HENT: Yes: Atraumatic Neck: Yes: Supple Cardiovascular: Yes: Regular Rate and Rhythm Respiratory: Yes: CTA Bilaterally Gastrointestinal: Yes: Soft. No: Tenderness Genitourinary: No: Hematuria Musculoskeletal: No: Joint Stiffness, Joint Swelling Extremities: No: Cold, Cool, Cyanosis Edema: No Integumentary: No: Rash, Venous Stasis Changes Neurological: Yes: WNL, Alert, Oriented ...Motor Strength: WNL Psychiatric: Yes: WNL, Alert, Oriented. No: Agitated, Suicidal Ideation Labs: CBC, BMP 08/18/19 07:45 08/18/19 07:45 INR, PTT INR 1.11 (0.83-1.09) H 08/07/19 21:12 - ....Imaging Other: Report Reviewed Assessment/Plan 73 year old female with a history of HTN, HLD, DM who presents with shortness of breath acute on chronic COPD exac, PNA and respiratory failure CO2 retention pulm and cardiology f/u lasix po Nebs prn; taper steroids PT rehab for ambulation, Pulm PT O2 sat / RA miralax prn for constipation falls PFX d/w pt d/w pt and staff, CM to try pulm rehab add symbicort INH d.w pulm
[2019-08-19] MEDS ORDERED: INSULIN (NOVOLOG) ASPART 100 UNITS/ML 10ML VIAL ONE (21:27)
[2019-08-19] MEDS ORDERED: PT OWN MED DRAWER 7, Y5N ONE (21:28)
[2019-08-19] MEDS: BUDESONIDE/FORMETEROL FUMARATE 80/4.5 mcg INHALER IH SCH (21:47)
[2019-08-19] MEDS: ROSUVASTATIN CA 10 MG TABLET (FP) PO SCH (21:48)
[2019-08-20] MEDS ORDERED: PT OWN MED DRAWER 7, Y5N ONE ×2 (09:25→20:59)
[2019-08-20] MEDS ORDERED: INSULIN (NOVOLOG) ASPART 100 UNITS/ML 10ML VIAL ONE (09:26)
[2019-08-20] MEDS: NIFEdipine E.R. 30 MG TABLET (FP) PO SCH (09:33)
[2019-08-20] MEDS: predniSONE 20 MG TABLET (UD) PO SCH (09:33)
[2019-08-20] MEDS: FUROSEMIDE 40 MG TABLET (FP) PO SCH (09:34)
[2019-08-20] MEDS: RANITIDINE HCL 150 MG TABLET (FP) PO SCH (09:34)
[2019-08-20] MEDS: POTASSIUM CHLORIDE TABS 10 MEQ TABLET.ER (FP) PO SCH (09:34)
[2019-08-20] MEDS: SOLIFENACIN SUCCINATE 5 MG TAB PO SCH (09:34)
[2019-08-20] MEDS: HEPARIN NA (PORCINE) 5,000 UNITS/ML 1ML VIAL SQ SCH ×2 (09:34→21:13)
[2019-08-20] MEDS: LISINOPRIL 20 MG TABLET (FP) PO SCH (09:34)
[2019-08-20] MEDS: INSULIN SLIDING SCALE (NOVOLOG) 1 VIAL SQ SCH ×2 (09:34→21:13)
[2019-08-20] MEDS: NYSTATIN POWDER 100,000 UNITS/GM - 15 GM TOPICAL POWDER TP SCH ×2 (09:36→21:14)
[2019-08-20] MEDS: POLYETHYLENE GLYCOL 3350 119 GM BTL PO SCH ×2 (09:37→16:58)
[2019-08-20] MEDS: BUDESONIDE/FORMETEROL FUMARATE 80/4.5 mcg INHALER IH SCH ×2 (09:38→21:13)
--- NOTE | 2019-08-20 11:09 | DS ---
Physical Examination Vital Signs: Vital Signs Temperature 98.0 F 08/20/19 09:00 Pulse Rate 65 08/20/19 09:00 Respiratory Rate 19 08/20/19 09:00 Blood Pressure 114/52 L 08/20/19 09:00 O2 Sat by Pulse Oximetry (%) 99 08/20/19 09:00 Findings/Remarks: stable no new c/o feels better no SOB at rest but KRUSE with low exercise awaiting insurance approval for SNF Pulm Rehab lives alone; has home BIpap machine; will arrainge for home O2 also and VNS if denied for SNF advised continuous home O2 NC and f/u PCP cardio and pulm as advised; to take meds as ordered Constitutional: Yes: No Distress, Calm Eyes: Yes: Conjunctiva Clear HENT: Yes: Atraumatic Neck: Yes: Supple Cardiovascular: Yes: Regular Rate and Rhythm Respiratory: Yes: CTA Bilaterally Gastrointestinal: Yes: Soft. No: Tenderness Renal/: No: Hematuria Musculoskeletal: No: Joint Stiffness, Joint Swelling Extremities: No: Cold, Cool, Cyanosis Edema: No Integumentary: No: Rash, Venous Stasis Changes Neurological: Yes: WNL, Alert, Oriented ...Motor Strength: WNL Psychiatric: Yes: WNL, Alert, Oriented. No: Agitated, Suicidal Ideation Labs: CBC, BMP 08/18/19 07:45 08/18/19 07:45 Discharge Summary Reason For Visit: SHORTNESS OF BREATH Current Active Problems Acute on chronic respiratory failure with hypoxia and hypercapnia (Acute) CHF (congestive heart failure) (Acute) COPD with exacerbation (Acute) Diabetes mellitus (Acute) HTN (hypertension) (Acute) Hyperlipidemia (Acute) Hyponatremia (Acute) Morbid obesity (Acute) SOB (shortness of breath) (Acute) Sleep apnea (Acute) Procedures: Principal: 73 YOF obesity CHF OA sleep apneea admitted with SOB KRUSE hypoxemia and CO2 retention Other Procedures: admitted to ICU; seen by cardiology and pulmonary; started on INH, nebs, iv steroids and IV lasix; IV ATB; chest CT c/w mild CHF and possible PNA no PE Hospital Course: improved with above; still hypoxemic with minimal exercise needs continuous O2 NC; on po steroids (to taper), po lasix; would benefit from Pulm Rehab f/u pulm, cardiology and PCP close f/u; falls PFX; RTER if worse or recurrent d./w pt Condition: Improved - Instructions Diet, Activity, Other Instructions: f/u PCP pulmonary and cardiology in 1-2 weeks f/u labs in 1-2 weeks taper steroids as advised; take meds as prescribed falls PFX O2 NC continuous as advised home PT rehab, VNS; RTER if worse or recurrent Referrals: Venancio Mitchell MD [Staff Physician] - Андрей Parks MD [Staff Physician] - Anika Mcgraw MD [Primary Care Provider] - Disposition: SNF FACILITY - Home Medications Comprehensive Discharge Medication List: Ambulatory Orders Darifenacin Hydrobromide [Darifenacin ER] 15 mg PO 03/17/19 Lisinopril 20 mg PO DAILY 03/17/19 Rosuvastatin [Crestor -] 10 mg PO DAILY 03/17/19 metFORMIN HCL [Metformin HCl] 500 mg PO 03/17/19 Budesonide/Formeterol Fumarate [SYMBICORT 80/4.5mcg -] 2 puff IH BID #1 inhaler 08/19/19 Furosemide [Lasix -] 40 mg PO DAILY #30 tablet 08/19/19 Heparin - 5,000 unit SQ BID vial 08/19/19 Nifedipine ER [Procardia XL -] 30 mg PO DAILY #30 tab.er.24 08/19/19 Polyethylene Glycol 3350 [Miralax 119 gm Btl -] 17 gm PO DAILY bottle 08/19/19 Potassium Chloride [K-Dur -] 20 meq PO DAILY #30 tablet.er 08/19/19 Ranitidine [Zantac -] 150 mg PO DAILY tablet 08/19/19 predniSONE [Deltasone -] 40 mg PO DAILY #10 tablet 08/19/19
--- NOTE | 2019-08-20 11:35 | PN ---
Progress Note (short form) - Note Progress Note: no sob, palps, chest pain, edema Current Medications Budesonide/Formoterol Fumarate (Symbicort 80/4.5mcg -) 2 puff IH BID [facility] Last Admin: 08/20/19 09:38 Dose: 2 puff Furosemide (Lasix -) 40 mg PO DAILY [facility] Last Admin: 08/20/19 09:34 Dose: 40 mg Heparin Sodium (Porcine) (Heparin -) 5,000 unit SQ BID [facility] Last Admin: 08/20/19 09:34 Dose: 5,000 unit Insulin Aspart (Novolog Vial Sliding Scale -) 1 vial SQ BID [facility]; Protocol Last Admin: 08/20/19 09:34 Dose: Not Given Lisinopril (Prinivil) 20 mg PO DAILY [facility] Last Admin: 08/20/19 09:34 Dose: 20 mg Nifedipine (Procardia Xl -) 30 mg PO DAILY [facility] Last Admin: 08/20/19 09:33 Dose: 30 mg Nystatin (Nystop Powder -) 1 applic TP BID [facility] Last Admin: 08/20/19 09:36 Dose: 1 applic Polyethylene Glycol (Miralax (For Daily Use) -) 17 gm PO DAILY [facility] Last Admin: 08/20/19 09:37 Dose: Not Given Potassium Chloride (K-Dur -) 20 meq PO DAILY [facility] Last Admin: 08/20/19 09:34 Dose: 20 meq Prednisone (Deltasone -) 40 mg PO DAILY [facility] Last Admin: 08/20/19 09:33 Dose: 40 mg Ranitidine HCl (Zantac -) 150 mg PO DAILY [facility] Last Admin: 08/20/19 09:34 Dose: 150 mg Rosuvastatin Calcium (Crestor -) 10 mg PO HS [facility] Last Admin: 08/19/19 21:48 Dose: 10 mg Solifenacin (Vesicare -) 10 mg PO DAILY [facility] Last Admin: 08/20/19 09:34 Dose: 10 mg Vital Signs Period Temp Pulse Resp BP Sys/Crouch Pulse Ox Last 24 Hr 97.4 F-99.2 F 58-98 19-20 114-134/52-77 94-99 Constitutional: Yes: No Distress, Calm, Obese Cardiovascular: Yes: Regular Rate and Rhythm. No: JVD (tds exam), Gallop, Murmur Respiratory: Yes: Regular, CTA Bilaterally. No: Accessory Muscle Use, Rales, Wheezes Extremities: No: Cold Edema: No Neurological: Yes: Alert, Oriented Psychiatric: No: Agitated Assessment/Plan cta chest: no pe, mild chf ecg: sr nl intervals no ischemic changes echo 08/15: nl LV. nl RV. mild . no pulm HTN IMP/PLAN: 73 f hx htn, hld, dm, here with sob for past few days, in ICU w/ acute respiratory failure requiring NIPPV; CTA negative for PE. Possible PNA vs acute on chronic diastolic CHF SOB, acute diastolic CHF: -no signs acs -after iv lasix vol status improved, cont with po lasix--appears euvolemic -rec outpt sleep apnea eval -outpt cardio f/u--stable for d/c HTN: - improved with amlodipine, monitor BP HLD: -cont statin
--- NOTE | 2019-08-20 11:53 | PN ---
Progress Note (short form) - Note Progress Note: PULMONARY Breathing continues to improve. Less cough. No wheezing. Vital Signs Period Temp Pulse Resp BP Sys/Crouch Pulse Ox Last 24 Hr 97.4 F-99.2 F 58-98 19-20 114-134/52-77 94-99 Gen: NAD at rest Heart: RRR Lung: decreased breath sounds at the bases Abd: soft, nontender Ext: no edema CBC, BMP 08/18/19 07:45 08/18/19 07:45 Active Medications Budesonide/Formoterol Fumarate (Symbicort 80/4.5mcg -) 2 puff IH BID [facility] Last Admin: 08/20/19 09:38 Dose: 2 puff Furosemide (Lasix -) 40 mg PO DAILY [facility] Last Admin: 08/20/19 09:34 Dose: 40 mg Heparin Sodium (Porcine) (Heparin -) 5,000 unit SQ BID [facility] Last Admin: 08/20/19 09:34 Dose: 5,000 unit Insulin Aspart (Novolog Vial Sliding Scale -) 1 vial SQ BID [facility]; Protocol Last Admin: 08/20/19 09:34 Dose: Not Given Lisinopril (Prinivil) 20 mg PO DAILY [facility] Last Admin: 08/20/19 09:34 Dose: 20 mg Nifedipine (Procardia Xl -) 30 mg PO DAILY [facility] Last Admin: 08/20/19 09:33 Dose: 30 mg Nystatin (Nystop Powder -) 1 applic TP BID [facility] Last Admin: 08/20/19 09:36 Dose: 1 applic Polyethylene Glycol (Miralax (For Daily Use) -) 17 gm PO DAILY [facility] Last Admin: 08/20/19 09:37 Dose: Not Given Potassium Chloride (K-Dur -) 20 meq PO DAILY [facility] Last Admin: 08/20/19 09:34 Dose: 20 meq Prednisone (Deltasone -) 40 mg PO DAILY [facility] Last Admin: 08/20/19 09:33 Dose: 40 mg Ranitidine HCl (Zantac -) 150 mg PO DAILY [facility] Last Admin: 08/20/19 09:34 Dose: 150 mg Rosuvastatin Calcium (Crestor -) 10 mg PO HS [facility] Last Admin: 08/19/19 21:48 Dose: 10 mg Solifenacin (Vesicare -) 10 mg PO DAILY [facility] Last Admin: 08/20/19 09:34 Dose: 10 mg A/P Acute on Chronic Hypercapneic Respiratory Failure improving Acute COPD Exacerbation improving LV Diastolic Dysfunction HTN Hyperlipidemia DM Obstructive Sleep Apnea - continue lasix - monitor urine output, creatinine - prednisone taper - inhaled bronchodilators - O2 to keep SpO2 >90% - BiPAP at night and PRN during day - outpt PFTs - DVT prophylaxis - d/c planning in progress
[2019-08-20] MEDS: ROSUVASTATIN CA 10 MG TABLET (FP) PO SCH (21:13)
[2019-08-21] MEDS: INSULIN SLIDING SCALE (NOVOLOG) 1 VIAL SQ SCH (09:05)
--- NOTE | 2019-08-21 09:11 | PN ---
Progress Note, Physician Chief Complaint: no new c/o awaiting decision about DC SNF vs Home with O2 d/w pt and CM - pt was accepted at [facility] but she is not sure if she wants to go there or home with outpt PT - Current Medication List Current Medications: Active Medications Budesonide/Formoterol Fumarate (Symbicort 80/4.5mcg -) 2 puff IH BID [facility] Last Admin: 08/20/19 21:13 Dose: 2 puff Furosemide (Lasix -) 40 mg PO DAILY [facility] Last Admin: 08/20/19 09:34 Dose: 40 mg Heparin Sodium (Porcine) (Heparin -) 5,000 unit SQ BID [facility] Last Admin: 08/20/19 21:13 Dose: 5,000 unit Insulin Aspart (Novolog Vial Sliding Scale -) 1 vial SQ BID [facility]; Protocol Last Admin: 08/21/19 09:05 Dose: Not Given Lisinopril (Prinivil) 20 mg PO DAILY [facility] Last Admin: 08/20/19 09:34 Dose: 20 mg Nifedipine (Procardia Xl -) 30 mg PO DAILY [facility] Last Admin: 08/20/19 09:33 Dose: 30 mg Nystatin (Nystop Powder -) 1 applic TP BID [facility] Last Admin: 08/20/19 21:14 Dose: 1 applic Polyethylene Glycol (Miralax (For Daily Use) -) 17 gm PO DAILY [facility] Last Admin: 08/20/19 16:58 Dose: Not Given Potassium Chloride (K-Dur -) 20 meq PO DAILY [facility] Last Admin: 08/20/19 09:34 Dose: 20 meq Prednisone (Deltasone -) 40 mg PO DAILY [facility] Last Admin: 08/20/19 09:33 Dose: 40 mg Ranitidine HCl (Zantac -) 150 mg PO DAILY [facility] Last Admin: 08/20/19 09:34 Dose: 150 mg Rosuvastatin Calcium (Crestor -) 10 mg PO HS [facility] Last Admin: 08/20/19 21:13 Dose: 10 mg Solifenacin (Vesicare -) 10 mg PO DAILY [facility] Last Admin: 08/20/19 09:34 Dose: 10 mg - Objective Vital Signs: Vital Signs Temperature 98.0 F 08/21/19 06:00 Pulse Rate 83 08/21/19 06:00 Respiratory Rate 20 08/21/19 06:00 Blood Pressure 150/86 08/21/19 06:00 O2 Sat by Pulse Oximetry (%) 98 08/20/19 21:00 Constitutional: Yes: No Distress, Calm Eyes: Yes: Conjunctiva Clear HENT: Yes: Atraumatic Neck: Yes: Supple Cardiovascular: Yes: Regular Rate and Rhythm Respiratory: Yes: CTA Bilaterally Gastrointestinal: Yes: Soft. No: Tenderness Genitourinary: No: Hematuria Musculoskeletal: No: Joint Stiffness, Joint Swelling Extremities: No: Cold, Cool, Cyanosis Edema: No Integumentary: No: Rash, Venous Stasis Changes Neurological: Yes: WNL, Alert, Oriented ...Motor Strength: WNL Psychiatric: Yes: WNL, Alert, Oriented. No: Agitated, Suicidal Ideation Labs: CBC, BMP 08/18/19 07:45 08/18/19 07:45 INR, PTT INR 1.11 (0.83-1.09) H 08/07/19 21:12 - ....Imaging Other: Report Reviewed Assessment/Plan 73 year old female with a history of HTN, HLD, DM admitted with acute on chronic COPD exac, PNA and respiratory failure CO2 retention pulm and cardiology f/u lasix po Nebs prn; taper steroids PT rehab for ambulation, Pulm PT O2 sat / RA miralax prn for constipation falls PFX d/w pt d/w pt and staff, CM for DC planning home with O2 and outpt pulm rehab vs SNF - f/u needed d/w pt
[2019-08-21] MEDS: POLYETHYLENE GLYCOL 3350 119 GM BTL PO SCH (09:19)
[2019-08-21] MEDS: predniSONE 20 MG TABLET (UD) PO SCH (09:19)
[2019-08-21] MEDS: LISINOPRIL 20 MG TABLET (FP) PO SCH (09:20)
[2019-08-21] MEDS: NIFEdipine E.R. 30 MG TABLET (FP) PO SCH (09:20)
[2019-08-21] MEDS: SOLIFENACIN SUCCINATE 5 MG TAB PO SCH (09:21)
[2019-08-21] MEDS: POTASSIUM CHLORIDE TABS 10 MEQ TABLET.ER (FP) PO SCH (09:21)
[2019-08-21] MEDS: FUROSEMIDE 40 MG TABLET (FP) PO SCH (09:22)
[2019-08-21] MEDS: RANITIDINE HCL 150 MG TABLET (FP) PO SCH (09:22)
[2019-08-21] MEDS: HEPARIN NA (PORCINE) 5,000 UNITS/ML 1ML VIAL SQ SCH (09:23)
[2019-08-21] MEDS: BUDESONIDE/FORMETEROL FUMARATE 80/4.5 mcg INHALER IH SCH (09:27)
[2019-08-21] MEDS: NYSTATIN POWDER 100,000 UNITS/GM - 15 GM TOPICAL POWDER TP SCH (09:27)
--- NOTE | 2019-08-21 11:49 | PN ---
Progress Note (short form) - Note Progress Note: no sob, palps, chest pain, edema Current Medications Budesonide/Formoterol Fumarate (Symbicort 80/4.5mcg -) 2 puff IH BID [facility] Last Admin: 08/21/19 09:27 Dose: 2 puff Furosemide (Lasix -) 40 mg PO DAILY [facility] Last Admin: 08/21/19 09:22 Dose: 40 mg Heparin Sodium (Porcine) (Heparin -) 5,000 unit SQ BID [facility] Last Admin: 08/21/19 09:23 Dose: 5,000 unit Insulin Aspart (Novolog Vial Sliding Scale -) 1 vial SQ BID [facility]; Protocol Last Admin: 08/21/19 09:05 Dose: Not Given Lisinopril (Prinivil) 20 mg PO DAILY [facility] Last Admin: 08/21/19 09:20 Dose: 20 mg Nifedipine (Procardia Xl -) 30 mg PO DAILY [facility] Last Admin: 08/21/19 09:20 Dose: 30 mg Nystatin (Nystop Powder -) 1 applic TP BID [facility] Last Admin: 08/21/19 09:27 Dose: 1 applic Polyethylene Glycol (Miralax (For Daily Use) -) 17 gm PO DAILY [facility] Last Admin: 08/21/19 09:19 Dose: Not Given Potassium Chloride (K-Dur -) 20 meq PO DAILY [facility] Last Admin: 08/21/19 09:21 Dose: 20 meq Prednisone (Deltasone -) 40 mg PO DAILY [facility] Last Admin: 08/21/19 09:19 Dose: 40 mg Ranitidine HCl (Zantac -) 150 mg PO DAILY [facility] Last Admin: 08/21/19 09:22 Dose: 150 mg Rosuvastatin Calcium (Crestor -) 10 mg PO HS [facility] Last Admin: 08/20/19 21:13 Dose: 10 mg Solifenacin (Vesicare -) 10 mg PO DAILY [facility] Last Admin: 08/21/19 09:21 Dose: 10 mg Vital Signs Period Temp Pulse Resp BP Sys/Crouch Pulse Ox Last 24 Hr 97.8 F-98.5 F 75-83 19-20 115-150/69-86 93-98 Constitutional: Yes: No Distress, Calm, Obese Cardiovascular: Yes: Regular Rate and Rhythm. No: JVD (tds exam), Gallop, Murmur Respiratory: Yes: Regular, CTA Bilaterally. No: Accessory Muscle Use, Rales, Wheezes Extremities: No: Cold Edema: No Neurological: Yes: Alert, Oriented Psychiatric: No: Agitated Assessment/Plan cta chest: no pe, mild chf ecg: sr nl intervals no ischemic changes echo 08/15: nl LV. nl RV. mild . no pulm HTN IMP/PLAN: 73 f hx htn, hld, dm, here with sob for past few days, in ICU w/ acute respiratory failure requiring NIPPV; CTA negative for PE. Possible PNA vs acute on chronic diastolic CHF SOB, acute diastolic CHF: -no signs acs -after iv lasix vol status improved, cont with po lasix--appears euvolemic -rec outpt sleep apnea eval -outpt cardio f/u--stable for d/c HTN: - improved with amlodipine, monitor BP HLD: -cont statin
[2019-08-21 12:48] VITALS: BP 149/88; PULSE 85; TEMP 98.3
--- NOTE | 2019-08-21 13:08 | PN ---
Progress Note, Physician History of Present Illness: PULMONARY ALERT,COMFORTABLE,-RESP DISTRESS - Current Medication List Current Medications: Active Medications Budesonide/Formoterol Fumarate (Symbicort 80/4.5mcg -) 2 puff IH BID [facility] Last Admin: 08/21/19 09:27 Dose: 2 puff Furosemide (Lasix -) 40 mg PO DAILY [facility] Last Admin: 08/21/19 09:22 Dose: 40 mg Heparin Sodium (Porcine) (Heparin -) 5,000 unit SQ BID [facility] Last Admin: 08/21/19 09:23 Dose: 5,000 unit Insulin Aspart (Novolog Vial Sliding Scale -) 1 vial SQ BID [facility]; Protocol Last Admin: 08/21/19 09:05 Dose: Not Given Lisinopril (Prinivil) 20 mg PO DAILY [facility] Last Admin: 08/21/19 09:20 Dose: 20 mg Nifedipine (Procardia Xl -) 30 mg PO DAILY [facility] Last Admin: 08/21/19 09:20 Dose: 30 mg Nystatin (Nystop Powder -) 1 applic TP BID [facility] Last Admin: 08/21/19 09:27 Dose: 1 applic Polyethylene Glycol (Miralax (For Daily Use) -) 17 gm PO DAILY [facility] Last Admin: 08/21/19 09:19 Dose: Not Given Potassium Chloride (K-Dur -) 20 meq PO DAILY [facility] Last Admin: 08/21/19 09:21 Dose: 20 meq Prednisone (Deltasone -) 40 mg PO DAILY [facility] Last Admin: 08/21/19 09:19 Dose: 40 mg Ranitidine HCl (Zantac -) 150 mg PO DAILY [facility] Last Admin: 08/21/19 09:22 Dose: 150 mg Rosuvastatin Calcium (Crestor -) 10 mg PO HS [facility] Last Admin: 08/20/19 21:13 Dose: 10 mg Solifenacin (Vesicare -) 10 mg PO DAILY [facility] Last Admin: 08/21/19 09:21 Dose: 10 mg - Objective Vital Signs: Vital Signs Temperature 98.3 F 08/21/19 10:00 Pulse Rate 85 08/21/19 10:00 Respiratory Rate 20 08/21/19 10:00 Blood Pressure 149/88 08/21/19 10:00 O2 Sat by Pulse Oximetry (%) 98 08/20/19 21:00 Constitutional: Yes: Calm, Obese Eyes: Yes: WNL HENT: Yes: WNL Neck: Yes: WNL Cardiovascular: Yes: Regular Rate and Rhythm, S1, S2 Respiratory: Yes: Diminished Gastrointestinal: Yes: Normal Bowel Sounds, Soft Extremities: Yes: WNL Edema: No Labs: CBC, BMP Problem List - Problems (1) Acute on chronic respiratory failure with hypoxia and hypercapnia Code(s): J96.21 - ACUTE AND CHRONIC RESPIRATORY FAILURE WITH HYPOXIA; J96.22 - ACUTE AND CHRONIC RESPIRATORY FAILURE WITH HYPERCAPNIA (2) SOB (shortness of breath) Code(s): R06.02 - SHORTNESS OF BREATH (3) COPD with exacerbation Code(s): J44.1 - CHRONIC OBSTRUCTIVE PULMONARY DISEASE W (ACUTE) EXACERBATION (4) CHF (congestive heart failure) Code(s): I50.9 - HEART FAILURE, UNSPECIFIED (5) Morbid obesity Code(s): E66.01 - MORBID (SEVERE) OBESITY DUE TO EXCESS CALORIES (6) Sleep apnea Code(s): G47.30 - SLEEP APNEA, UNSPECIFIED Assessment/Plan ASSESSMENT AND PLAN: Acute on Chronic Hypercapneic Respiratory Failure improved Acute COPD Exacerbation improved LV Diastolic Dysfunction HTN Hyperlipidemia DM Obstructive Sleep Apnea - prednisone - inhaled bronchodilators - O2 to keep SpO2 >90% - BiPAP at night and PRN during day - DVT prophylaxis - outpatient pfts - lasix - pulmonary rehab DR MENDOZA
== END 2019-08-21 14:39 | DRG 291 ==
LOC: JER 20:34 → JERBED 08-08 04:36 → JICU 08-08 16:29 → J5S 08-12 13:45
PROVIDERS: ADMIT Internal Medicine; ATTEND Internal Medicine
DX: I11.0 Hypertensive heart disease with heart failure (principal); J96.22 Acute and chronic respiratory failure with hypercapnia; I50.31 Acute diastolic (congestive) heart failure; J18.9 Pneumonia, unspecified organism; J96.21 Acute and chronic respiratory failure with hypoxia; Z68.41 Body mass index [BMI] 40.0-44.9, adult; J98.11 Atelectasis; J44.1 Chronic obstructive pulmonary disease with (acute) exacerbation; E87.1 Hypo-osmolality and hyponatremia; E78.5 Hyperlipidemia, unspecified; E11.9 Type 2 diabetes mellitus without complications; G47.33 Obstructive sleep apnea (adult) (pediatric); E66.01 Morbid (severe) obesity due to excess calories
CPT/HCPCS: 36415; 36600; 71045-TC-FY; 71046-TC-FY; 71275-TC; 80048; 80053; 81003; 82550; 82803; 82962; 83735; 83880; 84100; 84443; 84484; 85025; 85027; 85379; 85610; 87040; 87086; 93005; 93010; 93306-TC; 93970-TC; 94640; 94660; 94761; 97116-GP; 97162-GP; 99285-25; J1644

== ENCOUNTER 2019-12-23 08:22 | Inpatient (IN) | payer BC, OTHER ==
[2019-12-23 08:44] VITALS: BMI 37.8
--- NOTE | 2019-12-23 08:50 | PDOC ---
History of Present Illness - General Chief Complaint: Weakness Stated Complaint: WEAKNESS Time Seen by Provider: 12/23/19 08:49 History Source: Patient Exam Limitations: No Limitations - History of Present Illness Initial Comments: 12/23/19 09:05 74yF w PMHx HTN HLD COPD CHF DM obesity presenting w BLE weakness. Woke up this morning unable to bear weight on legs to get out of bed. Also has 1d of white productive cough. At baseline walks with cane, not on any supplemental O2. States she is compliant w meds, did not take any today. Denies leg trauma. Denies fever/chills, nausea/vomiting, nasal congestion, headache, chest pain/SOB, ABD pain, urinary/bowel mvmt changes. Past History - Past Medical History Allergies/Adverse Reactions: Allergies Allergy/AdvReac Type Severity Reaction Status Date / Time egg Allergy Verified 08/10/19 13:05 milk Allergy Verified 08/10/19 13:06 Home Medications: Ambulatory Orders Lisinopril 20 mg PO DAILY 03/17/19 Rosuvastatin [Crestor -] 10 mg PO DAILY 03/17/19 metFORMIN HCL [Metformin HCl] 500 mg PO BID 03/17/19 Budesonide/Formeterol Fumarate [SYMBICORT 80/4.5mcg -] 2 puff IH BID #1 inhaler 08/19/19 Nifedipine ER [Procardia XL -] 30 mg PO DAILY #30 tab.er.24 08/19/19 Potassium Chloride [K-Dur -] 20 meq PO DAILY #30 tablet.er 08/19/19 Amlodipine Besylate 5 mg PO DAILY 12/23/19 Furosemide [Lasix -] 40 mg PO DAILY 12/23/19 Anemia: No Asthma: No COPD: No Diabetes: Yes HTN: Yes Hypercholesterolemia: Yes - Immunization History Immunization Up to Date: No - Psycho Social/Smoking Cessation Hx Smoking History: Unknown if ever smoked Have you smoked in the past 12 months: No Hx Alcohol Use: No Drug/Substance Use Hx: No Substance Use Type: None Review of Systems - Review of Systems Constitutional: No: Chills, Fever HEENTM: Yes: Nose Congestion. No: Eye Pain, Mouth Pain Respiratory: No: Cough, Shortness of Breath Cardiac (ROS): No: Chest Pain, Palpitations, Syncope ABD/GI: No: Abdominal Distended, Constipated, Diarrhea, Nausea, Vomiting : No: Burning, Dysuria, Discharge, Hematuria Musculoskeletal: No: Back Pain, Joint Pain Integumentary: No: Bruising, Flushing, Lesions Neurological: No: Headache, Seizure, Tingling Psychiatric: No: Anxiety, Depression, Stressors, Change in Appetite Endocrine: No: Excessive Sweating, Flushing, Intolerance to Cold, Intolerance to Heat Hematologic/Lymphatic: No: Anemia, Blood Clots *Physical Exam - Vital Signs Last Vital Signs Temp Pulse Resp BP Pulse Ox 99.8 F H 107 H 28 H 148/55 L 91 L 12/23/19 08:25 12/23/19 08:25 12/23/19 08:25 12/23/19 08:25 12/23/19 08:25 - Physical Exam General Appearance: Yes: Nourished, Appropriately Dressed, Mild Distress HEENT: positive: EOMI, DORI, Normal Voice, Hearing Grossly Normal, Other ( facial plethora). negative: Scleral Icterus (R), Scleral Icterus (L), Nasal Congestion, Rhinorrhea Respiratory/Chest: positive: Rapid RR, Decreased Breath Sounds, Wheezing ( intermittent). negative: Chest Tender, Respiratory Distress, Accessory Muscle Use, Labored Respiration, Crackles, Rales, Rhonchi, Stridor Cardiovascular: positive: Regular Rhythm, S1, S2, Tachycardia. negative: Murmur Gastrointestinal/Abdominal: positive: Normal Bowel Sounds, Flat, Soft. negative : Tender, Organomegaly Extremity: positive: Swelling (+2 up to ankles chairs), Erythema (charis ankles), Other (BLE not tender, no open wounds, normal sensation) Integumentary: positive: Warm. negative: Bruising Neurologic: positive: activity specialist II-XII NML intact, Fully Oriented, Alert, Normal Mood/ Affect, Normal Response, Respond to painful stimul, Responsive. negative: Motor Strength 5/5 (2/5 charis hip flexion , 5/5 charis dorsi/plantarflexion), Numbness, Sensory Deficit, Confused, Disoriented ED Treatment Course - LABORATORY CBC & Chemistry Diagram: 12/23/19 09:20 12/23/19 09:20 - ADDITIONAL ORDERS Additional order review: Laboratory Results 12/23/19 08:38 POC Glucometer 160 12/23/19 08:38 POC Glucometer 160 Medical Decision Making - Medical Decision Making 12/23/19 09:12 CXR shows no PNA/CHF/acute process EKG shows sinus tachycardia w intermittent PACs, HR 100, QTc 474, no ST changes --- 74yF w PMHx HTN HLD COPD CHF DM obesity presenting w 1d BLE weakness. Sepsis 2/2 BLE cellulitis, also has COPD exacerbation and hypokalemia 3.3 Low concern for CVA (no focal deficits) vs PNA (clear CXR) vs ACS (no chest pain /SOB, no ST changes EKG, neg trop) vs UTI (clean) Given tylenol, vanc, zosyn, duonebx1, 40 PO KCl, solumedrol. On 3L NC Admitted to m/s Dr Jett for sepsis 2/2 BLE cellulitis, acute respiratory failure on supplemental O2 2/2 COPD exacerbation, hypokalemia PCP Lucien admits to [facility] Discharge - Discharge Information Problems reviewed: Yes Clinical Impression/Diagnosis: COPD exacerbation Sepsis Qualifiers: Sepsis type: sepsis due to unspecified organism Sepsis acute organ dysfunction status: without acute organ dysfunction Qualified Code(s): A41.9 - Sepsis, unspecified organism Cellulitis Qualifiers: Site of cellulitis: extremity Site of cellulitis of extremity: lower extremity Laterality: right Qualified Code(s): L03.115 - Cellulitis of right lower limb Acute respiratory failure Qualifiers: Respiratory failure complication: hypoxia and hypercapnia Qualified Code(s): J96.01 - Acute respiratory failure with hypoxia; J96.02 - Acute respiratory failure with hypercapnia Condition: Improved - Follow up/Referral Referrals: Anika Mcgraw MD [Primary Care Provider] - - Patient Discharge Instructions - Post Discharge Activity
[2019-12-23] MEDS ORDERED: ACETAMINOPHEN 1000 MG/100 ML VIAL (NON FORMULARY) IVPB ONE (09:02)
[2019-12-23] MEDS ORDERED: VANCOMYCIN 1 GM in D5W (PRE-DOCKED) 1,000 MG/250 ML IVPB ONE (09:03)
[2019-12-23] MEDS ORDERED: PIPERACILLIN/TAZOB 4.5 GM 4.5 GM in DEXTROSE 5%-WATER 100 ML IVPB ONE (09:03)
[2019-12-23] MEDS ORDERED: ALBUTEROL SO4 2.5/IPRATROPIUM 0.5 INH SOL 3 ML VIAL.NEB. NEB ONE ×4 (09:05→19:21)
[2019-12-23] MEDS ORDERED: ACETAMINOPHEN INJECTION 100 ML IVPB ONE (09:35)
[2019-12-23] MEDS ORDERED: PIPERACILLIN/TAZOB 4.5 GM 4.5 GM/100 ML BAG IVPB ONE (09:35)
[2019-12-23 09:52] LABS: VENOUS PC02 54.1 mmHg (38-52); VENOUS PH 7.37 (7.31-7.41)
[2019-12-23 09:53] LABS: VENOUS PO2 < 49 mmHg (28-48)
[2019-12-23 09:58] LABS: BASO % 0.3 % (0-2.0); EOS % 0.5 % (0-4.5); HEMATOCRIT 34.2 % (32.4-45.2); HEMOGLOBIN 11.5 GM/dL (10.7-15.3); LYMPH % 2.2 % (8-40); MCH 31.1 pg (25.7-33.7); MCHC 33.7 g/dl (32.0-36.0); MEAN CELL VOLUME 92.5 fl (80-96); MEAN PLT VOLUME 7.3 fl (7.5-11.1); MONO % 6.7 % (3.8-10.2); NEUT % 90.3 % (42.8-82.8); PLATELET COUNT 251 K/MM3 (134-434); RDW 14.1 % (11.6-15.6)
[2019-12-23 10:21] LABS: INR 1.18 (0.83-1.09); PROTHROMBIN TIME (PATIENT) 13.9 SEC (9.7-13.0)
[2019-12-23 10:29] LABS: ALBUMIN 3.9 g/dl (3.4-5.0); BILIRUBIN,TOTAL 0.6 mg/dL (0.2-1); BLOOD UREA NITROGEN 8.3 mg/dL (7-18); CALCIUM 8.9 mg/dL (8.5-10.1); CREATININE 0.8 mg/dL (0.55-1.3); POTASSIUM 3.3 mmol/L (3.5-5.1); TOT PROT 7.4 g/dl (6.4-8.2)
[2019-12-23] MEDS ORDERED: POTASSIUM CHLORIDE ORAL LIQUID 20 MEQ/15 ML PO ONE (10:49)
[2019-12-23 10:53] LABS: HYALINE CASTS 13 /lpf (0-8); URINE APPEARANCE CLEAR; URINE BACTERIA 0.8 /hpf (NEGATIVE); URINE BILIRUBIN NEGATIVE (NEGATIVE); URINE COLOR YELLOW; URINE GLUCOSE (UA) NEGATIVE (NEGATIVE); URINE KETONE NEGATIVE (NEGATIVE); URINE LEUK ESTERASE NEGATIVE (NEGATIVE); URINE NITRITE NEGATIVE (NEGATIVE); URINE PROTEIN 1+ (NEGATIVE); URINE RBC 2 /hpf (0-4); URINE WBC 1 /hpf (0-5)
[2019-12-23] MEDS ORDERED: POTASSIUM CHLORIDE ORAL LIQUID 20 MEQ/15 ML ONE (11:12)
[2019-12-23] MEDS ORDERED: methylPREDNISolone NA SUCC 125 MG/2 ML VIAL IVPUSH ONE (11:12)
--- NOTE | 2019-12-23 11:53 | HP ---
Admitting History and Physical - Primary Care Physician PCP: Tierra Jett S - Admission Chief Complaint: cough, general wekaness History of Present Illness: 74yF w PMHx HTN HLD COPD CHF DM obesity presenting with general weakness. Woke up this morning unable to bear weight on legs to get out of bed. Pt said she tracie like "being hit by a truck". Did not have flu shot. Also has 1d of white productive cough. At baseline walks with cane, not on any supplemental O2. States she is compliant w meds, did not take any today. Denies leg trauma. Denies fever/chills, nausea/vomiting, nasal congestion, headache, chest pain/SOB, ABD pain, urinary/bowel movement changes. pcp dr Pricilla Dietrich History Source: Patient, Medical Record Limitations to Obtaining History: No Limitations - Past Medical History Cardiovascular: Yes: HTN Pulmonary: Yes: COPD - Smoking History Smoking history: Never smoked Have you smoked in the past 12 months: No - Alcohol/Substance Use Hx Alcohol Use: No History of Substance Use: reports: None - Social History Usual Living Arrangement: Yes: Alone Do you think of yourself as: Straight/Heterosexual ADL: Independent History of Recent Travel: No Home Medications - Allergies Allergies/Adverse Reactions: Allergies Allergy/AdvReac Type Severity Reaction Status Date / Time egg Allergy Verified 08/10/19 13:05 milk Allergy Verified 08/10/19 13:06 - Home Medications Home Medications: Ambulatory Orders Lisinopril 20 mg PO DAILY 03/17/19 Rosuvastatin [Crestor -] 10 mg PO DAILY 03/17/19 metFORMIN HCL [Metformin HCl] 500 mg PO BID 03/17/19 Budesonide/Formeterol Fumarate [SYMBICORT 80/4.5mcg -] 2 puff IH BID #1 inhaler 08/19/19 Nifedipine ER [Procardia XL -] 30 mg PO DAILY #30 tab.er.24 08/19/19 Potassium Chloride [K-Dur -] 20 meq PO DAILY #30 tablet.er 08/19/19 Amlodipine Besylate 5 mg PO DAILY 12/23/19 Furosemide [Lasix -] 40 mg PO DAILY 12/23/19 Family Medical History Family History: Unremarkable Review of Systems - Review of Systems Constitutional: denies: Chills, Fever Eyes: denies: Blurred Vision, Double Vision HENT: denies: Difficult Swallowing, Ear Pain, Epistaxis Neck: denies: Decreased ROM, Pain on Movement, Stiffness, Tenderness Cardiovascular: denies: Chest Pain, Shortness of Breath Respiratory: reports: Cough. denies: Hemoptysis, SOB Gastrointestinal: denies: Abdominal Pain, Constipation, Diarrhea, Vomiting Genitourinary: denies: Dysuria, Flank Pain Musculoskeletal: denies: Back Pain, Extremity Pain Integumentary: denies: Bruising, Eczema, Erythema Neurological: reports: Weakness (general). denies: Confusion, Dizziness Hematology/Lymphatic: reports: Excessive Bleeding. denies: Easily Bruised Psychiatric: denies: Anxiety, Depression Physical Examination Vital Signs: Vital Signs Temperature 100.2 F H 12/23/19 11:10 Pulse Rate 86 12/23/19 11:42 Respiratory Rate 26 H 12/23/19 11:42 Blood Pressure 107/60 12/23/19 11:42 O2 Sat by Pulse Oximetry (%) 95 12/23/19 11:42 Constitutional: Yes: No Distress, Calm Eyes: Yes: Conjunctiva Clear HENT: Yes: Atraumatic Neck: Yes: Supple Cardiovascular: Yes: Regular Rate and Rhythm Respiratory: Yes: Diminished Gastrointestinal: Yes: Soft. No: Tenderness Renal/: No: Hematuria Musculoskeletal: No: Joint Stiffness, Joint Swelling Extremities: No: Cold, Cool, Cyanosis Edema: No Integumentary: Yes: Venous Stasis Changes. No: Rash Neurological: Yes: WNL, Alert, Oriented ...Motor Strength: WNL Psychiatric: Yes: WNL, Alert, Oriented. No: Agitated, Suicidal Ideation Labs: CBC, BMP 12/23/19 09:20 12/23/19 09:20 Imaging - Results Chest X-ray: Report Reviewed Other: Report Reviewed Assessment/Plan 74yF w PMHx HTN HLD COPD CHF DM obesity presenting with general weakness and productive cough; SOB COPD exac admit; iv steroids; nebs prn IV ATB and tamiflu f/u cultures; ID and pulm eval DVT PFX close f/u
[2019-12-23] MEDS ORDERED: methylPREDNISolone NA SUCC 125 MG/2 ML VIAL ONE (12:24)
--- NOTE | 2019-12-23 12:33 | PDOC ---
Documentation entered by Anika Ramos SCRIBE, acting as scribe for Raul Barnett MD. Raul Barnett MD: This documentation has been prepared by the Richard kendrick Brenda, SCRIBE, under my direction and personally reviewed by me in its entirety. I confirm that the documentation accurately reflects all work, treatment, procedures, and medical decision making performed by me. Attending Attestation - Resident Resident Name: PamJohn - ED Attending Attestation I have performed the following: I have examined & evaluated the patient, The case was reviewed & discussed with the resident, I agree w/resident's findings & plan, Exceptions are as noted - HPI HPI: 12/23/19 11:40 The patient is a 74 year old female with a significant PMH of HTN, HLD, COPD, CHF, DM and Obesity who presents to the ED for bilateral lower extremity weakness. Patient states she woke up this morning to go to work, at which time she felt so weak she was not able to stand up. She notes that she walks with her cane at baseline. Patient also endorses 1 day of a productive cough and noting a subjective fever yesterday. The patient denies chest pain, shortness of breath, headache and dizziness. Denies nausea, vomiting, diarrhea and constipation. Denies any urinary symptoms. Allergies: egg, milk Social history: No reported hx of tobacco use, alcohol use or illicit drug use. PCP: Lucien - Physicial Exam PE: 12/23/19 11:23 Vitals: Triage vital signs reviewed General Appearance: No acute distress, well nourished, well developed Head: Atraumatic Neck: Supple; No nuchal rigidity Chest Wall: Nontender Cardiac: Regular rate and rhythm, no murmurs, no rubs, no gallops Lungs: Clear to auscultation bilateral, good air movement bilaterally Abdomen: Soft, nondistended, normal bowel sounds, nontender to palpation Genitourinary: Rectal: Exam deferred Extremities: (+) LE Bilateral cellulites. Full range of motion to all extremities, no cyanosis, clubbing, or edema Skin: Warm and dry, no rashes or lesions, no rash, no petechiae Psych: Normal mood, normal affect - Medical Decision Making 12/23/19 17:08 74 years old with multiple comorbidities presents to the ED with weakness difficulty ambulating cough wheezing and hypoxia Found to be flu positive Meets sepsis protocol Not hypotensive Given moderate to severe respiratory symptoms with multiple comorbidities will admit to hospital for further management. Heart Score/ECG Review - ECG Impressions Comment:: 12/23/19 17:10 EKG performed at 934 demonstrates sinus rhythm premature atrial complexes no ST elevations or T wave inversions Interpreted by me.
--- NOTE | 2019-12-23 13:11 | EKG ---
Test Reason : Blood Pressure : / mmHG Vent. Rate : 100 BPM Atrial Rate : 100 BPM P-R Int : 176 ms QRS Dur : 082 ms QT Int : 368 ms P-R-T Axes : 041 018 045 degrees QTc Int : 474 ms POOR DATA QUALITY, INTERPRETATION MAY BE ADVERSELY AFFECTED SINUS RHYTHM WITH PREMATURE ATRIAL COMPLEXES WITH ABERRANT CONDUCTION vs PVC OTHERWISE NORMAL ECG WHEN COMPARED WITH ECG OF 07-AUG-2019 21:05, ABERRANT CONDUCTION IS NOW PRESENT QT HAS LENGTHENED Confirmed by Estefany Mares ([id number]) on 12/23/2019 1:11:07 PM Referred By: Confirmed By:Estefany Mares
[2019-12-23 13:16] LABS: N-TERMINAL BNP 2774.1 pg/ml (5-125)
--- NOTE | 2019-12-23 14:07 | CON.PULM ---
Consult Consult Specialty:: PULMONARY Referred by:: Dr Jett Reason for Consultation:: COPD - History of Present Illness Chief Complaint: weakness History of Present Illness: 74yo female with h/o HTN, hyperlipidemia, DM, COPD, CHF who was admitted with generalized weakness and cough x 1 day. Reports some shortness of breath and cough is nonproductive. Febrile on presentation. Denies sick contacts or recent travel. Did not receive flu vaccine this year. - History Source History Provided By: Patient, Medical Record Limitations to Obtaining History: No Limitations - Past Medical History Cardio/Vascular: Yes: HTN Pulmonary: Yes: COPD - Alcohol/Substance Use Hx Alcohol Use: No History of Substance Use: reports: None - Smoking History Smoking history: Unknown if ever smoked Have you smoked in the past 12 months: No - Social History History of Recent Travel: No Home Medications - Allergies Allergies/Adverse Reactions: Allergies Allergy/AdvReac Type Severity Reaction Status Date / Time egg Allergy Verified 08/10/19 13:05 milk Allergy Verified 08/10/19 13:06 - Home Medications Home Medications: Ambulatory Orders Lisinopril 20 mg PO DAILY 03/17/19 Rosuvastatin [Crestor -] 10 mg PO DAILY 03/17/19 metFORMIN HCL [Metformin HCl] 500 mg PO BID 03/17/19 Budesonide/Formeterol Fumarate [SYMBICORT 80/4.5mcg -] 2 puff IH BID #1 inhaler 08/19/19 Nifedipine ER [Procardia XL -] 30 mg PO DAILY #30 tab.er.24 08/19/19 Potassium Chloride [K-Dur -] 20 meq PO DAILY #30 tablet.er 08/19/19 Amlodipine Besylate 5 mg PO DAILY 12/23/19 Furosemide [Lasix -] 40 mg PO DAILY 12/23/19 Review of Systems - Review of Systems Constitutional: reports: Lethargy, Malaise, Weakness Eyes: denies: Recent Change in Vision HENT: denies: Nasal Congestion, Throat Pain Neck: denies: Stiffness, Tenderness Cardiovascular: reports: Edema, Shortness of Breath. denies: Chest Pain, Palpitations Respiratory: reports: Cough, Wheezing. denies: Hemoptysis Gastrointestinal: denies: Abdominal Pain, Nausea, Vomiting Genitourinary: denies: Dysuria, Hematuria Neurological: denies: Dizziness, Headache Endocrine: denies: Unexplained Weight Loss Physical Exam Vital Sings: Vital Signs Temperature 100.2 F H 12/23/19 11:10 Pulse Rate 86 12/23/19 11:42 Respiratory Rate 26 H 12/23/19 11:42 Blood Pressure 107/60 12/23/19 11:42 O2 Sat by Pulse Oximetry (%) 95 12/23/19 11:42 Constitutional: Yes: Calm Eyes: Yes: Conjunctiva Clear, EOM Intact HENT: Yes: Atraumatic, Normocephalic Neck: Yes: Trachea Midline Cardiovascular: Yes: Regular Rate and Rhythm Respiratory: Yes: Diminished (decreased breath sounds at the bases) ...Clubbing: No Gastrointestinal: Yes: Normal Bowel Sounds, Soft. No: Tenderness Extremities: Yes: Erythema Edema: Yes Neurological: Yes: Alert, Oriented Labs: CBC, BMP 12/23/19 09:20 12/23/19 09:20 Imaging - Results Chest X-ray: Report Reviewed, Image Reviewed (no infiltrate) Problem List - Problems (1) Influenza A Code(s): J10.1 - FLU DUE TO OTH IDENT INFLUENZA VIRUS W OTH RESP MANIFEST (2) COPD exacerbation Code(s): J44.1 - CHRONIC OBSTRUCTIVE PULMONARY DISEASE W (ACUTE) EXACERBATION Assessment/Plan Influenza A Acute COPD Exacerbation LV Diastolic Dysfunction HTN DM Hyperlipidemia - tamiflu x 5 days - short course of medrol - inhaled bronchodilators standing and PRN - O2 to keep SpO2 >90% - glucose control while on systemic steroids - DVT prophylaxis Thank you for this consult Kiran Keen MD
[2019-12-23] MEDS ORDERED: ALBUTEROL SO4 0.083% IH SOL 2.5 MG/3 ML VIAL.NEB. NEB PRN (14:32)
--- NOTE | 2019-12-23 15:14 | PN ---
Progress Note (short form) - Note Progress Note: ID consult dictated imp/reccd acute onset of cough yesterday acute weakness this am acute influenza A copd exacerbation no influenza vaccine droplet isolation tamiflu for 5 days Problem List - Problems (1) Influenza A Code(s): J10.1 - FLU DUE TO OTH IDENT INFLUENZA VIRUS W OTH RESP MANIFEST (2) COPD exacerbation Code(s): J44.1 - CHRONIC OBSTRUCTIVE PULMONARY DISEASE W (ACUTE) EXACERBATION
--- NOTE | 2019-12-23 15:46 | CONS ---
INFECTIOUS DISEASE CONSULTATION DATE OF CONSULTATION: DATE OF DICTATION: 12/23/2019 REQUESTING PHYSICIAN: Tierra Jett MD HISTORY: Patient was seen in the emergency room. This is a 74-year-old woman. She is still working for [employer]. She lives alone. She has a history of hypertension, hyperlipidemia, COPD, and CHF. She developed acute onset of cough yesterday, nonproductive. No hemoptysis. This morning was so weak she could not stand up. She thought she was having a stroke. She called the ambulance. She lives alone and was brought to the emergency room. She never gets a flu shot. She always refuses. She lives alone in an apartment. There is no history of any travel. She has not had any nausea or vomiting. She has not had any diarrhea. She is a never smoker. She presented to the emergency room where she was noted to be febrile. Current temperature is 100.2, pulse is 100/50. She was found to be positive for influenza A, and I am asked to see her for further evaluation. She is currently resting comfortably and feels much better. PAST MEDICAL HISTORY: Notable for CHF, COPD, hypertension, hyperlipidemia. Leo-[id number] diabetes. SURGICAL HISTORY: Notable for dilation and curettage in her 20s and a breast biopsy with [facility] last year. ALLERGIES: She is allergic to EGGS and MILK. MEDICATIONS: At home include furosemide, amlodipine, potassium, nifedipine, Symbicort, metformin, Crestor, and lisinopril. SOCIAL HISTORY: Her PCP is Dr. Mcgraw. She lives alone in [place]. She is a never smoker. She has worked for 57 years for [employer]. REVIEW OF SYSTEMS: As stated before, she has the cough and the weakness and, otherwise, no other complaints. She has no rash. She has no change in vision. She has no sore throat or headache. She has no abdominal pain or chest pain. On physical exam, her white count is 7000, hemoglobin 11.5, platelets are 251, BUN 8.3, creatinine 0.8. LFTs are notable for alkaline phosphatase of 118. Urinalysis notable for 1+ blood but, otherwise, is negative, 1 white cell, negative leukocyte esterase. Influenza screen is positive. Chest x-ray is read as normal. In summary, this is an elderly woman admitted from home. 1. No influenza vaccine this year with acute influenza A. 2. COPD exacerbation. Would continue her on droplet isolation. Would give her Tamiflu for 5 days. Management of her COPD per Pulmonary. JIA PIEDRA M.D. [id number]
[2019-12-23] MEDS: ALBUTEROL SO4 2.5/IPRATROPIUM 0.5 INH SOL 3 ML VIAL.NEB. NEB SCH ×2 (16:29→19:33)
[2019-12-23] MEDS ORDERED: metFORMIN HCL 500 MG TABLET (FP) ONE (17:12)
[2019-12-23] MEDS: metFORMIN HCL 500 MG TABLET (FP) PO SCH (17:18)
[2019-12-23] MEDS ORDERED: methylPREDNISolone NA SUCC 40 MG/1 ML VIAL ONE (19:05)
[2019-12-23] MEDS: methylPREDNISolone NA SUCC 40 MG/1 ML VIAL IVPUSH SCH (19:38)
[2019-12-23] MEDS: HEPARIN NA (PORCINE) 5,000 UNITS/ML 1ML VIAL SQ SCH (22:35)
[2019-12-23] MEDS: ROSUVASTATIN CA 10 MG TABLET (FP) PO SCH (22:35)
[2019-12-23] MEDS: OSELTAMIVIR PHOSPHATE 75 MG CAPSULE PO SCH (22:36)
[2019-12-23] MEDS: BUDESONIDE/FORMETEROL FUMARATE 80/4.5 mcg INHALER IH SCH (22:36)
[2019-12-24] MEDS: methylPREDNISolone NA SUCC 40 MG/1 ML VIAL IVPUSH SCH ×3 (02:05→17:30)
[2019-12-24] MEDS: metFORMIN HCL 500 MG TABLET (FP) PO SCH ×2 (06:45→17:30)
[2019-12-24] MEDS: ALBUTEROL SO4 2.5/IPRATROPIUM 0.5 INH SOL 3 ML VIAL.NEB. NEB SCH ×4 (08:12→21:31)
--- NOTE | 2019-12-24 08:20 | PN ---
Progress Note, Physician Chief Complaint: in bed feeling a little better less cough no SOB - Current Medication List Current Medications: Active Medications Albuterol Sulfate (Ventolin 0.083% Nebulizer Soln -) 1 amp NEB Q4H PRN PRN Reason: SHORT OF BREATH/WHEEZING Albuterol/Ipratropium (Duoneb -) 1 amp NEB RQID [facility] Last Admin: 12/24/19 08:12 Dose: 1 amp Amlodipine Besylate (Norvasc -) 5 mg PO DAILY [facility] Budesonide/Formoterol Fumarate (Symbicort 80/4.5mcg -) 2 puff IH BID [facility] Last Admin: 12/23/19 22:36 Dose: 2 jar Furosemide (Lasix -) 40 mg PO DAILY [facility] Heparin Sodium (Porcine) (Heparin -) 5,000 unit SQ BID [facility] Last Admin: 12/23/19 22:35 Dose: 5,000 unit Lisinopril (Prinivil) 20 mg PO DAILY [facility] Metformin HCl (Glucophage -) 500 mg PO BIDAC [facility] Last Admin: 12/24/19 06:45 Dose: 500 mg Methylprednisolone Sodium Succinate (Solu-Medrol -) 40 mg IVPUSH Q8H-IV [facility] Last Admin: 12/24/19 02:05 Dose: 40 mg Nifedipine (Procardia Xl -) 30 mg PO DAILY [facility] Oseltamivir Phosphate (Tamiflu -) 75 mg PO BID [facility] Stop: 12/28/19 21:59 Last Admin: 12/23/19 22:36 Dose: 75 mg Potassium Chloride (K-Dur -) 20 meq PO DAILY [facility] Rosuvastatin Calcium (Crestor -) 10 mg PO HS [facility] Last Admin: 12/23/19 22:35 Dose: 10 mg - Objective Vital Signs: Vital Signs Temperature 98.7 F 12/24/19 06:00 Pulse Rate 74 12/24/19 06:00 Respiratory Rate 20 12/24/19 06:00 Blood Pressure 144/65 12/24/19 06:00 O2 Sat by Pulse Oximetry (%) 90 L 12/23/19 21:00 Constitutional: Yes: No Distress, Calm Eyes: Yes: Conjunctiva Clear HENT: Yes: Atraumatic Neck: Yes: Supple Cardiovascular: Yes: Regular Rate and Rhythm Respiratory: Yes: Diminished Gastrointestinal: Yes: Soft. No: Tenderness Genitourinary: No: Hematuria Musculoskeletal: No: Joint Stiffness, Joint Swelling Extremities: No: Cold, Cool, Cyanosis Edema: No Integumentary: Yes: Venous Stasis Changes. No: Rash Neurological: Yes: Alert, Oriented ...Motor Strength: WNL Psychiatric: Yes: Alert, Oriented. No: Agitated, Suicidal Ideation Labs: CBC, BMP 12/23/19 09:20 12/23/19 09:20 INR, PTT INR 1.18 (0.83-1.09) H 12/23/19 09:20 - ....Imaging Other: Report Reviewed Assessment/Plan 74yF w PMHx HTN HLD COPD CHF DM obesity presenting with general weakness and productive cough; SOB COPD exac; FLU+ admit; iv steroids; nebs prn IV ATB and tamiflu f/u cultures; ID and pulm eval DVT PFX close f/u
[2019-12-24 08:51] LABS: BASO % 0.1 % (0-2.0); EOS % 0.1 % (0-4.5); HEMATOCRIT 31.6 % (32.4-45.2); HEMOGLOBIN 10.6 GM/dL (10.7-15.3); LYMPH % 4.9 % (8-40); MCH 30.9 pg (25.7-33.7); MCHC 33.5 g/dl (32.0-36.0); MEAN CELL VOLUME 92.3 fl (80-96); MEAN PLT VOLUME 7.1 fl (7.5-11.1); MONO % 3.9 % (3.8-10.2); PLATELET COUNT 240 K/MM3 (134-434); RBC 3.42 M/mm3 (3.60-5.2); RDW 14.4 % (11.6-15.6); WHITE BLOOD COUNT 3.3 K/mm3 (4.0-10.0)
[2019-12-24 09:27] LABS: ALBUMIN 3.5 g/dl (3.4-5.0); BILIRUBIN,TOTAL 0.4 mg/dL (0.2-1); BLOOD UREA NITROGEN 17.9 mg/dL (7-18); CALCIUM 8.9 mg/dL (8.5-10.1); CREATININE 0.9 mg/dL (0.55-1.3)
[2019-12-24] MEDS: LISINOPRIL 20 MG TABLET (FP) PO SCH (10:56)
[2019-12-24] MEDS: NIFEdipine E.R. 30 MG TABLET PO SCH (10:56)
[2019-12-24] MEDS: amLODIPine BESYLATE 5 MG TABLET (FP) PO SCH (10:56)
[2019-12-24] MEDS: FUROSEMIDE 40 MG TABLET (FP) PO SCH (10:56)
[2019-12-24] MEDS: HEPARIN NA (PORCINE) 5,000 UNITS/ML 1ML VIAL SQ SCH ×2 (10:56→22:06)
[2019-12-24] MEDS: POTASSIUM CHLORIDE TABS 10 MEQ TABLET.ER (FP) PO SCH (10:56)
[2019-12-24] MEDS: OSELTAMIVIR PHOSPHATE 75 MG CAPSULE PO SCH ×2 (10:57→22:08)
[2019-12-24] MEDS: BUDESONIDE/FORMETEROL FUMARATE 80/4.5 mcg INHALER IH SCH ×2 (10:59→22:06)
[2019-12-24] MEDS: INSULIN SLIDING SCALE (NOVOLOG) 1 VIAL SQ SCH ×3 (12:18→22:07)
[2019-12-24] MEDS: NYSTATIN 100000 UNIT/GM TOPICAL OINTMENT 15 GM TUBE TP SCH ×2 (12:19→22:07)
--- NOTE | 2019-12-24 14:32 | PN ---
Progress Note (short form) - Note Progress Note: PULMONARY Still with cough, chest congestion, subjective fevers. Vital Signs Period Temp Pulse Resp BP Sys/Crouch Pulse Ox Last 24 Hr 98.5 F-99.2 F 72-96 18-25 120-144/54-70 90-96 Gen: less tachypneic Heart: RRR Lung: scattered rhonchi, wheezes Abd: soft, nontender Ext: no edema CBC, BMP 12/24/19 08:30 12/24/19 08:30 Active Medications Albuterol Sulfate (Ventolin 0.083% Nebulizer Soln -) 1 amp NEB Q4H PRN PRN Reason: SHORT OF BREATH/WHEEZING Albuterol/Ipratropium (Duoneb -) 1 amp NEB RQID [facility] Last Admin: 12/24/19 12:35 Dose: 1 amp Amlodipine Besylate (Norvasc -) 5 mg PO DAILY [facility] Last Admin: 12/24/19 10:56 Dose: 5 mg Budesonide/Formoterol Fumarate (Symbicort 80/4.5mcg -) 2 puff IH BID [facility] Last Admin: 12/24/19 10:59 Dose: 2 puff Furosemide (Lasix -) 40 mg PO DAILY [facility] Last Admin: 12/24/19 10:56 Dose: 40 mg Heparin Sodium (Porcine) (Heparin -) 5,000 unit SQ BID [facility] Last Admin: 12/24/19 10:56 Dose: 5,000 unit Insulin Aspart (Novolog Vial Sliding Scale -) 1 vial SQ ACHS [facility]; Protocol Last Admin: 12/24/19 12:18 Dose: Not Given Lisinopril (Prinivil) 20 mg PO DAILY [facility] Last Admin: 12/24/19 10:56 Dose: 20 mg Metformin HCl (Glucophage -) 500 mg PO BIDAC [facility] Last Admin: 12/24/19 06:45 Dose: 500 mg Methylprednisolone Sodium Succinate (Solu-Medrol -) 40 mg IVPUSH Q8H-IV [facility] Last Admin: 12/24/19 10:56 Dose: 40 mg Nifedipine (Procardia Xl -) 30 mg PO DAILY [facility] Last Admin: 12/24/19 10:56 Dose: 30 mg Nystatin (Mycostatin Ointment -) 1 applic TP BID [facility] Last Admin: 12/24/19 12:19 Dose: 1 applic Oseltamivir Phosphate (Tamiflu -) 75 mg PO BID [facility] Stop: 12/28/19 21:59 Last Admin: 12/24/19 10:57 Dose: 75 mg Potassium Chloride (K-Dur -) 20 meq PO DAILY [facility] Last Admin: 12/24/19 10:56 Dose: 20 meq Rosuvastatin Calcium (Crestor -) 10 mg PO HS [facility] Last Admin: 12/23/19 22:35 Dose: 10 mg A/P Influenza A Acute COPD Exacerbation LV Diastolic Dysfunction HTN DM Hyperlipidemia - tamiflu x 5 days - short course of medrol - inhaled bronchodilators standing and PRN - O2 to keep SpO2 >90% - glucose control while on systemic steroids - DVT prophylaxis Problem List - Problems (1) Influenza A Code(s): J10.1 - FLU DUE TO OTH IDENT INFLUENZA VIRUS W OTH RESP MANIFEST (2) COPD exacerbation Code(s): J44.1 - CHRONIC OBSTRUCTIVE PULMONARY DISEASE W (ACUTE) EXACERBATION
[2019-12-24 15:30] LABS: PLATELET ESTIMATE ADEQUATE
--- NOTE | 2019-12-24 15:47 | PN ---
Progress Note (short form) - Note Progress Note: no fevers still with nonproductive cough unable to ambulate due to generalized weakness Vital Signs Period Temp Pulse Resp BP Sys/Crouch Pulse Ox Last 24 Hr 98.5 F-99.2 F 72-96 17- 120-144/54-70 -96 cor-rrr lungs decreased bs at bases abd soft,nt ext no edema-venous stasis CBC, BMP 12/24/19 08:30 12/24/19 08:30 Microbiology 12/23/19 09:25 Blood - Peripheral Venous Blood Culture - Preliminary NO GROWTH OBTAINED AFTER 24 HOURS, INCUBATION TO CONTINUE FOR 4 DAYS. 12/23/19 09:20 Blood - Peripheral Venous Blood Culture - Preliminary NO GROWTH OBTAINED AFTER 24 HOURS, INCUBATION TO CONTINUE FOR 4 DAYS. 12/23/19 10:25 Urine - Urine Clean Catch Urine Culture - Final NO GROWTH OBTAINED a/p acute influenza A copd exacerbation check cpk droplet isolation tamiflu for 5 days Problem List - Problems (1) Influenza A Code(s): J10.1 - FLU DUE TO OTH IDENT INFLUENZA VIRUS W OTH RESP MANIFEST (2) COPD exacerbation Code(s): J44.1 - CHRONIC OBSTRUCTIVE PULMONARY DISEASE W (ACUTE) EXACERBATION
[2019-12-24] MEDS: ROSUVASTATIN CA 10 MG TABLET (FP) PO SCH (22:07)
[2019-12-25] MEDS: methylPREDNISolone NA SUCC 40 MG/1 ML VIAL IVPUSH SCH ×3 (01:29→17:04)
[2019-12-25] MEDS: INSULIN SLIDING SCALE (NOVOLOG) 1 VIAL SQ SCH ×4 (06:26→23:09)
[2019-12-25] MEDS: metFORMIN HCL 500 MG TABLET (FP) PO SCH ×2 (06:28→16:27)
[2019-12-25 07:09] LABS: BASO % 0.2 % (0-2.0); HEMATOCRIT 32.4 % (32.4-45.2); LYMPH % 8.6 % (8-40); MCH 31.5 pg (25.7-33.7); MEAN CELL VOLUME 92.4 fl (80-96); MEAN PLT VOLUME 7.3 fl (7.5-11.1); MONO % 5.8 % (3.8-10.2); NEUT % 85.4 % (42.8-82.8); PLATELET COUNT 254 K/MM3 (134-434); RDW 14.1 % (11.6-15.6); WHITE BLOOD COUNT 3.2 K/mm3 (4.0-10.0)
[2019-12-25 07:54] LABS: BLOOD UREA NITROGEN 26.4 mg/dL (7-18); CALCIUM 8.5 mg/dL (8.5-10.1); CREATININE 0.9 mg/dL (0.55-1.3); POTASSIUM 4.2 mmol/L (3.5-5.1)
[2019-12-25] MEDS: ALBUTEROL SO4 2.5/IPRATROPIUM 0.5 INH SOL 3 ML VIAL.NEB. NEB SCH ×4 (08:04→20:15)
[2019-12-25] MEDS ORDERED: PT OWN MED DRAWER 7, Y5N ONE ×4 (08:43→23:01)
[2019-12-25] MEDS: amLODIPine BESYLATE 5 MG TABLET (FP) PO SCH (09:30)
[2019-12-25] MEDS: NIFEdipine E.R. 30 MG TABLET PO SCH (09:30)
[2019-12-25] MEDS: FUROSEMIDE 40 MG TABLET (FP) PO SCH (09:30)
[2019-12-25] MEDS: LISINOPRIL 20 MG TABLET (FP) PO SCH (09:30)
[2019-12-25] MEDS: HEPARIN NA (PORCINE) 5,000 UNITS/ML 1ML VIAL SQ SCH ×2 (09:30→23:08)
[2019-12-25] MEDS: POTASSIUM CHLORIDE TABS 10 MEQ TABLET.ER (FP) PO SCH (09:30)
[2019-12-25] MEDS: BUDESONIDE/FORMETEROL FUMARATE 80/4.5 mcg INHALER IH SCH ×2 (09:35→23:10)
[2019-12-25] MEDS: NYSTATIN 100000 UNIT/GM TOPICAL OINTMENT 15 GM TUBE TP SCH ×2 (09:35→23:08)
[2019-12-25] MEDS: OSELTAMIVIR PHOSPHATE 75 MG CAPSULE PO SCH ×2 (10:46→23:11)
--- NOTE | 2019-12-25 14:30 | PN ---
Progress Note (short form) - Note Progress Note: PULMONARY Still with cough, chest congestion, but feels slightly better. Vital Signs Period Temp Pulse Resp BP Sys/Crouch Pulse Ox Last 24 Hr 98.4 F-98.9 F 66-79 17-20 109-139/45-68 94-95 Gen: less tachypneic Heart: RRR Lung: scattered rhonchi, wheezes Abd: soft, nontender Ext: no edema CBC, BMP 12/25/19 06:50 12/25/19 06:50 Active Medications Albuterol Sulfate (Ventolin 0.083% Nebulizer Soln -) 1 amp NEB Q4H PRN PRN Reason: SHORT OF BREATH/WHEEZING Albuterol/Ipratropium (Duoneb -) 1 amp NEB RQID [facility] Last Admin: 12/25/19 11:58 Dose: 1 amp Amlodipine Besylate (Norvasc -) 5 mg PO DAILY [facility] Last Admin: 12/25/19 09:30 Dose: 5 mg Budesonide/Formoterol Fumarate (Symbicort 80/4.5mcg -) 2 puff IH BID [facility] Last Admin: 12/25/19 09:35 Dose: 2 puff Furosemide (Lasix -) 40 mg PO DAILY [facility] Last Admin: 12/25/19 09:30 Dose: 40 mg Heparin Sodium (Porcine) (Heparin -) 5,000 unit SQ BID [facility] Last Admin: 12/25/19 09:30 Dose: 5,000 unit Insulin Aspart (Novolog Vial Sliding Scale -) 1 vial SQ ACHS [facility]; Protocol Last Admin: 12/25/19 10:51 Dose: Not Given Lisinopril (Prinivil) 20 mg PO DAILY [facility] Last Admin: 12/25/19 09:30 Dose: 20 mg Metformin HCl (Glucophage -) 500 mg PO BIDAC [facility] Last Admin: 12/25/19 06:28 Dose: 500 mg Methylprednisolone Sodium Succinate (Solu-Medrol -) 40 mg IVPUSH Q8H-IV [facility] Last Admin: 12/25/19 09:29 Dose: 40 mg Nifedipine (Procardia Xl -) 30 mg PO DAILY [facility] Last Admin: 12/25/19 09:30 Dose: 30 mg Nystatin (Mycostatin Ointment -) 1 applic TP BID [facility] Last Admin: 12/25/19 09:35 Dose: 1 applic Oseltamivir Phosphate (Tamiflu -) 75 mg PO BID [facility] Stop: 12/28/19 21:59 Last Admin: 12/25/19 10:46 Dose: 75 mg Potassium Chloride (K-Dur -) 20 meq PO DAILY [facility] Last Admin: 12/25/19 09:30 Dose: 20 meq Rosuvastatin Calcium (Crestor -) 10 mg PO HS [facility] Last Admin: 12/24/19 22:07 Dose: 10 mg A/P Influenza A Acute COPD Exacerbation LV Diastolic Dysfunction HTN DM Hyperlipidemia - tamiflu x 5 days - continue medrol at current dose - inhaled bronchodilators standing and PRN - O2 to keep SpO2 >90% - glucose control while on systemic steroids - DVT prophylaxis Problem List - Problems (1) Influenza A Code(s): J10.1 - FLU DUE TO OTH IDENT INFLUENZA VIRUS W OTH RESP MANIFEST (2) COPD exacerbation Code(s): J44.1 - CHRONIC OBSTRUCTIVE PULMONARY DISEASE W (ACUTE) EXACERBATION
--- NOTE | 2019-12-25 15:04 | PN ---
Progress Note (short form) - Note Progress Note: chills, feels hot and weak too weak to ambulate rectal temp 99,5 Vital Signs Period Temp Pulse Resp BP Sys/Crouch Pulse Ox Last 24 Hr 98.4 F-99.5 F 66-79 17-20 109-139/45-68 94-95 cor-rrr lungs decreased bs at bases abd soft,nt ext no edema CBC, BMP 12/25/19 06:50 12/25/19 06:50 Laboratory Tests 12/25/19 06:50 Creatine Kinase 1228 H Microbiology 12/23/19 09:25 Blood - Peripheral Venous Blood Culture - Preliminary NO GROWTH OBTAINED AFTER 48 HOURS, INCUBATION TO CONTINUE FOR 3 DAYS. 12/23/19 09:20 Blood - Peripheral Venous Blood Culture - Preliminary NO GROWTH OBTAINED AFTER 48 HOURS, INCUBATION TO CONTINUE FOR 3 DAYS. 12/23/19 10:25 Urine - Urine Clean Catch Urine Culture - Final NO GROWTH OBTAINED a/p acute influenza A copd exacerbation elevated CPK droplet isolation tamiflu for 5 days-has completed 2 days will repeat cxray ?IVF for mild rhabdomyolysis- will defer to PMD Problem List - Problems (1) Influenza A Code(s): J10.1 - FLU DUE TO OTH IDENT INFLUENZA VIRUS W OTH RESP MANIFEST (2) COPD exacerbation Code(s): J44.1 - CHRONIC OBSTRUCTIVE PULMONARY DISEASE W (ACUTE) EXACERBATION
[2019-12-25] MEDS: SODIUM CHLORIDE 1,000 ML IV SCH (15:32)
--- NOTE | 2019-12-25 17:10 | PN ---
Progress Note, Physician Chief Complaint: in bed still coughing and occ SOB - Current Medication List Current Medications: Active Medications Albuterol Sulfate (Ventolin 0.083% Nebulizer Soln -) 1 amp NEB Q4H PRN PRN Reason: SHORT OF BREATH/WHEEZING Albuterol/Ipratropium (Duoneb -) 1 amp NEB RQID [facility] Last Admin: 12/25/19 16:01 Dose: 1 amp Amlodipine Besylate (Norvasc -) 5 mg PO DAILY [facility] Last Admin: 12/25/19 09:30 Dose: 5 mg Budesonide/Formoterol Fumarate (Symbicort 80/4.5mcg -) 2 puff IH BID [facility] Last Admin: 12/25/19 09:35 Dose: 2 puff Furosemide (Lasix -) 40 mg PO DAILY [facility] Last Admin: 12/25/19 09:30 Dose: 40 mg Heparin Sodium (Porcine) (Heparin -) 5,000 unit SQ BID [facility] Last Admin: 12/25/19 09:30 Dose: 5,000 unit Sodium Chloride (Normal Saline -) 1,000 mls @ 50 mls/hr IV ASDIR [facility] Last Admin: 12/25/19 15:32 Dose: 50 mls/hr Insulin Aspart (Novolog Vial Sliding Scale -) 1 vial SQ ACHS [facility]; Protocol Last Admin: 12/25/19 16:27 Dose: Not Given Lisinopril (Prinivil) 20 mg PO DAILY [facility] Last Admin: 12/25/19 09:30 Dose: 20 mg Metformin HCl (Glucophage -) 500 mg PO BIDAC [facility] Last Admin: 12/25/19 16:27 Dose: 500 mg Methylprednisolone Sodium Succinate (Solu-Medrol -) 40 mg IVPUSH Q8H-IV [facility] Last Admin: 12/25/19 17:04 Dose: 40 mg Nifedipine (Procardia Xl -) 30 mg PO DAILY [facility] Last Admin: 12/25/19 09:30 Dose: 30 mg Nystatin (Mycostatin Ointment -) 1 applic TP BID [facility] Last Admin: 12/25/19 09:35 Dose: 1 applic Oseltamivir Phosphate (Tamiflu -) 75 mg PO BID [facility] Stop: 12/28/19 21:59 Last Admin: 12/25/19 10:46 Dose: 75 mg Potassium Chloride (K-Dur -) 20 meq PO DAILY [facility] Last Admin: 12/25/19 09:30 Dose: 20 meq Rosuvastatin Calcium (Crestor -) 10 mg PO HS [facility] Last Admin: 12/24/19 22:07 Dose: 10 mg - Objective Vital Signs: Vital Signs Temperature 99.5 F 12/25/19 15:00 Pulse Rate 76 12/25/19 10:00 Respiratory Rate 12/25/19 10:00 Blood Pressure 139/68 12/25/19 10:00 O2 Sat by Pulse Oximetry (%) 94 L 12/25/19 09:00 Constitutional: Yes: No Distress, Calm Eyes: Yes: Conjunctiva Clear HENT: Yes: Atraumatic Neck: Yes: Supple Cardiovascular: Yes: Regular Rate and Rhythm Respiratory: Yes: Diminished Gastrointestinal: Yes: Soft. No: Tenderness Genitourinary: No: Hematuria Musculoskeletal: No: Joint Stiffness, Joint Swelling Extremities: No: Cold, Cool, Cyanosis Edema: No Integumentary: No: Rash, Venous Stasis Changes Neurological: Yes: Alert, Oriented ...Motor Strength: WNL Psychiatric: Yes: Alert, Oriented. No: Agitated, Suicidal Ideation Labs: CBC, BMP 12/25/19 06:50 12/25/19 06:50 INR, PTT INR 1.18 (0.83-1.09) H 12/23/19 09:20 - ....Imaging Other: Report Reviewed Assessment/Plan 74yF w PMHx HTN HLD COPD CHF DM obesity presenting with general weakness and productive cough; SOB COPD exac; FLU+; high CPK iv steroids; nebs prn IV ATB and tamiflu po IVF gentle hydration, f/u labs CPX aldolase; decrease lasix; taper steroids if possible; f/u cultures; ID and pulm f/u DVT PFX close f/u
[2019-12-26] MEDS: methylPREDNISolone NA SUCC 40 MG/1 ML VIAL IVPUSH SCH ×3 (02:22→22:55)
[2019-12-26] MEDS: metFORMIN HCL 500 MG TABLET (FP) PO SCH ×2 (06:53→16:16)
[2019-12-26] MEDS: INSULIN SLIDING SCALE (NOVOLOG) 1 VIAL SQ SCH ×4 (06:53→22:55)
[2019-12-26 07:11] LABS: HEMATOCRIT 33.7 % (32.4-45.2); HEMOGLOBIN 11.4 GM/dL (10.7-15.3); LYMPH % 9.2 % (8-40); MCH 31.5 pg (25.7-33.7); MCHC 33.9 g/dl (32.0-36.0); MEAN CELL VOLUME 92.9 fl (80-96); MEAN PLT VOLUME 7.5 fl (7.5-11.1); MONO % 5.1 % (3.8-10.2); NEUT % 85.7 % (42.8-82.8); PLATELET COUNT 285 K/MM3 (134-434); RBC 3.63 M/mm3 (3.60-5.2); RDW 14.2 % (11.6-15.6); WHITE BLOOD COUNT 4.1 K/mm3 (4.0-10.0)
--- NOTE | 2019-12-26 07:16 | PN ---
Progress Note, Physician Chief Complaint: feeling better less Cough less SOB no CP afebrile; to start PT - Current Medication List Current Medications: Active Medications Albuterol Sulfate (Ventolin 0.083% Nebulizer Soln -) 1 amp NEB Q4H PRN PRN Reason: SHORT OF BREATH/WHEEZING Albuterol/Ipratropium (Duoneb -) 1 amp NEB RQID [facility] Last Admin: 12/25/19 20:15 Dose: 1 amp Amlodipine Besylate (Norvasc -) 5 mg PO DAILY [facility] Last Admin: 12/25/19 09:30 Dose: 5 mg Budesonide/Formoterol Fumarate (Symbicort 80/4.5mcg -) 2 puff IH BID [facility] Last Admin: 12/25/19 23:10 Dose: 2 puff Furosemide (Lasix -) 20 mg PO DAILY [facility] Heparin Sodium (Porcine) (Heparin -) 5,000 unit SQ BID [facility] Last Admin: 12/25/19 23:08 Dose: 5,000 unit Sodium Chloride (Normal Saline -) 1,000 mls @ 50 mls/hr IV ASDIR [facility] Last Admin: 12/25/19 15:32 Dose: 50 mls/hr Insulin Aspart (Novolog Vial Sliding Scale -) 1 vial SQ ACHS [facility]; Protocol Last Admin: 12/26/19 06:53 Dose: Not Given Lisinopril (Prinivil) 20 mg PO DAILY [facility] Last Admin: 12/25/19 09:30 Dose: 20 mg Metformin HCl (Glucophage -) 500 mg PO BIDAC [facility] Last Admin: 12/26/19 06:53 Dose: 500 mg Methylprednisolone Sodium Succinate (Solu-Medrol -) 40 mg IVPUSH Q8H-IV [facility] Last Admin: 12/26/19 02:22 Dose: 40 mg Nifedipine (Procardia Xl -) 30 mg PO DAILY [facility] Last Admin: 12/25/19 09:30 Dose: 30 mg Nystatin (Mycostatin Ointment -) 1 applic TP BID [facility] Last Admin: 12/25/19 23:08 Dose: 1 applic Oseltamivir Phosphate (Tamiflu -) 75 mg PO BID [facility] Stop: 12/28/19 21:59 Last Admin: 12/25/19 23:11 Dose: 75 mg Potassium Chloride (K-Dur -) 20 meq PO DAILY [facility] Last Admin: 12/25/19 09:30 Dose: 20 meq - Objective Vital Signs: Vital Signs Temperature 98.1 F 12/25/19 18:00 Pulse Rate 66 12/25/19 18:00 Respiratory Rate 19 12/25/19 21:00 Blood Pressure 122/60 12/25/19 18:00 O2 Sat by Pulse Oximetry (%) 96 12/26/19 00:45 Constitutional: Yes: No Distress, Calm Eyes: Yes: Conjunctiva Clear HENT: Yes: Atraumatic Neck: Yes: Supple Cardiovascular: Yes: Regular Rate and Rhythm Respiratory: Yes: CTA Bilaterally Gastrointestinal: Yes: Soft. No: Tenderness Genitourinary: No: Hematuria Musculoskeletal: No: Joint Stiffness, Joint Swelling Extremities: No: Cold, Cool, Cyanosis Edema: No Integumentary: Yes: Venous Stasis Changes. No: Rash Neurological: Yes: WNL, Alert, Oriented ...Motor Strength: WNL Psychiatric: Yes: WNL, Alert, Oriented. No: Agitated, Suicidal Ideation Labs: INR, PTT INR 1.18 (0.83-1.09) H 12/23/19 09:20 - ....Imaging Other: Report Reviewed Assessment/Plan 74yF w PMHx HTN HLD COPD CHF DM obesity presenting with general weakness and productive cough; SOB COPD exac; FLU+; high CPK taper iv steroids; nebs prn ATB per ID; tamiflu po labs CPX aldolase noted, CPK better; PT rehab eval for OOb; will need pre an dpost O2 sat/RA when stable, before DC home ID and pulm f/u DVT, decubs and falls PFX d/w pt and staff
[2019-12-26 07:58] LABS: ALBUMIN 3.4 g/dl (3.4-5.0); BILIRUBIN,TOTAL 0.3 mg/dL (0.2-1); BLOOD UREA NITROGEN 30.8 mg/dL (7-18); CALCIUM 8.5 mg/dL (8.5-10.1); CREATININE 0.9 mg/dL (0.55-1.3); POTASSIUM 4.6 mmol/L (3.5-5.1); TOT PROT 6.6 g/dl (6.4-8.2)
[2019-12-26] MEDS: ALBUTEROL SO4 2.5/IPRATROPIUM 0.5 INH SOL 3 ML VIAL.NEB. NEB SCH ×4 (08:45→21:30)
[2019-12-26] MEDS: LISINOPRIL 20 MG TABLET (FP) PO SCH (09:06)
[2019-12-26] MEDS: HEPARIN NA (PORCINE) 5,000 UNITS/ML 1ML VIAL SQ SCH ×2 (09:06→22:56)
[2019-12-26] MEDS: amLODIPine BESYLATE 5 MG TABLET (FP) PO SCH (09:06)
[2019-12-26] MEDS: FUROSEMIDE 20 MG TABLET (FP) PO SCH (09:06)
[2019-12-26] MEDS: POTASSIUM CHLORIDE TABS 10 MEQ TABLET.ER (FP) PO SCH (09:07)
[2019-12-26] MEDS: BUDESONIDE/FORMETEROL FUMARATE 80/4.5 mcg INHALER IH SCH ×2 (09:07→22:57)
[2019-12-26] MEDS: NIFEdipine E.R. 30 MG TABLET PO SCH (09:07)
[2019-12-26] MEDS: NYSTATIN 100000 UNIT/GM TOPICAL OINTMENT 15 GM TUBE TP SCH ×2 (09:07→22:56)
[2019-12-26] MEDS ORDERED: PT OWN MED DRAWER 7, Y5N ONE ×3 (09:10→22:25)
[2019-12-26] MEDS: OSELTAMIVIR PHOSPHATE 75 MG CAPSULE PO SCH ×2 (11:35→22:56)
--- NOTE | 2019-12-26 12:26 | PN ---
Progress Note (short form) - Note Progress Note: PULMONARY Breathing better. Less cough and wheezing. No fevers. Vital Signs Period Temp Pulse Resp BP Sys/Crouch Pulse Ox Last 24 Hr 97.6 F-99.5 F 54-66 18-19 122-148/60-74 96-97 Gen: less tachypneic Heart: RRR Lung: scattered rhonchi, wheezes Abd: soft, nontender Ext: no edema CBC, BMP 12/26/19 05:55 12/26/19 05:55 Active Medications Albuterol Sulfate (Ventolin 0.083% Nebulizer Soln -) 1 amp NEB Q4H PRN PRN Reason: SHORT OF BREATH/WHEEZING Albuterol/Ipratropium (Duoneb -) 1 amp NEB RQID [facility] Last Admin: 12/26/19 12:02 Dose: 1 amp Amlodipine Besylate (Norvasc -) 5 mg PO DAILY [facility] Last Admin: 12/26/19 09:06 Dose: 5 mg Budesonide/Formoterol Fumarate (Symbicort 80/4.5mcg -) 2 puff IH BID [facility] Last Admin: 12/26/19 09:07 Dose: 2 puff Furosemide (Lasix -) 20 mg PO DAILY [facility] Last Admin: 12/26/19 09:06 Dose: 20 mg Heparin Sodium (Porcine) (Heparin -) 5,000 unit SQ BID [facility] Last Admin: 12/26/19 09:06 Dose: 5,000 unit Sodium Chloride (Normal Saline -) 1,000 mls @ 50 mls/hr IV ASDIR [facility] Last Admin: 12/25/19 15:32 Dose: 50 mls/hr Insulin Aspart (Novolog Vial Sliding Scale -) 1 vial SQ ACHS [facility]; Protocol Last Admin: 12/26/19 11:39 Dose: Not Given Lisinopril (Prinivil) 20 mg PO DAILY [facility] Last Admin: 12/26/19 09:06 Dose: 20 mg Metformin HCl (Glucophage -) 500 mg PO BIDAC [facility] Last Admin: 12/26/19 06:53 Dose: 500 mg Methylprednisolone Sodium Succinate (Solu-Medrol -) 40 mg IVPUSH Q8H-IV [facility] Last Admin: 12/26/19 09:06 Dose: 40 mg Nifedipine (Procardia Xl -) 30 mg PO DAILY [facility] Last Admin: 12/26/19 09:07 Dose: 30 mg Nystatin (Mycostatin Ointment -) 1 applic TP BID [facility] Last Admin: 12/26/19 09:07 Dose: 1 applic Oseltamivir Phosphate (Tamiflu -) 75 mg PO BID [facility] Stop: 12/28/19 21:59 Last Admin: 12/26/19 11:35 Dose: 75 mg Potassium Chloride (K-Dur -) 20 meq PO DAILY [facility] Last Admin: 12/26/19 09:07 Dose: 20 meq A/P Influenza A Acute COPD Exacerbation LV Diastolic Dysfunction HTN DM Hyperlipidemia - tamiflu x 5 days - will decrease medrol to q12h - if continues to improve, can change steroids to PO prednisone and taper as outpt - inhaled bronchodilators standing and PRN - O2 to keep SpO2 >90% - glucose control while on systemic steroids - DVT prophylaxis Problem List - Problems (1) Influenza A Code(s): J10.1 - FLU DUE TO OTH IDENT INFLUENZA VIRUS W OTH RESP MANIFEST (2) COPD exacerbation Code(s): J44.1 - CHRONIC OBSTRUCTIVE PULMONARY DISEASE W (ACUTE) EXACERBATION
[2019-12-26 12:49] LABS: ERYTHROCYTE SEDIMENTATION RATE 30 mm/hr (0-30)
[2019-12-26] MEDS: SODIUM CHLORIDE 1,000 ML IV SCH (15:19)
--- NOTE | 2019-12-26 18:04 | PN ---
Progress Note (short form) - Note Progress Note: less cough feels hot no chills Vital Signs Period Temp Pulse Resp BP Sys/Crouch Pulse Ox Last 24 Hr 97.6 F-97.7 F 54-72 17-19 138-148/69-74 96-97 cor-rrr lungs decreased bs at bases abd soft,nt ext venous stasis changes CBC, BMP 12/26/19 05:55 12/26/19 05:55 Microbiology 12/23/19 09:25 Blood - Peripheral Venous Blood Culture - Preliminary NO GROWTH OBTAINED AFTER 72 HOURS, INCUBATION TO CONTINUE FOR 2 DAYS. 12/23/19 09:20 Blood - Peripheral Venous Blood Culture - Preliminary NO GROWTH OBTAINED AFTER 72 HOURS, INCUBATION TO CONTINUE FOR 2 DAYS. 12/23/19 10:25 Urine - Urine Clean Catch Urine Culture - Final NO GROWTH OBTAINED cxray no infiltrate, +congestion a/p acute influenza A-improving copd exacerbation elevated CPK-improved droplet isolation tamiflu for 5 days-has completed 3 days Problem List - Problems (1) Influenza A Code(s): J10.1 - FLU DUE TO OTH IDENT INFLUENZA VIRUS W OTH RESP MANIFEST (2) COPD exacerbation Code(s): J44.1 - CHRONIC OBSTRUCTIVE PULMONARY DISEASE W (ACUTE) EXACERBATION
--- NOTE | 2019-12-27 06:51 | PN ---
Progress Note, Physician Chief Complaint: in bed nad vss feels better liver US fatty liver, GS d/w pt outpt f/u with PCP and GI and LF diet advised pre and post O2 sat / RA pending d/w staff - Current Medication List Current Medications: Active Medications Albuterol Sulfate (Ventolin 0.083% Nebulizer Soln -) 1 amp NEB Q4H PRN PRN Reason: SHORT OF BREATH/WHEEZING Albuterol/Ipratropium (Duoneb -) 1 amp NEB RQID [facility] Last Admin: 12/26/19 21:30 Dose: 1 amp Amlodipine Besylate (Norvasc -) 5 mg PO DAILY [facility] Last Admin: 12/26/19 09:06 Dose: 5 mg Budesonide/Formoterol Fumarate (Symbicort 80/4.5mcg -) 2 puff IH BID [facility] Last Admin: 12/26/19 22:57 Dose: 2 puff Furosemide (Lasix -) 20 mg PO DAILY [facility] Last Admin: 12/26/19 09:06 Dose: 20 mg Heparin Sodium (Porcine) (Heparin -) 5,000 unit SQ BID [facility] Last Admin: 12/26/19 22:56 Dose: 5,000 unit Insulin Aspart (Novolog Vial Sliding Scale -) 1 vial SQ [facility]; Protocol Last Admin: 12/26/19 22:55 Dose: Not Given Lisinopril (Prinivil) 20 mg PO DAILY [facility] Last Admin: 12/26/19 09:06 Dose: 20 mg Metformin HCl (Glucophage -) 500 mg PO BIDAC [facility] Last Admin: 12/26/19 16:16 Dose: 500 mg Methylprednisolone Sodium Succinate (Solu-Medrol -) 40 mg IVPUSH BID [facility] Last Admin: 12/26/19 22:55 Dose: 40 mg Nifedipine (Procardia Xl -) 30 mg PO DAILY [facility] Last Admin: 12/26/19 09:07 Dose: 30 mg Nystatin (Mycostatin Ointment -) 1 applic TP BID [facility] Last Admin: 12/26/19 22:56 Dose: 1 applic Oseltamivir Phosphate (Tamiflu -) 75 mg PO BID [facility] Stop: 12/28/19 21:59 Last Admin: 12/26/19 22:56 Dose: 75 mg Potassium Chloride (K-Dur -) 20 meq PO DAILY [facility] Last Admin: 12/26/19 09:07 Dose: 20 meq - Objective Vital Signs: Vital Signs Temperature 97.9 F 12/26/19 18:00 Pulse Rate 60 12/26/19 18:00 Respiratory Rate 18 12/26/19 21:00 Blood Pressure 154/68 12/26/19 18:00 O2 Sat by Pulse Oximetry (%) 98 12/27/19 00:28 Constitutional: Yes: No Distress, Calm Eyes: Yes: Conjunctiva Clear HENT: Yes: Atraumatic Neck: Yes: Supple Cardiovascular: Yes: Regular Rate and Rhythm Respiratory: Yes: CTA Bilaterally Gastrointestinal: Yes: Soft. No: Tenderness Genitourinary: No: Hematuria Musculoskeletal: No: Joint Stiffness, Joint Swelling Extremities: No: Cold, Cool, Cyanosis Edema: No Integumentary: No: Rash, Venous Stasis Changes Neurological: Yes: Alert ...Motor Strength: WNL Psychiatric: Yes: Alert. No: Agitated Labs: CBC, BMP 12/26/19 05:55 INR, PTT INR 1.18 (0.83-1.09) H 12/23/19 09:20 - ....Imaging Other: Report Reviewed Assessment/Plan 74yF w PMHx HTN HLD COPD CHF DM obesity admitted with weakness and productive cough; SOB COPD exac; FLU+; high CPK taper iv steroids; nebs prn 5 days tamiflu po ID and pulm f/u liver US d/w pt see above PT rehab eval for OOb; will need pre and post O2 sat/RA when stable, before DC home DVT, decubs and falls PFX d/w pt and staff
[2019-12-27 07:52] LABS: ALBUMIN 3.3 g/dl (3.4-5.0); BILIRUBIN,TOTAL 0.5 mg/dL (0.2-1); BLOOD UREA NITROGEN 30.5 mg/dL (7-18); CALCIUM 9.1 mg/dL (8.5-10.1); CREATININE 0.8 mg/dL (0.55-1.3); POTASSIUM 4.7 mmol/L (3.5-5.1); TOT PROT 6.6 g/dl (6.4-8.2)
[2019-12-27] MEDS: ALBUTEROL SO4 2.5/IPRATROPIUM 0.5 INH SOL 3 ML VIAL.NEB. NEB SCH ×4 (08:00→20:05)
[2019-12-27] MEDS: metFORMIN HCL 500 MG TABLET (FP) PO SCH ×2 (08:05→16:33)
[2019-12-27] MEDS: INSULIN SLIDING SCALE (NOVOLOG) 1 VIAL SQ SCH ×4 (08:05→21:16)
[2019-12-27] MEDS ORDERED: PT OWN MED DRAWER 7, Y5N ONE (09:29)
[2019-12-27] MEDS: amLODIPine BESYLATE 5 MG TABLET (FP) PO SCH ×2 (10:44→10:49)
[2019-12-27] MEDS: FUROSEMIDE 20 MG TABLET (FP) PO SCH ×2 (10:44→10:49)
[2019-12-27] MEDS: LISINOPRIL 20 MG TABLET (FP) PO SCH ×2 (10:44→10:49)
[2019-12-27] MEDS: HEPARIN NA (PORCINE) 5,000 UNITS/ML 1ML VIAL SQ SCH ×3 (10:44→21:17)
[2019-12-27] MEDS: NIFEdipine E.R. 30 MG TABLET PO SCH ×2 (10:45→10:49)
[2019-12-27] MEDS: POTASSIUM CHLORIDE TABS 10 MEQ TABLET.ER (FP) PO SCH (10:48)
[2019-12-27] MEDS: NYSTATIN 100000 UNIT/GM TOPICAL OINTMENT 15 GM TUBE TP SCH ×2 (10:50→21:17)
[2019-12-27] MEDS: OSELTAMIVIR PHOSPHATE 75 MG CAPSULE PO SCH ×2 (10:51→21:17)
[2019-12-27] MEDS: methylPREDNISolone NA SUCC 40 MG/1 ML VIAL IVPUSH SCH ×2 (10:51→21:16)
[2019-12-27] MEDS: BUDESONIDE/FORMETEROL FUMARATE 80/4.5 mcg INHALER IH SCH ×2 (10:52→21:17)
--- NOTE | 2019-12-27 12:46 | PN ---
Progress Note (short form) - Note Progress Note: Breathing is better today. Less cough and wheezing. No fevers. Used NIPPV overnight. Intake & Output 12/24/19 12/25/19 12/26/19 12/27/19 23:59 23:59 23:59 23:59 Intake Total 0 1999 2340 150 Output Total 500 Balance 1859 1999 1840 150 Last Vital Signs Temp Pulse Resp BP Pulse Ox 97.9 F 60 18 154/68 99 12/26/19 18:00 12/26/19 18:00 12/27/19 09:00 12/26/19 18:00 12/27/19 09:00 Active Medications Albuterol Sulfate (Ventolin 0.083% Nebulizer Soln -) 1 amp NEB Q4H PRN PRN Reason: SHORT OF BREATH/WHEEZING Albuterol/Ipratropium (Duoneb -) 1 amp NEB RQID [facility] Last Admin: 12/27/19 11:27 Dose: 1 amp Amlodipine Besylate (Norvasc -) 5 mg PO DAILY [facility] Last Admin: 12/27/19 10:49 Dose: 5 mg Budesonide/Formoterol Fumarate (Symbicort 80/4.5mcg -) 2 puff IH BID [facility] Last Admin: 12/27/19 10:52 Dose: 2 puff Furosemide (Lasix -) 20 mg PO DAILY [facility] Last Admin: 12/27/19 10:49 Dose: 20 mg Heparin Sodium (Porcine) (Heparin -) 5,000 unit SQ BID [facility] Last Admin: 12/27/19 10:49 Dose: 5,000 unit Insulin Aspart (Novolog Vial Sliding Scale -) 1 vial SQ [facility]; Protocol Last Admin: 12/27/19 12:32 Dose: Not Given Lisinopril (Prinivil) 20 mg PO DAILY [facility] Last Admin: 12/27/19 10:49 Dose: 20 mg Metformin HCl (Glucophage -) 500 mg PO BIDAC [facility] Last Admin: 12/27/19 08:05 Dose: Not Given Methylprednisolone Sodium Succinate (Solu-Medrol -) 40 mg IVPUSH BID [facility] Last Admin: 12/27/19 10:51 Dose: 40 mg Nifedipine (Procardia Xl -) 30 mg PO DAILY [facility] Last Admin: 12/27/19 10:49 Dose: 30 mg Nystatin (Mycostatin Ointment -) 1 applic TP BID [facility] Last Admin: 12/27/19 10:50 Dose: 1 applic Oseltamivir Phosphate (Tamiflu -) 75 mg PO BID [facility] Stop: 12/28/19 21:59 Last Admin: 12/27/19 10:51 Dose: 75 mg Potassium Chloride (K-Dur -) 20 meq PO DAILY [facility] Last Admin: 12/27/19 10:48 Dose: 20 meq Gen: Awake and alert, NAD on NC O2 Heart: RRR Lung: scattered rhonchi, no wheezes Abd: soft, nontender Ext: no edema Intake & Output 12/24/19 12/25/19 12/26/19 12/27/19 23:59 23:59 23:59 23:59 Intake Total 1860 1999 234 150 Output Total 500 Balance 1861999 184 150 Last Vital Signs Temp Pulse Resp BP Pulse Ox 97.9 F 60 18 154/68 99 12/26/19 18:00 12/26/19 18:00 12/27/19 09:00 12/26/19 18:00 12/27/19 09:00 Active Medications Albuterol Sulfate (Ventolin 0.083% Nebulizer Soln -) 1 amp NEB Q4H PRN PRN Reason: SHORT OF BREATH/WHEEZING Albuterol/Ipratropium (Duoneb -) 1 amp NEB RQID [facility] Last Admin: 12/27/19 11:27 Dose: 1 amp Amlodipine Besylate (Norvasc -) 5 mg PO DAILY [facility] Last Admin: 12/27/19 10:49 Dose: 5 mg Budesonide/Formoterol Fumarate (Symbicort 80/4.5mcg -) 2 puff IH BID [facility] Last Admin: 12/27/19 10:52 Dose: 2 puff Furosemide (Lasix -) 20 mg PO DAILY [facility] Last Admin: 12/27/19 10:49 Dose: 20 mg Heparin Sodium (Porcine) (Heparin -) 5,000 unit SQ BID [facility] Last Admin: 12/27/19 10:49 Dose: 5,000 unit Insulin Aspart (Novolog Vial Sliding Scale -) 1 vial SQ [facility]; Protocol Last Admin: 12/27/19 12:32 Dose: Not Given Lisinopril (Prinivil) 20 mg PO DAILY [facility] Last Admin: 12/27/19 10:49 Dose: 20 mg Metformin HCl (Glucophage -) 500 mg PO BIDAC [facility] Last Admin: 12/27/19 08:05 Dose: Not Given Methylprednisolone Sodium Succinate (Solu-Medrol -) 40 mg IVPUSH BID [facility] Last Admin: 12/27/19 10:51 Dose: 40 mg Nifedipine (Procardia Xl -) 30 mg PO DAILY [facility] Last Admin: 12/27/19 10:49 Dose: 30 mg Nystatin (Mycostatin Ointment -) 1 applic TP BID [facility] Last Admin: 12/27/19 10:50 Dose: 1 applic Oseltamivir Phosphate (Tamiflu -) 75 mg PO BID [facility] Stop: 12/28/19 21:59 Last Admin: 12/27/19 10:51 Dose: 75 mg Potassium Chloride (K-Dur -) 20 meq PO DAILY [facility] Last Admin: 12/27/19 10:48 Dose: 20 meq Problem List - Problems (1) Influenza A Code(s): J10.1 - FLU DUE TO OTH IDENT INFLUENZA VIRUS W OTH RESP MANIFEST (2) COPD exacerbation Code(s): J44.1 - CHRONIC OBSTRUCTIVE PULMONARY DISEASE W (ACUTE) EXACERBATION A/P Influenza A Acute COPD Exacerbation LV Diastolic Dysfunction HTN DM Hyperlipidemia - tamiflu x 5 days - Wean steroids - inhaled bronchodilators standing and PRN - O2 to keep SpO2 >90% - glucose control while on systemic steroids - DVT prophylaxis - Check Pre and Post ambulation saturation - DC planning Dr Ross
--- NOTE | 2019-12-27 16:18 | PN ---
Progress Note (short form) - Note Progress Note: much improved today less cough not as fatigued walked to the door with walker today uses bipap at night at home Vital Signs Period Temp Pulse Resp BP Sys/Crouch Pulse Ox Last 24 Hr 97.9 F-98.2 F 60-80 18-18 147-154/68-82 98-99 cor-rrr lungs clear abd soft,nt ext no edema CBC, BMP 12/26/19 05:55 12/27/19 05:45 Microbiology 12/23/19 09:25 Blood - Peripheral Venous Blood Culture - Preliminary NO GROWTH OBTAINED AFTER 96 HOURS, INCUBATION TO CONTINUE FOR 1 DAYS. 12/23/19 09:20 Blood - Peripheral Venous Blood Culture - Preliminary NO GROWTH OBTAINED AFTER 96 HOURS, INCUBATION TO CONTINUE FOR 1 DAYS. 12/23/19 10:25 Urine - Urine Clean Catch Urine Culture - Final NO GROWTH OBTAINED cxray no infiltrate, +congestion a/p acute influenza [id number] #4 tamiflu copd exacerbation elevated CPK-improved droplet isolation tamiflu for 5 days- please call back if needed Problem List - Problems (1) Influenza A Code(s): J10.1 - FLU DUE TO OTH IDENT INFLUENZA VIRUS W OTH RESP MANIFEST (2) COPD exacerbation Code(s): J44.1 - CHRONIC OBSTRUCTIVE PULMONARY DISEASE W (ACUTE) EXACERBATION
[2019-12-27] MEDS ORDERED: INSULIN SLIDING SCALE (NOVOLOG) 1 VIAL SQ ONE (19:19)
[2019-12-28] MEDS: INSULIN SLIDING SCALE (NOVOLOG) 1 VIAL SQ SCH ×4 (06:13→22:04)
[2019-12-28] MEDS: metFORMIN HCL 500 MG TABLET (FP) PO SCH (06:30)
--- NOTE | 2019-12-28 07:39 | DS ---
Physical Examination Vital Signs: Vital Signs Temperature 97.7 F 12/28/19 02:21 Pulse Rate 57 L 12/28/19 02:21 Respiratory Rate 18 12/28/19 02:21 Blood Pressure 136/67 12/28/19 02:21 O2 Sat by Pulse Oximetry (%) 99 12/27/19 20:53 Findings/Remarks: feeling better,awaiting O2 sat/RA check said she was told had low BGM - lowest recorded 84; change metformin to daily from BID today is last day of tamiflu (5 days) taper steroids, DC planning; f/u with PCP as advised d/w pt Constitutional: Yes: No Distress, Calm Eyes: Yes: Conjunctiva Clear HENT: Yes: Atraumatic Neck: Yes: Supple Cardiovascular: Yes: Regular Rate and Rhythm Respiratory: Yes: CTA Bilaterally Gastrointestinal: Yes: Soft. No: Tenderness Renal/: No: Hematuria Musculoskeletal: No: Joint Stiffness, Joint Swelling Extremities: No: Cold, Cool, Cyanosis Edema: No Integumentary: No: Rash, Venous Stasis Changes Neurological: Yes: WNL, Alert, Oriented ...Motor Strength: WNL Psychiatric: Yes: WNL, Alert, Oriented. No: Agitated, Suicidal Ideation Labs: CBC, BMP 12/26/19 05:55 12/27/19 05:45 Discharge Summary Problems reviewed: Yes Reason For Visit: ACUTE RESP FAILU,CELLULITIS AND ABSCESS LOWER EXTR Current Active Problems Acute respiratory failure (Acute) COPD exacerbation (Acute) Cellulitis (Acute) Influenza A (Acute) Sepsis (Acute) Procedures: Principal: 74 YOF HTN DM OA Obesity COPD admitted with FLU and acute COPD exac Other Procedures: seen by ID and pulmoanry; ATB and tamiflu per ID; iv steroids and nebs per pulm. Hospital Course: improved with above; DC home and f/u as advised Condition: Improved - Instructions Referrals: Anika Mcgraw MD [Primary Care Provider] - Venancio Mitchell MD [Staff Physician] - Disposition: VNS/HOME HEALTH CARE - Home Medications Comprehensive Discharge Medication List: Ambulatory Orders Lisinopril 20 mg PO DAILY 03/17/19 Rosuvastatin [Crestor -] 10 mg PO DAILY 03/17/19 metFORMIN HCL [Metformin HCl] 500 mg PO BID 03/17/19 Budesonide/Formeterol Fumarate [SYMBICORT 80/4.5mcg -] 2 puff IH BID #1 inhaler 08/19/19 Nifedipine ER [Procardia XL -] 30 mg PO DAILY #30 tab.er.24 08/19/19 Potassium Chloride [K-Dur -] 20 meq PO DAILY #30 tablet.er 08/19/19 Amlodipine Besylate 5 mg PO DAILY 12/23/19 Furosemide [Lasix -] 40 mg PO DAILY 12/23/19
[2019-12-28] MEDS: ALBUTEROL SO4 2.5/IPRATROPIUM 0.5 INH SOL 3 ML VIAL.NEB. NEB SCH ×4 (07:40→20:53)
[2019-12-28] MEDS ORDERED: PT OWN MED DRAWER 7, Y5N ONE (10:19)
[2019-12-28] MEDS: HEPARIN NA (PORCINE) 5,000 UNITS/ML 1ML VIAL SQ SCH ×2 (10:23→21:59)
[2019-12-28] MEDS: POTASSIUM CHLORIDE TABS 10 MEQ TABLET.ER (FP) PO SCH (10:23)
[2019-12-28] MEDS: NIFEdipine E.R. 30 MG TABLET PO SCH ×2 (10:23→10:32)
[2019-12-28] MEDS: FUROSEMIDE 20 MG TABLET (FP) PO SCH (10:23)
[2019-12-28] MEDS: methylPREDNISolone NA SUCC 40 MG/1 ML VIAL IVPUSH SCH (10:23)
[2019-12-28] MEDS: amLODIPine BESYLATE 5 MG TABLET (FP) PO SCH (10:23)
[2019-12-28] MEDS: OSELTAMIVIR PHOSPHATE 75 MG CAPSULE PO SCH (10:24)
[2019-12-28] MEDS: LISINOPRIL 20 MG TABLET (FP) PO SCH (10:24)
[2019-12-28] MEDS: BUDESONIDE/FORMETEROL FUMARATE 80/4.5 mcg INHALER IH SCH ×2 (10:24→21:59)
[2019-12-28] MEDS: NYSTATIN 100000 UNIT/GM TOPICAL OINTMENT 15 GM TUBE TP SCH ×2 (10:24→21:59)
--- NOTE | 2019-12-28 15:03 | PN ---
Progress Note (short form) - Note Progress Note: PULMONARY Breathing better, close to baseline. Less cough and wheezing. No fevers. Vital Signs Period Temp Pulse Resp BP Sys/Crouch Pulse Ox Last 24 Hr 97.6 F-98.3 F 57-81 17-20 107-136/51-80 94-99 Gen: less tachypneic Heart: RRR Lung: scattered rhonchi, wheezes Abd: soft, nontender Ext: no edema CBC, BMP 12/26/19 05:55 12/27/19 05:45 Active Medications Albuterol Sulfate (Ventolin 0.083% Nebulizer Soln -) 1 amp NEB Q4H PRN PRN Reason: SHORT OF BREATH/WHEEZING Albuterol/Ipratropium (Duoneb -) 1 amp NEB RQID [facility] Last Admin: 12/28/19 11:35 Dose: 1 amp Amlodipine Besylate (Norvasc -) 5 mg PO DAILY [facility] Last Admin: 12/28/19 10:23 Dose: 5 mg Budesonide/Formoterol Fumarate (Symbicort 80/4.5mcg -) 2 puff IH BID [facility] Last Admin: 12/28/19 10:24 Dose: 2 puff Furosemide (Lasix -) 20 mg PO DAILY [facility] Last Admin: 12/28/19 10:23 Dose: 20 mg Heparin Sodium (Porcine) (Heparin -) 5,000 unit SQ BID [facility] Last Admin: 12/28/19 10:23 Dose: 5,000 unit Insulin Aspart (Novolog Vial Sliding Scale -) 1 vial SQ [facility]; Protocol Last Admin: 12/28/19 12:06 Dose: Not Given Lisinopril (Prinivil) 20 mg PO DAILY [facility] Last Admin: 12/28/19 10:24 Dose: 20 mg Metformin HCl (Glucophage -) 500 mg PO 0700 [facility] Methylprednisolone Sodium Succinate (Solu-Medrol -) 40 mg IVPUSH DAILY [facility] Last Admin: 12/28/19 10:23 Dose: 40 mg Nifedipine (Procardia Xl -) 30 mg PO DAILY [facility] Last Admin: 12/28/19 10:32 Dose: 30 mg Nystatin (Mycostatin Ointment -) 1 applic TP BID [facility] Last Admin: 12/28/19 10:24 Dose: 1 applic Potassium Chloride (K-Dur -) 20 meq PO DAILY [facility] Last Admin: 12/28/19 10:23 Dose: 20 meq A/P Influenza A Acute COPD Exacerbation LV Diastolic Dysfunction HTN DM Hyperlipidemia - completed tamiflu - can change steroids to PO prednisone and taper as outpt - inhaled bronchodilators standing and PRN - O2 to keep SpO2 >90% - glucose control while on systemic steroids - DVT prophylaxis Problem List - Problems (1) Influenza A Code(s): J10.1 - FLU DUE TO OTH IDENT INFLUENZA VIRUS W OTH RESP MANIFEST (2) COPD exacerbation Code(s): J44.1 - CHRONIC OBSTRUCTIVE PULMONARY DISEASE W (ACUTE) EXACERBATION
[2019-12-29] MEDS: INSULIN SLIDING SCALE (NOVOLOG) 1 VIAL SQ SCH ×2 (06:00→11:21)
[2019-12-29] MEDS ORDERED: metFORMIN HCL 500 MG TABLET (FP) PO SCH (07:00)
[2019-12-29] MEDS: ALBUTEROL SO4 2.5/IPRATROPIUM 0.5 INH SOL 3 ML VIAL.NEB. NEB SCH ×3 (07:30→15:54)
[2019-12-29] MEDS ORDERED: PT OWN MED DRAWER 7, Y5N ONE (08:43)
[2019-12-29] MEDS: NYSTATIN 100000 UNIT/GM TOPICAL OINTMENT 15 GM TUBE TP SCH (09:04)
[2019-12-29] MEDS: amLODIPine BESYLATE 5 MG TABLET (FP) PO SCH (09:04)
[2019-12-29] MEDS: methylPREDNISolone NA SUCC 40 MG/1 ML VIAL IVPUSH SCH (09:04)
[2019-12-29] MEDS: HEPARIN NA (PORCINE) 5,000 UNITS/ML 1ML VIAL SQ SCH (09:04)
[2019-12-29] MEDS: BUDESONIDE/FORMETEROL FUMARATE 80/4.5 mcg INHALER IH SCH (09:04)
[2019-12-29] MEDS: LISINOPRIL 20 MG TABLET (FP) PO SCH (09:05)
[2019-12-29] MEDS: NIFEdipine E.R. 30 MG TABLET PO SCH (09:05)
[2019-12-29] MEDS: POTASSIUM CHLORIDE TABS 10 MEQ TABLET.ER (FP) PO SCH (09:05)
[2019-12-29] MEDS: FUROSEMIDE 20 MG TABLET (FP) PO SCH (09:05)
--- NOTE | 2019-12-29 10:50 | PN ---
Progress Note, Physician Chief Complaint: OOB to chair no CP no SOB no cough; ate OK no c/o does not need home O2 at home finished tamiflu - Current Medication List Current Medications: Active Medications Albuterol Sulfate (Ventolin 0.083% Nebulizer Soln -) 1 amp NEB Q4H PRN PRN Reason: SHORT OF BREATH/WHEEZING Albuterol/Ipratropium (Duoneb -) 1 amp NEB RQID [facility] Last Admin: 12/29/19 07:30 Dose: 1 amp Amlodipine Besylate (Norvasc -) 5 mg PO DAILY [facility] Last Admin: 12/29/19 09:04 Dose: 5 mg Budesonide/Formoterol Fumarate (Symbicort 80/4.5mcg -) 2 puff IH BID [facility] Last Admin: 12/29/19 09:04 Dose: 2 puff Furosemide (Lasix -) 20 mg PO DAILY [facility] Last Admin: 12/29/19 09:05 Dose: 20 mg Insulin Aspart (Novolog Vial Sliding Scale -) 1 vial SQ [facility]; Protocol Last Admin: 12/29/19 06:00 Dose: Not Given Lisinopril (Prinivil) 20 mg PO DAILY [facility] Last Admin: 12/29/19 09:05 Dose: 20 mg Metformin HCl (Glucophage -) 500 mg PO 0700 [facility] Last Admin: 12/29/19 07:02 Dose: 500 mg Methylprednisolone Sodium Succinate (Solu-Medrol -) 40 mg IVPUSH DAILY [facility] Last Admin: 12/29/19 09:04 Dose: 40 mg Nifedipine (Procardia Xl -) 30 mg PO DAILY [facility] Last Admin: 12/29/19 09:05 Dose: 30 mg Nystatin (Mycostatin Ointment -) 1 applic TP BID [facility] Last Admin: 12/29/19 09:04 Dose: 1 applic Potassium Chloride (K-Dur -) 20 meq PO DAILY [facility] Last Admin: 12/29/19 09:05 Dose: 20 meq - Objective Vital Signs: Vital Signs Temperature 97.9 F 12/29/19 10:00 Pulse Rate 75 12/29/19 10:00 Respiratory Rate 20 12/29/19 10:00 Blood Pressure 120/62 12/29/19 10:00 O2 Sat by Pulse Oximetry (%) 94 L 12/29/19 09:00 Constitutional: Yes: No Distress, Calm Eyes: Yes: Conjunctiva Clear HENT: Yes: Atraumatic Neck: Yes: Supple Cardiovascular: Yes: Regular Rate and Rhythm Respiratory: Yes: CTA Bilaterally Gastrointestinal: Yes: Soft. No: Tenderness Genitourinary: No: Hematuria Musculoskeletal: No: Joint Stiffness, Joint Swelling Extremities: No: Cold, Cool, Cyanosis Edema: No Integumentary: No: Rash, Venous Stasis Changes Neurological: Yes: Alert, Oriented ...Motor Strength: WNL Psychiatric: Yes: Alert, Oriented. No: Agitated, Suicidal Ideation Labs: CBC, BMP 12/26/19 05:55 12/27/19 05:45 INR, PTT INR 1.18 (0.83-1.09) H 12/23/19 09:20 - ....Imaging Other: Report Reviewed Assessment/Plan 74yF w PMHx HTN HLD COPD CHF DM obesity admitted with weakness and productive cough; SOB COPD exac; FLU+; high CPK change iv steroids to po ; nebs prn s/p 5 days tamiflu po DC home on po tapering doses of prednisone - f/u as outpt as advised. DVT, decubs and falls PFX d/w pt and staff
--- NOTE | 2019-12-29 13:35 | PN ---
Progress Note (short form) - Note Progress Note: PULMONARY Breathing better, close to baseline. Less cough and wheezing. No fevers. Vital Signs Period Temp Pulse Resp BP Sys/Crouch Pulse Ox Last 24 Hr 97.9 F-98.3 F 55-75 17-20 111-143/58-72 94-98 Gen: less tachypneic Heart: RRR Lung: scattered rhonchi, wheezes Abd: soft, nontender Ext: no edema CBC, BMP 12/26/19 05:55 12/27/19 05:45 Active Medications Albuterol Sulfate (Ventolin 0.083% Nebulizer Soln -) 1 amp NEB Q4H PRN PRN Reason: SHORT OF BREATH/WHEEZING Albuterol/Ipratropium (Duoneb -) 1 amp NEB RQID [facility] Last Admin: 12/29/19 11:46 Dose: 1 amp Amlodipine Besylate (Norvasc -) 5 mg PO DAILY [facility] Last Admin: 12/29/19 09:04 Dose: 5 mg Budesonide/Formoterol Fumarate (Symbicort 80/4.5mcg -) 2 puff IH BID [facility] Last Admin: 12/29/19 09:04 Dose: 2 puff Furosemide (Lasix -) 20 mg PO DAILY [facility] Last Admin: 12/29/19 09:05 Dose: 20 mg Insulin Aspart (Novolog Vial Sliding Scale -) 1 vial SQ ACHS [facility]; Protocol Last Admin: 12/29/19 11:21 Dose: Not Given Lisinopril (Prinivil) 20 mg PO DAILY [facility] Last Admin: 12/29/19 09:05 Dose: 20 mg Metformin HCl (Glucophage -) 500 mg PO 0700 [facility] Last Admin: 12/29/19 07:02 Dose: 500 mg Methylprednisolone Sodium Succinate (Solu-Medrol -) 40 mg IVPUSH DAILY [facility] Last Admin: 12/29/19 09:04 Dose: 40 mg Nifedipine (Procardia Xl -) 30 mg PO DAILY [facility] Last Admin: 12/29/19 09:05 Dose: 30 mg Nystatin (Mycostatin Ointment -) 1 applic TP BID [facility] Last Admin: 12/29/19 09:04 Dose: 1 applic Potassium Chloride (K-Dur -) 20 meq PO DAILY [facility] Last Admin: 12/29/19 09:05 Dose: 20 meq A/P Influenza A Acute COPD Exacerbation LV Diastolic Dysfunction HTN DM Hyperlipidemia - completed tamiflu - can change steroids to PO prednisone and taper as outpt - inhaled bronchodilators standing and PRN - O2 to keep SpO2 >90% - glucose control while on systemic steroids - DVT prophylaxis Problem List - Problems (1) Influenza A Code(s): J10.1 - FLU DUE TO OTH IDENT INFLUENZA VIRUS W OTH RESP MANIFEST (2) COPD exacerbation Code(s): J44.1 - CHRONIC OBSTRUCTIVE PULMONARY DISEASE W (ACUTE) EXACERBATION
[2019-12-29 15:29] VITALS: BP 103/55; PULSE 82; TEMP 98.5
== END 2019-12-29 17:43 | disposition home health service (06) | DRG 193 ==
LOC: JER 08:22 → JERBED 10:59 → J4S 20:45
PROVIDERS: ADMIT Internal Medicine; ATTEND Internal Medicine
DX: J10.1 Influenza due to other identified influenza virus with other respiratory manifestations (principal); J96.00 Acute respiratory failure, unspecified whether with hypoxia or hypercapnia; J44.1 Chronic obstructive pulmonary disease with (acute) exacerbation; L03.116 Cellulitis of left lower limb; L03.115 Cellulitis of right lower limb; I10 Essential (primary) hypertension; E11.9 Type 2 diabetes mellitus without complications; E78.5 Hyperlipidemia, unspecified; E66.9 Obesity, unspecified; Z68.37 Body mass index [BMI] 37.0-37.9, adult; E87.6 Hypokalemia
CPT/HCPCS: 36415; 71045-TC-FY; 76705-TC; 80048; 80053; 81003; 82085; 82550; 82553; 82803; 82962; 83605; 83880; 84443; 84484; 85025; 85610; 85651; 86038; 87040; 87086; 87804; 93005; 93010; 94640; 94660; 94761; 97116-GP; 97162-GP; 99285-25; J0131; J1644; J7030

== ENCOUNTER 2021-07-24 17:00 | Inpatient (IN) | payer BC, OTHER ==
[2021-07-24 18:41] LABS: BASO % 0.5 % (0-2.0); EOS % 0.1 % (0-4.5); HEMATOCRIT 36.3 % (32.4-45.2); HEMOGLOBIN 12.4 GM/dL (10.7-15.3); LYMPH % 15.2 % (8-40); MCH 30.5 pg (25.7-33.7); MCHC 34.1 g/dl (32.0-36.0); MEAN CELL VOLUME 89.6 fl (80-96); MEAN PLT VOLUME 6.3 fl (7.5-11.1); MONO % 9.4 % (3.8-10.2); NEUT % 74.8 % (42.8-82.8); PLATELET COUNT 288 10^3/uL (134-434); RBC 4.06 M/mm3 (3.60-5.2); RDW 14.5 % (11.6-15.6); WHITE BLOOD COUNT 4.2 K/mm3 (4.0-10.0)
[2021-07-24 18:59] LABS: CHLORIDE 96 mmol/L (98-107); SODIUM 132 mmol/L (136-145)
[2021-07-24 19:02] LABS: ALBUMIN 3.6 g/dl (3.4-5.0); CALCIUM 8.2 mg/dL (8.5-10.1)
[2021-07-24 19:03] LABS: ANION GAP 7 MMOL/L (8-16); BLOOD UREA NITROGEN 17.6 mg/dL (7-18); CO2 29 mmol/L (21-32); GLUCOSE,RANDOM 101 mg/dL (74-106)
[2021-07-24 19:05] LABS: SGOT/AST 39 U/L (15-37); SGPT/ALT 35 U/L (13-61)
[2021-07-24 19:06] LABS: BILIRUBIN,TOTAL 0.5 mg/dL (0.2-1); TOT PROT 8.2 g/dl (6.4-8.2)
[2021-07-24 19:08] LABS: ALK PHOS 97 U/L (45-117)
[2021-07-24 19:09] LABS: N-TERMINAL BNP 165.2 pg/ml (5-450)
[2021-07-24] MEDS ORDERED: FUROSEMIDE 40 MG TABLET (FP) PO ONE (19:46)
[2021-07-24] MEDS ORDERED: FUROSEMIDE 40 MG TABLET (FP) ONE (20:02)
[2021-07-25] MEDS ORDERED: metFORMIN HCL 500 MG TABLET (FP) ONE (00:46)
[2021-07-25] MEDS: BUDESONIDE/FORMETEROL FUMARATE 80/4.5 mcg INHALER IH SCH ×3 (00:55→21:35)
[2021-07-25] MEDS: ROSUVASTATIN CA 10 MG TABLET (FP) PO SCH ×2 (00:55→21:31)
[2021-07-25] MEDS: metFORMIN HCL 500 MG TABLET (FP) PO SCH ×3 (00:55→21:31)
[2021-07-25 03:57] VITALS: BMI 40.2
[2021-07-25] MEDS: INSULIN SLIDING SCALE (NOVOLOG) 1 VIAL SQ SCH ×2 (06:38→17:04)
[2021-07-25] MEDS: POTASSIUM CHLORIDE TABS 20 MEQ TABLET.ER (FP) PO SCH (09:50)
[2021-07-25] MEDS: NIFEdipine E.R. 30 MG TABLET PO SCH (09:50)
[2021-07-25] MEDS ORDERED: predniSONE 10 MG TABLET (UD) PO SCH (10:00)
[2021-07-25 10:13] LABS: ALBUMIN 3.2 g/dl (3.4-5.0); BLOOD UREA NITROGEN 16.5 mg/dL (7-18); CALCIUM 7.6 mg/dL (8.5-10.1)
[2021-07-25 10:15] LABS: CREATININE 0.8 mg/dL (0.55-1.3)
[2021-07-25 10:16] LABS: BILIRUBIN,TOTAL 0.6 mg/dL (0.2-1)
[2021-07-25 10:17] LABS: TOT PROT 6.9 g/dl (6.4-8.2)
[2021-07-25] MEDS: DEXAMETHASONE SOD PHOSPHATE 10 MG/1 ML VIAL IVPUSH SCH (13:28)
[2021-07-25] MEDS: FUROSEMIDE 40 MG TABLET (FP) PO SCH (13:28)
[2021-07-25] MEDS: ENOXAPARIN NA (PORCINE) 40 MG/0.4 ML DISP.SYRIN SQ SCH (13:42)
[2021-07-25] MEDS ORDERED: REMDESIVIR 200 MG in SODIUM CHLORIDE 250 ML IVPB ONE (15:00)
[2021-07-26] MEDS: INSULIN SLIDING SCALE (NOVOLOG) 1 VIAL SQ SCH ×2 (06:23→18:28)
[2021-07-26 07:39] LABS: BASO % 0.2 % (0-2.0); HEMATOCRIT 34.3 % (32.4-45.2); HEMOGLOBIN 11.8 GM/dL (10.7-15.3); LYMPH % 11.5 % (8-40); MCH 30.6 pg (25.7-33.7); MCHC 34.3 g/dl (32.0-36.0); MEAN CELL VOLUME 89.1 fl (80-96); MEAN PLT VOLUME 6.3 fl (7.5-11.1); MONO % 9.8 % (3.8-10.2); NEUT % 78.5 % (42.8-82.8); PLATELET COUNT 268 10^3/uL (134-434); RBC 3.85 M/mm3 (3.60-5.2); RDW 14.3 % (11.6-15.6); WHITE BLOOD COUNT 4.1 K/mm3 (4.0-10.0)
[2021-07-26 08:03] LABS: BLOOD UREA NITROGEN 27.7 mg/dL (7-18); CALCIUM 7.7 mg/dL (8.5-10.1)
[2021-07-26 08:04] LABS: MAGNESIUM 2.1 mg/dL (1.8-2.4)
[2021-07-26 08:06] LABS: CREATININE 0.8 mg/dL (0.55-1.3)
[2021-07-26 08:08] LABS: BILIRUBIN,TOTAL 0.5 mg/dL (0.2-1); PHOSPHOROUS 4.1 mg/dL (2.5-4.9)
[2021-07-26] MEDS: DEXAMETHASONE SOD PHOSPHATE 10 MG/1 ML VIAL IVPUSH SCH (10:18)
[2021-07-26] MEDS: metFORMIN HCL 500 MG TABLET (FP) PO SCH ×2 (10:19→21:34)
[2021-07-26] MEDS: ENOXAPARIN NA (PORCINE) 40 MG/0.4 ML DISP.SYRIN SQ SCH (10:19)
[2021-07-26] MEDS: BUDESONIDE/FORMETEROL FUMARATE 80/4.5 mcg INHALER IH SCH ×2 (10:19→21:34)
[2021-07-26] MEDS: POTASSIUM CHLORIDE TABS 20 MEQ TABLET.ER (FP) PO SCH (10:19)
[2021-07-26] MEDS: NIFEdipine E.R. 30 MG TABLET PO SCH (10:19)
[2021-07-26] MEDS: FUROSEMIDE 40 MG TABLET (FP) PO SCH (10:19)
[2021-07-26] MEDS: REMDESIVIR 100 MG in SODIUM CHLORIDE 250 ML IVPB SCH (14:04)
[2021-07-26] MEDS: ROSUVASTATIN CA 10 MG TABLET (FP) PO SCH (21:34)
[2021-07-27] MEDS: INSULIN SLIDING SCALE (NOVOLOG) 1 VIAL SQ SCH ×2 (06:06→16:29)
[2021-07-27 07:46] LABS: BASO % 0.1 % (0-2.0); HEMATOCRIT 33.9 % (32.4-45.2); HEMOGLOBIN 11.7 GM/dL (10.7-15.3); LYMPH % 13.9 % (8-40); MCHC 34.4 g/dl (32.0-36.0); MEAN PLT VOLUME 6.7 fl (7.5-11.1); MONO % 9.1 % (3.8-10.2); NEUT % 76.9 % (42.8-82.8); PLATELET COUNT 309 10^3/uL (134-434); RBC 3.77 M/mm3 (3.60-5.2); RDW 14.3 % (11.6-15.6); WHITE BLOOD COUNT 6.1 K/mm3 (4.0-10.0)
[2021-07-27 08:06] LABS: ALBUMIN 2.8 g/dl (3.4-5.0); BLOOD UREA NITROGEN 32.2 mg/dL (7-18)
[2021-07-27 08:09] LABS: CREATININE 0.7 mg/dL (0.55-1.3)
[2021-07-27 08:10] LABS: BILIRUBIN,TOTAL 0.7 mg/dL (0.2-1)
[2021-07-27 08:11] LABS: TOT PROT 6.4 g/dl (6.4-8.2)
[2021-07-27] MEDS ORDERED: PT OWN MED DRAWER 7, Y5N ONE ×2 (09:01→09:43)
[2021-07-27] MEDS: DEXAMETHASONE SOD PHOSPHATE 10 MG/1 ML VIAL IVPUSH SCH (10:07)
[2021-07-27] MEDS: POTASSIUM CHLORIDE TABS 20 MEQ TABLET.ER (FP) PO SCH (10:07)
[2021-07-27] MEDS: NIFEdipine E.R. 30 MG TABLET PO SCH (10:07)
[2021-07-27] MEDS: FUROSEMIDE 40 MG TABLET (FP) PO SCH (10:07)
[2021-07-27] MEDS: ENOXAPARIN NA (PORCINE) 40 MG/0.4 ML DISP.SYRIN SQ SCH (10:07)
[2021-07-27] MEDS: BUDESONIDE/FORMETEROL FUMARATE 80/4.5 mcg INHALER IH SCH ×2 (10:08→21:22)
[2021-07-27] MEDS: metFORMIN HCL 500 MG TABLET (FP) PO SCH ×2 (11:01→21:22)
[2021-07-27] MEDS: REMDESIVIR 100 MG in SODIUM CHLORIDE 250 ML IVPB SCH (14:44)
[2021-07-27] MEDS: guaiFENesin/CODEINE 10 ML UNIT-DOSE CUPS PO PRN ×2 (16:24→21:22)
[2021-07-27] MEDS: ROSUVASTATIN CA 10 MG TABLET (FP) PO SCH (21:22)
[2021-07-28] MEDS: INSULIN SLIDING SCALE (NOVOLOG) 1 VIAL SQ SCH ×2 (07:04→16:52)
[2021-07-28 07:42] LABS: BLOOD UREA NITROGEN 29.9 mg/dL (7-18); CALCIUM 8.1 mg/dL (8.5-10.1)
[2021-07-28 07:45] LABS: CREATININE 0.7 mg/dL (0.55-1.3); PHOSPHOROUS 2.7 mg/dL (2.5-4.9)
[2021-07-28 07:47] LABS: BILIRUBIN,TOTAL 0.2 mg/dL (0.2-1); TOT PROT 6.8 g/dl (6.4-8.2)
[2021-07-28 07:48] LABS: BASO % 0.2 % (0-2.0); EOS % 0.3 % (0-4.5); HEMATOCRIT 35.4 % (32.4-45.2); HEMOGLOBIN 12.1 GM/dL (10.7-15.3); LYMPH % 17.9 % (8-40); MCH 30.7 pg (25.7-33.7); MCHC 34.1 g/dl (32.0-36.0); MEAN CELL VOLUME 90.1 fl (80-96); MEAN PLT VOLUME 6.7 fl (7.5-11.1); MONO % 9.4 % (3.8-10.2); NEUT % 72.2 % (42.8-82.8); PLATELET COUNT 321 10^3/uL (134-434); RBC 3.93 M/mm3 (3.60-5.2); RDW 14.4 % (11.6-15.6); WHITE BLOOD COUNT 7.5 K/mm3 (4.0-10.0)
[2021-07-28] MEDS: FUROSEMIDE 40 MG TABLET (FP) PO SCH (09:31)
[2021-07-28] MEDS: NIFEdipine E.R. 30 MG TABLET PO SCH (09:32)
[2021-07-28] MEDS: POTASSIUM CHLORIDE TABS 20 MEQ TABLET.ER (FP) PO SCH (09:32)
[2021-07-28] MEDS: metFORMIN HCL 500 MG TABLET (FP) PO SCH ×2 (09:32→22:00)
[2021-07-28] MEDS: ENOXAPARIN NA (PORCINE) 40 MG/0.4 ML DISP.SYRIN SQ SCH (09:32)
[2021-07-28] MEDS: DEXAMETHASONE SOD PHOSPHATE 10 MG/1 ML VIAL IVPUSH SCH (09:32)
[2021-07-28] MEDS: BUDESONIDE/FORMETEROL FUMARATE 80/4.5 mcg INHALER IH SCH ×2 (09:43→22:00)
[2021-07-28] MEDS: REMDESIVIR 100 MG in SODIUM CHLORIDE 250 ML IVPB SCH (14:54)
[2021-07-28] MEDS: ROSUVASTATIN CA 10 MG TABLET (FP) PO SCH (21:59)
[2021-07-28] MEDS: guaiFENesin/CODEINE 10 ML UNIT-DOSE CUPS PO PRN (22:07)
[2021-07-29] MEDS: INSULIN SLIDING SCALE (NOVOLOG) 1 VIAL SQ SCH ×2 (06:12→17:55)
[2021-07-29 07:12] LABS: BASO % 0.3 % (0-2.0); EOS % 0.4 % (0-4.5); HEMATOCRIT 34.6 % (32.4-45.2); HEMOGLOBIN 11.8 GM/dL (10.7-15.3); LYMPH % 19.8 % (8-40); MCH 30.5 pg (25.7-33.7); MCHC 34.2 g/dl (32.0-36.0); MEAN CELL VOLUME 89.2 fl (80-96); MEAN PLT VOLUME 6.5 fl (7.5-11.1); MONO % 10.7 % (3.8-10.2); NEUT % 68.8 % (42.8-82.8); PLATELET COUNT 360 10^3/uL (134-434); RBC 3.88 M/mm3 (3.60-5.2); RDW 14.4 % (11.6-15.6); WHITE BLOOD COUNT 5.9 K/mm3 (4.0-10.0)
[2021-07-29 07:43] LABS: ALBUMIN 2.9 g/dl (3.4-5.0); BLOOD UREA NITROGEN 28.1 mg/dL (7-18); CALCIUM 8.1 mg/dL (8.5-10.1)
[2021-07-29 07:46] LABS: CREATININE 0.6 mg/dL (0.55-1.3)
[2021-07-29 07:48] LABS: BILIRUBIN,TOTAL 0.6 mg/dL (0.2-1); TOT PROT 6.8 g/dl (6.4-8.2)
[2021-07-29] MEDS: metFORMIN HCL 500 MG TABLET (FP) PO SCH ×2 (10:17→21:18)
[2021-07-29] MEDS: DEXAMETHASONE SOD PHOSPHATE 10 MG/1 ML VIAL IVPUSH SCH (10:17)
[2021-07-29] MEDS: NIFEdipine E.R. 30 MG TABLET PO SCH (10:17)
[2021-07-29] MEDS: FUROSEMIDE 40 MG TABLET (FP) PO SCH (10:17)
[2021-07-29] MEDS: POTASSIUM CHLORIDE TABS 20 MEQ TABLET.ER (FP) PO SCH (10:17)
[2021-07-29] MEDS: ENOXAPARIN NA (PORCINE) 40 MG/0.4 ML DISP.SYRIN SQ SCH (10:18)
[2021-07-29] MEDS: BUDESONIDE/FORMETEROL FUMARATE 80/4.5 mcg INHALER IH SCH ×2 (10:18→21:18)
[2021-07-29] MEDS: REMDESIVIR 100 MG in SODIUM CHLORIDE 250 ML IVPB SCH (15:40)
[2021-07-29] MEDS: ROSUVASTATIN CA 10 MG TABLET (FP) PO SCH (21:18)
[2021-07-29] MEDS: guaiFENesin/CODEINE 10 ML UNIT-DOSE CUPS PO PRN (21:21)
[2021-07-30] MEDS: INSULIN SLIDING SCALE (NOVOLOG) 1 VIAL SQ SCH (06:35)
[2021-07-30 09:24] VITALS: PULSE 75
[2021-07-30] MEDS: metFORMIN HCL 500 MG TABLET (FP) PO SCH (10:18)
[2021-07-30] MEDS: FUROSEMIDE 40 MG TABLET (FP) PO SCH (10:18)
[2021-07-30] MEDS: NIFEdipine E.R. 30 MG TABLET PO SCH (10:19)
[2021-07-30] MEDS: DEXAMETHASONE SOD PHOSPHATE 10 MG/1 ML VIAL IVPUSH SCH (10:19)
[2021-07-30] MEDS: POTASSIUM CHLORIDE TABS 20 MEQ TABLET.ER (FP) PO SCH (10:19)
[2021-07-30] MEDS: ENOXAPARIN NA (PORCINE) 40 MG/0.4 ML DISP.SYRIN SQ SCH (10:19)
[2021-07-30] MEDS: BUDESONIDE/FORMETEROL FUMARATE 80/4.5 mcg INHALER IH SCH (10:20)
[2021-07-30 15:53] VITALS: BP 128/74; TEMP 97.3
== END 2021-07-30 17:17 | disposition home health service (06) | DRG 177 ==
LOC: JER 17:00 → JERBED 20:17 → J4S 07-25 04:30
PROVIDERS: ADMIT Specialist; ATTEND Specialist
PROC: XW033E5 Introduction of Remdesivir Anti-infective into Peripheral Vein, Percutaneous Approach, New Technology Group 5 (ICD-10-PCS; principal; 2021-07-25)
DX: U07.1 COVID-19 (principal); J12.82 Pneumonia due to coronavirus disease 2019; I50.33 Acute on chronic diastolic (congestive) heart failure; Z68.41 Body mass index [BMI] 40.0-44.9, adult; E87.1 Hypo-osmolality and hyponatremia; I11.0 Hypertensive heart disease with heart failure; J44.9 Chronic obstructive pulmonary disease, unspecified; E78.5 Hyperlipidemia, unspecified; E11.9 Type 2 diabetes mellitus without complications; E66.01 Morbid (severe) obesity due to excess calories; R00.1 Bradycardia, unspecified; G47.33 Obstructive sleep apnea (adult) (pediatric)
CPT/HCPCS: 36415; 71045-TC-FY; 80053; 82550; 82553; 82728; 82962; 83615; 83735; 83880; 84100; 84484; 85025; 85379; 86140; 93005; 93010; 94660; 94761; 97116-GP; 97161-GP; 99285-25; C9399; C9803; J1100; U0003; U0005

== ENCOUNTER 2024-02-04 11:18 | Inpatient (IN) | payer BC, OTHER ==
[2024-02-04 12:31] LABS: EOS % 1.8 % (0-4.5); HEMATOCRIT 37.9 % (32.4-45.2); HEMOGLOBIN 12.2 GM/dL (10.7-15.3); LYMPH % 26.4 % (8-40); MCH 30.7 pg (25.7-33.7); MCHC 32.2 g/dl (32.0-36.0); MEAN CELL VOLUME 95.1 fl (80-96); MEAN PLT VOLUME 7.3 fl (7.5-11.1); MONO % 5.8 % (3.8-10.2); PLATELET COUNT 244 10^3/uL (134-434); RBC 3.98 M/mm3 (3.60-5.2); RDW 13.2 % (11.6-15.6)
[2024-02-04 12:38] LABS: INR 1.05 (0.83-1.09); PROTHROMBIN TIME (PATIENT) 12.2 SEC (9.7-13.0)
[2024-02-04 12:41] LABS: ACTIVATED PTT 32.3 SECONDS (25.2-36.5)
[2024-02-04 15:47] LABS: POTASSIUM 4.1 mmol/L (3.5-5.1)
[2024-02-04 15:49] LABS: ALBUMIN 3.9 g/dl (3.4-5.0); BLOOD UREA NITROGEN 15.8 mg/dL (7-18); CALCIUM 9.5 mg/dL (8.5-10.1)
[2024-02-04 15:53] LABS: CREATININE 0.9 mg/dL (0.55-1.3)
[2024-02-04 15:54] LABS: BILIRUBIN,TOTAL 0.4 mg/dL (0.2-1); TOT PROT 7.7 g/dl (6.4-8.2)
[2024-02-04] MEDS ORDERED: PIPERACILLIN/TAZOB 3.375 GM 3.375 GM in DEXTROSE 5%-WATER - 50 ML IVPB SCH (18:00)
[2024-02-04] MEDS ORDERED: ROSUVASTATIN CA 5 MG TABLET ONE (22:19)
[2024-02-04] MEDS: BUDESONIDE/FORMETEROL FUMARATE 80/4.5 mcg INHALER IH SCH (22:29)
[2024-02-04] MEDS: ROSUVASTATIN CA 10 MG TABLET PO SCH (22:29)
[2024-02-05 07:25] LABS: BASO % 0.7 % (0-2.0); EOS % 2.8 % (0-4.5); HEMATOCRIT 32.2 % (32.4-45.2); HEMOGLOBIN 11.1 GM/dL (10.7-15.3); LYMPH % 35.4 % (8-40); MCH 32.1 pg (25.7-33.7); MCHC 34.4 g/dl (32.0-36.0); MEAN CELL VOLUME 93.3 fl (80-96); MEAN PLT VOLUME 7.8 fl (7.5-11.1); MONO % 5.7 % (3.8-10.2); NEUT % 55.4 % (42.8-82.8); PLATELET COUNT 204 10^3/uL (134-434); RBC 3.45 M/mm3 (3.60-5.2); RDW 13.3 % (11.6-15.6); WHITE BLOOD COUNT 6.8 K/mm3 (4.0-10.0)
[2024-02-05 07:25] LABS: INR 1.13 (0.83-1.09); PROTHROMBIN TIME (PATIENT) 13.1 SEC (9.7-13.0)
[2024-02-05 07:35] LABS: POTASSIUM 3.8 mmol/L (3.5-5.1)
[2024-02-05 07:47] LABS: BLOOD UREA NITROGEN 17.2 mg/dL (7-18)
[2024-02-05 07:50] LABS: CREATININE 0.8 mg/dL (0.55-1.3)
[2024-02-05 07:51] LABS: BILIRUBIN,TOTAL 0.4 mg/dL (0.2-1); TOT PROT 6.3 g/dl (6.4-8.2)
[2024-02-05 08:04] LABS: ALBUMIN 3.1 g/dl (3.4-5.0)
[2024-02-05] MEDS ORDERED: LISINOPRIL 20 MG TABLET ONE (08:40)
[2024-02-05] MEDS ORDERED: FUROSEMIDE 40 MG TABLET (FP) ONE (08:40)
[2024-02-05] MEDS: POTASSIUM CHLORIDE TABS 20 MEQ TABLET.ER (FP) PO SCH (08:45)
[2024-02-05] MEDS: LISINOPRIL 20 MG TABLET PO SCH (08:45)
[2024-02-05] MEDS: FUROSEMIDE 40 MG TABLET (FP) PO SCH (08:45)
[2024-02-05] MEDS ORDERED: LIDOCAINE HCL 1%, 10 MG/ML (20ML VIAL) ONE (09:50)
[2024-02-05] MEDS ORDERED: BUPIVACAINE HCL/PF 0.5% (5MG/ML) 10 ML VIAL ONE (09:50)
[2024-02-05] MEDS: LIDOCAINE HCL 1%, 10 MG/ML (50 mL VIAL) INF ONE (10:08)
[2024-02-05] MEDS: BUPIVACAINE HCL/PF 0.5% (5 MG/ML) 30 ML VIAL IJ ONE (10:08)
[2024-02-05] MEDS ORDERED: VANCOMYCIN 1,000 MG VIAL (RESTRICTED TO ID ONLY) ONE (10:34)
[2024-02-05] MEDS: VANCOMYCIN/WATER FOR INJ (PEG) 1,000 MG/200 ML BAG IVPB ONE ×2 (10:40→16:18)
[2024-02-05] MEDS: VANCOMYCIN 1,000 MG VIAL (RESTRICTED TO ID ONLY) IVPB ONE (10:40)
[2024-02-05] MEDS: PIPERACILLIN/TAZOB 3.375 GM 3.375 GM in DEXTROSE 5%-WATER - 50 ML IVPB SCH ×2 (16:18→18:07)
[2024-02-05 17:15] VITALS: BMI 39.4
[2024-02-05] MEDS ORDERED: PIPERACILLIN/TAZOB 3.375 GM 3.375 GM in DEXTROSE 5%-WATER - 50 ML IVPB SCH (18:00)
[2024-02-05] MEDS: HEPARIN NA (PORCINE) 5,000 UNITS/ML 1ML VIAL SQ SCH (21:16)
[2024-02-05] MEDS: ROSUVASTATIN CA 10 MG TABLET PO SCH (21:16)
[2024-02-05] MEDS: BUDESONIDE/FORMETEROL FUMARATE 80/4.5 mcg INHALER IH SCH (21:16)
[2024-02-05] MEDS ORDERED: HEPARIN NA (PORCINE) 5,000 UNITS/ML 1ML VIAL SQ SCH (22:00)
[2024-02-05] MEDS: VANCOMYCIN/WATER FOR INJ (PEG) 1,000 MG/200 ML BAG IVPB SCH (23:59)
[2024-02-06] MEDS: FUROSEMIDE 40 MG TABLET (FP) PO SCH (10:00)
[2024-02-06] MEDS: LISINOPRIL 20 MG TABLET PO SCH (10:00)
[2024-02-06] MEDS: POTASSIUM CHLORIDE TABS 20 MEQ TABLET.ER (FP) PO SCH (10:00)
[2024-02-06] MEDS ORDERED: FUROSEMIDE 40 MG TABLET (FP) PO SCH (10:00)
[2024-02-07 10:09] LABS: BASO % 0.5 % (0-2.0); EOS % 3.6 % (0-4.5); HEMOGLOBIN 11.3 GM/dL (10.7-15.3); LYMPH % 20.8 % (8-40); MCH 31.5 pg (25.7-33.7); MCHC 33.4 g/dl (32.0-36.0); MEAN CELL VOLUME 94.3 fl (80-96); MEAN PLT VOLUME 7.7 fl (7.5-11.1); MONO % 5.5 % (3.8-10.2); NEUT % 69.6 % (42.8-82.8); PLATELET COUNT 225 10^3/uL (134-434); RDW 13.4 % (11.6-15.6); WHITE BLOOD COUNT 7.7 K/mm3 (4.0-10.0)
[2024-02-07 10:31] LABS: CALCIUM 9.1 mg/dL (8.5-10.1)
[2024-02-07 10:32] LABS: BLOOD UREA NITROGEN 18.2 mg/dL (7-18)
[2024-02-07 10:37] LABS: BILIRUBIN,TOTAL 0.5 mg/dL (0.2-1); TOT PROT 6.3 g/dl (6.4-8.2)
[2024-02-07] MEDS: DAPTOMYCIN 700 MG in SODIUM CHLORIDE 50 ML IVPB SCH (13:41)
[2024-02-08 07:06] VITALS: RESP 18
[2024-02-08] MEDS: CHOLECALCIFEROL (VIT D3) 1,000 UNIT (25 MCG) TABLET PO SCH (09:20)
[2024-02-08] MEDS: amLODIPine BESYLATE 5 MG TABLET (FP) PO SCH (09:21)
[2024-02-08] MEDS: ROSUVASTATIN CA 5 MG TABLET PO SCH (09:21)
[2024-02-08] MEDS: LACTOBACILLUS ACIDOPHILUS 1 TABLET PO SCH (09:21)
[2024-02-08 16:10] VITALS: BP 107/63; PULSE 73; TEMP 98.3
== END 2024-02-08 17:00 | disposition home or self-care (01) | DRG 988 ==
LOC: JER 11:18 → JERBED 13:08 → J6S 02-05 15:16
PROVIDERS: ADMIT Internal Medicine; ATTEND Internal Medicine
PROC: 0QBQ3ZX Excision of Right Toe Phalanx, Percutaneous Approach, Diagnostic (ICD-10-PCS; principal; 2024-02-05 10:30)
PROC: 02HV33Z Insertion of Infusion Device into Superior Vena Cava, Percutaneous Approach (ICD-10-PCS; 2024-02-07)
PROC: B548ZZA Ultrasonography of Superior Vena Cava, Guidance (ICD-10-PCS; 2024-02-07)
DX: E11.69 Type 2 diabetes mellitus with other specified complication (principal); I50.32 Chronic diastolic (congestive) heart failure; M86.171 Other acute osteomyelitis, right ankle and foot; E78.5 Hyperlipidemia, unspecified; I11.0 Hypertensive heart disease with heart failure
CPT/HCPCS: 0241U-QW; 36415; 36569; 73630-TC-RT-FY; 80053; 85025; 85610; 85651; 85730; 86140; 86850; 86900; 86901; 87040; 87070; 87075; 87186; 93005; 93010; 94760; 99285-25; G0480; J0878; J1644

== ENCOUNTER 2024-09-17 12:03 | Inpatient (IN) | payer BC, OTHER ==
[2024-09-17 13:39] LABS: VENOUS BASE EXCESS 5.4 mmol/L (-2-2); VENOUS O2 SATURATION 69.9 % (70-80); VENOUS PCO2 64.4 mmHg (38-52); VENOUS PH 7.329 (7.310-7.410)
[2024-09-17 13:42] LABS: BASO % 0.9 % (0-2.0); HEMATOCRIT 33.9 % (32.4-45.2); LYMPH % 19.5 % (8-40); MCH 30.8 pg (25.7-33.7); MCHC 32.3 g/dl (32.0-36.0); MEAN CELL VOLUME 95.4 fl (80-96); MEAN PLT VOLUME 7.1 fl (7.5-11.1); MONO % 6.9 % (3.8-10.2); NEUT % 69.7 % (42.8-82.8); PLATELET COUNT 295 10^3/uL (134-434); RBC 3.55 M/mm3 (3.60-5.2); WHITE BLOOD COUNT 7.4 K/mm3 (4.0-10.0)
[2024-09-17 13:49] LABS: INR 1.03 (0.83-1.09); PROTHROMBIN TIME (PATIENT) 11.6 SEC (9.7-13.0)
[2024-09-17 13:51] LABS: ACTIVATED PTT 30.8 SECONDS (25.2-36.5)
[2024-09-17 14:06] LABS: POTASSIUM 4.5 mmol/L (3.5-5.1)
[2024-09-17 14:08] LABS: ALBUMIN 3.4 g/dl (3.4-5.0); CALCIUM 9.4 mg/dL (8.5-10.1)
[2024-09-17 14:09] LABS: BLOOD UREA NITROGEN 26.3 mg/dL (7-18)
[2024-09-17 14:12] LABS: CREATININE 0.9 mg/dL (0.55-1.3); PHOSPHOROUS 2.9 mg/dL (2.5-4.9)
[2024-09-17 14:13] LABS: BILIRUBIN,TOTAL 0.3 mg/dL (0.2-1); TOT PROT 6.9 g/dl (6.4-8.2)
[2024-09-17 14:17] LABS: N-TERMINAL BNP 346.8 pg/ml (5-450)
[2024-09-17] MEDS ORDERED: CEFTRIAXONE 1 GM/50 ML BAG ONE (16:05)
[2024-09-17] MEDS ORDERED: AZITHROMYCIN IVPB 500 MG/250 ML BAG IVPB ONE (16:07)
[2024-09-17] MEDS: ENOXAPARIN NA (PORCINE) 40 MG/0.4 ML DISP.SYRIN SQ SCH (16:31)
[2024-09-17] MEDS: AZITHROMYCIN IVPB 500 MG in DEXTROSE 5%-WATER - 250 ML IVPB ONE (16:36)
[2024-09-17] MEDS: INSULIN ASPART SLIDING SCALE (NOVOLOG) 1 VIAL SQ SCH (17:40)
[2024-09-17 18:02] VITALS: BMI 48.1
[2024-09-17] MEDS: FUROSEMIDE 40 MG/4 ML INJECTABLE VIAL IVPUSH SCH (18:50)
[2024-09-17] MEDS: ALBUTEROL SO4 2.5/IPRATROPIUM 0.5 INH SOL 3 ML VIAL.NEB. NEB SCH (20:40)
[2024-09-17] MEDS: CEFAZOLIN SODIUM 2 GM VIAL IVPUSH SCH (21:53)
[2024-09-17] MEDS ORDERED: CEFAZOLIN SODIUM 2 GM in DEXTROSE 5%-WATER 100 ML IVPB SCH (22:00)
[2024-09-17] MEDS: BUDESONIDE/FORMETEROL FUMARATE 80/4.5 mcg INHALER IH SCH (22:51)
[2024-09-18 08:15] LABS: HEMATOCRIT 35.6 % (32.4-45.2); HEMOGLOBIN 11.5 GM/dL (10.7-15.3); MCHC 32.2 g/dl (32.0-36.0); MEAN CELL VOLUME 96.2 fl (80-96); MEAN PLT VOLUME 7.1 fl (7.5-11.1); PLATELET COUNT 264 10^3/uL (134-434); WHITE BLOOD COUNT 8.9 K/mm3 (4.0-10.0)
[2024-09-18 08:17] LABS: ALBUMIN 3.2 g/dl (3.4-5.0)
[2024-09-18 08:20] LABS: CREATININE 0.9 mg/dL (0.55-1.3)
[2024-09-18 08:21] LABS: BILIRUBIN,TOTAL 0.4 mg/dL (0.2-1); TOT PROT 6.5 g/dl (6.4-8.2)
[2024-09-18] MEDS ORDERED: CEFTRIAXONE 1 GM in DEXTROSE 5%-WATER - 50 ML IVPB SCH (10:00)
[2024-09-18] MEDS ORDERED: AZITHROMYCIN IVPB 250 MG in DEXTROSE 5%-WATER - 250 ML IVPB SCH (10:00)
[2024-09-18] MEDS: ROSUVASTATIN CA 5 MG TABLET PO SCH (11:39)
[2024-09-18] MEDS: amLODIPine BESYLATE 5 MG TABLET (FP) PO SCH (11:39)
[2024-09-18] MEDS: LISINOPRIL 20 MG TABLET PO SCH (11:39)
[2024-09-18] MEDS: ASPIRIN 81 MG CHEWABLE TABLETS PO SCH (18:04)
[2024-09-20 09:18] LABS: BASO % 0.5 % (0-2.0); EOS % 3.7 % (0-4.5); HEMATOCRIT 32.7 % (32.4-45.2); HEMOGLOBIN 10.9 GM/dL (10.7-15.3); LYMPH % 17.7 % (8-40); MCH 31.7 pg (25.7-33.7); MCHC 33.4 g/dl (32.0-36.0); MEAN PLT VOLUME 7.1 fl (7.5-11.1); MONO % 7.6 % (3.8-10.2); NEUT % 70.5 % (42.8-82.8); PLATELET COUNT 266 10^3/uL (134-434); RBC 3.45 M/mm3 (3.60-5.2); RDW 14.5 % (11.6-15.6); WHITE BLOOD COUNT 6.9 K/mm3 (4.0-10.0)
[2024-09-20 09:48] LABS: CALCIUM 8.5 mg/dL (8.5-10.1)
[2024-09-20 09:49] LABS: BLOOD UREA NITROGEN 27.8 mg/dL (7-18)
[2024-09-20 09:52] LABS: CREATININE 1.2 mg/dL (0.55-1.3)
[2024-09-21] MEDS: SPIRONOLACTONE 25 MG TABLET PO SCH (11:25)
[2024-09-21] MEDS: FUROSEMIDE 20 MG TABLET (FP) PO SCH (11:25)
[2024-09-21] MEDS: CEFAZOLIN 2 GM/D5W 2 GM/50 ML ML IVPB SCH (15:18)
[2024-09-22 09:15] LABS: POTASSIUM 3.8 mmol/L (3.5-5.1)
[2024-09-22 09:16] LABS: CALCIUM 9.1 mg/dL (8.5-10.1)
[2024-09-22 09:18] LABS: BLOOD UREA NITROGEN 28.9 mg/dL (7-18)
[2024-09-22] MEDS: DOXYCYCLINE HYCLATE 100 MG CAPSULE PO SCH (14:12)
[2024-09-22] MEDS: AMOX TR/POT CLAV 875MG/125MG TABLETS (FP) PO SCH (22:06)
[2024-09-23 09:55] LABS: BASO % 0.6 % (0-2.0); EOS % 4.4 % (0-4.5); HEMATOCRIT 33.1 % (32.4-45.2); HEMOGLOBIN 11.1 GM/dL (10.7-15.3); LYMPH % 10.4 % (8-40); MCH 31.7 pg (25.7-33.7); MCHC 33.5 g/dl (32.0-36.0); MEAN CELL VOLUME 94.5 fl (80-96); MEAN PLT VOLUME 7.1 fl (7.5-11.1); MONO % 7.1 % (3.8-10.2); NEUT % 77.5 % (42.8-82.8); PLATELET COUNT 287 10^3/uL (134-434); RDW 13.9 % (11.6-15.6); WHITE BLOOD COUNT 5.4 K/mm3 (4.0-10.0)
[2024-09-23 10:12] LABS: POTASSIUM 4.5 mmol/L (3.5-5.1)
[2024-09-23 10:16] LABS: BLOOD UREA NITROGEN 23.9 mg/dL (7-18)
[2024-09-24 02:17] VITALS: RESP 18
[2024-09-24 14:28] VITALS: BP 136/59; PULSE 76; TEMP 98.4
== END 2024-09-24 14:49 | disposition home or self-care (01) | DRG 291 ==
LOC: JER 12:03 → JERBED 15:45 → J7W 17:01 → OBSVTOIN 09-20 12:20 → J7W 09-21 06:55
PROVIDERS: ADMIT Internal Medicine
DX: I11.0 Hypertensive heart disease with heart failure (principal); I50.33 Acute on chronic diastolic (congestive) heart failure; J96.01 Acute respiratory failure with hypoxia; Z68.43 Body mass index [BMI] 50.0-59.9, adult; L03.115 Cellulitis of right lower limb; I50.9 Heart failure, unspecified; E78.5 Hyperlipidemia, unspecified; E11.9 Type 2 diabetes mellitus without complications; G47.33 Obstructive sleep apnea (adult) (pediatric); E66.01 Morbid (severe) obesity due to excess calories; J44.9 Chronic obstructive pulmonary disease, unspecified; E78.00 Pure hypercholesterolemia, unspecified
CPT/HCPCS: 0241U-QW; 36415; 71045-TC-FY; 71275-TC; 76604; 80048; 80053; 80061; 82803; 82962; 83036; 83735; 83880; 84100; 84443; 84484; 85025; 85027; 85610; 85730; 86850; 86900; 86901; 87070; 87186; 87205; 93005; 93010; 94640; 94761; 97116-GP; 97161-GP; 99285-25; G0378; Q9967

== ENCOUNTER 2024-12-01 18:23 | Observation (INO) | payer BC, OTHER ==
[2024-12-01 18:30] VITALS: BMI 43.3
[2024-12-01] MEDS ORDERED: ALBUTEROL SO4 2.5/IPRATROPIUM 0.5 INH SOL 3 ML VIAL.NEB. NEB ONE ×2 (18:37→19:20)
[2024-12-01 19:17] LABS: BASO % 0.4 % (0-2.0); EOS % 0.8 % (0-4.5); HEMATOCRIT 39.7 % (32.4-45.2); HEMOGLOBIN 12.4 GM/dL (10.7-15.3); LYMPH % 8.5 % (8-40); MCH 29.7 pg (25.7-33.7); MCHC 31.4 g/dl (32.0-36.0); MEAN CELL VOLUME 94.8 fl (80-96); MEAN PLT VOLUME 7.4 fl (7.5-11.1); NEUT % 85.3 % (42.8-82.8); PLATELET COUNT 249 10^3/uL (134-434); RBC 4.18 M/mm3 (3.60-5.2); RDW 14.6 % (11.6-15.6); WHITE BLOOD COUNT 9.4 K/mm3 (4.0-10.0)
[2024-12-01 19:17] LABS: VENOUS BASE EXCESS 0.4 mmol/L (-2-2); VENOUS O2 SATURATION 51.6 % (70-80); VENOUS PCO2 67.9 mmHg (38-52); VENOUS PH 7.253 (7.310-7.410)
[2024-12-01] MEDS ORDERED: methylPREDNISolone NA SUCC 125 MG/2 ML VIAL ONE (19:20)
[2024-12-01] MEDS: methylPREDNISolone NA SUCC 125 MG/2 ML VIAL IVPUSH ONE (19:21)
[2024-12-01] MEDS: ALBUTEROL SO4 2.5/IPRATROPIUM 0.5 INH SOL 3 ML VIAL.NEB. NEB ONE (19:21)
[2024-12-01 19:24] LABS: INR 0.98 (0.83-1.09); PROTHROMBIN TIME (PATIENT) 11.3 SEC (9.7-13.0)
[2024-12-01 19:26] LABS: ACTIVATED PTT 32.3 SECONDS (25.2-36.5)
[2024-12-01 19:35] LABS: POTASSIUM 4.6 mmol/L (3.5-5.1)
[2024-12-01 19:37] LABS: CALCIUM 9.1 mg/dL (8.5-10.1)
[2024-12-01 19:38] LABS: ALBUMIN 3.6 g/dl (3.4-5.0); MAGNESIUM 1.9 mg/dL (1.8-2.4)
[2024-12-01 19:43] LABS: BILIRUBIN,TOTAL 0.3 mg/dL (0.2-1); TOT PROT 7.4 g/dl (6.4-8.2)
[2024-12-01 19:57] LABS: N-TERMINAL BNP 943.9 pg/ml (5-450)
[2024-12-01] MEDS ORDERED: MAGNESIUM 1GM/D5W - 1 GM/100 ML IVPB IVPB ONE (21:04)
[2024-12-01] MEDS ORDERED: FUROSEMIDE 40 MG/4 ML INJECTABLE VIAL ONE (21:04)
[2024-12-01] MEDS: FUROSEMIDE 40 MG/4 ML INJECTABLE VIAL IVPUSH ONE (21:26)
[2024-12-01] MEDS: MAGNESIUM 1GM/D5W - 1 GM/100 ML IVPB IVPB ONE (21:26)
[2024-12-01 22:47] LABS: ARTERIAL BLD GAS O2 SATURATION 94.4 % (95-98); ARTERIAL BLOOD GAS BASE EXCESS -0.6 mmol/L (-2-2); ARTERIAL BLOOD GAS PO2 87.3 mmHg (80-100); ARTERIAL BLOOD GAS pH 7.217 (7.350-7.450)
[2024-12-01 22:48] LABS: ALLENS TEST POSITIVE
[2024-12-01 22:49] LABS: VENT MODE S/T; VENT RATE 14
[2024-12-02 03:14] LABS: EPI CELLS 3 /uL (0-25.1); HYALINE CASTS 0 /uL (0-3.1); PH,URINE 5.5 (5.0-8.0); URINE APPEARANCE CLEAR; URINE BACTERIA 3107 /uL (0-1359); URINE BILIRUBIN NEGATIVE (NEGATIVE); URINE COLOR YELLOW; URINE GLUCOSE (UA) NEGATIVE (NEGATIVE); URINE KETONE NEGATIVE (NEGATIVE); URINE LEUK ESTERASE TRACE (NEGATIVE); URINE NITRITE NEGATIVE (NEGATIVE); URINE PROTEIN NEGATIVE (NEGATIVE); URINE RBC 6 /uL (0-23.9); URINE UROBILINOGEN 0.2 mg/dL (0.2-1.0); URINE WBC 15 /uL (0-25.8)
[2024-12-02] MEDS ORDERED: FUROSEMIDE 40 MG/4 ML INJECTABLE VIAL ONE ×2 (05:19→15:28)
[2024-12-02] MEDS ORDERED: methylPREDNISolone NA SUCC 40 MG/1 ML VIAL ONE (05:19)
[2024-12-02] MEDS: methylPREDNISolone NA SUCC 40 MG/1 ML VIAL IVPUSH SCH (05:30)
[2024-12-02] MEDS: FUROSEMIDE 40 MG/4 ML INJECTABLE VIAL IVPUSH SCH (05:30)
[2024-12-02] MEDS ORDERED: FUROSEMIDE 40 MG/4 ML INJECTABLE VIAL IVPUSH SCH (06:00)
[2024-12-02] MEDS: INSULIN ASPART SLIDING SCALE (NOVOLOG) 1 VIAL SQ SCH (07:39)
[2024-12-02 07:41] LABS: HEMATOCRIT 37.8 % (32.4-45.2); HEMOGLOBIN 12.3 GM/dL (10.7-15.3); MCH 30.6 pg (25.7-33.7); MCHC 32.6 g/dl (32.0-36.0); MEAN CELL VOLUME 93.7 fl (80-96); MEAN PLT VOLUME 7.6 fl (7.5-11.1); PLATELET COUNT 268 10^3/uL (134-434); RBC 4.03 M/mm3 (3.60-5.2); RDW 14.3 % (11.6-15.6); WHITE BLOOD COUNT 6.5 K/mm3 (4.0-10.0)
[2024-12-02 07:55] LABS: POTASSIUM 4.8 mmol/L (3.5-5.1)
[2024-12-02 08:02] LABS: ALBUMIN 3.6 g/dl (3.4-5.0); CREATININE 0.9 mg/dL (0.55-1.3)
[2024-12-02 08:03] LABS: BLOOD UREA NITROGEN 21.6 mg/dL (7-18); PHOSPHOROUS 3.2 mg/dL (2.5-4.9)
[2024-12-02 08:04] LABS: BILIRUBIN,TOTAL 0.3 mg/dL (0.2-1); TOT PROT 7.5 g/dl (6.4-8.2)
[2024-12-02 08:05] LABS: CALCIUM 9.4 mg/dL (8.5-10.1); MAGNESIUM 2.1 mg/dL (1.8-2.4)
[2024-12-02] MEDS: ALBUTEROL SO4 2.5/IPRATROPIUM 0.5 INH SOL 3 ML VIAL.NEB. NEB SCH (08:26)
[2024-12-02] MEDS ORDERED: ALBUTEROL SO4 2.5/IPRATROPIUM 0.5 INH SOL 3 ML VIAL.NEB. NEB ONE ×2 (08:26→15:28)
[2024-12-02 10:30] LABS: ANISOCYTOSIS 0; MACROCYTOSIS 0
[2024-12-02] MEDS ORDERED: ENOXAPARIN NA (PORCINE) 40 MG/0.4 ML DISP.SYRIN SQ ONE ×2 (12:33→21:08)
[2024-12-02] MEDS: ENOXAPARIN NA (PORCINE) 40 MG/0.4 ML DISP.SYRIN SQ SCH (12:48)
[2024-12-02] MEDS: BUDESONIDE/FORMETEROL FUMARATE 80/4.5 mcg INHALER IH SCH (15:37)
[2024-12-02] MEDS ORDERED: ROSUVASTATIN CA 5 MG TABLET ONE (21:07)
[2024-12-02] MEDS: ROSUVASTATIN CA 10 MG TABLET PO SCH (21:09)
[2024-12-03 07:53] LABS: CALCIUM 9.8 mg/dL (8.5-10.1)
[2024-12-03 07:54] LABS: BLOOD UREA NITROGEN 28.3 mg/dL (7-18)
[2024-12-03] MEDS: SPIRONOLACTONE 25 MG TABLET PO SCH (13:35)
[2024-12-03] MEDS: CEFTRIAXONE 1 G/50 ML PREMIX 50 ML IVPB SCH (14:01)
[2024-12-04] MEDS: amLODIPine BESYLATE 5 MG TABLET (FP) PO SCH (09:56)
[2024-12-04 10:30] LABS: POTASSIUM 3.7 mmol/L (3.5-5.1)
[2024-12-04 10:37] LABS: ALBUMIN 3.7 g/dl (3.4-5.0)
[2024-12-04 10:38] LABS: BLOOD UREA NITROGEN 30.5 mg/dL (7-18); CALCIUM 9.6 mg/dL (8.5-10.1)
[2024-12-04 10:39] LABS: BILIRUBIN,TOTAL 0.6 mg/dL (0.2-1); MAGNESIUM 1.7 mg/dL (1.8-2.4)
[2024-12-04 10:40] LABS: TOT PROT 7.3 g/dl (6.4-8.2)
[2024-12-04 10:41] LABS: CREATININE 1.1 mg/dL (0.55-1.3)
[2024-12-04] MEDS: MAGNESIUM OXIDE 400 MG TABLET (FP) PO ONE ×2 (13:51→16:12)
[2024-12-04] MEDS: POTASSIUM CHLORIDE ORAL LIQUID 20 MEQ/15 ML PO ONE (16:12)
[2024-12-04 18:26] VITALS: RESP 18
[2024-12-05 08:52] LABS: CALCIUM 9.3 mg/dL (8.5-10.1)
[2024-12-05 08:53] LABS: BLOOD UREA NITROGEN 36.5 mg/dL (7-18)
[2024-12-05 08:56] LABS: CREATININE 1.2 mg/dL (0.55-1.3)
[2024-12-05 09:02] LABS: N-TERMINAL BNP 115.2 pg/ml (5-450)
[2024-12-05 14:20] VITALS: BP 128/57; PULSE 85; TEMP 99
[2024-12-06] MEDS ORDERED: FUROSEMIDE 20 MG TABLET (FP) PO SCH (10:00)
== END 2024-12-05 18:08 | disposition home or self-care (01) ==
LOC: JER 18:23 → JERBED 20:37 → J4S 12-02 22:58
PROVIDERS: ADMIT Internal Medicine; ATTEND Internal Medicine
PROC: 3E0333Z Introduction of Anti-inflammatory into Peripheral Vein, Percutaneous Approach (ICD-10-PCS; principal; 2024-12-01)
PROC: 3E033GC Introduction of Other Therapeutic Substance into Peripheral Vein, Percutaneous Approach (ICD-10-PCS; 2024-12-01)
PROC: 3E013GC Introduction of Other Therapeutic Substance into Subcutaneous Tissue, Percutaneous Approach (ICD-10-PCS; 2024-12-01)
PROC: 3E0F7SF Introduction of Other Gas into Respiratory Tract, Via Natural or Artificial Opening (ICD-10-PCS; 2024-12-01)
DX: I50.33 Acute on chronic diastolic (congestive) heart failure (principal); J44.1 Chronic obstructive pulmonary disease with (acute) exacerbation; J96.02 Acute respiratory failure with hypercapnia; E04.9 Nontoxic goiter, unspecified; E66.01 Morbid (severe) obesity due to excess calories; Z68.41 Body mass index [BMI] 40.0-44.9, adult; R06.03 Acute respiratory distress; I11.0 Hypertensive heart disease with heart failure; E78.5 Hyperlipidemia, unspecified; G47.33 Obstructive sleep apnea (adult) (pediatric); L81.4 Other melanin hyperpigmentation; I35.0 Nonrheumatic aortic (valve) stenosis; Z99.89 Dependence on other enabling machines and devices; Z99.81 Dependence on supplemental oxygen
CPT/HCPCS: 0241U-QW; 36415; 36600; 71045-TC-FY; 71250-TC; 80048; 80053; 81003; 82803; 82962; 83735; 83880; 84100; 84439; 84443; 84484; 85025; 85610; 85730; 86850; 86900; 86901; 87086; 87186; 93005; 93010; 93306-TC; 93970-TC; 94640; 94660; 97116-GP; 97161-GP; 99285-25; G0378